=== PATIENT | male | born 1965 | race Caucasian/White ===

== ENCOUNTER 2021-05-18 17:16 | Outpatient (CLI) | payer SELFPAY ==
[2021-05-18 18:10] LABS: Basophils # 0.1 10^3/uL (0.0-0.1); Basophils % 0.5 %; Eosinophils # 0.1 10^3/uL (0.0-0.8); Eosinophils % 0.9 %; Hematocrit 46.2 % (42.0-52.0); Hemoglobin 15.2 g/dL (11.7-16.6); Lymphocytes % 31.8 %; Mean Corpuscular HGB Conc 32.9 g/dL (30.0-36.0); Mean Corpuscular Hemoglobin 29.5 pg (28.0-34.0); Mean Corpuscular Volume 89.5 fL (80-94); Mean Platelet Volume 10.8 fL (7.4-10.4); Monocytes # 0.4 10^3/uL (0.2-0.9); Monocytes % 4.6 %; Neutrophils # 5.76 10^3/uL (1.8-7.7); Nucleated Red Blood Cells % 0 %; Platelet Count 228 10^3/cmm (130-400); Red Blood Count 5.16 10^6/uL (4.1-5.3); Red Cell Distribution Width 13.1 % (12.1-15.1); White Blood Count 9.3 10^3/uL (4.0-10.0)
[2021-05-18 18:41] LABS: Blood Urine 2+ (Negative); Glucose Urine UA Norm (Normal); Ketones Urine Negative (Negative); Protein Urine Neg (Negative); Specific Gravity, Urine 1.025 (1.005-1.030); Urine Appearance Clear (CLEAR); Urine Color Yellow (Yellow); pH Urine 5 (5-7)
[2021-05-18 18:42] LABS: Add Urine Culture? Yes; Add Urine Microscopic? YES; Bacteria Urine TRACE /hpf; Bilirubin Urine Neg (Negative); Leukocyte Esterase Urine 2+ (Negative); Nitrate Urine Positive (Negative); Squamous Epithelial Cell Urine 0-4 /hpf (0-5); Urobilinogen Urine Neg (Negative)
[2021-05-18 18:44] LABS: Prostate Specific Antigen 0.516 ng/mL (0-4); Thyroid Stimulating Hormone 0.76 uIU/mL (0.27-4.20)
[2021-05-18 18:56] LABS: Alanine Aminotransferase 24 U/L (0-41); Albumin Level 4.3 g/dL (3.5-5.2); Alkaline Phosphatase 56 IU/L (40-130); Aspartate Amino Transferase 22 U/L (0-40); Blood Urea Nitrogen 15 mg/dL (6-20); Calcium 9.1 mg/dL (8.5-10.5); Carbon Dioxide 23 mmol/L (22-29); Chloride 104 mmol/L (98-107); Chol HDL Ratio 3.91 mg/dL (1.0-5.00); Cholesterol 180 mg/dL (0-200); Globulin 2.3 g/dL (1.3-4.6); Glomerular Filtration Rate 116.2 mL/min (90-130); Glucose 85 mg/dL (65-115); HDL Cholesterol 46 mg/dL (60-100); LDL Cholesterol Calculated 121 mg/dL (50-129); LDL HDL Ratio 2.63 RATIO (0.00-3.22); Osmolality Calculated 290 mOsm/kg (285-295); Sodium 140 mmol/L (136-145); Total Bilirubin 0.7 mg/dL (0.15-1.2); Total Protein 6.6 g/dL (6.6-8.7); Triglycerides 65 mg/dL (0-150)
[2021-05-18 20:37] LABS: Estmated Average Glucose 97
[2021-05-18 20:53] LABS: Free T4 Free Thyroxine 1.44 ng/dL (0.82-1.77)
== END 2021-05-18 17:17 | disposition home or self-care (01) ==
LOC: LAB 17:17
PROVIDERS: Visit Provider General Practice
DX: I10 Essential (primary) hypertension (principal)
CPT/HCPCS: 80053; 80061; 81001; 83036; 84153; 84439; 84443; 85025; 87077; 87086; 87186

== ENCOUNTER 2021-07-31 07:12 | Outpatient (CLI) | payer OTHER, MEDICAID, SELFPAY ==
--- NOTE | 2021-07-31 07:23 | US_ITS ---
WS: [id number] RIGHT UPPER QUADRANT ULTRASOUND HISTORY: CHRONIC ABDOMINAL PAIN, Hematuria, recurrent UTI COMPARISON: None available. Liver: 18.1 cm in length. Liver is top normal size. Minimally complex cyst within the anterior liver measures 1.4 x 1.2 x 1.7 cm. No bile duct dilatation. Gallbladder: Normally distended gallbladder with no stones or wall thickening. CBD: 0.4 cm Pancreas: Normal size and echogenicity. Right kidney: 12.1 cm in length. Normal size and echogenicity. No hydronephrosis or mass. Aorta and IVC: Unremarkable abdominal aorta and IVC. No ascites. US/US gall bladder 57551 IMPRESSION: 1. Normal gallbladder. 2. Minimally complex hepatic cyst. No bile duct dilatation.
== END 2021-07-31 07:13 | disposition home or self-care (01) ==
LOC: RAD 07:17
PROVIDERS: Visit Provider General Practice
DX: R31.9 Hematuria, unspecified (principal); K76.89 Other specified diseases of liver; R10.9 Unspecified abdominal pain; G89.29 Other chronic pain
CPT/HCPCS: 76705

== ENCOUNTER → 2021-08-21 15:38 | Outpatient (BNVA) | payer MEDICAID, SELFPAY | PROVIDERS: PCP Family Medicine; Visit Provider Nurse Practitioner Family | DX: N39.0 Urinary tract infection, site not specified (principal) | CPT/HCPCS: 81003; 87086 ==

== ENCOUNTER → 2021-08-29 14:48 | Outpatient (BNVA) | payer MEDICAID, SELFPAY | PROVIDERS: PCP Family Medicine; Visit Provider Surgery | DX: Z20.822 Contact with and (suspected) exposure to COVID-19 (principal) | CPT/HCPCS: 87635 ==

== ENCOUNTER 2021-09-04 09:02 | Day surgery (SDC) | payer MEDICAID, SELFPAY ==
[2021-08-30 10:09] VITALS: BMI 28.7
[2021-09-04] VITALS (9 sets, daily range): BP systolic 117–135; BP diastolic 68–85; PULSE 61–84; RESP 17–18; TEMP 36.2–36.5; O2SAT 95–99
--- NOTE | 2021-09-04 10:44 | NM_ITS ---
WS: [id number] SENTINEL NODE TECHNIQUE: Upper Back sentinel node injection CLINICAL INFORMATION: mass/ left arm mass COMPARISON: None. PROCEDURE: The procedure including risks, benefits, and complications were discussed; the patient agr eed to proceed. Patient was prepped and draped in usual sterile fashion. Upper back lesion was locali zed. Subsequently, 1% lidocaine preservative-free was administered at the 12:00, 3:00, 6:00, and 9:00 o'clock positions for local anesthesia. Subsequently, 4 aliquots of filtered technetium 99m sulfur c olloid was injected into the subcutaneous soft tissues. A total dose of 0.96 mCi was administered. Patient tolerated the procedure well with no immediate complications. NM/NM sentinel node inject [id number] IMPRESSION: 1. Uncomplicated upper back sentinel node injection with a total dose of 0.96 mCi. 2. 60 minutes post injection a single right right axillary lymph node was loca lized and marked.
[2021-09-04] MEDS: sodium chloride 0.9% 1,000 ML 30 ML IV (11:30)
--- NOTE | 2021-09-04 11:51 | PC.NURSE ---
patient was injected with 0.96 mCi Tc99m Filtered Sulfur Colloid at [address] Escobar. Patient tolerated well. Imaging completed at 1150 with sentinel lymph node in the right auxilla region marked by Dr. Escobar and Zainab Mosquera.
--- NOTE | 2021-09-04 12:34 | W.PM.OPSUD ---
Surgery/Procedure H&P Update DATE OF PROCEDURE: September 04, 2021 DATE H&P PERFORMED: 08/28/21 H&P UPDATE INFORMATION: I have reviewed H&P completed within last 30 days, I have examined patient prior to procedure and Changes to prior documentation as noted here CHANGES TO PREVIOUS DOCUMENTATION: Patient decided after further talking with him that we will proceed with wide local excision of the upper back melanoma and sentinel lymph node biopsy of the right axilla. As he is concerned to be sore postoperatively on both extremities. 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
[2021-09-04] MEDS: isosulfan blue 10 mg/mL SDV 5mL SUBCUT (13:01)
[2021-09-04] MEDS: lidocaine 2% INJ 20 mL INJECTION (13:31)
--- NOTE | 2021-09-04 13:38 | P.ANESASSM_ITS ---
Pre-Anesthetic Assessment Pre-Anesthetic Assessment: Height/Weight: Height 1.78 m Weight 90.718 kg Temp Pulse Resp BP Pulse Ox 97.2 F L 61 18 135/82 98 09/04/21 10:10 09/04/21 10:10 09/04/21 10:10 09/04/21 10:10 09/04/21 10:10 Preop Diagnosis: Back melanoma and left arm basal cell carcinoma Proposed Procedure: Operation Date: 09/04/21 11:50 Proposed Procedures p [place] [id number] 06623 69149(x2) C43.9 C44.92(Not Applicable) - Edmund Palacios MD s Wide Loc Excision Left Arm Mass(Left) - Edmund Palacios MD s Sentinal Lymph Node Biopsy Injection on Back Mass(Not Applicable) - Edmund Palacios MD Was Beta Radha taken within 24 hours: N/A Was Clonidine taken within 24 hours: N/A Last intake: Intake Last Liquid Date 09/03/21 Last Liquid Time 23:00 Last Solid Date 09/03/21 Last Solid Time 22:00 Social: Social History: No alcohol and No tobacco Exam: Pre-Anes Outpt Exam: alert, oriented x 3, clear to auscultation b ilaterally and regular rate & rhythm Airway: Submandibular: WNL Cervical ROM: WNL MP: 2 Dentition: Full GI: GI: GERD Anesthetic Plan: ASA status: 2 Anesthesia: General Risk of > 500 ml blood loss (7ml/kg in children): No PFSH Anesthesia PFSH: Medical History Gross hematuria Recurrent UTI (urinary tract infection) Family History Mother , AT AGE 81 Diabetes CAD (coronary artery disease) Social History Smoking and tobacco status: current every day smoker cigarettes [ Other cigarette details: MARIJUANA ] Alcohol intake: former Marital status: Current occupational status: unemployed History of recent travel: No Data Anesthesia Cardiac Studies: No Data to Display
--- NOTE | 2021-09-04 14:57 | PM.OP ---
Operative Report Date of procedure: September 04, 2021 Pre-op Diagnosis: Back melanoma Post-op diagnosis: same Post-op Findings: [place] lymph node biopsy right axilla INVIVO 469 and ex vivo measurement 45 Wide local excision of upper midline back mass Procedure Done: 1-Right axillary sentinel lymph node dissection 2-Wide local excision of upper midline back mass 3-Elevation of bilateral back flaps Implants: 15 [place] round Osman drain right axilla Specimens removed/disposition: [place] lymph node biopsy right axilla Wide local excision of upper midline back mass showed sutures marked superior and long sutures marked right lateral Surgeon: Edmund Palacios Stock Saw Operator: Surgical techJossie Clay and Gail Circulating nurse Carolyn Tong Anesthesia: General (IMELDA Suh) Estimated blood loss (mL): 30 IV fluids (mL): 900 Condition: stable Disposition: same day Procedure: In the nuclear medicine suite, technetium 99 was injected at the site of the upper midline scar and it lit up at the right axillary lymph node basin; 1. Uncomplicated upper back sentinel node injection with a total dose of 0.96 mCi. 2. 60 minutes post injection a single right right axillary lymph node was localized and marked. Few hours later, the patient was taken to the operating room after marking the right axilla and right upper back mass by myself in the holding area also there was distinct marking by the radiology department of the right axilla, and general anesthesia was induced,Time-out was done verifying the patient's name/date of /planned procedure and destination after the procedure, all were in agreement. SCDs confirmed to be functioning, preoperative antibiotics administered per protocol, and beta sam protocol was confirmed, appropriate positioning of the patient was done by me and the staff,then a hand-held gamma probe was used to identify the location of the hottest spot which appears to be of the right axilla.Patient was placed in supine position, then was turned to be left lateral position. Lymphazurin blue dye was injected at and around the upper midline scar,this was massaged gently for 5 minutes,.patient was turned again to be in supine position .prep and drape of the right axilla was done under the usual sterile technique, incision was made over the right axilla, the probe was placed in contact with the node/stained blue, lymph node was excised in its entirety with surrounding fat. Jamie counts as follows [place] lymph node #1 in vivo 469,ex vivo 45 The above lymph node with the surrounding fat pad was passed to the circulating nurse for permanent pathology No additional hot spots were detected, or blue lymphatics were identified. No clinically abnormal nodes were palpated. Procedure was terminated at this point. Hemostasis was achieved using medium size clips and Bovie cautery, after thorough irrigation of the right axilla, I elected at this point to leave behind a 15 [place] round Osman drain following that and was delivered via the inferior fold of the wound through a separate stab and secured to the skin using 2-0 nylon,the wound was closed in layers using interrupted 3-0 Vicryl followed by 4-0 Monocryl and Dermabond. Then fluffs and foam tape. Attention now was deviated towards the right upper back scar, where the patient was then repositioned were the patient was placed in left lateral position all pressure points were padded, in addition to left axillary roll. prep and drape of upper back was done under the usual sterile technique. Skin incision was made that encompassed the previous biopsy site with at least 2 cm margin and the previous biopsy scar passed in a generous elliptical/longitudinal direction, the whole skin and subcutaneous layer including the previous biopsy site was marked by short suture superior and long suture right lateral and passed to the circulating nurse for permanent pathology. At this point I elected to raise flaps bilaterally including skin and subcutaneous in all the way to the fascial layer, to allow tension-free closure of the wound. Couple of [id number] sutures were applied for hemostasis as well as Bovie cauterization.Copious and thorough irrigation was done. Copious and thorough irrigation was then done. The wound was then closed using deep subdermal 0 Vicryl , followed by continuous 0 Prolene followed by triple antibiotic ointment and pressure dressing Double counts of sponges, needles and instruments were completed at the end of the procedure Please note the 2 surgical procedures,different surgical instruments and settings were used and every single set the count was completed at the end of the procedure. I was present for the whole entire procedure Patient was then extubated and taken to the recovery room in stable condition
[2021-09-04] MEDS: neomycin-poly-bacitracin oint 28 gm 1 APPLIC TOPICAL (15:00)
--- NOTE | 2021-09-04 16:44 | ANE.PACU2 ---
Inpatient post-anesthesia follow up: Airway intact: Yes Vital signs: Temperature 97.7 F Pulse Rate 66 Respiratory Rate 18 Blood Pressure 117/72 Pulse Oximetry 99 Oxygen Delivery Me thod Room Air Oxygen Flow Rate 8 Fraction of Inspir ed Oxygen Hydration adequate: Yes Nausea and vomiting: No Pain level: 2 Mental status: Baseline
[2021-09-04] MEDS: HYDROcodone-acetaminophen 5-325 mg Tablet 1 TAB PO (17:05)
== END 2021-09-04 17:11 | disposition home or self-care (01) ==
PROVIDERS: PCP Family Medicine; Visit Provider Surgery
PROC: (CPT 11402; principal; 2021-09-04 11:40)
PROC: (CPT 11402; 2021-09-04 11:40)
DX: C43.59 Malignant melanoma of other part of trunk (principal); F17.200 Nicotine dependence, unspecified, uncomplicated
CPT/HCPCS: 11402; 38525; 38792; 88305; 88307; A9541; J1100; J2405; J2704; J3010; J3490; J7030; Q9968

== ENCOUNTER 2021-09-19 09:27 | Outpatient (CLI) | payer MEDICAID, SELFPAY ==
--- NOTE | 2021-09-19 10:00 | NM_ITS ---
WS: [id number] NUCLEAR MEDICINE HIDA SCAN CLINICAL INFORMATION: R10.9 - Unspecified abdominal pain TECHNIQUE: Following intravenous administration of 8.1 mCi of technetium 99m mebrofenin, images of th e abdomen were obtained over the course of 60 minutes. Next, gallbladder ejection fraction was determ ined by obtaining preprandial and one-hour postprandial images of the gallbladder following oral kathleen stion of Ensure. COMPARISON: None. FINDINGS: Normal liver uptake at 5 minutes. Normal common bile duct and small bowel activity. Gallbladder is vi sualized by 10 minutes. No evidence of acute cholecystitis. Gallbladder ejection fraction 75% within normal limits. No evidence of chronic cholecystitis. NM/NM hepatobiliary w phar* [id number] IMPRESSION: 1. No evidence of acute or chronic cholecystitis. 2. Gallbladder ejection fraction 75% within normal limits.
== END 2021-09-19 09:28 | disposition home or self-care (01) ==
PROVIDERS: PCP Family Medicine; Visit Provider Surgery
DX: R10.9 Unspecified abdominal pain (principal)
CPT/HCPCS: 78227; A9537

== ENCOUNTER 2021-09-22 07:42 | Outpatient (CLI) | payer MEDICAID, SELFPAY ==
--- NOTE | 2021-09-22 07:47 | USCV_ITS ---
Giovanni Mcgill Age: 55 Gender: M : 1965 Exam Date: 09/22/2021 07:55 Ordering Phys: Cj Black MD Technologist: Lola Vines Exam Location: [facility] [place] Indication: SYSTOLIC MURMUR BP: 118 / 68 HR: 71 Rhythm: Sinus Technical Quality: Adequate MEASUREMENTS (Male / Female) Normal Values 2D ECHO LV Diastolic Diameter PLAX 4.5 cm 4.2 - 5.9 / 3.9 - 5.3 cm LV Systolic Diameter PLAX 2.3 cm LV Chamber Size 4.6 cm IVS Diastolic Thickness 1.6 cm 0.6 - 1.0 / 0.6 - 0.9 cm IVS Systolic Thickness 1.9 cm LVPW Diastolic Thickness 1.4 cm 0.6 - 1.0 / 0.6 - 0.9 cm LVPW Systolic Thickness 2.1 cm RV Chamber Size 2.8 cm LVOT Diameter 2.0 cm LV Ejection Fraction 2D Teich 80.7 % LV Ejection Fraction MOD 2C 69.2 % LV Ejection Fraction 2C AL 69.6 % LA Diameter 3.4 cm LA Width 4.5 cm LA Height 4.3 cm RA Width 3.1 cm RA Height 3.7 cm Aorta at Sinotubular Diameter 3.6 cm M-MODE Aortic Annulus Diameter 4.3 cm LA Ao Ratio MM 0.9 DOPPLER AV Peak Velocity 314.3 cm/s LVOT Peak Velocity 88.3 cm/s AV Area Cont Eq vti 0.9 cm squared AV Area Cont Eq pk 0.9 cm squared MV Area PHT 3.1 cm squared Mitral E to A Ratio 1.0 MV E' Velocity 42.0 cm/s Mitral E to MV E' Ratio 11.7 Mitral E to LV E' Lateral Ratio 11.2 Mitral E to LV E' Septal Ratio 12.2 TR Peak Velocity 228.3 cm/s TR Peak Gradient 20.8 mmHg TR Mean Velocity 181.3 cm/s TR Mean Gradient 13.7 mmHg TR Velocity Time Integral 59.9 cm TV Peak E Velocity 67.0 cm/s Right Atrial Pressure 3.0 mmHg Pulmonary Artery Systolic Pressu 23.8 mmHg PV Peak Velocity 63.0 cm/s RV Acceleration Time 0.2 s RV Ejection Time 0.4 s RV AcT/ET 0.5 FINDINGS Left Ventricle Normal left ventricular cavity size. Normal left ventricular systolic function. No regional wall motion abnormalities. Left ventricular ejection fraction is estimated at 60 %. Grade I/IV diastolic dysfunction (abnormal relaxation filling pattern), normal to mildly elevated filling pressures. Right Ventricle The right ventricle is normal in size and function. Right Atrium The right atrium is normal in size. Left Atrium The left atrium is normal in size. Mitral Valve Structurally normal mitral valve without significant stenosis or prolapse. There is no mitral regurgitation. Aortic Valve Severe aortic valve calcification. Severe aortic valve stenosis, mean gradient 24.5 mmHg, CHARITY 0.88 cm squared.no aortic valve regurgitation. Tricuspid Valve Structurally normal tricuspid valve without significant stenosis or regurgitation. Pulmonary artery systolic pressure is normal. Pulmonic Valve Structurally normal pulmonic valve without significant stenosis. There is no pulmonic regurgitation. Pericardium Normal pericardium without effusion. Aorta Normal ascending aorta dimension. CONCLUSIONS 1-Normal left ventricular cavity size. Normal left ventricular systolic function. No regional wall motion abnormalities. Left ventricular ejection fraction is estimated at 60 %. Grade I/IV diastolic dysfunction (abnormal relaxation filling pattern), normal to mildly elevated filling pressures. 2-Severe aortic valve calcification. Severe aortic valve stenosis, mean gradient 24.5 mmHg, CHARITY 0.88 cm squared.no aortic valve regurgitation. 3-There is no pericardial effusion. 4-Pulmonary artery systolic pressure is within normal limits. 5-Right atrial pressure is around 5 mm of mercury. 6-There are no prior echocardiogram studies to compare. Nile Reynoso MD (Electronically Signed) Final Date: 23 September 2021 15:11 S
== END 2021-09-22 07:43 | disposition home or self-care (01) ==
PROVIDERS: PCP Family Medicine; Visit Provider Family Medicine
DX: R01.1 Cardiac murmur, unspecified (principal); I70.0 Atherosclerosis of aorta
CPT/HCPCS: 93306

== ENCOUNTER 2021-09-26 06:59 | Outpatient (CLI) | payer MEDICAID, SELFPAY ==
--- NOTE | 2021-09-26 07:00 | CT_ITS ---
WS: [id number] CT ABDOMEN PELVIS TECHNIQUE: Noncontrast CT of the abdomen and contrast-enhanced CT of the abdomen and pelvis with snow nal and sagittal reformatted images. CLINICAL INFORMATION: GROSS HEMATURIA COMPARISON: None. DLP: 2821.[address] scans at [facility] use at least one of these dose optimization techniques: automated e xposure control; mA and/or kV adjustment per patient size (includes targeted exams where dose is matc hed to clinical indication); or iterative reconstruction. FINDINGS: Adrenal glands are normal. Normal renal parenchymal enhancement. No hydronephrosis. A few small right simple intraparenchymal cyst. No obstructing renal parenchymal calculi. A few tiny nonobstructing ca lyceal tip renal parenchymal calculi. Normal ureteral excretion on the delayed imaging. No obstructing ureteral calculi. Duplicated right r enal collecting system. 2 ureters in the right merge into one ureter distally. A few tiny focal filli ng defects in the right upper ureter and similar-appearing lesions in the left ureter upper two third s. No obstructing lesions. Lung bases are well aerated. Right hepatic cyst measuring 13 mm. Normal spleen. Normal pancreas. Norm al portal vein and splenic vein. Normal gallbladder. Normal pancreatic parenchymal enhancement. Adren al glands are normal. Normal caliber abdominal aorta. Prostate calcification. No evidence of high-grade small or large bowel obstruction. Tiny fat-containi ng hernia with a small loop of herniated small bowel. No obstruction. No abdominal or pelvic lymphade nopathy. No inguinal lymphadenopathy. CT/CT abdomen pelvis wo/w [id number] IMPRESSION: 1. Normal bilateral renal parenchymal enhancement. No hydronephrosis. 2. Duplicated right renal collecting system with 2 ureters extending down to t he pelvis merging into one ureter distally. No obstructing renal or ureteral ca lculi. 3. Several tiny endoluminal or urothelial filling defects in the upper pole ri ght ureter and less prominent in the left ureter mainly in the upper two thirds . This is nonspecific and recommend further evaluation with ureteroscopy and sa mpling. TCC not excluded. 4. Small right renal cyst. 5. Right hepatic cyst measuring 13 mm. 6. Fat-containing umbilical hernia with a small herniated neck along small bow el. No obstruction. 7. Prostate calcification.
[2021-09-26] MEDS: iohexol 300 mg/mL 100 mL Btl IV (07:39)
== END 2021-09-26 07:00 | disposition home or self-care (01) ==
LOC: CT 07:00
PROVIDERS: PCP Family Medicine; Visit Provider Urology
DX: R31.0 Gross hematuria (principal); N39.0 Urinary tract infection, site not specified; N42.0 Calculus of prostate; K42.9 Umbilical hernia without obstruction or gangrene; K76.89 Other specified diseases of liver
CPT/HCPCS: 74178; 81003; 87086

== ENCOUNTER → 2021-10-03 14:49 | Outpatient (BNVA) | payer MEDICAID, SELFPAY | PROVIDERS: PCP Family Medicine; Visit Provider Nurse Practitioner Family | DX: Z11.59 Encounter for screening for other viral diseases (principal); Z91.89 Other specified personal risk factors, not elsewhere classified | CPT/HCPCS: 80053; 86705; 86706; 87340; 87522; 87902 ==

== ENCOUNTER → 2021-11-13 10:46 | Outpatient (BNVA) | payer MEDICAID, SELFPAY | PROVIDERS: PCP Family Medicine; Visit Provider Surgery | DX: Z20.822 Contact with and (suspected) exposure to COVID-19 (principal); R10.9 Unspecified abdominal pain | CPT/HCPCS: 87635 ==

== ENCOUNTER 2021-11-16 06:04 | Day surgery (SDC) | payer MEDICAID, SELFPAY ==
[2021-11-16 06:26] VITALS: BP 138/81; PULSE 86; RESP 18; TEMP 36.6; O2SAT 96
--- NOTE | 2021-11-16 06:26 | W.PM.OPSFHP ---
Same Day Surgery H&P Indication for Procedure/HPI DATE OF PROCEDURE: November 16, 2021 CHIEF COMPLAINT/INDICATIONFOR SURGICAL PROCEDURE: Abdominal pain PREOP DIAGNOSIS: Back melanoma with history of abdominal pain PLANNED PROCEDURE: Operation Date: 11/16/21 07:00 Proposed Procedures p EGD 48474 K21.9(Not Applicable) - Edmund Palacios MD s Colonoscopy 25688 R10.9(Not Applicable) - Edmund Palacios MD This is a pleasant 56 years old gentleman with history of back melanoma. He presented initially with abdominal pain associated with bloating and loose stools alternating with constipation. Pain is mostly sharp mostly on the right side of the abdomen gets worse with driving or any other activity or eating. Gets better with some medications. Patient comes today for diagnostic EGD and colonoscopy ROS All systems have been reviewed negative except as per the above or per problem list Medications/Allergies* Home Medications Medication Instructions Recorded Confirmed Type dicyclomine 20 mg tablet 20 mg PO TID 08/14/21 11/16/21 History omeprazole 20 mg capsule,delayed 20 mg PO DAILY 08/14/21 11/16/21 History release Allergies/Adverse Reactions Allergy/AdvReac Type Severity Reaction Status Date / Time No Known Allergies Allergy Verified 11/15/21 08:06 Pertinent History/Comorbid Conditions* Medical History (Updated 10/17/21 @ 14:43 by Kendrick Staley M.D) Gross hematuria Hypertension Incomplete bladder emptying Recurrent UTI (urinary tract infection) Surgical History (Updated 09/24/21 @ 11:06 by Tony Stephens MD) History of carpal tunnel surgery History of knee surgery Family History (Updated 10/17/21 @ 08:49 by Estelita Vazquez RN) Mother, AT AGE 81 Diabetes Mother CAD (coronary artery disease) Mother Depression Mother Father Sister Heart disease Father Brother Sister Hypercholesteremia Mother Hypertension Mother Brother Sister Social History Smoking and tobacco status: never smoked Alcohol intake: never Marital status: Current occupational status: unemployed History of recent travel: No Pertinent Exam Findings alert, oriented x 3, regular rate & rhythm and procedure specific exam findings (Abdominal examination nontender nondistended soft) Recommendations Surgery/Procedure today (Diagnostic EGD and colonoscopy) Other Plans: Plan of care; After thorough history and physical examination and reviewing the chart, plan to perform a diagnostic esophagogastroduodenoscopy and diagnostic colonoscopy with possible biopsy and possible polypectomy. I discussed with the patient in detail the risks,benefits,alternatives and indications.The risk of aspiration, bleeding, soft tissue injury, perforation of the stomach/esophagus/colon and other potential concomitant complications were explained to the patient in details also the potential need for Thoracotomy and or Laproscoy/Laparotomy to repair any related complications including but not limited to colectomy and or Closotomy. The patient understood this well and did agree to proceed. Rationale was carefully and clearly discussed with the patient.Appropriate informed consent have been reviewed and signed Verbal and written Instructions were given to the patient for colonoscopy prep Coding Level of Care Code Acute Transportation Worker for Alex Ashton
[2021-11-16] MEDS: sodium chloride 0.9% 1,000 ML 30 ML IV (06:37)
--- NOTE | 2021-11-16 07:00 | ECG_ITS ---
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
[2021-11-16] MEDS: cetacaine Spray 5 gm Can 1 SPRAY TOPICAL (07:45)
--- NOTE | 2021-11-16 08:09 | P.ANESASSM_ITS ---
Pre-Anesthetic Assessment Height/Weight: Height 1.78 m Weight 92.079 kg Temp Pulse Resp BP Pulse Ox 97.8 F 86 18 138/81 96 11/16/21 06:26 11/16/21 06:26 11/16/21 06:26 11/16/21 06:26 11/16/21 06:26 Preop Diagnosis: Abdominal pain Operation Date: 11/16/21 07:00 Proposed Procedures p EGD 60967 K21.9(Not Applicable) - Edmund Palacios MD s Colonoscopy 45869 R10.9(Not Applicable) - Edmund Palacios MD Familial anesthetic complications: none Last intake: Intake Last Liquid Date 11/15/21 Last Liquid Time 00:00 Last Solid Date 11/14/21 Last Solid Time 00:00 Social No alcohol and No tobacco daily cannibus use Pulmonary Sleep Apnea non-compliant with CPAP mask. CV/HEM Stable Angina and Hypertension severe 0.8 - called braille typist and obtained EKG. Patient tolerated GA 4 month prior, agreed it is reasonable to proceed with caution. patient accepts risk. None reported Hepatic Hepatitis haven't received treatment. GI Gastroesophageal Reflux Disease [facility] [place] Lower Back Pain Neuropsych Anxiety, Depression and Neuropathy Anesthetic Plan ASA status: 3 Medications/Allergies Home Medications Medication Instructions Recorded Confirmed Last Taken Type dicyclomine 20 mg tablet 20 mg PO TID 08/14/21 11/16/21 11/15/21 History omeprazole 20 mg capsule,delayed 20 mg PO DAILY 08/14/21 11/16/21 11/15/21 History release tamsulosin 0.4 mg capsule 0.8 mg PO DAILY #180 cap 09/26/21 11/16/21 11/15/21 Rx Allergies Allergy/AdvReac Type Severity Reaction Status Date / Time No Known Allergies Allergy Verified 11/15/21 08:06 Current Medications Generic Name Dose Route Start Last Admin Trade Name Freq PRN Reason Stop Dose Admin Sodium Chloride 1,000 mls @ 30 mls/hr 11/16/21 06:15 11/16/21 06:37 Sodium Chloride 0.9% IV 11/17/21 06:14 30 mls/hr .Q24H CARRI Administration PFSH Anesthesia Medical History (Updated 10/17/21 @ 14:43 by Kendrick Staley M.D) Gross hematuria Hypertension Incomplete bladder emptying Recurrent UTI (urinary tract infection) Surgical History History of carpal tunnel surgery History of knee surgery Family History Mother , AT AGE 81 Diabetes CAD (coronary artery disease) Depression Hypertension Hypercholesteremia Father Heart disease Depression Brother Heart disease Hypertension Sister Depression Heart disease Hypertension Social History Smoking and tobacco status: never smoked Alcohol intake: never Marital status: Current occupational status: unemployed History of recent travel: No Data Anesthesia Cardiac Studies: Echocardiogram 09/22/21
[2021-11-16 08:41] VITALS: BP 126/89; PULSE 73; RESP 16; TEMP 36.2; O2SAT 98
[2021-11-16 08:59] VITALS: BP 126/89; PULSE 71; RESP 18; O2SAT 98
--- NOTE | 2021-11-16 14:10 | ANE.PACU2 ---
Inpatient post-anesthesia follow up: Airway intact: Yes Vital signs: Temperature 97.2 F Pulse Rate 71 Respiratory Rate 18 Blood Pressure 126/89 Pulse Oximetry 98 Oxygen Delivery Me thod Room Air Oxygen Flow Rate 3 Fraction of Inspir ed Oxygen Hydration adequate: Yes Nausea and vomiting: No Pain level: 1 Mental status: Baseline
== END 2021-11-16 09:14 | disposition home or self-care (01) ==
PROVIDERS: PCP Family Medicine; Visit Provider Surgery
PROC: 0DJ08ZZ Inspection of Upper Intestinal Tract, Via Natural or Artificial Opening Endoscopic (ICD-10-PCS; CPT 43235; principal; 2021-11-16 07:00)
PROC: 0DJD8ZZ Inspection of Lower Intestinal Tract, Via Natural or Artificial Opening Endoscopic (ICD-10-PCS; CPT 45378; 2021-11-16 07:00)
DX: R10.9 Unspecified abdominal pain (principal); K21.9 Gastro-esophageal reflux disease without esophagitis; K57.30 Diverticulosis of large intestine without perforation or abscess without bleeding; G47.30 Sleep apnea, unspecified; Z91.19 Patient's noncompliance with other medical treatment and regimen; I10 Essential (primary) hypertension; Z86.19 Personal history of other infectious and parasitic diseases; F41.9 Anxiety disorder, unspecified; F32.9 Major depressive disorder, single episode, unspecified
CPT/HCPCS: 43235; 45378; 93005; J2704; J3490; J7030

== ENCOUNTER 2021-12-05 12:18 | Outpatient (CLI) | payer MEDICAID, SELFPAY ==
--- NOTE | 2021-12-05 17:57 | ONC CON_ITS ---
Dr. Prescott New Patient Note Patient: Giovanni Mcgill Unit #: [id number]: 1965 Dicatated By: Marcin Prescott M.D.Date of Visit: Dec 05, 2021 Onc MED New Patient/Consult Referring Physician: Dr. ETHAN BOSS M.D. Chief Complaint: Melanoma. 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 On 08/04/2021 he underwent biopsies of upper right arm and upper mid back skin lesions by his primary care provider, Dr. Cj Black. The upper right arm lesion was invasive well-differentiated squamous cell carcinoma which measured 1.1 x 1.1 x 0.4 cm. The lateral resection margins appeared free, but the deep margin was positive. The upper back lesion was a superficial spreading malignant melanoma which measured 0.7 x 0.7 cm. The resection margins appeared free of involvement. The Breslow depth was estimated at 1.1 mm, though it was noted that the measurement was challenging due to extension/involvement of adnexa. It was not ulcerated, and it was thus reported as a pT2a lesion. On 08/21/[address] Roger, and at that time he underwent shave biopsy of a 0.5 x 0.5 cm lesion on the left arm. That pathology was consistent with basal cell carcinoma, superficial and nodular type, extending to the base. On 09/04/2021 he underwent wide excision of the upper back melanoma and right axillary sentinel lymph node biopsy. Pathology on the wide excision showed no residual melanoma. The axillary sentinel lymph node biopsy showed no involvement in 5 lymph nodes. He has since then had ongoing follow-up with Dr. Boss in regard to chronic abdominal pain. His colonoscopy on 11/16/2021 showed a single medium diverticulum in the distal sigmoid colon. There were no other abnormal findings. A previous gallbladder ultrasound from 07/31/2021 showed normal gallbladder and a minimally complex hepatic cyst. His further evaluation included a nuclear medicine HIDA scan on 09/19/2021 which showed normal gallbladder ejection fraction at 75% and no evidence of acute or chronic cholecystitis. CT of the abdomen/pelvis on 09/26/2021 showed duplicated right renal collecting system and several tiny endoluminal or urothelial filling defects in the upper pole of the right ureter. A right hepatic cyst measured 13 mm. There was evidence of a fat-containing umbilical hernia with a small herniated neck along the small bowel. There were no acute findings. At this point he is planned to have additional surgeries, including complete excisions of the squamous cell and basal cell skin cancers and excision of a recurrent lipoma on the left forearm, pending additional cardiac evaluation and clearance. He is seen now in regard to the malignant melanoma. His main complaint is that he has been having significant postprandial pain in the lower abdomen along with abdominal bloating. It does seem to vary somewhat depending on what he eats, and he currently is trying a gluten-free diet. He has been avoiding milk products. His bowel function has tended to vary between constipation and diarrhea. He has not had nausea/vomiting, but he does report having acid reflux symptoms. His weight has been stable. He complains that he does not have the strength and go that he would like to have. His ECOG score is 1. He has sinus congestion/drainage, and he indicates that it has been a long-time major issue for him. He has chronic cough. He is short of breath at times. He sometimes has pain in the substernal area or left chest area. He has multiple complaints with bladder function, and he has been seeing Dr. Stephens. He reports having pain in his right shoulder and side, and he also has chronic low backache. He occasionally has headache. He does not complain of dizziness. Reports having numbness/tingling intermittently. He has anxiety and depression, and he complains that he does not sleep well at night. Past Medical History: His medical history includes anxiety, depression, gastroesophageal reflux disease, hepatitis C, history of recurrent urinary tract infection, and hypertension. Past Surgical History: He underwent biopsies of upper right arm and upper mid back skin lesions on 08/04/2021 and he underwent shave biopsy of left arm skin lesion on . He then underwent wide excision of upper back melanoma with right axillary sentinel lymph node biopsy on 09/04/2021. His other surgical/procedural history includes arthroscopic right knee surgery, carpal tunnel release on the right in 1997, and carpal tunnel release on the left with excision of left forearm nodule in 1996. Medications: 1diphenhydrAMINE HCl 1 Capsule (of 25 mg) Oral daily, Dicyclomine HCl 1 Tablet (of 20 mg) Oral four times a day, Mavyret 1 Tablet (of 100-40 mg) Oral daily, Omeprazole 1 Tablet (of 20 mg) Tablet, enteric coated Oral daily, Ondansetron HCl 1 Tablet (of 4 mg) Oral q 6 hours PRN, Tamsulosin HCl 1 Tablet (of 0.4 mg) Capsule Oral b.i.d. Allergies: No Known Allergies. Social History: Mr. Mcgill is and he is a disabled. 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 He has no history of tobacco use, but he does smoke marijuana daily. He had alcohol use as a young kid, but none since then. He denies use of other illicit drugs. Family History: Father of prostate cancer at age 84. Mother had heart disease and diabetes. She at age 81. A sister had breast cancer, currently alive at age 74. Review Of Symptoms: Constitutional - He complains that he does not have the strength and go that he would like to have. He is able to do some light work. His appetite is variable. He has some food intolerances. His weight fluctuates. He has not had fever. He sometimes feels cold at night, but at other times he wakes up sweating. ECOG score is 1, Eyes - He has had some decline in vision, ENMT - No hearing loss or tinnitus. No sinus congestion/drainage. No mouth sores. At times he has sore throat. No difficulty swallowing, Hematologic/Lymphatic - He has easy bruising, Respiratory - He is short of breath at times. He has chronic cough. No pleuritic pain or hemoptysis, Cardiovascular - He has a heart murmur. He sometimes has pain in the substernal area or in the left side of his chest. No palpitations, Gastrointestinal - He has heartburn/acid reflux. He has postprandial abdominal pain and bloating. His bowels vary between constipation and diarrhea. He has had occasional red blood in the stool, Genitourinary (M) - He has difficulty voiding and sometimes pain with voiding. He has had blood in the urine. He reports having urinary frequency, urgency, and incontinence. He has history of recurrent urinary tract infection. He sees Dr. Stephens, Musculoskeletal - He has been having pain in the right shoulder/right side. He has chronic low back pain, Integumentary - He has a dry, rough skin. He has had multiple skin cancers, Neurologic - He has occasional headache. No dizziness. Has intermittent numbness/tingling, Psychiatric - He has anxiety and depression. He does not sleep well at night. Vital Signs: Performed on Dec 05, 2021 13:48: 5, 4, 30.19 (HIGH), 2.13 sq.m, 70 in, 99 %, 73 /min, 16 /min, 122/76 mm(hg), 99.0 F (HIGH), and 210.4 lbs (HIGH). Physical Examination: Constitutional - He appears to be in reasonably good general health, Eyes - Sclerae nonicteric. Conjunctivae clear, ENMT - No lesions noted in the oral cavity, Neck - No mass or thyromegaly, Hematologic/Lymphatic - No cervical, clavicular, or axillary adenopathy, Respiratory - Lungs sound clear with good air movement bilaterally, Cardiovascular - Heart rhythm is regular. There is a III/ systolic murmur. There is no gallop or rub noted, Abdomen - Soft and non-tender. Liver and spleen are not enlarged. There is no abdominal mass or ascites noted and there is no inguinal adenopathy, Back/Spine - No spine or CVA tenderness noted, Extremities - No edema. Pedal pulses are palpable bilaterally, Integumentary - His skin is generally dry. The upper back incision appears well-healed. There are 2 small, firm subcutaneous nodules in the mid back area. There is a large, soft nodule in the upper left forearm measuring 6 x 4 cm, Neurologic - No focal neurologic deficits noted. Problem List: 1. Superficial spreading malignant melanoma, stage IB (pT2a, pN0, M0). 2. Invasive squamous cell carcinoma of the upper right arm and nodular basal cell carcinoma involving the left arm. 3. Chronic abdominal pain. 4. Hypertension. 5. GERD. 6. Hepatitis C, currently undergoing treatment. 7. Recurrent urinary tract infections in association with symptoms of bladder outlet obstruction. 8. Anxiety and depression. Problems Addressed with this Encounter and Plan: 1. Patient with superficial spreading melanoma, stage IB (T2a, N0, M0). He underwent wide excision of the melanoma and right axillary sentinel lymph node biopsy on 09/04/2021. There was no melanoma identified in the wide excision and there was no involvement in 5 axillary sentinel lymph nodes. In the setting of completely resected stage IB melanoma, there is no indication for adjuvant therapy, and he will be managed expectantly. He will be scheduled for a follow-up visit in 6 months. 2. Invasive squamous cell carcinoma involving the upper right arm and nodular basal cell carcinoma involving the left arm. He is planned for complete excision of both lesions pending cardiac evaluation/clearance. 3. He has suspected recurrent lipoma on the left forearm, and he is also planned to have that excised. Signed By: Marcin Prescott M.D. <<Signature on File>>
== END 2021-12-05 12:19 | disposition home or self-care (01) ==
LOC: ONCMED 12:19
PROVIDERS: PCP Family Medicine; Visit Provider Internal Medicine Medical Oncology
DX: C43.59 Malignant melanoma of other part of trunk (principal); C44.629 Squamous cell carcinoma of skin of left upper limb, including shoulder; F41.9 Anxiety disorder, unspecified; F32.A Depression, unspecified; K21.9 Gastro-esophageal reflux disease without esophagitis; B19.20 Unspecified viral hepatitis C without hepatic coma; I10 Essential (primary) hypertension; Z79.899 Other long term (current) drug therapy
CPT/HCPCS: 99204

== ENCOUNTER → 2021-12-11 10:39 | Outpatient (BNVA) | payer MEDICAID, SELFPAY | PROVIDERS: PCP Family Medicine; Visit Provider Nurse Practitioner Family | DX: I35.0 Nonrheumatic aortic (valve) stenosis (principal); Z09 Encounter for follow-up examination after completed treatment for conditions other than malignant neoplasm | CPT/HCPCS: 99213; 99214 ==

== ENCOUNTER → 2021-12-15 11:18 | Outpatient (BNVA) | payer MEDICAID, SELFPAY | PROVIDERS: PCP Family Medicine; Visit Provider Nurse Practitioner Family | DX: B19.20 Unspecified viral hepatitis C without hepatic coma (principal) | CPT/HCPCS: 87522 ==

== ENCOUNTER 2022-02-14 07:38 | Outpatient (CLI) | payer MEDICAID, SELFPAY ==
--- NOTE | 2022-02-14 07:54 | USCV_ITS ---
Giovanni Mcgill Age: 56 Gender: M : 1965 Exam Date: 02/14/2022 08:02 Ordering Phys: Brenda Herndon Technologist: Amandeep Celis Exam Location: [facility] – [place] Indication: as BP: 140 / 85 HR: 72 Rhythm: Sinus Technical Quality: Good MEASUREMENTS (Male / Female) Normal Values 2D ECHO LV Diastolic Diameter PLAX 4.5 cm 4.2 - 5.9 / 3.9 - 5.3 cm LV Systolic Diameter PLAX 3.0 cm IVS Diastolic Thickness 1.1 cm 0.6 - 1.0 / 0.6 - 0.9 cm IVS Systolic Thickness 1.6 cm LVPW Diastolic Thickness 1.2 cm 0.6 - 1.0 / 0.6 - 0.9 cm LVPW Systolic Thickness 1.4 cm LVOT Diameter 2.0 cm LV Ejection Fraction 2D Teich 62.4 % LV Ejection Fraction MOD 2C 83.2 % LV Ejection Fraction 2C AL 83.3 % LA Diameter 3.6 cm LA Width 3.8 cm Aorta at Sinotubular Diameter 3.2 cm M-MODE Aortic Annulus Diameter 3.9 cm LA Ao Ratio MM 1.0 MV E Point Septal Separation 0.6 cm DOPPLER AV Peak Velocity 420.0 cm/s LVOT Peak Velocity 92.0 cm/s AV Area Cont Eq vti 0.7 cm squared AV Area Cont Eq pk 0.7 cm squared MV Area PHT 5.0 cm squared Mitral E to A Ratio 1.0 MV E' Velocity 52.5 cm/s Mitral E to MV E' Ratio 10.3 Mitral E to LV E' Lateral Ratio 9.1 Mitral E to LV E' Septal Ratio 12.2 TR Peak Velocity 266.3 cm/s TR Peak Gradient 28.4 mmHg TV Peak E Velocity 104.0 cm/s Right Atrial Pressure 3.0 mmHg Pulmonary Artery Systolic Pressu 31.4 mmHg PV Peak Velocity 93.0 cm/s FINDINGS Left Ventricle Normal left ventricular size. LV systolic function is normal with EF of 55-60%. No regional wall motion abnormalities. Right Ventricle The right ventricle is normal in size and function. Right Atrium The right atrium is normal in size. Left Atrium The left atrium is normal in size. Mitral Valve Structurally normal mitral valve without significant stenosis or prolapse. There is no mitral regurgitation. Aortic Valve Aortic valve is thickened and calcified. By continuity equation, aortic valve area is 0.85 cm squared and mean gradient across aortic valve of 33 mmHg. This is consistent with moderate to severe aortic stenosis. Tricuspid Valve Structurally normal tricuspid valve without significant stenosis or regurgitation. Pulmonary artery systolic pressure is normal. Pulmonic Valve Structurally normal pulmonic valve without significant stenosis. There is no pulmonic regurgitation. Pericardium Normal pericardium without effusion. Aorta Ascending aorta is dilated CONCLUSIONS Left systolic function is normal with EF of 55-60% Aortic valve is thickened and calcified. By continuity equation, aortic valve area is 0.85 cm squared and mean gradient across aortic valve of 33 mmHg. This is consistent with moderate to severe aortic stenosis. Ascending aorta is dilated Compared to prior echocardiogram from 09/22/2021, mean gradient across the aortic valve has progressed. Kendrick Staley MD (Electronically Signed) Final Date: 18 Feb 2022 13:27 S
== END 2022-02-14 07:39 | disposition home or self-care (01) ==
LOC: RAD 07:39
PROVIDERS: PCP Family Medicine; Visit Provider Internal Medicine
DX: I35.0 Nonrheumatic aortic (valve) stenosis (principal); I77.819 Aortic ectasia, unspecified site
CPT/HCPCS: 93306

== ENCOUNTER → 2022-02-21 09:58 | Outpatient (BNVA) | payer MEDICAID, SELFPAY | PROVIDERS: PCP Family Medicine; Visit Provider Surgery | DX: C44.601 Unspecified malignant neoplasm of skin of unspecified upper limb, including shoulder (principal); R22.30 Localized swelling, mass and lump, unspecified upper limb; F17.210 Nicotine dependence, cigarettes, uncomplicated | CPT/HCPCS: 99213 ==

== ENCOUNTER → 2022-03-06 15:49 | Outpatient (BNVA) | payer MEDICAID, SELFPAY | PROVIDERS: PCP Family Medicine; Visit Provider Internal Medicine | DX: I35.0 Nonrheumatic aortic (valve) stenosis (principal); I10 Essential (primary) hypertension | CPT/HCPCS: 99214 ==

== ENCOUNTER 2022-03-20 05:40 | Day surgery (SDC) | payer MEDICAID, SELFPAY ==
[2022-03-19 13:21] VITALS: BMI 30.9
[2022-03-20 06:01] VITALS: BP 120/78; PULSE 58; RESP 18; TEMP 36.7; O2SAT 98
[2022-03-20] MEDS: sodium chloride 0.9% 1,000 ML 30 ML IV (06:01)
--- NOTE | 2022-03-20 06:14 | P.HPUD_ITS ---
Surgery/Procedure H&P Update DATE OF PROCEDURE: March 20, 2022 DATE H&P PERFORMED: 02/21/22 H&P UPDATE INFORMATION: I have reviewed H&P completed within last 30 days, I have examined patient prior to procedure and Changes to prior documentation as noted here (Patient's echocardiogram showed worsening aortic stenosis which is borderline severe now. Patient is also symptomatic. We will recommend evaluation and treatment for valve prior to general anesthesia administration f or surgery. If surgery can be performed and local anesthesia, it can be performed) PREOP DIAGNOSIS: Bilateral upper extremity masses PRIMARY INDICATION FOR PROCEDURE: The same, will hold off on the left forearm mass likely benign as patient likely will go under local MAC that typically mass would require general anesthesia. Patient agrees on the plan of care. PLANNED PROCEDURE: Operation Date: 03/20/22 07:00 Proposed Procedures p excision of bilateral upper extremity masses 90206 3x/C44.601/R2230(Bilateral) - Edmund Palacios MD
--- NOTE | 2022-03-20 06:43 | ANES.PREANE2 ---
Pre-Anesthetic Assessment Height/Weight: Height 1.78 m Weight 97.976 kg Temp Pulse Resp BP Pulse Ox 98.0 F 58 L 18 120/78 98 03/20/22 06:01 03/20/22 06:01 03/20/22 06:01 03/20/22 06:01 03/20/22 06:01 Preop Diagnosis: Bilateral upper extremity masses Operation Date: 03/20/22 07:00 Proposed Procedures p excision of bilateral upper extremity masses 20231 3x/C44.601/R2230(Bilateral) - Edmund Palacios MD Familial anesthetic complications: PONV w/ previous endoscopy Was Beta Radha taken within 24 hours: N/A Was Clonidine taken within 24 hours: N/A Last intake: Intake Last Liquid Date 03/20/22 Last Liquid Time 05:00 Last Solid Date 03/19/22 Last Solid Time 21:00 Social No alcohol and No tobacco Smokes marijuana Exam alert, oriented x 3, clear to auscultation bilaterally and regular rate & rhythm Airway Mallampati: Class III Dentition: full Pulmonary Sleep Apnea CV/HEM Hypertension Severe Aortic Stenosis None reported Hepatic Hepatitis (Hep C) GI Gastroesophageal Reflux Disease Metabolic None reported Musc/skel None reported Neuropsych None reported Anesthetic Plan ASA status: 4 Anesthesia: MAC Risk of > 500 ml blood loss (7ml/kg in children): No Medications/Allergies Home Medications Medication Instructions Recorded Confirmed Last Taken Type omeprazole 20 mg capsule,delayed 20 mg PO DAILY 08/14/21 03/19/22 03/19/22 History release tamsulosin 0.4 mg capsule 0.8 mg PO DAILY #180 cap 09/26/21 03/19/22 03/19/22 Rx ondansetron HCl 4 mg tablet 4 mg PO Q6H PRN #30 tab 11/16/21 03/20/22 Unknown Rx (Zofran) psyllium husk (aspartame) 3.4 gram 3.4 g PO DAILY #30 ea 11/16/21 03/19/22 03/19/22 Rx oral powder packet (Metamucil Fiber Singles) dicyclomine 20 mg tablet 20 mg PO QID tab 12/06/21 03/20/22 03/20/22 05:00 History Allergies Allergy/AdvReac Type Severity Reaction Status Date / Time No Known Allergies Allergy Verified 03/20/22 06:10 Current Medications Generic Name Dose Route Start Last Admin Trade Name Ander PRN Reason Stop Dose Admin Sodium Chloride 1,000 mls @ 30 mls/hr 03/20/22 06:00 03/20/22 06:01 Sodium Chloride 0.9% IV 03/21/22 05:59 30 mls/hr .Q24H CARRI Administration PFSH Anesthesia Medical History Anxiety disorder Depression Esophageal reflux Gross hematuria Hepatitis C Hypertension Incomplete bladder emptying Recurrent UTI (urinary tract infection) Surgical History History of carpal tunnel surgery History of knee surgery Family History Mother , AT AGE 81 Diabetes CAD (coronary artery disease) Depression Hypertension Hypercholesteremia Father Heart disease Depression Brother Heart disease Hypertension Sister Depression Heart disease Hypertension Social History Smoking and tobacco status: never smoked Alcohol intake: never Marital status: Current occupational status: unemployed History of recent travel: No Data Anesthesia Cardiac Studies: Echocardiogram 02/14/22
[2022-03-20] MEDS: acetaminophen 1,000 MG/100 ML PIGGYBACK 400 MG IV (06:45)
[2022-03-20] MEDS: lidocaine 2% INJ 20 mL INJECTION ×2 (07:32→07:56)
[2022-03-20] MEDS: neomycin-poly-bacitracin oint 28 gm 1 APPLIC TOPICAL (07:58)
--- NOTE | 2022-03-20 08:05 | PM.OP ---
Operative Report Date of procedure: March 20, 2022 Pre-op diagnosis: Preop Diagnosis Bilateral upper extremity masses Post-op diagnosis: History of right squamous cell carcinoma of the right arm left arm basal cell carcinoma Post-op findings: Right arm mass 4.3 x 1.5 cm Left arm mass 1 x 1 cm Procedure done: Excision of bilateral arm masses Elevation of bilateral arm skin flap including skin and subcutaneous tissue Specimens removed/disposition: Right arm mass short sutures superior and long sutures lateral Left arm mass short suture superior and left long sutures lateral Surgeon: Edmund Palacios MD Civil Defense Director: pressure testing technician Cathi Circulating nurse Sandra Anesthesia: MAC (information scientist Adry) and Local (35 mL lidocaine 2%) Estimated blood loss (mL): 10 Procedure: After identifying the patient holding area, bilateral arms were marked before the procedure by myself, patient was then taken to the operative suite, was placed in left lateral position, IV propofol was infused by the anesthesia, prophylactic IV antibiotics were given per protocol, right arm arm was prep and drape was done under the usual sterile technique. Time-out was done verifying the patient's name/date of /planned procedure and destination after the procedure, all were in agreement. After palpation of the right arm mass and, lidocaine 2% was injected generously I did an elliptical incision on top of the previous scar with appropriate safety margin. dissection was carried after the skin incision all the way to the subcutaneous tissues, superior and inferior flaps were raised to facilitate closure without tension. The mass was then all excised, short sutures marked superior and long sutures marked lateral, the specimen was then passed to the circulating nurse for permanent pathology. Thorough irrigation of the cavity was done and hemostasis, followed by deep dermal closure by 2-0 Vicryl, then 2 oh continuous nylon for skin closure followed by triple antibiotic ointment Telfa and medium sized Tegaderm. Patient was then repositioned after the drapes were taken down and new fresh gowns were placed and patient was placed on right lateral position with the left arm undergone prep and drape under the usual sterile technique. Infiltration of lidocaine 2% followed by an ellipse skin incision including the lesion with appropriate safety margin. Excision of the mass after orientation was short suture superior and long lateral long sutures. Elevate of inferior and superior flaps to facilitate tension-free closure. Followed by thorough irrigation hemostasis and 2-0 Vicryl followed by 2-0 nylon, triple antibiotic ointment Telfa and medium sized Tegaderm. The left arm mass was then passed to the circulating nurse Right arm mass 4.3 x 1.5 cm Left arm mass 1 x 1 cm Patient tolerated the procedure well, count of instruments, needles and sponges were completed at the end of the procedure. And then patient was taken to the recovery area in stable condition. I Was present for the whole entire procedure
[2022-03-20 08:11] VITALS: BP 117/86; PULSE 59; RESP 21; TEMP 36.4; O2SAT 97
[2022-03-20 08:16] VITALS: BP 116/83; PULSE 55; RESP 18; O2SAT 93
[2022-03-20 08:20] VITALS: BP 122/92; PULSE 57; RESP 18; TEMP 36.7; O2SAT 96
[2022-03-20 08:35] VITALS: BP 125/89; PULSE 58; RESP 18; TEMP 36.7; O2SAT 96
[2022-03-20] MEDS: HYDROcodone-acetaminophen 5-325 mg Tablet 1 TAB PO (08:51)
--- NOTE | 2022-03-20 17:05 | ANE.PACU2 ---
Inpatient post-anesthesia follow up: Airway intact: Yes Vital signs: Temperature 98.1 F Pulse Rate 58 Respiratory Rate 18 Blood Pressure 125/89 Pulse Oximetry 96 Oxygen Delivery Me thod Room Air Oxygen Flow Rate Fraction of Inspir ed Oxygen Hydration adequate: Yes Nausea and vomiting: No Pain level: 1 Mental status: Baseline
== END 2022-03-20 09:05 | disposition home or self-care (01) ==
PROVIDERS: PCP Family Medicine; Visit Provider Surgery
PROC: (CPT 11401; principal; 2022-03-20 07:00)
DX: C44.619 Basal cell carcinoma of skin of left upper limb, including shoulder (principal); D23.61 Other benign neoplasm of skin of right upper limb, including shoulder; G47.30 Sleep apnea, unspecified; I10 Essential (primary) hypertension; Z86.19 Personal history of other infectious and parasitic diseases; K21.9 Gastro-esophageal reflux disease without esophagitis; F41.9 Anxiety disorder, unspecified
CPT/HCPCS: 11401; 11606; 12032; 88304; J2250; J2370; J2704; J3010; J7030

== ENCOUNTER → 2022-03-23 08:54 | Outpatient (BNVA) | payer MEDICAID, SELFPAY | PROVIDERS: PCP Family Medicine; Visit Provider Internal Medicine | DX: I10 Essential (primary) hypertension (principal); B19.20 Unspecified viral hepatitis C without hepatic coma | CPT/HCPCS: 80048; 85025; 87522 ==

== ENCOUNTER 2022-03-27 09:05 | Outpatient (CLI) | payer MEDICAID, SELFPAY ==
--- NOTE | 2022-03-27 09:21 | XR_ITS ---
WS: [id number] ABDOMEN: SUPINE FILM HISTORY: RECURRENT UTI COMPARISON: CT 09/26/2021 Normal bowel gas pattern. No bony destruction. Central prostate gland calcifications. Right kidney: No renal or ureteral stone identified. Left kidney: No renal or ureteral stone identified. XR/XR KUB [id number] IMPRESSION: No renal or ureteral calcifications identified.
== END 2022-03-27 09:06 | disposition home or self-care (01) ==
LOC: RAD 09:08
PROVIDERS: PCP Family Medicine; Visit Provider Urology
DX: N39.0 Urinary tract infection, site not specified (principal)
CPT/HCPCS: 74018

== ENCOUNTER → 2022-03-27 09:45 | Outpatient (BNVA) | payer MEDICAID, SELFPAY | PROVIDERS: PCP Family Medicine; Visit Provider Urology | DX: N39.0 Urinary tract infection, site not specified (principal); N40.1 Benign prostatic hyperplasia with lower urinary tract symptoms; R31.0 Gross hematuria; R33.9 Retention of urine, unspecified; N20.9 Urinary calculus, unspecified; R93.41 Abnormal radiologic findings on diagnostic imaging of renal pelvis, ureter, or bladder | CPT/HCPCS: 51741; 51798; 81003; 99214 ==

== ENCOUNTER → 2022-04-04 11:48 | Outpatient (BNVA) | payer MEDICAID, SELFPAY | PROVIDERS: PCP Family Medicine; Visit Provider Surgery | DX: Z09 Encounter for follow-up examination after completed treatment for conditions other than malignant neoplasm (principal) | CPT/HCPCS: 99024 ==

== ENCOUNTER 2022-04-16 08:01 | Outpatient (CLI) | payer MEDICAID, SELFPAY ==
[2022-04-16 10:45] LABS: INR 0.93 (0.83-1.21); Prothrombin Time (Patient) 12.7 Seconds (12.0-15.1)
[2022-04-16 10:54] LABS: Anion Gap 13.3 (5-19); Blood Urea Nitrogen 16 mg/dL (6-20); Calcium 9.4 mg/dL (8.5-10.5); Carbon Dioxide 27 mmol/L (22-29); Chloride 105 mmol/L (98-107); Glomerular Filtration Rate 99.3 mL/min (90-130); Glucose 103 mg/dL (65-115); Osmolality Calculated 293 mOsm/kg (285-295); Potassium 4.3 mmol/L (3.5-5.1); Sodium 141 mmol/L (136-145)
== END 2022-04-16 08:02 | disposition home or self-care (01) ==
PROVIDERS: PCP Family Medicine; Visit Provider Internal Medicine
DX: I10 Essential (primary) hypertension (principal); R58 Hemorrhage, not elsewhere classified; I35.0 Nonrheumatic aortic (valve) stenosis
CPT/HCPCS: 36415; 80048; 85610

== ENCOUNTER 2022-04-18 07:12 | Outpatient (CLI) | payer MEDICAID, SELFPAY ==
[2022-04-18] VITALS (17 sets, daily range): BP systolic 98–149; BP diastolic 66–99; PULSE 50–65; RESP 8–18; TEMP 36.6; O2SAT 96–99; BMI 31.8
--- NOTE | 2022-04-18 07:30 | XACV_ITS ---
Ht: 178 cm Wt: 101 kg BSA: 2.26 m2 Gender: Male : 1965 Any Known Allergies: No known allergies Exam Priority: Routine Indication(s): - Severe aortic valve stenosis by ECHO Procedure(s): Procedure Description: Diagnostic procedure Procedure Description: Right Heart Catheterization Procedure Description: O2 saturation Procedure Description: Coronary Angiography Diagnostic Cath Status: Elective Diagnostic Findings * No significant disease noted in the Left Main, Left Anterior Descending, Right, or Circumflex coronary arteries. * Right heart cath findings: RA pressure: 14/16/13 mmHg RV pressure: 35/7/15 mmHg PA pressure: 33/18/24 mmHg PCW: 19/19/16 mmHg TP Ao sat 95% PA sat 75% RA sat 74% Cardiac output: 6.6 Cardiac index: 3 . * Valve could not be crossed. * INDICATION: Severe aortic stenosis. * Coronary angiography shows right dominance. Conclusions 1. No significant disease noted in the Left Main, Left Anterior Descending, Right, or Circumflex coronary arteries. 2. Mildly elevated right and left sided cardiac pressures. 3. Aortic valve could not be crossed. As echocardiogram shows severe aortic stenosis and patient is symptomatic, will refer for valve replacement. Recommendations * Referral for aortic valve replacement. * Continue medical therapy. * Outpatient follow-up in 4 weeks. Diagnostic RX Recommendation: other cardiac therapy w/o CABG/PCI Pressures Phase:Rest AO : / ( 6 ) @ 9:42:00 AM / ( 5 ) @ 9:56:00 AM / ( 0 ) @ 10:24:00 AM 88 / 75 ( 83 ) @ 10:31:00 AM 87 / 75 ( 82 ) @ 10:37:00 AM RV : 35 / 7 / 15 @ 10:21:00 AM PA : 33 / 18 ( 24 ) @ 10:19:00 AM RA : a wave = 14 v wave = 16 mean = 13 @ 10:22:00 AM PCW : a wave = 19 v wave = 19 mean = 16 @ 10:20:00 AM O2 Content Phase:Rest PA : O2 Content O2: 74.8 @ 10:24:00 AM Saturations Phase:Rest AO : 95 @ 9:42:00 AM RA : 74 @ 9:56:00 AM PA : 75 @ 10:24:00 AM Cardiac Output Phase:Rest Shanna : 6 @ 9:58:36 AM Shanna Cardiac Index: 3 @ 9:58:36 AM Flow Phase:Rest Qp : 6 @ 9:58:36 AM Qs : 6 @ 9:58:36 AM Clinical Evaluation EBL: 5mL-10mL Procedural Details Procedure Consent Obtained. Admit Source: Out Patient. Current Diagnosis : Chest Pain. Pre-Procedure Time Out. Identified patient by full name and date of as verbalized by the patient/guarantor. Does the consent match the physician's order: Yes. Accurate & Complete Informed Consent: Yes. Inpatient/Outpatient History & Physical on Chart: Yes. If H&P is completed, is and addenduem needed: No; If yes, is the addendum complete: N/A. Visualize and Verify Site with Patient/Guarantor: N/A. Relevant Radiology Images available: N/A. The risks, benefits, and alternatives of sedation and/or procedure were discussed by physician. The patient agrees to continue. Procedure started. [facility] Clinical Fraility Score: 3: Managing Well. Shower Maid Indications: Other; Aortic Stenosis by Echo. Chest Pain Symptom Assessment: Atypical Angina. Cardiovascular Instability: No, Stable. Correct patient, site and procedure confirmed by cath team. Current diagnosis: Chest Pain, Severe Aortic Stenosis by Echo. PERRLA. 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 Lungs clear x 5 lobes. IV Site on Arrival: 20 gauge in the right anticubital. IV Site on Arrival: 20 gauge in the left anticubital. IV Fluids: 0.9% NaCl at KVO. 0 mL infused prior to geophysical laboratory chief. Pre Procedural Pulses: bilateral dorsalis pedis was Doppled. Pre Procedural Pulses: bilateral posterior tibial was 2+. Pre Procedural Pulses: bilateral radial was 2+. Oxygen started at 0liters/min via nasal canula until RHC complete. right groin was prepped with chloroprep then draped in the usual sterile fashion. right brachial was prepped with chloroprep then draped in the usual sterile fashion. right radial was prepped with chloroprep then draped in the usual sterile fashion. Physician notified. Physician arrived. Baseline sample Acquired. HR: 55 BPM. Family updated prior to the start of the procedure. Equipment: 5F - Femoral. Heparinized Saline (2 units/mL), 1000 mL bag. Cardiac Cath Pack. [employer] Manifold Kit Model BT 2000. Equipment: 5F - Radial. Equipment: 6F - Femoral. Equipment: 6F - Radial. Physician scrubbed in. Immediate Pre-Procedure Time Out. Correct Patient: Yes; Correct Procedure: Yes; Correct Site: Yes; Correct Patient Position: Yes; Correct Supplies: Yes; Dried Flammable Prep: Yes; Blood Products Available: N/A;. Lidocaine 1% infiltrated to the right brachial. Wire inserted through the venous access in the right brachial. [place] MON catheter inserted. [place] wire inserted and advanced SWAN to position. [place] wire removed. Oximetry samples were obtained. Normal venous range: 60-85%. Normal arterial range: 95-100%. Pressure measurements obtained. Oximetry samples sent with RT for Analysis. [place] out. Lidocaine 1% infiltrated to the right radial. Arterial access obtained. A 5 turkmen TIG catheter in over wire. Multiple views taken of left coronary artery. Catheter redirected to the RCA. Unable to seat the catheter in the RCA. Catheter removed over the standard wire. A CRD 5F JR4 Diagnostic Catheter was advanced over the wire and used for Right coronary angiography. Multiple views taken of right coronary artery. Attempting to cross the valve with the JR4 catheter over the exchange wire. [place] wire out. Exchange stiff angled glidewire inserted. Glidewire out, cleaned, reinserted. JR 4 out over glidewire. A 5 turkmen AR MOD catheter in over wire. AR mod out over the glidewire. A 5 turkmen AL1 catheter in over wire. Glidewire and AL 1 removed. Physician review of films. Physician scrubbed out. A Manual Compression was successful obtaining hemostatsis at the Right Brachial Vein insertion site. A TR Band was successful obtaining hemostatsis at the Right Radial artery insertion site. TR band placed. Hemostasis obtained. Sheath(s) removed and manual pressure held until hemostasis was achieved using TR BAND for radial access and coban and 4x4's for brachial access. Sterile 4x4 and Op-site applied to the puncture site. No oozing or hematoma noted. Post sheath removal instructions were given and the patient verbalized understanding. Post Procedure: Pulses reassessed and unchanged. PERRLA. 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 No VTE prophylaxis required. Medication wase: Lidocaine 7 ml, Nitro 49.9 mg, Heparin 1000 units. Total IV fluids: 89.2 mL. Fluoro: 18:03. Contrast type used: Visipaque 320 mgI/mL, 100 mL bottle. [id number]. Post-op diagnosis: Severe Aortic Stenosis. Complications: None. Estimated blood loss: 5mL-10mL. Responsiveness - Normal response to verbal stimuli; alert and oriented, PERRLA. Airway - Unaffected, no intervention required; spontaneous ventilation. Circulation: W/N/L, pulses unchanged. Circulation: W/N/L, pulses unchanged. Nausea/Vomiting: No. Procedure completed. Vital chart was stopped. Patient transferred by wheelchair to 1st floor. Access Site Site: Right Brachial Vein Sheath Size: 6 Fr Hemostasis Method: Manual Compression Hemostasis Success: Successful Site: Right Radial artery Sheath Size: 6 Fr Hemostasis Method: TR Band Hemostasis Success: Successful Procedure Medications Start: 8:56 AM Stop: 8:56 AM Medication: Versed Amount: 1 mg Route: I.V. Start: 8:56 AM Stop: 8:56 AM Medication: Fentanyl Amount: 50 mcg Route: I.V. Start: 9:00 AM Stop: 9:00 AM Medication: Versed Amount: 1 mg Route: I.V. Start: 9:10 AM Stop: 9:10 AM Medication: Versed 1 mg and Fentanyl 25 mcg Amount: 1 Route: I.V. Start: 9:25 AM Stop: 9:25 AM Medication: Versed 1 mg and Fentanyl 25 mcg Amount: 1 Route: I.V. Start: 9:29 AM Stop: 9:29 AM Medication: Nitrogylcerin Amount: 100 mcg Route: I.A. Start: 9:30 AM Stop: 9:30 AM Medication: Heparin Amount: 5000 units Route: I.V. I, the attending physician, have reviewed and verified all procedure medications. Yes, all medications given per verbal order History/Risk Factors Hypertension: No Dyslipidemia: No Peripheral Arterial Disease (PAD): No Myocardial Infarction (DE): No Obesity: No Renal Disease: No Prior Interventions PCI: No CABG: No Valve Surgery: No Report Signatures Finalized by Kendrick Staley MD on 04/29/2022 03:05 PM
[2022-04-18 07:57] LABS: Basophils % 0.6 %; Eosinophils # 0.1 10^3/uL (0.0-0.8); Eosinophils % 1.7 %; Hematocrit 45.4 % (42.0-52.0); Lymphocytes # 1.7 10^3/uL (0.8-4.8); Lymphocytes % 24.5 %; Mean Corpuscular Hemoglobin 29.6 pg (28.0-34.0); Mean Corpuscular Volume 89.7 fl (80-94); Mean Platelet Volume 10.4 fL (7.4-10.4); Monocytes # 0.4 10^3/uL (0.2-0.9); Monocytes % 5.6 %; Neutrophils # 4.66 10^3/uL (1.8-7.7); Neutrophils % 67.3 %; Nucleated Red Blood Cells % 0 %; Platelet Count 138 10^3/cmm (130-400); Red Blood Count 5.06 10^6/uL (4.1-5.3); Red Cell Distribution Width 12.7 % (12.1-15.1); White Blood Count 6.9 10^3/uL (4.0-10.0)
[2022-04-18] MEDS: diphenhydrAMINE 50 mg Capsule PO (08:17)
--- NOTE | 2022-04-18 08:27 | W.PM.OPSFHP ---
Same Day Surgery H&P Indication for Procedure/HPI DATE OF PROCEDURE: April 18, 2022 CHIEF COMPLAINT/INDICATIONFOR SURGICAL PROCEDURE: Severe aortic stenosis PREOP DIAGNOSIS: Severe aortic stenosis PLANNED PROCEDURE: Operation Date: 04/18/22 08:30 Proposed Procedures p Cardiac Catheterization(Bilateral) - Kendrick Staley M.D 56-year-old man with severe aortic stenosis has been having chest discomfort and shortness of breath. Plan for right and left heart cath today. He has been referred for on valve replacement work-up. Medications/Allergies* Home Medications Medication Instructions Recorded Confirmed Type omeprazole 20 mg capsule,delayed 20 mg PO DAILY 08/14/21 04/18/22 History release dicyclomine 20 mg tablet 20 mg PO QID tab 12/06/21 04/18/22 History Allergies/Adverse Reactions Allergy/AdvReac Type Severity Reaction Status Date / Time No Known Allergies Allergy Verified 04/06/22 12:06 Current Medications: Generic Name Dose Route Start Last Admin Trade Name Freq PRN Reason Stop Dose Admin Sodium Chloride 1,000 mls @ 50 mls/hr 04/18/22 07:30 04/18/22 08:17 Sodium Chloride 0.9% IV 04/19/22 03:29 Not Given .Q20H ONE Pertinent History/Comorbid Conditions* Medical History (Updated 04/06/22 @ 12:06 by Edmund Palacios MD) Anxiety disorder BPH loc w urin obs/LUTS Depression Esophageal reflux Gross hematuria Hepatitis C Hypertension Incomplete bladder emptying Recurrent UTI (urinary tract infection) Urolithiasis Small bilateral lower pole nonobstructing stones on CT scan done for hematuria Surgical History (Updated 09/24/21 @ 11:06 by oTny Stephens MD) History of carpal tunnel surgery History of knee surgery Family History (Updated 10/17/21 @ 08:49 by Estelita Vazquez RN) Mother, AT AGE 81 Diabetes Mother CAD (coronary artery disease) Mother Depression Mother Father Sister Heart disease Father Brother Sister Hypercholesteremia Mother Hypertension Mother Brother Sister Social History Smoking and tobacco status: never smoked Alcohol intake: never Marital status: Current occupational status: unemployed History of recent travel: No Pertinent Exam Findings alert, oriented x 3, clear to auscultation bilaterally and regular rate & rhythm Conscious Sedation Assessment PATIENT ASSESSED PRIOR TO SEDATION, WITH NO CHANGE NOTED: Yes AIRWAY EVAL/ANESTHESIA PLAN: normal airway, ASA III, Local Anesthesia, Risks, benefits & alternatives of sedation and/or procedure discussed and Patient agrees to continue as planned ADDITIONAL INFORMATION: Moderate sedation Recommendations Surgery/Procedure today (Left heart cath + right heart cath + possible percutaneous coronary intervention) Coding Level of Care Code Acute Head Of Ethics And Compliance for Alex Ashton
[2022-04-18 09:34] LABS: ABG PCO2 51.1 mmHg (35-45); ABG PH Result 7.37 (7.35-7.45); Blood Gas Operator Identificat CAK; Blood Gas Sample Type Not specified; HCO3 ABG 29.5 mmol/L (22-26); PO2 ABG 39.6 mmHg (80.0-100.0)
[2022-04-18 09:36] LABS: ABG PCO2 52.7 mmHg (35-45); ABG PH Result 7.36 (7.35-7.45); Arterial Blood Gas Hematocrit 44.9 % (42-52); Base Excess ABG 2.9 mmol/L (-2.0-2.0); Blood Gas Operator Identificat CAK; Blood Gas Sample Type Not specified; HCO3 ABG 29.6 mmol/L (22-26); PO2 ABG 39.3 mmHg (80.0-100.0)
[2022-04-18 09:37] LABS: ABG PCO2 50.6 mmHg (35-45); ABG PH Result 7.36 (7.35-7.45); Arterial Blood Gas Hematocrit 44.6 % (42-52); Base Excess ABG 2.2 mmol/L (-2.0-2.0); Blood Gas Operator Identificat CAK; Blood Gas Sample Type Not specified; HCO3 ABG 28.7 mmol/L (22-26); PO2 ABG 75.8 mmHg (80.0-100.0)
--- NOTE | 2022-04-18 15:18 | PC.NURSE ---
dc'd pts piv. cath site dressed 2x2 and tagederm. cdi. no s/s of bleeding or hematoma. discharge isntructions given. no medication changes, follow up appointments made. pt verbalized understanding and has no further questions at this time. pt left via [place] to private vehicle.
== END 2022-04-18 15:18 | disposition home or self-care (01) ==
LOC: CCL 07:15 → CSU 09:45
PROVIDERS: PCP Family Medicine; Visit Provider Internal Medicine
DX: I35.0 Nonrheumatic aortic (valve) stenosis (principal); F41.9 Anxiety disorder, unspecified; N40.1 Benign prostatic hyperplasia with lower urinary tract symptoms; N13.8 Other obstructive and reflux uropathy; F32.9 Major depressive disorder, single episode, unspecified; I10 Essential (primary) hypertension; Z86.19 Personal history of other infectious and parasitic diseases
CPT/HCPCS: 82803; 85025; 93460; 99152; 99153; C1751; C1769; C1887; C1894; J1644; J2250; J3010; J3490; J7030; Q0163; Q9967

== ENCOUNTER → 2022-04-24 12:55 | Outpatient (BNVA) | payer MEDICAID, SELFPAY | PROVIDERS: PCP Family Medicine; Visit Provider Nurse Practitioner Family | DX: I35.0 Nonrheumatic aortic (valve) stenosis (principal) | CPT/HCPCS: 80048; 99213; 99214 ==

== ENCOUNTER → 2022-05-08 14:42 | Outpatient (BNVA) | payer MEDICAID, SELFPAY | PROVIDERS: PCP Family Medicine; Visit Provider Internal Medicine | DX: I35.0 Nonrheumatic aortic (valve) stenosis (principal); I10 Essential (primary) hypertension | CPT/HCPCS: 99214 ==

== ENCOUNTER → 2022-05-14 12:32 | Outpatient (CLI) | payer MEDICAID, SELFPAY ==
[2022-05-14] MEDS: iohexol 350 mg/mL 100 mL Btl IV (12:53)
--- NOTE | 2022-05-14 13:00 | CTR_ITS ---
PROCEDURE INFORMATION: Exam: CT Abdomen And Pelvis Without And With Contrast Exam date and time: 05/14/2022 12:48 PM Age: 56 years old Clinical indication: Abdominal pain; Other: RT flank into abd pain-chronic; Additional info: Ureteral lesions, CT abd/pelvis with and without contrast on 05/14/22 @ 115 TECHNIQUE: Imaging protocol: Computed tomography of the abdomen and pelvis without and with contrast. 3D rendering (Not supervised by radiologist): MIP and/or 3D reconstructed images were created by the technologist. Radiation optimization: All CT scans at this facility use at least one of these dose optimization techniques: automated exposure control; mA and/or kV adjustment per patient size (includes targeted exams where dose is matched to clinical indication); or iterative reconstruction. Contrast material: OMNI 350; Contrast volume: 95 ml; Contrast route: INTRAVENOUS (IV); COMPARISON: CT abdomen pelvis wo/w [id number] 09/26/2021 7:34 AM RADIATION DOSE METRICS: Total DLP (mGy-cm): 3513.16 FINDINGS: Liver: Left hepatic lobe cyst. Gallbladder and bile ducts: Normal. No calcified stones. No ductal dilation. Pancreas: Normal. No ductal dilation. Spleen: Normal. No splenomegaly. Adrenal glands: Normal. No mass. Kidneys and ureters: Right kidney lower pole nonobstructing calyceal stone. 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 Several right kidney cysts, negative for follow-up advised. Stomach and bowel: Prominent fluid in the small bowel without dilation suggestive of an enteritis. Appendix: No evidence of appendicitis. Intraperitoneal space: Unremarkable. No free air. No significant fluid collection. Vasculature: Unremarkable. No abdominal aortic aneurysm. Lymph nodes: Unremarkable. No enlarged lymph nodes. Urinary bladder: Unremarkable as visualized. Reproductive: Unremarkable as visualized. Bones/joints: Unremarkable. No acute fracture. Soft tissues: Unremarkable. CT/CT abdomen pelvis wo/w [id number] IMPRESSION: 1. Prominent fluid in the small bowel without dilation suggestive of an enteritis. 2. Left hepatic lobe cyst. 3. Right kidney lower pole nonobstructing calyceal stone. 4. Several right kidney cysts, negative for follow-up advised. 5. 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
== END ==
LOC: RAD 12:33
PROVIDERS: PCP Family Medicine; Visit Provider Urology
DX: R93.41 Abnormal radiologic findings on diagnostic imaging of renal pelvis, ureter, or bladder; R31.0 Gross hematuria; N52.9 Male erectile dysfunction, unspecified; N40.1 Benign prostatic hyperplasia with lower urinary tract symptoms; R33.9 Retention of urine, unspecified
CPT/HCPCS: 74178; 81003; 99213

== ENCOUNTER 2022-06-13 14:22 | Oncology outpatient (recurring) (ONCR) | payer MEDICAID, SELFPAY | END 2022-07-06 23:59 | disposition home or self-care (01) | PROVIDERS: Visit Provider Internal Medicine Medical Oncology | DX: C43.59 Malignant melanoma of other part of trunk (principal); I35.0 Nonrheumatic aortic (valve) stenosis; Z79.899 Other long term (current) drug therapy | CPT/HCPCS: 99213 ==

== ENCOUNTER → 2022-11-19 15:36 | Outpatient (BNVA) | payer MEDICAID, SELFPAY | PROVIDERS: PCP Family Medicine; Visit Provider Nurse Practitioner Family | DX: I10 Essential (primary) hypertension (principal); I35.0 Nonrheumatic aortic (valve) stenosis | CPT/HCPCS: 99214 ==

== ENCOUNTER 2023-01-10 15:53 | Oncology outpatient (recurring) (ONCR) | payer MEDICAID, SELFPAY | END 2023-02-03 23:59 | disposition home or self-care (01) | PROVIDERS: PCP Family Medicine; Visit Provider Nurse Practitioner Family | DX: Z08 Encounter for follow-up examination after completed treatment for malignant neoplasm (principal); Z85.820 Personal history of malignant melanoma of skin; Z98.890 Other specified postprocedural states; Z95.2 Presence of prosthetic heart valve | CPT/HCPCS: 99213 ==

== ENCOUNTER → 2023-04-15 10:08 | Outpatient (BNVA) | payer MEDICAID, SELFPAY | PROVIDERS: PCP Family Medicine; Visit Provider Nurse Practitioner Family | DX: Z95.2 Presence of prosthetic heart valve (principal) | CPT/HCPCS: 85610 ==

== ENCOUNTER → 2023-04-19 10:00 | Outpatient (BNVA) | payer MEDICAID, SELFPAY | PROVIDERS: PCP Family Medicine; Visit Provider Nurse Practitioner Family | DX: Z95.2 Presence of prosthetic heart valve (principal) | CPT/HCPCS: 85610 ==

== ENCOUNTER → 2023-04-26 08:53 | Outpatient (BNVA) | payer MEDICAID, SELFPAY | PROVIDERS: PCP Family Medicine; Visit Provider Psychiatry & Neurology Neurology | DX: Z79.01 Long term (current) use of anticoagulants (principal) | CPT/HCPCS: 85610 ==

== ENCOUNTER → 2023-05-03 09:39 | Outpatient (BNVA) | payer MEDICAID, SELFPAY | PROVIDERS: PCP Family Medicine; Visit Provider Psychiatry & Neurology Neurology | DX: Z79.01 Long term (current) use of anticoagulants (principal) | CPT/HCPCS: 85610 ==

== ENCOUNTER → 2023-05-10 08:43 | Outpatient (BNVA) | payer MEDICAID, SELFPAY | PROVIDERS: PCP Family Medicine; Visit Provider Psychiatry & Neurology Neurology | DX: I35.0 Nonrheumatic aortic (valve) stenosis (principal) | CPT/HCPCS: 85610 ==

== ENCOUNTER → 2023-05-16 09:20 | Outpatient (BNVA) | payer MEDICAID, SELFPAY | PROVIDERS: PCP Family Medicine; Visit Provider Surgery | DX: K42.9 Umbilical hernia without obstruction or gangrene (principal); K40.20 Bilateral inguinal hernia, without obstruction or gangrene, not specified as recurrent | CPT/HCPCS: 99203; 99214 ==

== ENCOUNTER → 2023-05-20 12:54 | Outpatient (BNVA) | payer MEDICAID, SELFPAY | PROVIDERS: PCP Family Medicine; Visit Provider Internal Medicine | DX: I35.0 Nonrheumatic aortic (valve) stenosis (principal); I10 Essential (primary) hypertension; Z79.01 Long term (current) use of anticoagulants | CPT/HCPCS: 99214 ==

== ENCOUNTER → 2023-05-24 08:29 | Outpatient (BNVA) | payer MEDICAID, SELFPAY | PROVIDERS: PCP Family Medicine; Visit Provider Psychiatry & Neurology Neurology | DX: I35.0 Nonrheumatic aortic (valve) stenosis (principal) | CPT/HCPCS: 85610 ==

== ENCOUNTER → 2023-06-04 13:17 | Outpatient (BNVA) | payer MEDICAID, SELFPAY | PROVIDERS: PCP Family Medicine; Visit Provider Internal Medicine | DX: Z95.2 Presence of prosthetic heart valve (principal) | CPT/HCPCS: 85610 ==

== ENCOUNTER → 2023-06-19 08:34 | Outpatient (BNVA) | payer MEDICAID, SELFPAY | PROVIDERS: PCP Family Medicine; Visit Provider Internal Medicine | DX: Z79.01 Long term (current) use of anticoagulants (principal) | CPT/HCPCS: 85610 ==

== ENCOUNTER → 2023-07-10 10:55 | Outpatient (BNVA) | payer MEDICAID, SELFPAY | PROVIDERS: PCP Family Medicine; Visit Provider Internal Medicine | DX: I35.0 Nonrheumatic aortic (valve) stenosis (principal) | CPT/HCPCS: 85610 ==

== ENCOUNTER 2023-07-15 13:00 | Oncology outpatient (recurring) (ONCR) | payer MEDICAID, SELFPAY | END 2023-08-06 23:59 | disposition home or self-care (01) | LOC: ONCMED 13:00 | PROVIDERS: PCP Family Medicine; Visit Provider Nurse Practitioner Family | DX: Z08 Encounter for follow-up examination after completed treatment for malignant neoplasm (principal); C43.59 Malignant melanoma of other part of trunk; Z98.890 Other specified postprocedural states; Z95.2 Presence of prosthetic heart valve | CPT/HCPCS: 99213 ==

== ENCOUNTER → 2023-07-17 11:53 | Outpatient (BNVA) | payer MEDICAID, SELFPAY | PROVIDERS: PCP Family Medicine; Visit Provider Internal Medicine | DX: Z95.2 Presence of prosthetic heart valve (principal) | CPT/HCPCS: 85610 ==

== ENCOUNTER → 2023-07-18 10:33 | Outpatient (BNVA) | payer MEDICAID, SELFPAY | PROVIDERS: PCP Family Medicine; Visit Provider Nurse Practitioner Family | DX: Z85.820 Personal history of malignant melanoma of skin (principal); L57.0 Actinic keratosis; Z95.2 Presence of prosthetic heart valve; D17.22 Benign lipomatous neoplasm of skin and subcutaneous tissue of left arm; D22.5 Melanocytic nevi of trunk; L82.1 Other seborrheic keratosis; L65.0 Telogen effluvium; L57.8 Other skin changes due to chronic exposure to nonionizing radiation | CPT/HCPCS: 17000; 99213 ==

== ENCOUNTER → 2023-07-24 11:20 | Outpatient (BNVA) | payer MEDICAID, SELFPAY | PROVIDERS: PCP Family Medicine; Visit Provider Internal Medicine | DX: I35.0 Nonrheumatic aortic (valve) stenosis (principal) | CPT/HCPCS: 85610 ==

== ENCOUNTER → 2023-08-13 09:02 | Outpatient (BNVA) | payer MEDICAID, SELFPAY | PROVIDERS: PCP Family Medicine; Visit Provider Surgery | DX: K40.20 Bilateral inguinal hernia, without obstruction or gangrene, not specified as recurrent (principal); K42.9 Umbilical hernia without obstruction or gangrene; R22.32 Localized swelling, mass and lump, left upper limb | CPT/HCPCS: 99214 ==

== ENCOUNTER → 2023-08-14 17:45 | Outpatient (BNVA) | payer MEDICAID, SELFPAY | PROVIDERS: PCP Family Medicine; Visit Provider Internal Medicine | DX: I35.0 Nonrheumatic aortic (valve) stenosis (principal) | CPT/HCPCS: 85610 ==

== ENCOUNTER → 2023-08-21 09:06 | Outpatient (BNVA) | payer MEDICAID, SELFPAY | PROVIDERS: PCP Family Medicine; Visit Provider Internal Medicine | DX: Z79.01 Long term (current) use of anticoagulants (principal) | CPT/HCPCS: 85610 ==

== ENCOUNTER → 2023-09-06 10:49 | Outpatient (BNVA) | payer MEDICAID, SELFPAY | PROVIDERS: PCP Family Medicine; Visit Provider Nurse Practitioner Family | DX: I35.0 Nonrheumatic aortic (valve) stenosis (principal) | CPT/HCPCS: 85610 ==

== ENCOUNTER → 2023-10-03 11:10 | Outpatient (BNVA) | payer MEDICAID, SELFPAY | PROVIDERS: PCP Family Medicine; Visit Provider Internal Medicine | DX: I35.0 Nonrheumatic aortic (valve) stenosis (principal); Z79.01 Long term (current) use of anticoagulants | CPT/HCPCS: 85610 ==

== ENCOUNTER 2023-10-14 05:26 | Day surgery (SDC) | payer MEDICAID, SELFPAY ==
[2023-10-14] VITALS (12 sets, daily range): BP systolic 125–150; BP diastolic 64–92; PULSE 73–87; RESP 9–21; TEMP 36.4–36.7; O2SAT 92–98; BMI 29.0
[2023-10-14] MEDS: sodium chloride 0.9% 1,000 ML 30 ML IV (06:28)
[2023-10-14] MEDS: ondansetron 2 mg/ML SDV 2 mL 4 MG IVP (06:44)
[2023-10-14] MEDS: scopolamine 1.5 Patch 1 PATCH TRANSDERMA (06:44)
--- NOTE | 2023-10-14 06:48 | P.HP_ITS ---
Providers/Chief Complaint Primary Care Provider: Cj Black MD Chief Complaint: R22.32, K40.20, K42.9 History of Present Illness Giovnani Mcgill is a 57 year old male Review of Systems General: Reports: 10 or more systems reviewed and unremarkable except in HPI and below Medications/Allergies Home Medications Medication Instructions Recorded Confirmed Last Taken Type ondansetron HCl 4 mg tablet 4 mg PO Q6H PRN nausea and 11/16/21 10/10/23 Unknown Rx (Zofran) vomiting #30 tabs hydrocodone 5 mg-acetaminophen 325 1 tab PO Q6H PRN pain #28 tabs 03/20/22 10/10/23 Unknown Rx mg tablet lubiprostone 8 mcg capsule 24 mcg PO BID PRN Constipation 08/15/22 10/10/23 Unknown History (Amitiza) sildenafil (pulm.hypertension) 20 20 mg PO .prn PRN pulmonary 11/19/22 10/10/23 Unknown History mg tablet hypertension warfarin 7.5 mg tablet 7.5 mg PO DAILY #135 tabs 07/24/23 10/10/23 10/07/23 Rx diltiazem HCl 120 mg capsule,24 120 mg PO DAILY 08/13/23 10/14/23 10/13/23 History hr,extended release clindamycin phosphate 1 % topical 1 applic topical DAILY PRN Rash 10/14/23 10/10/23 Unknown History solution clobetasol 0.05 % scalp solution 1 applic topical DAILY PRN Rash 10/14/23 10/10/23 Unknown History ketoconazole 2 % shampoo 1 applic topical Q14D PRN Rash 10/14/23 10/10/23 Unknown History sennosides 8.6 mg-docusate sodium See Rx Instructions .Route 10/14/23 10/10/23 Unknown History 50 mg tablet (Stimulant Laxative .COMPLEX PRN Constipation Plus) Allergies Allergy/AdvReac Type Severity Reaction Status Date / Time gluten Allergy Severe ADR-Abdominal Uncoded 07/15/23 13:12 Pain processed sugar Allergy ADR-Gastrointestinal Uncoded 10/14/23 06:04 Upset Brendan Gal AdvReac Severe N & V Uncoded 07/15/23 13:12 PFSH Acute PFSH: Medical History History of nonmelanoma skin cancer GERD (gastroesophageal reflux disease) Aortic stenosis Psychiatric care Urolithiasis Small bilateral lower pole nonobstructing stones on CT scan done for hematuria BPH loc w urin obs/LUTS Anxiety disorder Depression Hepatitis C Hypertension Melanoma of upper back excluding scapular region Recurrent UTI (urinary tract infection) Gross hematuria Surgical History History of open heart surgery 04/04/23 [facility] Status post surgical removal of malignant neoplasm of skin 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 and excision of nodular basal cell carcinoma from the left arm History of melanoma excision (09/04/21) Wide excision of upper back melanoma with right axillary sentinel lymph node biopsy History of carpal tunnel release of both wrists History of arthroscopic knee surgery Family History Mother , AT AGE 81 Diabetes CAD (coronary artery disease) Depression Hypertension Hypercholesteremia Parkinson disease Father , at age 83 Heart disease Depression Cancer Prostate Brother Heart disease Hypertension Sister Depression Heart disease Hypertension Social History Smoking and tobacco/nicotine status: never used tobacco/nicotine Second hand smoke exposure: No Alcohol intake: never Substance/Drug Use: current Substance/Drug use frequency: daily Other substance/drug use details: Gummies & other products. Marital status: Current occupational status: unemployed Vitals/I&O/Wt Last Vital Signs Temp 98.1 F 10/14/23 06:17 Pulse 73 10/14/23 06:17 Resp 18 10/14/23 06:17 BP 138/92 10/14/23 06:44 Pulse Ox 98 10/14/23 06:17 O2 Del Method Room Air 10/14/23 06:36 Weight last 48 hrs Weight 208 lb A&P Assessment and plan (1) Reducible umbilical hernia: (2) Bilateral inguinal hernia: (3) Subcutaneous mass of left forearm: Plan Laparoscopic umbilical and bilateral inguinal hernia repairs with mesh and excision of subcutaneous mass left forearm The risks and benefits of the procedure, including but not limited to, bleeding, infection, mesh infection requiring mesh excision antibiotic therapy and repeat surgery, damage surrounding structures, orchiectomy, conversion to an open procedure, scar, numbness, pain, recurrence and/or need for a bilateral repair were explained to the patient. Patient is understanding of the risks and wishes to proceed. Attestations Medical Necessity Statement*: Home Coding Level of Care Code Acute Code for Chg Fwd Diagnoses Reducible umbilical hernia K42.9 Bilateral inguinal hernia K40.20 Subcutaneous mass of left forearm R22.32
[2023-10-14] MEDS: ceFAZolin 2,000 MG in sodium chloride 0.9% (plus) 50 ML 100 MG IV (07:03)
--- NOTE | 2023-10-14 07:23 | ANES.PREANE2 ---
Pre-Anesthetic Assessment Height/Weight: Height 1.8 m Weight 94.347 kg Temp Pulse Resp BP Pulse Ox O2 Del Method 98.1 F 73 18 138/92 98 Room Air 10/14/23 06:17 10/14/23 06:17 10/14/23 06:17 10/14/23 06:44 10/14/23 06:17 10/14/23 06:36 Operation Date: 10/14/23 07:00 Proposed Procedures p [id number] lap umbilical and bilateral inguinal hernia repairs with mesh R22.32,K40.20,K42.9(Not Applicable) - DO leticia Mcleod Laparoscopic Inguinal Hernia Repair(Bilateral) - DO leticia Mcleod excision of subcutaneous mass of left forearm(Left) - Ambrose Juárez DO Was Beta Radha taken within 24 hours: N/A Was Clonidine taken within 24 hours: N/A Last intake: Intake Last Liquid Date 10/13/23 Last Liquid Time 20:00 Last Solid Date 10/13/23 Last Solid Time 20:00 Social No tobacco Exam alert, oriented x 3 and clear to auscultation bilaterally Airway Submandibular: within normal limits Cervical ROM: within normal limits Mallampati: Class III History/ROS No significant history except as noted and No significant complaints CV/HEM Arrythmia AVR w prosthetic in March 2023, on warfarin. None taken for 1 week Anesthetic Plan ASA status: 2 Anesthesia: General Risk of > 500 ml blood loss (7ml/kg in children): No Medications/Allergies Home Medications Medication Instructions Recorded Confirmed Last Taken Type ondansetron HCl 4 mg tablet 4 mg PO Q6H PRN nausea and 11/16/21 10/10/23 Unknown Rx (Zofran) vomiting #30 tabs hydrocodone 5 mg-acetaminophen 325 1 tab PO Q6H PRN pain #28 tabs 03/20/22 10/10/23 Unknown Rx mg tablet lubiprostone 8 mcg capsule 24 mcg PO BID PRN Constipation 08/15/22 10/10/23 Unknown History (Amitiza) sildenafil (pulm.hypertension) 20 20 mg PO .prn PRN pulmonary 11/19/22 10/10/23 Unknown History mg tablet hypertension warfarin 7.5 mg tablet 7.5 mg PO DAILY #135 tabs 07/24/23 10/10/23 10/07/23 Rx diltiazem HCl 120 mg capsule,24 120 mg PO DAILY 08/13/23 10/14/23 10/13/23 History hr,extended release clindamycin phosphate 1 % topical 1 applic topical DAILY PRN Rash 10/14/23 10/10/23 Unknown History solution clobetasol 0.05 % scalp solution 1 applic topical DAILY PRN Rash 10/14/23 10/10/23 Unknown History ketoconazole 2 % shampoo 1 applic topical Q14D PRN Rash 10/14/23 10/10/23 Unknown History sennosides 8.6 mg-docusate sodium See Rx Instructions .Route 10/14/23 10/10/23 Unknown History 50 mg tablet (Stimulant Laxative .COMPLEX PRN Constipation Plus) Allergies Allergy/AdvReac Type Severity Reaction Status Date / Time gluten Allergy Severe ADR-Abdominal Uncoded 07/15/23 13:12 Pain processed sugar Allergy ADR-Gastrointestinal Uncoded 10/14/23 06:04 Upset Brendan Gal AdvReac Severe N & V Uncoded 07/15/23 13:12 Current Medications Generic Name Dose Route Start Last Admin Trade Name Freq PRN Reason Stop Dose Admin Sodium Chloride 1,000 mls @ 30 mls/hr 10/14/23 06:00 10/14/23 06:28 Sodium Chloride 0.9% IV 10/15/23 05:59 30 mls/hr .Q24H CARRI Administration Ondansetron HCl 4 mg 10/14/23 05:54 10/14/23 06:44 Ondansetron 2 Mg/Ml Sdv 2 Ml IVP 4 mg ONCE PRN Administration NAUSEA AND VOMITING PFSH Anesthesia Medical History History of nonmelanoma skin cancer GERD (gastroesophageal reflux disease) Aortic stenosis Psychiatric care Urolithiasis Small bilateral lower pole nonobstructing stones on CT scan done for hematuria BPH loc w urin obs/LUTS Anxiety disorder Depression Hepatitis C Hypertension Melanoma of upper back excluding scapular region Recurrent UTI (urinary tract infection) Gross hematuria Surgical History History of open heart surgery 04/04/23 [facility] Status post surgical removal of malignant neoplasm of skin 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 and excision of nodular basal cell carcinoma from the left arm History of melanoma excision (09/04/21) Wide excision of upper back melanoma with right axillary sentinel lymph node biopsy History of carpal tunnel release of both wrists History of arthroscopic knee surgery Family History Mother , AT AGE 81 Diabetes CAD (coronary artery disease) Depression Hypertension Hypercholesteremia Parkinson disease Father , at age 83 Heart disease Depression Cancer Prostate Brother Heart disease Hypertension Sister Depression Heart disease Hypertension Social History Smoking and tobacco/nicotine status: never used tobacco/nicotine Second hand smoke exposure: No Alcohol intake: never Substance/Drug Use: current Substance/Drug use frequency: daily Other substance/drug use details: Gummies & other products. Marital status: Current occupational status: unemployed Data Anesthesia Coags 10/14/23 06:31 PT 13.50 INR 1.00 Cardiac Studies: Echocardiogram 02/14/22
[2023-10-14] MEDS: lidocaine-epi 2% 20 mL INJ INJECTION (07:39)
[2023-10-14] MEDS: tranexamic acid 1,000 mg/10mL SDV 1000 MG IV ×2 (08:12→09:20)
--- NOTE | 2023-10-14 09:27 | PM.OP ---
Operative Report Date of procedure: October 14, 2023 Pre-op diagnosis: Bilateral inguinal hernias Umbilical hernia Subcutaneous mass left forearm Post-op diagnosis: Right pantaloon hernia Left indirect inguinal hernia Reducible umbilical hernia Subcutaneous mass left forearm Procedure done: Laparoscopic (TEPP) repair of bilateral inguinal hernias with mesh Laparoscopic repair of umbilical hernia with mesh Excision of subcutaneous mass left forearm Implants: Vivian in left forearm Specimens removed/disposition: Hernia sac Subcutaneous mass left forearm Surgeon: Ambrose Juárez DO Anesthesia: General Estimated blood loss (mL): 10 Complications: None apparent Brief History: This very pleasant 57-year-old gentleman who presents my office with complaints of a painful right inguinal hernia. Upon exam I found a reducible left inguinal hernia and umbilical hernia as well. There is also a subcutaneous mass of his left forearm that has been growing over the last 2 years and he wants excised. Laparoscopic repair of bilateral inguinal hernias with mesh, laparoscopic repair of umbilical hernia with mesh and excision of subcutaneous mass left forearm were indicated. The risk and benefits were explained and documented. Procedure: Patient was wheeled into the operative room and placed on the OR table in a supine position. Abdomen was inspected prepped and draped in usual sterile fashion. Time-out was performed and all present were in agreement. A 15 blade scalpel was used to make 1.2 centimeter incision infraumbilically. Combination of sharp and blunt dissection was performed down to the anterior rectus sheath which was opened sharply. The dissecting balloon was then inserted into the space of Retzius and blown up. We put the camera into the port and identified that we were in the correct space. I then placed 2 5 millimeter trocars suprapubically in the midline. I then used endokitners to bluntly dissect in the space of Retzius out laterally. Hernia was identified on the right. Blunt dissection was performed to dissect down the hernia sac until the vas deferens dove medially. An extra-large right inguinal mesh was then placed into the space of Retzius. The mesh was unrolled and tacked once medially at the pubic bone. The mesh laid out nicely over the spermatic cord. An indirect inguinal hernia was identified on the left. Blunt dissection was performed to dissect down the hernia sac until the vas deferens dove medially. An extra-large left inguinal mesh was then placed into the space of Retzius. The mesh was unrolled and tacked once medially at the pubic bone. The mesh laid out nicely over the spermatic cord. I watched the hernia sacs remain in place as insufflation was removed. Attention was then brought to the umbilical hernia. 2% lidocaine with epinephrine was used to anesthetize the skin in the left upper quadrant. A 5 mm incision was made with a 15 blade scalpel. A Veress needle was used to achieve intra-abdominal insufflation to 15 mmHg. A 5 mm trocar was then placed using Optiview. A 12-mm trocar was then placed in the left lower quadrant in a similar fashion. A 4 cm umbilical hernia was identified. There were no contents in the hernia. The energy device was then used to cut out the hernia sac. A 6 inch ventral light mesh was placed into the abdomen and brought up through the umbilicus using an the Travis-Johnie. The mesh was then tacked in place in a double crown fashion. The skeleton of the mesh was removed via the left lower quadrant. The hernia sac was then removed from the abdomen via the left lower quadrant. The left lower quadrant port site was closed with an 0 Vicryl suture in a Travis-Johnie in a [id number] fashion. Incisions were closed with 4 O Vicryl in a subcuticular interrupted fashion. Skin glue was applied. Attention was then brought to the left forearm. The left forearm was inspected prepped and draped in usual sterile fashion. 2% lidocaine with epinephrine was used to anesthetize the area over the mass. A 5 cm transverse incision was made over the mass. Dissection was carried down with electrocautery. Blunt dissection was performed around a lobulated mass. The mass was not consistent with a typical lipoma. Mass was removed whole. Part of the mass was sent to pathology using lymphoma protocol and the other half was sent on formalin. Mass measured 5 cm in greatest diameter. Mass was removed entirely. Hemostasis was achieved with electrocautery. Vivian was placed into the wound bed. Dermis was closed using 3-0 Vicryl in a subcuticular interrupted fashion. Skin was closed using 4-0 Monocryl in a subcuticular running fashion. Dermabond was applied. Patient tolerated procedure well and was wheeled in the postoperative anesthesia care unit in good condition.
--- NOTE | 2023-10-14 11:15 | ECG_ITS ---
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 [id number]
--- NOTE | 2023-10-14 11:23 | PC.NURSE ---
ekg done. pt states he had irregular heart rate in hospital in the past but by the time they done ekg it was regular. Dr. lopez notified of ekg results. Dr. Dunbar office notified ( message left with answering service) states office will call pt today or tomorrow .
--- NOTE | 2023-10-14 16:25 | ANE.PACU2 ---
Inpatient post-anesthesia follow up: Airway intact: Yes Vital signs: Temperature 97.8 F Pulse Rate 83 Respiratory Rate 18 Blood Pressure 134/87 Pulse Oximetry 96 Oxygen Delivery Me thod Room Air Oxygen Flow Rate Fraction of Inspir ed Oxygen Hydration adequate: Yes Nausea and vomiting: No Pain level: 2 Mental status: Baseline
[2023-10-15 12:50] LABS: Lymphoma Profile (BBPL) See Report
== END 2023-10-14 11:42 | disposition home or self-care (01) ==
PROVIDERS: Student in an Organized Health Care Education/Training Program; PCP Family Medicine; Visit Provider Surgery
PROC: 0WQF4ZZ Repair Abdominal Wall, Percutaneous Endoscopic Approach (ICD-10-PCS; CPT 11406; principal; 2023-10-14 07:00)
PROC: (CPT 49650; 2023-10-14 07:00)
PROC: (CPT 11406; 2023-10-14 07:00)
DX: K40.90 Unilateral inguinal hernia, without obstruction or gangrene, not specified as recurrent (principal); K42.9 Umbilical hernia without obstruction or gangrene; R22.32 Localized swelling, mass and lump, left upper limb; Z79.01 Long term (current) use of anticoagulants; Z85.828 Personal history of other malignant neoplasm of skin; K21.9 Gastro-esophageal reflux disease without esophagitis; N40.1 Benign prostatic hyperplasia with lower urinary tract symptoms; N13.8 Other obstructive and reflux uropathy; Z86.19 Personal history of other infectious and parasitic diseases
CPT/HCPCS: 11406; 12032; 49593; 49650; 36415; 85610; 88184; 88185; 88302; 88307; 93005; C1781; J0131; J0360; J0690; J1100; J1170; J1200; J2371; J2405; J2710; J3010; J3490; J7030

== ENCOUNTER → 2023-10-29 08:28 | Outpatient (BNVA) | payer MEDICAID, SELFPAY | PROVIDERS: PCP Family Medicine; Visit Provider Surgery | DX: Z98.890 Other specified postprocedural states (principal); Z87.19 Personal history of other diseases of the digestive system | CPT/HCPCS: 99024 ==

== ENCOUNTER → 2023-10-31 10:23 | Outpatient (BNVA) | payer MEDICAID, SELFPAY | PROVIDERS: PCP Family Medicine; Visit Provider Internal Medicine | DX: I35.0 Nonrheumatic aortic (valve) stenosis (principal); Z79.899 Other long term (current) drug therapy | CPT/HCPCS: 85610 ==

== ENCOUNTER → 2023-11-21 14:55 | Outpatient (BNVA) | payer MEDICAID, SELFPAY | PROVIDERS: PCP Family Medicine; Visit Provider Internal Medicine | DX: Z95.2 Presence of prosthetic heart valve (principal); I10 Essential (primary) hypertension; Z79.01 Long term (current) use of anticoagulants | CPT/HCPCS: 85610; 99214 ==

== ENCOUNTER → 2023-11-28 07:59 | Outpatient (BNVA) | payer MEDICAID, SELFPAY | PROVIDERS: PCP Family Medicine; Visit Provider Surgery | DX: Z98.890 Other specified postprocedural states (principal); Z87.19 Personal history of other diseases of the digestive system | CPT/HCPCS: 99024 ==

== ENCOUNTER → 2023-12-05 09:31 | Outpatient (BNVA) | payer MEDICAID, SELFPAY | PROVIDERS: PCP Family Medicine; Visit Provider Internal Medicine | DX: I35.0 Nonrheumatic aortic (valve) stenosis (principal) | CPT/HCPCS: 85610 ==

== ENCOUNTER → 2024-02-20 09:21 | Outpatient (BNVA) | payer MEDICARE, SELFPAY | PROVIDERS: PCP Family Medicine; Visit Provider Nurse Practitioner Family | DX: I35.0 Nonrheumatic aortic (valve) stenosis (principal) | CPT/HCPCS: 85610 ==

== ENCOUNTER 2024-03-10 12:57 | Oncology outpatient (recurring) (ONCR) | payer MEDICARE, SELFPAY ==
[2024-03-10 13:49] LABS: Basophils % 0.4 %; Eosinophils # 0.1 10^3/uL (0.0-0.8); Hematocrit 41.9 % (37-53); Lymphocytes # 2.1 10^3/uL (0.8-4.8); Lymphocytes % 30.8 %; Mean Corpuscular HGB Conc 33.4 g/dL (30-55); Mean Corpuscular Hemoglobin 29.9 pg (27-33); Mean Corpuscular Volume 89.5 fl (82-101); Monocytes # 0.4 10^3/uL (0.2-0.9); Monocytes % 5.6 %; Neutrophils % 60.9 %; Nucleated Red Blood Cells % 0 %; Platelet Count 143 10^3/cmm (157-399); Red Blood Count 4.68 10^6/uL (3.85-5.65); Red Cell Distribution Width 14.6 % (12.1-15.1); White Blood Count 6.91 10^3/uL (3.29-11.43)
[2024-03-10 14:06] LABS: Alanine Aminotransferase 14 U/L (0-41); Albumin Level 4.3 g/dL (3.5-5.2); Alkaline Phosphatase 62 U/L (40-130); Anion Gap 12.1 (5-19); Aspartate Amino Transferase 20 U/L (0-40); Blood Urea Nitrogen 22 mg/dL (8-23); Calcium 8.7 mg/dL (8.5-10.5); Carbon Dioxide 25 mmol/L (22-29); Chloride 106 mmol/L (98-107); Creatinine Clr Calc Pharmacy 154.5615; Globulin 2.3 g/dL (1.3-4.6); Glomerular Filtration Rate 137.4 mL/min (90-130); Glucose 97 mg/dL (65-115); Lactate Dehydrogenase 221 U/L (135-225); Osmolality Calculated 291 mOsm/kg (285-295); Potassium 4.1 mmol/L (3.5-5.1); Sodium 139 mmol/L (136-145); Total Bilirubin 0.6 mg/dL (0.15-1.2); Total Protein 6.6 g/dL (6.6-8.7)
[2024-03-10 15:00] LABS: INR 1.08 (0.8-1.2)
== END 2024-04-05 23:59 | disposition home or self-care (01) ==
PROVIDERS: Internal Medicine; PCP Family Medicine; Visit Provider Nurse Practitioner Family
DX: C44.601 Unspecified malignant neoplasm of skin of unspecified upper limb, including shoulder (principal); B19.20 Unspecified viral hepatitis C without hepatic coma; Z51.81 Encounter for therapeutic drug level monitoring; Z79.01 Long term (current) use of anticoagulants
CPT/HCPCS: 36415; 80053; 83615; 85025; 85610; 99213

== ENCOUNTER → 2024-03-24 09:30 | Outpatient (BNVA) | payer MEDICARE, SELFPAY | PROVIDERS: PCP Family Medicine; Visit Provider Nurse Practitioner Family | DX: Z95.2 Presence of prosthetic heart valve (principal); L82.0 Inflamed seborrheic keratosis; D17.22 Benign lipomatous neoplasm of skin and subcutaneous tissue of left arm; D22.5 Melanocytic nevi of trunk; L82.1 Other seborrheic keratosis; L57.8 Other skin changes due to chronic exposure to nonionizing radiation; L72.0 Epidermal cyst; B07.8 Other viral warts; L57.0 Actinic keratosis; Z85.820 Personal history of malignant melanoma of skin | CPT/HCPCS: 17000; 17110; 99213 ==

== ENCOUNTER → 2024-04-16 08:30 | Outpatient (BNVA) | payer MEDICARE, SELFPAY | PROVIDERS: PCP Family Medicine; Visit Provider Dermatology | DX: D48.5 Neoplasm of uncertain behavior of skin (principal) | CPT/HCPCS: 11403; 13101 ==

== ENCOUNTER → 2024-04-29 13:28 | Outpatient (BNVA) | payer MEDICARE, SELFPAY | PROVIDERS: PCP Family Medicine; Visit Provider Internal Medicine | DX: I35.0 Nonrheumatic aortic (valve) stenosis (principal); Z79.01 Long term (current) use of anticoagulants | CPT/HCPCS: 85610 ==

== ENCOUNTER → 2024-05-14 13:48 | Outpatient (BNVA) | payer MEDICARE, SELFPAY | PROVIDERS: PCP Family Medicine; Visit Provider Internal Medicine | DX: I35.0 Nonrheumatic aortic (valve) stenosis (principal) | CPT/HCPCS: 85610 ==

== ENCOUNTER 2024-05-21 14:19 | Outpatient (CLI) | payer MEDICARE, SELFPAY ==
--- NOTE | 2024-05-21 14:26 | US_ITS ---
WS: [id number] INDICATION: Supraclavicular lymphadenopathy TECHNIQUE: Ultrasound soft tissue area of concern FINDINGS: Ultrasound soft tissue RIGHT supraclavicular area in the area of palpable concern. Abnormal complex cystic and solid lesion in the RIGHT supraclavicular area indeterminate but may repr esent a necrotic or neoplastic lymph node. This measures approximately 2.2 x 1.8 x 1.5 cm. Palpable ovoid echogenic nodule in the area of concern at the LEFT skull base compatible with an inci dental lipoma. US/US soft tissue head neck [id number] IMPRESSION: Abnormal complex cystic and solid lesion in the RIGHT supraclavicul ar area. Recommend further evaluation with contrast-enhanced neck and chest to assess for additional lesions. In addition, the RIGHT supraclavicular lesion co uld be further evaluated with ultrasound-guided biopsy.
== END 2024-05-21 14:20 | disposition home or self-care (01) ==
LOC: RAD 14:21
PROVIDERS: PCP Family Medicine; Visit Provider Family Medicine
DX: R59.0 Localized enlarged lymph nodes (principal)
CPT/HCPCS: 76536

== ENCOUNTER → 2024-05-25 15:08 | Outpatient (BNVA) | payer MEDICARE, SELFPAY | PROVIDERS: PCP Family Medicine; Visit Provider Internal Medicine | DX: I35.0 Nonrheumatic aortic (valve) stenosis (principal) | CPT/HCPCS: 85610 ==

== ENCOUNTER 2024-05-28 06:00 | Outpatient (CLI) | payer MEDICARE, SELFPAY | END 2024-05-28 06:01 | disposition home or self-care (01) | PROVIDERS: PCP Family Medicine; Visit Provider Family Medicine | DX: R59.0 Localized enlarged lymph nodes (principal); I35.0 Nonrheumatic aortic (valve) stenosis; I10 Essential (primary) hypertension | CPT/HCPCS: 99214 ==

== ENCOUNTER → 2024-06-04 13:12 | Outpatient (BNVA) | payer MEDICARE, SELFPAY | PROVIDERS: PCP Family Medicine; Visit Provider Internal Medicine | DX: I35.0 Nonrheumatic aortic (valve) stenosis (principal) | CPT/HCPCS: 85610 ==

== ENCOUNTER 2024-06-09 13:51 | Outpatient (CLI) | payer MEDICARE, SELFPAY ==
--- NOTE | 2024-06-09 13:58 | CTR_ITS ---
PROCEDURE INFORMATION: Exam: CT Neck With Contrast Exam date and time: 06/09/2024 2:21 PM Age: 58 years old Clinical indication: Mass, lump, or swelling in neck; Right; Patient HX: Supraclavicular lymphadenopathy. PT noticed a lump at the base of skull 6 months-1 year ago. 3 months ago PT noticed a mass on RT clavicle. TECHNIQUE: Imaging protocol: Computed tomography of the neck with contrast. Radiation optimization: All CT scans at this facility use at least one of these dose optimization techniques: automated exposure control; mA and/or kV adjustment per patient size (includes targeted exams where dose is matched to clinical indication); or iterative reconstruction. Contrast material: OMNI 350; Contrast volume: 100 ml; Contrast route: INTRAVENOUS (IV); COMPARISON: US soft tissue head neck [id number] 05/21/2024 2:49 PM RADIATION DOSE METRICS: Total DLP (mGy-cm): 874.09 FINDINGS: Salivary glands: Normal. Glands are normal in size. Oral cavity: In the left sublingual space there is a subtly enhancing smoothly marginated mass measuring 2.2 cm in maximum dimension (series 7 images 54 through 60). Pharynx: Unremarkable. No significant tonsillar enlargement. Prevertebral and retropharyngeal spaces: Unremarkable. Larynx: Unremarkable. Epiglottis is normal. Thyroid: Normal. No enlarged or calcified nodules. Trachea: Visualized trachea is unremarkable. Lungs: Unremarkable as visualized. Lymph nodes: Minor prominence of lymph nodes in submandibular spaces and internal jugular chains bilaterally. 1.3 cm pretracheal node with internal calcification. Bones/joints: Unremarkable. No acute fracture. Soft tissues: Supraclavicular fossa mass measuring 2.2 x 1.8 x 1.5 cm as seen on recent ultrasound with heterogeneous internal density consisting of solid and cystic components. This lesion is concerning for metastatic lymphadenopathy could be easily accessed by ultrasound for tissue sampling. Focal fatty lesion with somewhat hazy internal density and several small adjacent subcutaneous calcifications. CT/CT neck w con* [id number] IMPRESSION: 1. Supraclavicular fossa mass measuring 2.2 x 1.8 x 1.5 cm as seen on recent ultrasound with heterogeneous internal density consisting of solid and cystic components. This lesion is concerning for metastatic lymphadenopathy could be easily accessed by ultrasound for tissue sampling. 2. Focal fatty lesion with somewhat hazy internal density and several small adjacent subcutaneous calcifications. This is likely a benign lesion such as lipoma or possibly fat necrosis/previous injury. 3. In the left sublingual space there is a subtly enhancing smoothly marginated mass measuring 2.2 cm in maximum dimension (series 7 images 54 through 60). Although this lesion could represent malignancy salivary gland origin, benign entity such as venous malformation is also a consideration. This could be further evaluated with MRI pre and post contrast.
--- NOTE | 2024-06-09 13:58 | CTR_ITS ---
PROCEDURE INFORMATION: Exam: CT Chest With Contrast; Diagnostic Exam date and time: 06/09/2024 2:21 PM Age: 58 years old Clinical indication: Mass, lump, or swelling in the chest; Patient HX: Supraclavicular lymphadenopathy. PT noticed a lump at the base of skull 6 months-1 year ago. 3 months ago PT noticed a mass on RT clavicle. TECHNIQUE: Imaging protocol: Diagnostic computed tomography of the chest with contrast. Radiation optimization: All CT scans at this facility use at least one of these dose optimization techniques: automated exposure control; mA and/or kV adjustment per patient size (includes targeted exams where dose is matched to clinical indication); or iterative reconstruction. Contrast material: OMNI 350; Contrast volume: 100 ml; Contrast route: INTRAVENOUS (IV); COMPARISON: CT neck w con* [id number] 06/09/2024 2:21 PM RADIATION DOSE METRICS: Total DLP (mGy-cm): 874.09 FINDINGS: Lungs: Bibasilar atelectasis. Pleural spaces: Unremarkable. No pneumothorax. No pleural effusion. Heart: Artificial aortic valve. Coronary arteries: CABG changes. Lymph nodes: Unremarkable. No enlarged lymph nodes. Vasculature: Unremarkable. No aortic aneurysm. Liver: Hepatic cysts. Hepatic steatosis suspected. Bones/joints: Negative for right clavicular mass, however, the lateral aspect of the right clavicle is somewhat excluded on the CT images. Skull base is not included on this exam. Please refer to same day CT neck for further discussion. Soft tissues: See Bones/joints finding. CT/CT chest w con* [id number] IMPRESSION: 1. Negative for right clavicular mass, however, the lateral aspect of the right clavicle is somewhat excluded on the CT images. Skull base is not included on this exam. Please refer to same day CT neck for further discussion. 2. Bibasilar atelectasis. 3. CABG changes. 4. Hepatic cysts. 5. Hepatic steatosis suspected. 6. Artificial aortic valve.
[2024-06-09] MEDS: iohexol 350 mg/mL 500 mL Btl (per mL) IV (14:36)
[2024-06-09 14:37] LABS: Blood Urea Nitrogen 18 mg/dL (8-23); Glomerular Filtration Rate 98.6 mL/min (90-130)
== END 2024-06-09 13:52 | disposition home or self-care (01) ==
LOC: RAD 13:53
PROVIDERS: Radiology Neuroradiology; PCP Family Medicine; Visit Provider Family Medicine
DX: K13.70 Unspecified lesions of oral mucosa (principal); R22.1 Localized swelling, mass and lump, neck; R59.0 Localized enlarged lymph nodes
CPT/HCPCS: 70491; 71260; 82565; 84520

== ENCOUNTER → 2024-06-16 08:33 | Outpatient (BNVA) | payer MEDICARE, SELFPAY | PROVIDERS: PCP Family Medicine; Visit Provider Family Medicine | DX: Z01.818 Encounter for other preprocedural examination (principal); I47.19 Other supraventricular tachycardia; I45.89 Other specified conduction disorders; R94.31 Abnormal electrocardiogram [ECG] [EKG] | CPT/HCPCS: 93005 ==

== ENCOUNTER 2024-06-29 08:30 | Inpatient (IN) | payer MEDICARE, SELFPAY ==
[2024-06-29] VITALS (138 sets, daily range): BP systolic 82–124; BP diastolic 58–87; PULSE 108–129; RESP 16–50; TEMP 36.6–36.8; O2SAT 86–100
--- NOTE | 2024-06-29 08:35 | ECG_ITS ---
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 Measurements Intervals [place] Rate: 111 P: 0 [place]: 0 QRS: 62 QRSD: 117 T: -85 QT: 354 QTc: 483 Interpretive Statements ATRIAL FLUTTER/TACHYCARDIA WITH RAPID VENTRICULAR RESPONSE INCOMPLETE RIGHT BUNDLE BRANCH BLOCK [90+ ms QRS DURATION, TERMINAL R IN V1/V2, 40+ ms S IN I/aVL/V4/V5/V6] ST DEVIATION AND MODERATE T-WAVE ABNORMALITY, CONSIDER INFERIOR ISCHEMIA [-0.1+ mV T-WAVE IN II/aVF] Compared to ECG 06/16/2024 08:33:21 Incomplete right bundle-branch block now present Intraventricular conduction delay no longer present T-wave abnormality still present Possible ischemia still present Electronically Signed On 06-29-2024 23:27:24 CDT by Asa Palafox M.D. [id number] phan
--- NOTE | 2024-06-29 08:39 | XR_ITS ---
WS: [id number] PORTABLE CHEST HISTORY: dyspnea/cough COMPARISON: Chest CT 06/09/2024 Bilateral central and perihilar opacifications have developed since the prior study. Mild sparing of the periphery. Greater consolidation in the mid LEFT lung. Fat folds are noted over the upper lung fi elds. There are lung markings noted beyond the lucencies. There is a linear line of increased density which is more likely a fat fold or scar. Cannot confirm pneumothorax. No pleural effusion or pneumot horax. Cardiac size: Normal. Mediastinum/Aorta: Mild atherosclerosis aorta. No osseous abnormality seen. RIGHT axillary adenopathy. XR/XR chest 1V portable [id number] IMPRESSION: 1. New bilateral perihilar opacifications. Consider pulmonary edema versus pne umonia. 2. Prior CABG. 3. Skin folds are noted. No definite pneumothorax. 4. RIGHT axillary dissection. Numerous surgical clips in the RIGHT axilla.
[2024-06-29 08:52] LABS: ABG PCO2 20.3 mmHg (35-45); ABG PH Result 7.15 (7.35-7.45); Alveolar-Arterial Oxygen Gradi 6.1 mmHg (5-10); Arterial Blood Gas Hematocrit 47.7 % (42-52); Base Excess ABG -19.9 mmol/L (-2.0-2.0); Blood Gas Allen Test Pos; Blood Gas Operator Identificat WALCI; Blood Gas Sample Site Radial, left; Blood Gas Sample Type Arterial; HGB O2 Sat 86.9 % (95-100); Ionized Calcium Level - ABG 1.2 mmol/L (1.1-1.4); Methemoglobin 0.9 % (0.4-1.5); Oxygen Device NRB; Oxygen Saturation ABG 88.6; PO2 ABG 75.1 mmHg (80.0-100.0); Potassium Level - ABG 3.6 mmol/L (3.5-5.0); Total Hemoglobin 15.6 g/dL (14-18)
[2024-06-29] MEDS: etomidate 2 mg/mL INJ SDV 10 mL 20 MG IVP (09:12)
[2024-06-29] MEDS: vecuronium 10 mg SDV IVP (09:13)
--- NOTE | 2024-06-29 09:15 | XR_ITS ---
WS: [id number] PORTABLE CHEST HISTORY: POST INTUBATION COMPARISON: Study earlier the same day. Endotracheal tube in good position ending above the mary. Interval placement of a nasogastric tube extending below the GE junction. Continued opacifications bilaterally centrally. Linear lines and lucencies throughout the RIGHT thora x. Cannot confirm a pneumothorax. New small RIGHT pleural effusion. Cardiac size: Normal. Mediastinum/Aorta: Normal mediastinum. No osseous abnormality seen. XR/XR chest 1V portable [id number] IMPRESSION: 1. Nasogastric and endotracheal tube have been placed since the prior study in good position. 2. There are continued lucencies and lines within the RIGHT thorax. Cannot con firm a pneumothorax. Suspect fat folds in pleural thickening. 3. New small RIGHT pleural effusion. 4. Continued bilateral perihilar opacifications, suspect edema versus pneumoni a.
[2024-06-29 09:17] LABS: Basophils # 0.2 10^3/uL (0.0-0.1); Basophils % 0.4 %; Hematocrit 49.9 % (37-53); Lymphocytes # 2.5 10^3/uL (0.8-4.8); Lymphocytes % 7.1 %; Mean Corpuscular HGB Conc 31.9 g/dL (30-55); Mean Corpuscular Hemoglobin 28.9 pg (27-33); Mean Corpuscular Volume 90.6 fl (82-101); Mean Platelet Volume 12.3 fL (7.4-10.4); Monocytes # 1.8 10^3/uL (0.2-0.9); Monocytes % 5.2 %; Neutrophils % 82.7 %; Nucleated Red Blood Cells % 0 %; Platelet Count 167 10^3/cmm (157-399); Red Blood Count 5.51 10^6/uL (3.85-5.65); Red Cell Distribution Width 14.9 % (12.1-15.1)
[2024-06-29] MEDS: fentaNYL 1,000 MCG/100 ML BAG 5 MCG IV (09:18)
[2024-06-29] MEDS: FUROsemide 10 mg/mL SDV 10mL 60 MG IVP (09:19)
[2024-06-29] MEDS: midazolam hcl 100 MG/100 ML BAG IV (09:19)
--- NOTE | 2024-06-29 09:20 | ECG_ITS ---
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 Measurements Intervals [place] Rate: 111 P: 0 [place]: 0 QRS: 50 QRSD: 114 T: -76 QT: 402 QTc: 547 Interpretive Statements ATRIAL FLUTTER/TACHYCARDIA WITH RAPID VENTRICULAR RESPONSE POSSIBLE RIGHT VENTRICULAR CONDUCTION DELAY [RSR (QR) IN V1/V2] ST DEVIATION AND MODERATE T-WAVE ABNORMALITY, CONSIDER INFERIOR ISCHEMIA [-0.1+ mV T-WAVE IN II/aVF] Compared to ECG 06/29/2024 08:35:22 Incomplete right bundle-branch block no longer present T-wave abnormality still present Possible ischemia still present Electronically Signed On 06-29-2024 23:37:26 CDT by Asa Palafox M.D. [id number] f
[2024-06-29 09:45] LABS: Troponin(5th) Baseline 260 ng/L (0-15)
[2024-06-29 09:53] LABS: Alanine Aminotransferase 271 U/L (0-41); Albumin Level 3.6 g/dL (3.5-5.2); Alkaline Phosphatase 106 U/L (40-130); Aspartate Amino Transferase 371 U/L (0-40); Blood Urea Nitrogen 38 mg/dL (8-23); Calcium 9.4 mg/dL (8.5-10.5); Carbon Dioxide 11 mmol/L (22-29); Chloride 91 mmol/L (98-107); Globulin 2.8 g/dL (1.3-4.6); Glomerular Filtration Rate 36.3 mL/min (90-130); Glucose 167 mg/dL (65-115); Lipase 12 U/L (13-60); Osmolality Calculated 297 mOsm/kg (285-295); Sodium 137 mmol/L (136-145); Total Bilirubin 1.7 mg/dL (0.15-1.2); Total Protein 6.4 g/dL (6.6-8.7)
[2024-06-29 10:05] LABS: INR 4.32 (0.8-1.2)
[2024-06-29 10:06] LABS: ABG PCO2 45.6 mmHg (35-45); ABG PH Result 7.08 (7.35-7.45); Alveolar-Arterial Oxygen Gradi 72.2 mmHg (5-10); Base Excess ABG -16.2 mmol/L (-2.0-2.0); Blood Gas Allen Test Pos; Blood Gas Operator Identificat WALCI; Blood Gas Sample Site Radial, left; Blood Gas Sample Type Arterial; Blood Gas Tidal Volume 0.35; Carboxyhemoglobin 0.7 %THgb (0.4-20.1); HCO3 ABG 13.6 mmol/L (22-26); HGB O2 Sat 91.2 % (95-100); Ionized Calcium Level - ABG 1.2 mmol/L (1.1-1.4); Oxygen Device VENT; Oxygen Saturation ABG 92.8; PO2 ABG 97.9 mmHg (80.0-100.0); PO2 FiO2 Ratio Arterial Blood 97; Potassium Level - ABG 3.3 mmol/L (3.5-5.0); Total Hemoglobin 15.7 g/dL (14-18)
[2024-06-29 10:10] LABS: Lactic Sepsis W/Reflex 19.4 mmol/L (0.5-2.2); White Blood Count 34.36 10^3/uL (3.29-11.43)
--- NOTE | 2024-06-29 10:12 | CTR_ITS ---
PROCEDURE INFORMATION: Exam: CTA Chest With Contrast Exam date and time: 06/29/2024 10:19 AM Age: 58 years old Clinical indication: Other: Resp failure TECHNIQUE: Imaging protocol: Computed tomographic angiography of the chest with contrast. Exam focused on the arteries. 3D rendering (Not supervised by radiologist): MIP and/or 3D reconstructed images were created by the technologist. Radiation optimization: All CT scans at this facility use at least one of these dose optimization techniques: automated exposure control; mA and/or kV adjustment per patient size (includes targeted exams where dose is matched to clinical indication); or iterative reconstruction. Contrast material: [id number]; Contrast volume: 100 ml; Contrast route: INTRAVENOUS (IV); COMPARISON: CT chest w con* [id number] 06/09/2024 2:21 PM RADIATION DOSE METRICS: Total DLP (mGy-cm): 470 FINDINGS: Tubes, catheters and devices: Endotracheal tube terminates just 1.3 cm the mary. Gastric tube terminates in the stomach. Pulmonary arteries: Normal. No pulmonary emboli. Aorta: Unremarkable. No aortic aneurysm. No aortic dissection. Lungs: Extensive consolidative infiltrates throughout the lungs. In addition to the consolidative pneumonia atelectatic changes are seen in each lung base. Pleural spaces: Moderate bilateral pleural effusions. Heart: Aortic valve repair. Lymph nodes: Unremarkable. No enlarged lymph nodes. Bones/joints: Unremarkable. No acute fracture. Soft tissues: Unremarkable. PROCEDURE INFORMATION: Exam: CT Abdomen And Pelvis With Contrast Exam date and time: 06/29/2024 10:19 AM Age: 58 years old Clinical indication: Other: Resp failure TECHNIQUE: Imaging protocol: Computed tomography of the abdomen and pelvis with contrast. Radiation optimization: All CT scans at this facility use at least one of these dose optimization techniques: automated exposure control; mA and/or kV adjustment per patient size (includes targeted exams where dose is matched to clinical indication); or iterative reconstruction. Contrast material: [id number]; Contrast volume: 100 ml; Contrast route: INTRAVENOUS (IV); COMPARISON: CT abdomen pelvis wo/w [id number] 05/14/2022 12:48 PM RADIATION DOSE METRICS: Total DLP (mGy-cm): 941 FINDINGS: Liver: Small right hepatic cyst. Gallbladder and biliary ducts: Normal. No calcified stones. No ductal dilation. Pancreas: Normal. No ductal dilation. Spleen: Normal. No splenomegaly. 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 Kidneys and ureters: Right renal cyst. Stomach and bowel: Unremarkable. No obstruction. No mucosal thickening. Appendix: No evidence of appendicitis. Intraperitoneal space: Unremarkable. No free air. No significant fluid collection. Vasculature: Unremarkable. No abdominal aortic aneurysm. Lymph nodes: Unremarkable. No enlarged lymph nodes. Urinary bladder: The urinary bladder is collapsed around a Martinez catheter. Reproductive: Unremarkable as visualized. Bones/joints: Unremarkable. No acute fracture. Soft tissues: Unremarkable. CT/CT angio chest w abd pel w con IMPRESSION: 1. Extensive consolidation. 2. Bilateral pleural effusions. 3. The endotracheal tube terminates 1.3 cm above the mary. IMPRESSION: No acute subdiaphragmatic pathology. COMMENTS: Consistent with the [place] [employer]'s Incidental Findings Committee white paper (J Am Neisha Radiol 2018): Any incidental renal lesion less than 1 cm or classified as too small to characterize, or any incidental cystic renal lesion characterized as simple-appearing, is likely benign. No follow-up imaging is recommended for these lesions per consensus recommendations based on imaging criteria.
[2024-06-29 10:14] LABS: NT Pro B Type Natriuretic Pept 28964 pg/mL (0-125)
--- NOTE | 2024-06-29 10:17 | W.ED.SOB ---
HPI - SOB/Dyspnea General: Chief Complaint: Shortness of Breath/Dyspnea Stated Complaint: sob Time Seen by Provider: 06/29/24 08:39 History of Present Illness: HPI Narrative: 58-year-old male presents to the emergency room in severe respiratory distress. Been sick with diarrhea and increasing shortness of breath decreasing appetite for the last couple of weeks. He has not history of a mechanical mitral valve for which she is on Coumadin said he has been subtherapeutic on that for some time. Somewhat limited history given due to his severe respiratory distress. Patient intubated after discussing with him briefly and obtaining verbal consent. Chart reviewed for history as well Associated symptoms: Reports chest congestion and fever(s); Deny abdominal pain or chest pain Related Data Home Medications Medication Instructions Recorded Confirmed aspirin 325 mg tablet 325 mg PO DAILY 02/21/24 06/29/24 warfarin 7.5 mg tablet 11.25 mg PO DAILY 06/29/24 06/29/24 Previous Rx's Medication Instructions Recorded warfarin 10 mg tablet 10 mg PO DAILY #30 tabs 03/24/24 Allergies Allergy/AdvReac Type Severity Reaction Status Date / Time soy Allergy Unknown Unknown Verified 06/16/24 08:54 gluten Allergy Severe ADR-Abdominal Uncoded 06/16/24 08:54 Pain processed sugar Allergy ADR-Gastrointestinal Uncoded 06/16/24 08:54 Upset Brendan Gal AdvReac Severe N & V Uncoded 06/16/24 08:54 Review of Systems Const: Reports: fever(s); Denies: chills Card: Denies: chest pain Resp: Reports: dyspnea, non-productive cough, wheezing and chest congestion GI: Denies: abdominal pain : Denies: dysuria, urinary frequency or urinary urgency Musc: Denies: neck pain or back pain Skin/Breast: Denies: rash PFSH ED PFSH: Medical History History of nonmelanoma skin cancer GERD (gastroesophageal reflux disease) Aortic stenosis Psychiatric care Urolithiasis Small bilateral lower pole nonobstructing stones on CT scan done for hematuria BPH loc w urin obs/LUTS Anxiety disorder Depression Hepatitis C Hypertension Melanoma of upper back excluding scapular region Recurrent UTI (urinary tract infection) Gross hematuria Surgical History History of umbilical hernia repair History of bilateral inguinal hernia repair [facility] [place] Status post surgical removal of malignant neoplasm of skin 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 and excision of nodular basal cell carcinoma from the left arm History of melanoma excision (09/04/21) Wide excision of upper back melanoma with right axillary sentinel lymph node biopsy History of carpal tunnel release of both wrists History of arthroscopic knee surgery Family History Mother , AT AGE 81 Diabetes CAD (coronary artery disease) Depression Hypertension Hypercholesteremia Parkinson disease Father , at age 83 Heart disease Depression Cancer Prostate Brother Heart disease Hypertension Sister Depression Heart disease Hypertension Social History Smoking and tobacco/nicotine status: never used tobacco/nicotine Second hand smoke exposure: No Alcohol intake: never Substance/Drug Use: current Substance/Drug use frequency: daily Other substance/drug use details: Gummies & other products. Marital status: Current occupational status: unemployed Physical Exam Const: GENERAL APPEARANCE: cooperative, in distress, anxious and disheveled ORIENTATION/CONSCIOUSNESS: Yes awake HENMT: COMMON NORMALS: normocephalic, atraumatic and hearing grossly normal bilaterally HEAD & SCALP: normocephalic and atraumatic Resp: EFFORT & INSPECTION: Yes tachypneic, Yes respiratory distress, Yes uses accessory muscles and Yes audible wheezes AUSCULTATION: crackles, wheezes and diminished lung sounds Cardio: COMMON NORMALS: regular rate and No murmurs present (Cardio) JUGULAR VENOUS DISTENTION: JVD positive to the level of the angle of the jaw RATE: regular rate GI: COMMON NORMALS: Soft to palpation and No hepatosplenomegaly present AUSCULTATION: Yes normoactive bowel sounds PALPATION: Yes Soft to palpation, No Tenderness to palpation present (GI), No Guarding due to palpation present (GI) and Yes No hepatosplenomegaly present Extremity: COMMON NORMALS: normal to inspection, capillary refill normal, no clubbing, cyanosis or edema, no calf tenderness and no pedal edema Skin: COMMON NORMALS: no rashes or lesions noted GENERAL SKIN EXAM: no rashes or lesions noted Procedures Central Line Placement Right IJ: Patient Placed on Monitor/Pulse Ox: Yes Prep: mask, gown and gloves Central Line Prep: Chlorhexidine scrub Ultrasound Used for Placement: Yes Central Line Lumen Inserted: triple Post Procedure: sutured in place, good blood return, all ports aspirated, flushed, capped and sterile dressing applied Post Procedure X-Ray: tip of catheter in good position Patient Tolerated Procedure: well Complications: none Intubation sedative: Etomidate Mg Given: 20 paralytic: Vecuronium Mg Given: 10 Laryngoscope: fiber optic video scope ET Tube Size: 8.5 ET Tube Uncuffed: No Tube Secured Depth (cm): 22 Tube Secured Location: teeth Tube Placement Confirmation: visualized tube passing through cords, equal breath sounds bilaterally, no breath sounds over epigastrium and confirmation by capnometry Patient Tolerated Procedure: well Intubation Complications: none Additional Comments: Initially intubated to 22 to tease advance to 25 after initial chest x-ray patient ventilating well while on the ventilator with a head of the bed elevated slowly improved. Course Vital Signs: Vital signs: Vital Signs Pulse Rate 126 H 06/29/24 14:19 Respiratory Rate 24 H 06/29/24 14:19 Blood Pressure 102/81 06/29/24 14:19 Pulse Oximetry 98 06/29/24 14:19 Oxygen Delivery Me thod Room Air 06/29/24 14:19 Oxygen Flow Rate 15 06/29/24 08:40 Fraction of Inspir ed Oxygen 100 06/29/24 13:19 MDM - SOB/Dyspnea Medical Decision Making Patient presents in acute respiratory distress patient was emergently intubated without complication. Later we had difficult time maintaining IV access and he was requiring multiple antibiotics multiple sedatives and began to have decrease in blood pressure requiring pressor support. Lactic acid was elevated do believe the patient has a pneumonia bilateral pleural effusions but also is in significant heart failure he was not given large fluid bolus I consulted with the hospitalist we both concurred that a fluid bolus would significantly worsen his condition and exacerbate his heart failure. Broad-spectrum antibiotic started discussed with hospitalist orders written. CTA of the chest rules out pneumothorax there was some question on the initial plain chest x-ray additionally shows infiltrates and effusion there is no evidence of pulmonary embolism. His troponin is elevated believe this secondary to heart strain from his acute systolic congestive heart failure. Medical Records I reviewed the patient's medical records. Lab Data I reviewed the patient's lab results. 06/29/24 09:07 06/29/24 09:07 Labs/Radiology: Radiology Impressions Chest X-Ray 06/29/24 09:15 IMPRESSION: 1. Nasogastric and endotracheal tube have been placed since the prior study in good position. 2. There are continued lucencies and lines within the RIGHT thorax. Cannot confirm a pneumothorax. Suspect fat folds in pleural thickening. 3. New small RIGHT pleural effusion. 4. Continued bilateral perihilar opacifications, suspect edema versus pneumonia. Chest/Abdomen/Pelvis CT 06/29/24 10:12 IMPRESSION: 1. Extensive consolidation. 2. Bilateral pleural effusions. 3. The endotracheal tube terminates 1.3 cm above the mary. IMPRESSION: No acute subdiaphragmatic pathology. COMMENTS: Consistent with the [employer]'s Incidental Findings Committee white paper (J Am Neisha Radiol 2018): Any incidental renal lesion less than 1 cm or classified as too small to characterize, or any incidental cystic renal lesion characterized as simple-appearing, is likely benign. No follow-up imaging is recommended for these lesions per consensus recommendations based on imaging criteria. Renal Ultrasound 06/29/24 14:13 IMPRESSION: Normal renal ultrasound. Laboratory Results WBC 34.36 10^3/uL (3.29-11.43) H* 06/29/24 09:07 RBC 5.51 10^6/uL (3.85-5.65) 06/29/24 09:07 Hgb 15.90 g/dL (11.27-16.99) 06/29/24 09:07 Hct 49.9 % (37-53) 06/29/24 09:07 MCV 90.6 fl (82-101) 06/29/24 09:07 MCH 28.9 pg (27-33) 06/29/24 09:07 MCHC 31.9 g/dL (30-55) 06/29/24 09:07 RDW 14.9 % (12.1-15.1) 06/29/24 09:07 Plt Count 167 10^3/cmm (157-399) 06/29/24 09:07 MPV 12.3 fL (7.4-10.4) H 06/29/24 09:07 Neut % (Auto) 82.7 % 06/29/24 09:07 Lymph % (Auto) 7.1 % 06/29/24 09:07 [place] % (Auto) 5.2 % 06/29/24 09:07 Eos % (Auto) 0.0 % 06/29/24 09:07 Baso % (Auto) 0.4 % 06/29/24 09:07 Neut # (Auto) 28.40 10^3/uL (1.8-7.7) H 06/29/24 09:07 Lymph # (Auto) 2.5 10^3/uL (0.8-4.8) 06/29/24 09:07 [place] # (Auto) 1.8 10^3/uL (0.2-0.9) H 06/29/24 09:07 Eos # (Auto) 0.0 10^3/uL (0.0-0.8) 06/29/24 09:07 Baso # (Auto) 0.2 10^3/uL (0.0-0.1) H 06/29/24 09:07 Nucleated RBC % (auto) 0 % 06/29/24 09:07 Nucleated RBCs # 0.0 /100WBC 06/29/24 09:07 PT 43.20 SECONDS (12.1-14.9) H 06/29/24 09:07 INR 4.32 (0.8-1.2) H 06/29/24 09:07 Specimen Type Arterial 06/29/24 09:54 Sample Site Radial, left 06/29/24 09:54 ABG pH 7.08 (7.35-7.45) L* 06/29/24 09:54 ABG pCO2 45.6 mmHg (35-45) H 06/29/24 09:54 ABG pO2 97.9 mmHg (80.0-100.0) 06/29/24 09:54 ABG PO2/FiO2 Ratio 97 06/29/24 09:54 ABG HCO3 13.6 mmol/L (22-26) L 06/29/24 09:54 ABG O2 Saturation 92.8 06/29/24 09:54 ABG Base Excess -16.2 mmol/L (-2.0-2.0) L 06/29/24 09:54 Manuel Test Pos 09/23/24 09:54 A-a O2 Gradient 72.2 mmHg (5-10) H 06/29/24 09:54 Hematocrit 48.0 % (42-52) 06/29/24 09:54 Hgb O2 Saturation 91.2 % (95-100) L 06/29/24 09:54 Carboxyhemoglobin 0.7 %THgb (0.4-20.1) 06/29/24 09:54 Methemoglobin 1.0 % (0.4-1.5) 06/29/24 09:54 Total Hemoglobin 15.7 g/dL (14-18) 06/29/24 09:54 Sodium 136.0 mmol/L (131-143) 06/29/24 09:54 Potassium 3.3 mmol/L (3.5-5.0) L 06/29/24 09:54 Glucose 160.0 mg/dL (70-115) H 06/29/24 09:54 Ionized Calcium 1.2 mmol/L (1.1-1.4) 06/29/24 09:54 O2 Delivery Device Vent 06/29/24 09:54 O2 Liters/Min 15.0 % 06/29/24 08:41 FiO2 100.0 % 06/29/24 09:54 Tidal Volume 0.35 06/29/24 09:54 PEEP 6.0 cmH20 06/29/24 09:54 Garment Sewer Hand ID [place] 06/29/24 09:54 Sodium 137 mmol/L (136-145) 06/29/24 09:07 Potassium 4.0 mmol/L (3.5-5.1) 06/29/24 09:07 Chloride 91 mmol/L (98-107) L 06/29/24 09:07 Carbon Dioxide 11 mmol/L (22-29) L 06/29/24 09:07 Anion Gap 39.0 (5-19) H 06/29/24 09:07 BUN 38 mg/dL (8-23) H 06/29/24 09:07 Creatinine 1.9 mg/dL (0.7-1.2) H 06/29/24 09:07 GFR Calculation 36.3 mL/min (90-130) L 06/29/24 09:07 Glucose 167 mg/dL (65-115) H 06/29/24 09:07 Calculated Osmolality 297 mOsm/kg (285-295) H 06/29/24 09:07 Lactic Acid 19.4 mmol/L (0.5-2.2) H* 06/29/24 09:07 Lactic Acid (Sepsis) 12.0 mmol/L (0.5-2.2) H* 06/29/24 11:52 Calcium 9.4 mg/dL (8.5-10.5) 06/29/24 09:07 Total Bilirubin 1.7 mg/dL (0.15-1.2) H 06/29/24 09:07 AST 371 U/L (0-40) H 06/29/24 09:07 ALT 271 U/L (0-41) H 06/29/24 09:07 Alkaline Phosphatase 106 U/L (40-130) 06/29/24 09:07 Troponin T Baseline 260 ng/L (0-15) H* 06/29/24 09:07 Troponin T 120 Minute 233.7 ng/L (0-15) H 06/29/24 11:52 Delta Troponin T -26.3 ABS# (0-10) L 06/29/24 11:52 C-Reactive Protein 146.3 mg/L (0.0-4.9) H 06/29/24 09:07 NT-Pro-B Natriuret Pep 61009 pg/mL (0-125) H 06/29/24 09:07 Total Protein 6.4 g/dL (6.6-8.7) L 06/29/24 09:07 Albumin 3.6 g/dL (3.5-5.2) 06/29/24 09:07 Globulin 2.8 g/dL (1.3-4.6) 06/29/24 09:07 Lipase 12 U/L (13-60) L 06/29/24 09:07 Urine Color Dark yellow (Yellow) A 06/29/24 11:06 Urine Appearance Cloudy (CLEAR) A 06/29/24 11:06 Urine pH 5.0 (5-7) 06/29/24 11:06 Ur Specific [place] 1.022 (1.005-1.030) 06/29/24 11:06 Urine Protein 2+ (Negative) A 06/29/24 11:06 Urine Glucose (UA) Negative (Normal) 06/29/24 11:06 Urine Ketones Negative (Negative) 06/29/24 11:06 Urine Blood 3+ (Negative) A 06/29/24 11:06 Urine Nitrate Negative (Negative) 06/29/24 11:06 Urine Bilirubin Negative (Negative) 06/29/24 11:06 Urine Urobilinogen 1.0 mg/dL (Negative) 06/29/24 11:06 Ur Leukocyte Esterase Trace (Negative) A 06/29/24 11:06 Urine RBC 6-10 /hpf (0-2) 06/29/24 11:06 Urine WBC 11-20 /hpf (0-5) H 06/29/24 11:06 Ur Squamous Epith Cells 11-20 /hpf (0-5) 06/29/24 11:06 Amorphous Sediment Not Reportable 06/29/24 11:06 Urine Bacteria Trace /hpf (NONE) 06/29/24 11:06 Hyaline Casts 130.73 /lpf 06/29/24 11:06 Ur Random Sodium 39 mmol/L 06/29/24 11:06 Ur Random Potassium 56 mmol/L 06/29/24 11:06 Ur Random Chloride 34 mmol/L 06/29/24 11:06 Coronavirus (PCR) Negative (Negative) 06/29/24 10:21 Influenza A (PCR) Negative (Negative) 06/29/24 10:21 Influenza Type B (PCR) Negative (Negative) 06/29/24 10:21 RSV (PCR) Negative (Negative) 06/29/24 10:21 All radiology interpretation(s) finalized by discharge Discharge Plan Discharge Patient Disposition: Admitted As Inpatient Admit Provider: Wesley Rooney Clinical Impression: Acute and chronic respiratory failure with hypoxia, Mechanical heart valve present, Septic shock, Congestive heart failure, Acute kidney injury, Hepatorenal syndrome, Over-anticoagulated Condition: Stable Coding Level of Care Code ED Construction Ironworker for Alex Ashton
[2024-06-29] MEDS: iohexol 350 mg/mL 500 mL Btl (per mL) IV (10:59)
[2024-06-29 11:01] LABS: Reflex Lactate Order REFLEX LACTIC ORDERD
[2024-06-29 11:05] LABS: Covid PCR NEGATIVE (Negative); Influenza A NEGATIVE (Negative); Influenza B NEGATIVE (Negative); Respiratory Syncytial Virus Ce NEGATIVE (Negative)
--- NOTE | 2024-06-29 11:06 | PC.PHAR ---
Pt unable to verify medications. Verified with NATALIE Petit-2 rx's for Warfarin-both were picked up on 06/12/24
[2024-06-29] MEDS: piperacillin-tazobactam 3.375 GM in sodium chloride 0.9% (plus) 50 ML IV ×2 (11:14→19:55)
[2024-06-29 11:19] LABS: Bilirubin Urine Negative (Negative); Blood Urine 3+ (Negative); Glucose Urine UA Negative (Normal); Ketones Urine Negative (Negative); Leukocyte Esterase Urine Trace (Negative); Nitrate Urine Negative (Negative); Protein Urine 2+ (Negative); Specific Gravity, Urine 1.022 (1.005-1.030); Urine Appearance Cloudy (CLEAR); Urine Color Dark Yellow (Yellow)
[2024-06-29 11:21] LABS: Add Urine Microscopic? YES; Bacteria Urine Trace /hpf; Hyaline Casts Urine 130.73 /lpf
[2024-06-29] MEDS: vancomycin 1,000 MG in sodium chloride 0.9% 250 ML 250 MG IV (11:31)
[2024-06-29 11:49] LABS: Add Urine Culture? Yes; UA Slide Review UA Slide Review Perf
[2024-06-29] MEDS: levofloxacin-dextrose 5 % 750 MG/150 ML PREMIX 100 MG IV (12:34)
[2024-06-29] MEDS: norepinephrine 4 MG/250 ML BAG 30 MG IV (12:54)
--- NOTE | 2024-06-29 12:56 | PC.NURSE ---
per dr. pompa, increase fentanyl to 75 mcg and versed to 7.5.
--- NOTE | 2024-06-29 12:59 | PC.NURSE ---
due to patient moving during sedation, per verbal order from dr. pompa, admin ketamine 200mg IVP ONCE.
[2024-06-29] MEDS: ketamine 100 mg/mL Inj 5 mL 200 MG IVP (13:04)
--- NOTE | 2024-06-29 13:28 | P.HP_ITS ---
Providers/Chief Complaint 2 Primary Care Provider: Cj Black MD Chief Complaint: sob History of Present Illness Giovanni Mcgill is a 58 year old male with a past medical history significant for GERD, aortic stenosis, benign prostatic hypertrophy, depression, hepatitis C, hypertension, melanoma, and mechanical heart valve who presented the emergency department in severe respiratory distress. Upon my evaluation, patient is intubated and sedated. He is unable to provide any history. History obtained from discussion with prior provider and chart review. Per report, he initially complained of diarrhea, shortness of breath, and loss of appetite for the past several weeks. He was found to have severe severe metabolic and respiratory disturbances resulting in a pH of 7.08. He was intubated by ED provider. He was found to have septic shock secondary to pneumonia for which central line was placed and Levophed started. Review of Systems 2 Narrative: Attempted to obtain a complete review of systems, but unable to as patient is intubated and sedated. Medications/Allergies Home Medications Medication Instructions Recorded Confirmed Last Taken Type aspirin 325 mg tablet 325 mg PO DAILY 02/21/24 06/29/24 Unknown History warfarin 10 mg tablet 10 mg PO DAILY #30 tabs 03/24/24 06/29/24 Unknown Rx warfarin 7.5 mg tablet 11.25 mg PO DAILY 06/29/24 06/29/24 Unknown History Allergies Allergy/AdvReac Type Severity Reaction Status Date / Time soy Allergy Unknown Unknown Verified 06/16/24 08:54 gluten Allergy Severe ADR-Abdominal Uncoded 06/16/24 08:54 Pain processed sugar Allergy ADR-Gastrointestinal Uncoded 06/16/24 08:54 Upset Brendan Gal AdvReac Severe N & V Uncoded 06/16/24 08:54 PFSH Acute 2 PFSH: Medical History History of nonmelanoma skin cancer GERD (gastroesophageal reflux disease) Aortic stenosis Psychiatric care Urolithiasis Small bilateral lower pole nonobstructing stones on CT scan done for hematuria BPH loc w urin obs/LUTS Anxiety disorder Depression Hepatitis C Hypertension Melanoma of upper back excluding scapular region Recurrent UTI (urinary tract infection) Gross hematuria Surgical History History of umbilical hernia repair History of bilateral inguinal hernia repair History of open heart surgery 04/04/23 [facility] Status post surgical removal of malignant neoplasm of skin 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 and excision of nodular basal cell carcinoma from the left arm History of melanoma excision (09/04/21) Wide excision of upper back melanoma with right axillary sentinel lymph node biopsy History of carpal tunnel release of both wrists History of arthroscopic knee surgery Family History Mother , AT AGE 81 Diabetes CAD (coronary artery disease) Depression Hypertension Hypercholesteremia Parkinson disease Father , at age 83 Heart disease Depression Cancer Prostate Brother Heart disease Hypertension Sister Depression Heart disease Hypertension Social History Smoking and tobacco/nicotine status: never used tobacco/nicotine Second hand smoke exposure: No Alcohol intake: never Substance/Drug Use: current Substance/Drug use frequency: daily Other substance/drug use details: Gummies & other products. Marital status: Current occupational status: unemployed Vitals/I&O/Wt Last Vital Signs Pulse 121 H 06/29/24 13:09 Resp 20 H 06/29/24 13:19 BP 97/78 06/29/24 13:09 Pulse Ox 97 06/29/24 13:09 O2 Del Method Mechanical Ventilation 06/29/24 13:09 O2 Flow Rate 15 06/29/24 08:40 FiO2 100 06/29/24 13:19 06/28/24 06/29/24 06/29/24 22:59 06:59 14:59 Intake Total 323.583 / 323.583 Balance 323.583 / 323.583 Weight last 48 hrs Weight 97.522 kg Physical Exam 2 Narrative: General: Patient is intubated. Head: Normocephalic. Atraumatic. EOM intact. Neck: No JVD. Cardiovascular: RRR. No gallops. No murmurs. Lungs: Diffuse rhonchi throughout bilateral lung [place]mlin. Moderate air movement. Intubated on mechanical ventilation. Skin: No jaundice. No rashes. Abdomen: Not distended. Genito Urinary: Genital exam not performed since complaints not related. Rectal: Rectal exam not performed since no symptoms indicated blood loss. Extremities: No cyanosis or clubbing. Musculoskeletal: No erythematous joints. Neurological: No myoclonus. Urinary Catheter Management: Martinez: Cath Placed During This Visit: yes Urinary Catheter Date of Insertion: 06/29/24 Urinary Catheter Time of Insertion: 10:20 Data 06/29/24 09:07 06/29/24 09:07 Micro: Microbiology 06/29/24 09:38 Gram Stain - Final Sputum - Endotracheal Tube Aspirate 06/29/24 09:45 Blood Culture - Preliminary Blood SPECIMEN COLLECTED 06/29/24 09:07 Blood Culture - Preliminary Blood SPECIMEN COLLECTED A&P Assessment and plan (1) Acute respiratory failure: Acute hypoxic hypercapnic respiratory failure Etiology: Severe bilateral pneumonia Patient intubated 06/29 Fentanyl for analgesia Propofol for sedation Serial ABGs and vent management (2) Pneumonia: Check bacterial antigens Start broad-spectrum antibiotics Pulmonary toilet (3) Septic shock: Septic shock secondary to pneumonia Severe lactic acidosis A complete 30 mL/kg IV fluid boluses were not administered due to concern for possible underlying heart failure given effusions Start vasopressor support Blood cultures Goal-directed medical therapy (4) Renal failure: Renal failure suspected secondary to sepsis Check renal ultrasound (5) History of heart valve replacement with mechanical valve: INR currently supratherapeutic Hold warfarin Daily INR Check echo Plan DVT prophylaxis: INR is currently therapeutic CODE STATUS: Assume full code Attestations 2 Medical Necessity Statement*: Patient presents in respiratory distress, found to have multiorgan system failure with expected hospitalization across 2 midnights for ventilator support, vasopressor support, IV antibiotics, and supportive care. Critical Care Time: The high probability of a clinically significant, sudden or life threatening deterioration of the patient's respiratory, vascular system(s) required my full and direct attention, intervention and personal management. The critical care time is as shown. This time is in addition to time spent performing any reported procedures but includes the following: [x] Data and vital sign review and interpretation [x] Patient assessment, examination and intervention [x] Documentation [x] Medication orders and management Critical Care Time (min): 80 Coding Level of Care Code Acute Code for [facility] Diagnoses Acute respiratory failure J96.00 Pneumonia J18.9 Septic shock A41.9; R65.21 Renal failure N19 History of heart valve replacement with mechanical valve Z95.2
--- NOTE | 2024-06-29 13:29 | PC.NURSE ---
PER VERBAL ORDER PER DR. DHALIWAL, INCREASE LEVOPHED TO 10 MCG/MIN.
--- NOTE | 2024-06-29 14:13 | US_ITS ---
WS: [id number] RENAL ULTRASOUND HISTORY: Acute Kidney Injury COMPARISON: None available. TECHNIQUE: 2-D and color Doppler imaging of the kidney submitted. Right kidney: 11.8 cm x 6.4 cm x 5.6 cm. Cortex: 1.3 cm Normal echogenicity with no hydronephrosis or mass. Left kidney: 9.5 cm x 5.2 cm x 4.9 cm. Cortex: 1.2 cm Normal echogenicity with no hydronephrosis or mass. Aorta: Normal. Urinary Bladder: Nondistended bladder. Martinez catheter is present. US/US renal BI* [id number] IMPRESSION: Normal renal ultrasound.
--- NOTE | 2024-06-29 14:13 | USCV_ITS ---
Giovanni Mcgill Age: 58 Gender: M : 1965 Exam Date: 06/29/2024 18:22 Ordering Phys: Wesley Rooney MD Technologist: CARA Exam Location: [facility] [place] Indication: septic shock, history of mechanical heart valve. BP: 107 / 86 HR: 95 Rhythm: Atrial fibrillation Technical Quality: Adequate MEASUREMENTS (Male / Female) Normal Values 2D ECHO LV Diastolic Diameter PLAX 5.1 cm 4.2 - 5.9 / 3.9 - 5.3 cm IVS Diastolic Thickness 1.3 cm 0.6 - 1.0 / 0.6 - 0.9 cm IVS Systolic Thickness 2.0 cm LVPW Diastolic Thickness 1.3 cm 0.6 - 1.0 / 0.6 - 0.9 cm LVPW Systolic Thickness 1.9 cm LVOT Diameter 1.9 cm LV Ejection Fraction 2D Teich 68.2 % LV Ejection Fraction MOD 4C 60.9 % LV Ejection Fraction MOD 2C 66.2 % LV Ejection Fraction 2C AL 68.8 % LA Diameter 5.7 cm Aorta at Sinotubular Diameter 3.0 cm IVC Diameter 2.3 cm M-MODE LA Ao Ratio MM 1.2 AV Cusp Separation MM 0.9 cm DOPPLER AV Peak Velocity 380.0 cm/s LVOT Peak Velocity 103.0 cm/s AV Area Cont Eq vti 0.9 cm squared AV Area Cont Eq pk 0.8 cm squared MV Peak Velocity 284.0 cm/s MV Area PHT 2.7 cm squared Mitral E to A Ratio 0.0 TV Peak Velocity 286.5 cm/s TR Peak Velocity 299.0 cm/s TR Peak Gradient 35.8 mmHg TV Peak E Velocity 48.0 cm/s Right Atrial Pressure 10.0 mmHg Pulmonary Artery Systolic Pressu 45.8 mmHg PV Peak Velocity 46.0 cm/s FINDINGS Left Ventricle Technically limited quality echocardiogram. LV systolic function is normal with EF of 60 to 65%. No regional wall motion abnormalities are seen. Echogenic structure seen in the LV likely prominent papillary muscle. Right Ventricle Normal in size and function Right Atrium Normal in size Left Atrium Normal in size Mitral Valve Structurally normal mitral valve. At base of anterior mitral valve leaflet 1.32x 0.71 cm mobile echogenic structure seen consistent with vegetation. Atleast moderate eccenteric regurgitation. Doppler signal is not adequate, grossly gradient across mitral valve is elevated. Aortic Valve Mechanical aortic valve. Not well visualized. Elevated mean gradient across the valve and is 26mmHg. Aortic valve area is 1.23cm2. DVI is 0.31. Tricuspid Valve Mild tricuspid regurgitation. Moderate pulmonary hypertension. RVSP is 45 to 50 mmHg. Pulmonic Valve Not well visualized Pericardium Normal Aorta Normal in size IVC Appears to be dilated. CONCLUSIONS LV systolic function is normal with EF of 60 to 65%. Echogenic structure seen in LV likely prominent papillary muscle. At base of anterior mitral valve leaflet, 1.32x 0.71 cm mobile echogenic structure seen consistent with vegetation. Eccenteric mitral regurgitation. Doppler signal is not adequate, grossly gradient across mitral valve is elevated. Mechanical aortic valve. Not well visualized. Elevated mean gradient across the valve and is 26mmHg. Aortic valve area is 1.23cm2. DVI is 0.31. Mild tricuspid regurgitation. Moderate pulmonary hypertension IVC appears to be dilated Kendrick Staley MD (Electronically Signed) Final Date: 29 June 2024 20:39 S
[2024-06-29 14:21] LABS: Troponin 5 2HR 233.7 ng/L (0-15); Troponin 5 2HR Delta -26.3 ABS# (0-10)
--- NOTE | 2024-06-29 14:40 | ECG_ITS ---
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 Measurements Intervals [place] Rate: 129 P: 0 [place]: 0 QRS: 54 QRSD: 113 T: 93 QT: 367 QTc: 538 Interpretive Statements ATRIAL FLUTTER/TACHYCARDIA WITH RAPID VENTRICULAR RESPONSE POSSIBLE LATERAL MYOCARDIAL INFARCTION , PROBABLY OLD [30 ms Q WAVE IN I/aVL/V5/V6] INFERIOR MYOCARDIAL INFARCTION , PROBABLY RECENT [40+ ms Q WAVE AND/OR ST/T ABNORMALITY IN II/aVF] ACUTE NC Compared to ECG 06/29/2024 09:20:19 Myocardial infarct finding now present T-wave abnormality no longer present Possible ischemia no longer present Electronically Signed On 06-29-2024 23:32:35 CDT by Asa Palafox M.D. [id number]
[2024-06-29 14:43] LABS: Potassium, Radom Urine 56 mmol/L; Urine Random Chloride 34 mmol/L; Urine Random Sodium 39 mmol/L
[2024-06-29 14:44] LABS: C Reactive Protein 146.3 mg/L (0.0-4.9)
[2024-06-29 15:00] LABS: ABG PCO2 42.7 mmHg (35-45); ABG PH Result 7.31 (7.35-7.45); Alveolar-Arterial Oxygen Gradi 69.7 mmHg (5-10); Arterial Blood Gas Hematocrit 48.3 % (42-52); Base Excess ABG -4.5 mmol/L (-2.0-2.0); Blood Gas Allen Test Pos; Blood Gas Operator Identificat WALCI; Blood Gas Sample Site Radial, left; Blood Gas Sample Type Arterial; Blood Gas Tidal Volume 0.53; Carboxyhemoglobin 0.5 %THgb (0.4-20.1); HCO3 ABG 21.6 mmol/L (22-26); HGB O2 Sat 96.6 % (95-100); Ionized Calcium Level - ABG 1.1 mmol/L (1.1-1.4); Oxygen Device VENT; PO2 FiO2 Ratio Arterial Blood 118; Potassium Level - ABG 4.1 mmol/L (3.5-5.0); Total Hemoglobin 15.8 g/dL (14-18)
--- NOTE | 2024-06-29 15:21 | XRR_ITS ---
PROCEDURE INFORMATION: Exam: XR Chest Exam date and time: 06/29/2024 3:34 PM Age: 58 years old Clinical indication: Device placement; Other: Central line placement TECHNIQUE: Imaging protocol: Radiologic exam of the chest. Views: 1 view. COMPARISON: CT angio chest w abd pel w con 06/29/2024 10:19 AM FINDINGS: Tubes, catheters and devices: New IJ catheter terminating in the right atrium. The endotracheal and NG tubes are unchanged. Lungs: Extensive bilateral consolidative infiltrates are increasing in the right lower lobe, unchanged elsewhere. Pleural spaces: Unremarkable. No pleural effusion. No pneumothorax. Heart/Mediastinum: Unremarkable. No cardiomegaly. Bones/joints: Unremarkable. XR/XR chest 1V portable [id number] IMPRESSION: Increasing right lower lobe infiltrate, the other infiltrates are unchanged.
--- NOTE | 2024-06-29 16:06 | ECG_ITS ---
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 Measurements Intervals [place] Rate: 108 P: 30 MA: 242 QRS: 55 QRSD: 103 T: 53 QT: 308 QTc: 414 Interpretive Statements SINUS TACHYCARDIA WITH FIRST DEGREE AV BLOCK POSSIBLE LEFT ATRIAL ENLARGEMENT [-0.1mV P-WAVE IN V1/V2] MODERATE ST DEPRESSION [0.05+ mV ST DEPRESSION] Compared to ECG 06/29/2024 15:38:12 First degree AV block now present ST (T wave) deviation now present Atrial flutter no longer present Myocardial infarct finding no longer present Electronically Signed On 06-29-2024 23:25:17 CDT by Asa Palafox M.D. [id number]
--- NOTE | 2024-06-29 16:10 | PC.NURSE ---
assisted with transfer of patient from ER ror to ICU bed patient noted to be diaphoretic, Primary nurse place ecg leads and concerns for change noted EKG obtained and stemi alert called
--- NOTE | 2024-06-29 16:11 | P.CONIM_ITS ---
Providers/Reason For Consult 2 Consulting Physician/Specialty*: Kendrick Staley MD/ Interventional Cardiology Reason for Consult*: Possible STEMI Requesting Physician: Dr Rooney Attending Physician: Wesley Rooney MD Primary Care Provider: Cj Black MD History of Present Illness History of Present Illness Giovanni Mcgill is a 58 year old male with past medical history of severe aortic stenosis status post valve replacement with 25 mm On-X mechanical valve at [facility] in 2021, history of alpha gal allergy, subtherapeutic INR since patient refuses to increase Coumadin dosing has presented with respiratory failure. He is currently intubated. Interventional cardiology was called as a STEMI alert was activated. He was found to be in atrial flutter with RVR. Today he is septic and has INR over 4. Also has GIULIA, has lactic acid level of 19. Currently requiring levophed. Review of Systems 2 General: Reports: ROS unobtainable due to endotracheal tube Medications/Allergies Home Medications Medication Instructions Recorded Confirmed Last Taken Type aspirin 325 mg tablet 325 mg PO DAILY 02/21/24 06/29/24 Unknown History warfarin 10 mg tablet 10 mg PO DAILY #30 tabs 03/24/24 06/29/24 Unknown Rx warfarin 7.5 mg tablet 11.25 mg PO DAILY 06/29/24 06/29/24 Unknown History Allergies Allergy/AdvReac Type Severity Reaction Status Date / Time soy Allergy Unknown Unknown Verified 06/16/24 08:54 gluten Allergy Severe ADR-Abdominal Uncoded 06/16/24 08:54 Pain processed sugar Allergy ADR-Gastrointestinal Uncoded 06/16/24 08:54 Upset Brendan Gal AdvReac Severe N & V Uncoded 06/16/24 08:54 Current Medications Generic Name Dose Route Start Last Admin Trade Name Freq PRN Reason Stop Dose Admin Fentanyl 1,000 mcg in 100 mls @ 0 mls/hr 06/29/24 09:00 06/29/24 12:39 Sublimaze IV 75 mcg/hr .Q0M CARRI 7.5 mls/hr Titration Protocol Per Protocol Midazolam HCl 100 mg in 100 mls @ 0 mls/hr 06/29/24 09:00 06/29/24 12:44 Versed IV 4 mg/hr .Q0M CARRI 4 mls/hr Titration Protocol Per Protocol Heparin Sodium/Sodium Chloride 25,000 unit in 500 mls @ 0 mls/hr 06/29/24 10:15 06/29/24 12:23 Heparin Drip IV Not Given CONT CARRI Protocol Per Protocol Norepinephrine Bitartrate 4 mg in 250 mls @ 0 mls/hr 06/29/24 12:45 06/29/24 13:28 Levophed IV 10 mcg/min .Q0M CARRI 37.5 mls/hr Titration Protocol Per Protocol PFSH Acute 2 PFSH: Medical History History of nonmelanoma skin cancer GERD (gastroesophageal reflux disease) Aortic stenosis Psychiatric care Urolithiasis Small bilateral lower pole nonobstructing stones on CT scan done for hematuria BPH loc w urin obs/LUTS Anxiety disorder Depression Hepatitis C Hypertension Melanoma of upper back excluding scapular region Recurrent UTI (urinary tract infection) Gross hematuria Surgical History History of umbilical hernia repair History of bilateral inguinal hernia repair History of open heart surgery 04/04/23 [facility] Status post surgical removal of malignant neoplasm of skin 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 and excision of nodular basal cell carcinoma from the left arm History of melanoma excision (09/04/21) Wide excision of upper back melanoma with right axillary sentinel lymph node biopsy History of carpal tunnel release of both wrists History of arthroscopic knee surgery Family History Mother , AT AGE 81 Diabetes CAD (coronary artery disease) Depression Hypertension Hypercholesteremia Parkinson disease Father , at age 83 Heart disease Depression Cancer Prostate Brother Heart disease Hypertension Sister Depression Heart disease Hypertension Social History Smoking and tobacco/nicotine status: never used tobacco/nicotine Second hand smoke exposure: No Alcohol intake: never Substance/Drug Use: current Substance/Drug use frequency: daily Other substance/drug use details: Gummies & other products. Marital status: Current occupational status: unemployed Vitals/I&O/Wt Last Vital Signs Pulse 129 H 06/29/24 15:47 Resp 21 H 06/29/24 15:46 BP 101/71 06/29/24 15:47 Pulse Ox 99 06/29/24 15:47 O2 Del Method Mechanical Ventilation 06/29/24 15:46 O2 Flow Rate 15 06/29/24 08:40 FiO2 100 06/29/24 13:19 06/29/24 06/29/24 06/29/24 06:59 14:59 22:59 Intake Total 340.583 / 340.583 150 / 490.583 Balance 340.583 / 340.583 150 / 490.583 Weight last 48 hrs Weight 205 lb 0.478 oz Weight 215 lb Physical Exam 2 Narrative: GENERAL: Patient is intubated and sedated HEART: Regular S1 and S2. Grade 3/6 systolic murmur LUNGS: Diminished air entry. CENTRAL NERVOUS SYSTEM: Grossly nonfocal. [] EXTREMITIES: Lower extremities with 1+ edema bilaterally. Urinary Catheter Management: Martinez: Cath Placed During This Visit: yes Urinary Catheter Date of Insertion: 06/29/24 Urinary Catheter Time of Insertion: 10:20 Data 06/29/24 09:07 06/29/24 09:07 Micro: Microbiology 06/29/24 09:38 Gram Stain - Final Sputum - Endotracheal Tube Aspirate 06/29/24 09:45 Blood Culture - Preliminary Blood SPECIMEN COLLECTED 06/29/24 09:07 Blood Culture - Preliminary Blood SPECIMEN COLLECTED A&P Assessment and plan (1) Mechanical heart valve present: (2) Congestive heart failure: (3) Atrial flutter with rapid ventricular response: (4) Septic shock: Plan Patient is currently in septic shock. EKG does not meet STEMI criteria. Given requirement for Levophed, suspicious changes on EKG, we will proceed with cardioversion. Once he is in sinus rhythm, we will repeat another EKG. INR is supratherapeutic today however in setting of septic shock. In general always stays subtherapeutic. Obtain echocardiogram as high risk for valvular complications Antibiotic therapy per primary team Thank you for involving us with care of this patient. We will continue to follow. Please call with questions. Consult Attestations 2 Medical Necessity Statement: Care expected to cross 2 midnights. Coding Level of Care Code Acute Code for Chg Fwd Diagnoses Mechanical heart valve present Z95.2 Congestive heart failure I50.9 Atrial flutter with rapid ventricular response I48.92 Septic shock A41.9; R65.21
[2024-06-29 16:24] LABS: Troponin 5 6HR 295.7 ng/L (0-15); Troponin 5 6HR Delta 35.7 ng/L (0-12)
[2024-06-29] MEDS: pantoprazole 40 mg SDV IVP (16:30)
[2024-06-29] MEDS: heparin drip 25,000 UNIT/500 ML PREMIX 27.31 UNIT IV (16:39)
[2024-06-29] MEDS: sodium bicarbonate 150 MEQ in dextrose 5% 1,000 ML 100 MEQ IV (16:41)
--- NOTE | 2024-06-29 16:46 | PM.PROC ---
Procedure Note: Date of procedure: 06/29/24 Pre-procedure diagnosis: Atrial flutter with RVR Post-procedure diagnosis: other (Normal sinus rhythm) Procedure: Cardioversion: Patient currently in sepsis. STEMI alert was called as there was suspicion of ST elevations in inferior leads. On review of EKG appeared consistent with atrial flutter with RVR. Patient requiring pressor support. His INR is >4. Patient is intubated and sedated. We decided to proceed with synchronized DCCV and convert to normal sinus rhythm to better assess ST elevation. We successfully cardioverted patient back to normal sinus rhythm with shock x1. EKG showed no ST elevation. Op report anesthesia: Other Performing Provider: Kendrick Staley Complications: None Condition: critical Disposition: ICU Coding Level of Care Code Acute Code for Chg Poli
[2024-06-29] MEDS: vancomycin 2,000 MG/400 ML PIGGYBACK 200 MG IV (16:48)
--- NOTE | 2024-06-29 16:53 | PC.NURSE ---
Addendum entered by Yojana Graves RN 06/29/24 16:57: Procedure at 1604 Original Note: Cardiovert: Patient arrived from ER, diaphoretic, obtained EKG, showed acute [place]. Notified Dr. Rooney, called a stemi alert. Dr. Staley arrived bedside, after reviewing ekgs and labs, decision to made to synchronize cardiovert. Time out performed bedside with Dr. Staley and Audrey SILVESTREbridge club manager.
--- NOTE | 2024-06-29 17:13 | P.PHAVANC_ITS ---
Vancomycin Goal - Goal Vancomycin Goal:: 15-20 mg/L Vancomycin Indication:: Pneumonia - Therapy Current therapy:: Pip/Tazo (3.375 GM Q8H) Day of therpy:: Day [1]of [] . Actual body weight (kg): 93 kg [place] body weight: 75.3 KG Dosing weight (kg): 93 KG - Data Labs: WBC 34.36 10^3/uL (3.29-11.43) H* 06/29/24 09:07 RBC 5.51 10^6/uL (3.85-5.65) 06/29/24 09:07 Hgb 15.90 g/dL (11.27-16.99) 06/29/24 09:07 Hct 49.9 % (37-53) 06/29/24 09:07 MCV 90.6 fl (82-101) 06/29/24 09:07 MCH 28.9 pg (27-33) 06/29/24 09:07 MCHC 31.9 g/dL (30-55) 06/29/24 09:07 RDW 14.9 % (12.1-15.1) 06/29/24 09:07 Sodium 137 mmol/L (136-145) 06/29/24 09:07 Potassium 4.0 mmol/L (3.5-5.1) 06/29/24 09:07 Chloride 91 mmol/L (98-107) L 06/29/24 09:07 Carbon Dioxide 11 mmol/L (22-29) L 06/29/24 09:07 Anion Gap 39.0 (5-19) H 06/29/24 09:07 BUN 38 mg/dL (8-23) H 06/29/24 09:07 Creatinine 1.9 mg/dL (0.7-1.2) H 06/29/24 09:07 GFR Calculation 36.3 mL/min (90-130) L 06/29/24 09:07 Last dialysis session:: N/A Treatment plan:: new consult Regimen:: Loading dose should have been 3gm, 1 gm given in ER. Scheduled catch up dose of 2gm in ICU. Vancomycin 1250mg q18h should give a predicted trough of 17.1 Follow up:: Pharmacy will continue to monitor daily, Scr daily with AM labs
[2024-06-29] MEDS: guaiFENesin 100 mg/5 mL UDC 10 mL 400 MG PO ×2 (17:15→23:22)
--- NOTE | 2024-06-29 18:01 | PC.NURSE ---
Jai Primary contact on list, gave permission to speak to Girlfriend Erika Myer, Jai will also attempt to contact any family members she knows to reach out to the hospital.
[2024-06-29 18:46] LABS: MRSA PCR OZH (swab) MRSA Detected (Negative)
[2024-06-29] MEDS: norepinephrine 4 MG/250 ML BAG 37.5 MG IV (19:00)
[2024-06-29] MEDS: ipratropium-albuterol 3 mL Neb INHALATION (19:44)
[2024-06-29] MEDS: fentaNYL 1,000 MCG/100 ML BAG 7.5 MCG IV (20:45)
--- NOTE | 2024-06-29 23:02 | PC.NURSE ---
Accepted to [facility]: Desirae Vaelntin called unit @[id number] to report pt has been accepted w/ no bed available at this time.
[2024-06-30] VITALS (109 sets, daily range): BP systolic 78–106; BP diastolic 59–78; PULSE 105–124; RESP 14–27; TEMP 37.2–40.9; O2SAT 91–100
[2024-06-30 00:03] LABS: Bacillus cereus group Not Detected (NOT DETECT); Bacillus subtillis group Not Detected (NOT DETECT); Corynebacterium Not Detected (NOT DETECT); Cutibacterium acnes (P.acnes) Not Detected (NOT DETECT); Enterococcus Not Detected (NOT DETECT); Enterococcus faecalis Not Detected (NOT DETECT); Enterococcus faecium Not Detected (NOT DETECT); Lactobacillus species Not Detected (NOT DETECT); Listeria Not Detected (NOT DETECT); Listeria monocytogenes Not Detected (NOT DETECT); Micrococcus Not Detected (NOT DETECT); Pan Candida Not Detected (NOT DETECT); Pan Gram-Negative Not Detected (NOT DETECT); Staphylococcus epidermidis Not Detected (NOT DETECT); Staphylococcus lugdunensis Not Detected (NOT DETECT); Staphylococcus species Not Detected (NOT DETECT); Streptococcus agalactiae Not Detected (NOT DETECT); Streptococcus anginosus group Not Detected (NOT DETECT); Streptococcus pneumoniae Not Detected (NOT DETECT); Streptococcus pyogenes Not Detected (NOT DETECT); Streptococcus species Detected (NOT DETECT)
[2024-06-30 00:07] LABS: Glucose Point of Care 130 mg/dL (70-110)
[2024-06-30] MEDS: ipratropium-albuterol 3 mL Neb INHALATION ×4 (01:57→19:58)
[2024-06-30] MEDS: norepinephrine 4 MG/250 ML BAG 22.5 MG IV (02:23)
[2024-06-30] MEDS: piperacillin-tazobactam 3.375 GM in sodium chloride 0.9% (plus) 50 ML IV ×3 (02:35→18:14)
[2024-06-30 03:13] LABS: Basophils # 0.1 10^3/uL (0.0-0.1); Basophils % 0.2 %; Eosinophils % 0.2 %; Lymphocytes # 1.6 10^3/uL (0.8-4.8); Lymphocytes % 7.6 %; Mean Corpuscular HGB Conc 33.5 g/dL (30-55); Mean Corpuscular Hemoglobin 28.6 pg (27-33); Mean Corpuscular Volume 85.5 fl (82-101); Mean Platelet Volume 12.3 fL (7.4-10.4); Monocytes # 1.2 10^3/uL (0.2-0.9); Monocytes % 5.7 %; Neutrophils # 18.43 10^3/uL (1.8-7.7); Neutrophils % 85.2 %; Nucleated Red Blood Cells # 0.2 /100WBC; Nucleated Red Blood Cells % 0.8 %; Platelet Count 79 10^3/cmm (157-399); Red Blood Count 5.03 10^6/uL (3.85-5.65); Red Cell Distribution Width 15.1 % (12.1-15.1); White Blood Count 21.63 10^3/uL (3.29-11.43)
[2024-06-30 03:37] LABS: ABG PCO2 38.9 mmHg (35-45); ABG PH Result 7.44 (7.35-7.45); Base Excess ABG 1.9 mmol/L (-2.0-2.0); Blood Gas Sample Type Arterial; Carboxyhemoglobin 0.9 %THgb (0.4-20.1); HCO3 ABG 26.2 mmol/L (22-26); HGB O2 Sat 89.2 % (95-100); Oxygen Saturation ABG 90.9; PO2 ABG 60.6 mmHg (80.0-100.0); Potassium Level - ABG 4.5 mmol/L (3.5-5.0); Total Hemoglobin 14.7 g/dL (14-18)
[2024-06-30 03:38] LABS: Alveolar-Arterial Oxygen Gradi 13.5 mmHg (5-10); Blood Gas Operator Identificat ED; Blood Gas Sample Site Brachial, left; Oxygen Device VENT; PO2 FiO2 Ratio Arterial Blood 202
[2024-06-30 03:41] LABS: Albumin Level 2.9 g/dL (3.5-5.2); Alkaline Phosphatase 107 U/L (40-130); Anion Gap 20.8 (5-19); Blood Urea Nitrogen 54 mg/dL (8-23); Calcium 7.8 mg/dL (8.5-10.5); Carbon Dioxide 26 mmol/L (22-29); Chloride 95 mmol/L (98-107); Creatinine Clr Calc Pharmacy 50.8519; Globulin 2.4 g/dL (1.3-4.6); Glomerular Filtration Rate 38.7 mL/min (90-130); Glucose 155 mg/dL (65-115); Magnesium 2.5 mg/dL (1.7-2.3); Osmolality Calculated 302 mOsm/kg (285-295); Phosphorus 5.4 mg/dL (2.5-4.5); Potassium 4.8 mmol/L (3.5-5.1); Sodium 137 mmol/L (136-145); Total Bilirubin 1.1 mg/dL (0.15-1.2); Total Protein 5.3 g/dL (6.6-8.7)
[2024-06-30 03:43] LABS: Procalcitonin 3.65 ng/mL (0-0.5)
[2024-06-30 03:56] LABS: Alanine Aminotransferase 753 U/L (0-41)
[2024-06-30 04:00] LABS: Aspartate Amino Transferase 890 U/L (0-40)
--- NOTE | 2024-06-30 04:00 | XRR_ITS ---
PROCEDURE INFORMATION: Exam: XR Chest Exam date and time: 06/30/2024 4:07 AM Age: 58 years old Clinical indication: Other: Intubated; Prior surgery; Surgery date: 6+ months; Surgery type: Cabg; Additional info: Respiratory failure TECHNIQUE: Imaging protocol: Radiologic exam of the chest. Views: 1 view. COMPARISON: CR XR chest 1V portable [id number] 06/29/2024 3:34 PM FINDINGS: Tubes, catheters and devices: Stable positioning of the endotracheal tube and right IJ catheter. Stable positioning of the enteric tube which projects over the stomach with the distal tip extending beyond the inferior field of view. Lungs: Persistent extensive bilateral consolidation, similar to prior. Pleural spaces: Similar right pleural effusion. No pneumothorax. Heart/Mediastinum: Stable cardiomegaly. Bones/joints: Sequelae of median sternotomy. Unchanged bones. XR/XR chest 1V portable [id number] IMPRESSION: 1. Persistent extensive bilateral consolidation, similar to prior. 2. Stable positioning of the support devices.
[2024-06-30 04:13] LABS: INR 5.92 (0.8-1.2)
[2024-06-30] MEDS: chlorhexidine gluconate 4% Btl 118 mL 1 APPLIC TOPICAL (04:17)
[2024-06-30 04:30] LABS: Slide Review Slide Review Perform
[2024-06-30] MEDS: sodium bicarbonate 150 MEQ in dextrose 5% 1,000 ML 100 MEQ IV (04:32)
[2024-06-30] MEDS: guaiFENesin 100 mg/5 mL UDC 10 mL 400 MG PO ×4 (05:06→22:18)
[2024-06-30] MEDS: acetaminophen 500 mg Tablet PO ×2 (07:55→12:37)
[2024-06-30] MEDS: midazolam hcl 100 MG/100 ML BAG IV (09:04)
--- NOTE | 2024-06-30 09:47 | PC.NURSE ---
Due to tachypnea and low MV, nurse has had to increased versed from 1mg/hr to 3mg/hr. Patient also has poor kidney function. NUrse alerted Dr Rooney. received order to start propofol. Attempt to transition completely to propofol for sedation, if not possible due to blood pressure try to at least reduce versed requirement to make future neuro checks possible.
[2024-06-30] MEDS: propofol 1,000 MG/100 ML INJ 2.62 MG IV (11:00)
--- NOTE | 2024-06-30 11:17 | P.PN_ITS ---
Subjective 2 Subjective: Patient is in septic shock and found to have large vegetation on mitral valve. Also has elevated gradients across the mechanical aortic valve. Vitals/I&O/Wt Last Vital Signs Temp 102.9 F H 06/30/24 08:00 Pulse 117 H 06/30/24 09:15 Resp 24 H 06/30/24 09:57 BP 98/66 06/30/24 09:15 Pulse Ox 96 06/30/24 09:57 O2 Del Method Mechanical Ventilation 06/30/24 08:05 O2 Flow Rate 15 06/29/24 08:40 FiO2 40 06/30/24 09:57 06/29/24 06/30/24 06/30/24 22:59 06:59 14:59 Intake Total 1271.114 / 1568.023 3217.350 / 3095.047 15.033 / 15.033 Output Total 450 / 450 600 / 1050 Balance 821.114 / 1161.697 883.350 / 2045.047 15.033 / 15.033 Weight last 48 hrs Weight 192 lb 8 oz Weight 205 lb 0.478 oz Weight 205 lb 0.478 oz Weight 215 lb Physical Exam 2 Narrative: GENERAL: Patient is intubated and sedated HEART: Regular S1 and S2. Grade 3/6 systolic murmur LUNGS: Diminished air entry. CENTRAL NERVOUS SYSTEM: Grossly nonfocal. [] EXTREMITIES: Lower extremities with 1+ edema bilaterally. Urinary Catheter Management: Martinez: Cath Placed During This Visit: yes Reason for Continuing Indwelling Catheter: Accurate Measurement of Urinary Output in Critically Ill Patients Urinary Catheter Date of Insertion: 06/29/24 Urinary Catheter Time of Insertion: 10:20 Data 07/01/24 04:55 07/01/24 04:55 Micro: Microbiology 06/29/24 09:38 Gram Stain - Final Sputum - Endotracheal Tube Aspirate Sputum Culture - Preliminary 06/29/24 09:45 Blood Culture - Preliminary Blood NEGATIVE TO DATE 06/29/24 11:06 Urine Culture - Preliminary Urine,Clean Catch 06/29/24 09:07 Blood Culture - Preliminary Blood A&P Assessment and plan (1) Mechanical heart valve present: (2) Congestive heart failure: (3) Atrial flutter with rapid ventricular response: (4) Septic shock: (5) Infective endocarditis: Plan Patient found to have large sized vegetation on anterior mitral valve leaflet. Presentation is consistent with infective endocarditis. Needs transfer to tertiary care center for CT surgery evaluation given large size of mitral valve vegetation and infectious disease recommendations. Also has elevated gradients across mechanical aortic valve. Has multiorgan failure. Antibiotic therapy per ID protocol. Levophed as needed. Thank you for involving us with care of this patient. We will continue to follow. Please call with questions. Attestations 2 Medical Necessity Statement*: Care expected to cross 2 midnights. Coding Level of Care Code Acute Code for [facility] Diagnoses Mechanical heart valve present Z95.2 Congestive heart failure I50.9 Atrial flutter with rapid ventricular response I48.92 Septic shock A41.9; R65.21 Infective endocarditis I33.0
[2024-06-30] MEDS: vancomycin 1,250 MG/250 ML PIGGYBACK 166.67 MG IV (11:53)
[2024-06-30] MEDS: fentaNYL 1,000 MCG/100 ML BAG 5 MCG IV (12:25)
--- NOTE | 2024-06-30 12:28 | PC.NURSE ---
Addendum entered by Ray Mitchell RN 06/30/24 12:30: Nurse rechecked feet and temperature. Feet are now warm to the touch, but purple discoloration and mottling remains. Temperature is now showing 103 axillary. Due to continued high temperatures, nurse placed a rectal thermometer for closer monitoring and it shows a temperature of 105.7. Nurse alerted Dr rooney to this information and received orders for another 500mG tylenol PO, and to start external cooling measures. Nurse placed ice packs in axilla and groin while waiting on a cooling blanket to be brought to be delivered. Will continue to monitor skin at ice pack site. Original Note: upon morning assessment, patients feet were cold to the touch, left pinky toe was purple, right great toe purple, and generalized mottling to both feet. Nurse placed warm blanket on feet. WHen checking axillary temperature it is 102.9. NUrse alerted Dr Rooney to this. REceived orders for one time tylenol and to monitor feet.
--- NOTE | 2024-06-30 12:55 | PC.NURSE ---
[facility] noninvasive fluid challenge performed. Shows an SVI change of -15.9%. Not fluid responsive. Nurse alerted Dr Rooney to results.
--- NOTE | 2024-06-30 13:08 | PM.PN ---
Subjective Subjective: Overnight, echocardiogram as well revealing a large vegetation consistent with infective endocarditis. Assistant Professor Of Marine Biology kindly assisted in transferring patient. He is currently waiting for a bed at [facility] in [facility]. Further collateral information collected and the closest next of kin at the moment available to us appears to be girlfrienarmida James. This morning, patient remained sedated on the ventilator. Vasopressors were able to be turned off around shift change. He is found to be markedly febrile secondary to infective endocarditis. There is purpleish discoloration of multiple toes however no necrosis appreciated on exam. He is at risk of embolic events given large vegetation. Medications: Reviewed: Yes Vitals/I&O/Wt Last Vital Signs Temp 102.9 F H 06/30/24 08:00 Pulse 117 H 06/30/24 09:15 Resp 24 H 06/30/24 11:22 BP 98/66 06/30/24 09:15 Pulse Ox 96 06/30/24 11:22 O2 Del Method Mechanical Ventilation 06/30/24 08:05 O2 Flow Rate 15 06/29/24 08:40 FiO2 40 06/30/24 11:22 06/29/24 06/30/24 06/30/24 22:59 06:59 14:59 Intake Total 1271.114 / 8898.901 8895.350 / 3095.047 241.807 / 241.807 Output Total 450 / 450 600 / 1050 Balance 821.114 / 1161.697 883.350 / 2045.047 241.807 / 241.807 Weight last 48 hrs Weight 87.317 kg Weight 93 kg Weight 93 kg Weight 97.522 kg Physical Exam Narrative: General: Patient is intubated. Sedated. Head: Normocephalic. Atraumatic. Neck: No JVD. Cardiovascular: RRR. No gallops. No murmurs. Lungs: Diffuse rhonchi throughout bilateral lung [place]. Intubated on mechanical ventilation. Skin: No jaundice. No rashes. There is purpleish discoloration of multiple toes. Extremities are cool to the touch. Abdomen: Not distended. Extremities: No clubbing. Musculoskeletal: No erythematous joints. Neurological: No myoclonus. Urinary Catheter Management: Martinez: Cath Placed During This Visit: yes Reason for Continuing Indwelling Catheter: Accurate Measurement of Urinary Output in Critically Ill Patients Urinary Catheter Date of Insertion: 06/29/24 Urinary Catheter Time of Insertion: 10:20 Data 06/30/24 02:53 06/30/24 02:53 Micro: Microbiology 06/29/24 09:38 Gram Stain - Final Sputum - Endotracheal Tube Aspirate Sputum Culture - Preliminary 06/29/24 09:45 Blood Culture - Preliminary Blood NEGATIVE TO DATE 06/29/24 11:06 Urine Culture - Preliminary Urine,Clean Catch 06/29/24 09:07 Blood Culture - Preliminary Blood A&P Assessment and plan (1) Infective endocarditis: Patient meets MONTGOMERY criteria for infective endocarditis Patient needs transferred to [facility] for infectious disease and thoracic surgery support Continue treating underlying infection Monitor for complications including embolic events Patient markedly febrile today, will begin external cooling (2) Acute respiratory failure: Acute hypoxic hypercapnic respiratory failure Intubated 06/29 Fentanyl for analgesia Propofol for sedation Will attempt to wean Versed as tolerated as to not obstruct ongoing neurological assessments in the setting of IE Serial ABGs and vent management (3) Pneumonia: Continue Zosyn and vancomycin Pulmonary toilet (4) Septic shock: Septic shock secondary to pneumonia Severe lactic acidosis Vasopressor support has improved Blood cultures prelim with GPC in chains Repeat cultures drawn overnight Goal-directed medical therapy (5) Bacteremia: Initial blood cultures with GPC's in chains Repeat blood cultures (6) Renal failure: Metabolic acidosis is resolved, discontinue bicarb drip He continues to make urine although output is decreasing NICOM assessed, he will not be fluid responsive Plan to start enteral feeds his vasopressor requirements have improved (7) History of heart valve replacement with mechanical valve: INR remains supratherapeutic Hold warfarin Daily INR Plan DVT prophylaxis: INR is currently supratherapeutic CODE STATUS: Assume full code Attestations Medical Necessity Statement*: Patient requires ongoing hospitalization for continued mechanical ventilation, vasopressors, IV antibiotics, nutritional support, serial labs, serial cultures, and transfer to tertiary care center. Critical Care Time: The high probability of a clinically significant, sudden or life threatening deterioration of the patient's respiratory, cardiac, vascular, neuro, gastrointestinal, nutritional system(s) required my full and direct attention, intervention and personal management. The critical care time is as shown. This time is in addition to time spent performing any reported procedures but includes the following: [x] Data and vital sign review and interpretation [x] Patient assessment, examination and intervention [x] Documentation [x] Medication orders and management Critical Care Time (min): 80 Coding Level of Care Code Acute Code for [facility] Fwd Diagnoses Infective endocarditis I33.0 Acute respiratory failure J96.00 Pneumonia J18.9 Septic shock A41.9; R65.21 Bacteremia R78.81 Renal failure N19 History of heart valve replacement with mechanical valve Z95.2
[2024-06-30 15:51] LABS: Amphetamines Screen Urine Negative (Negative); Barbiturates Screen Urine Negative (Negative); Benzodiazepines Screen Urine Negative (Negative); Cocaine Screen Urine Negative (Negative); Opiate Screen Urine Negative (Negative); PCP Screen Urine Negative (Negative); THC Screen Urine Positive (Negative)
[2024-06-30] MEDS: pantoprazole 40 mg SDV IVP (18:02)
[2024-06-30] MEDS: polyethylene glycol 3350 Pkt 17 gm PO (18:03)
[2024-06-30] MEDS: sennosides 8.6 mg Tablet 17.2 MG PO (18:03)
--- NOTE | 2024-06-30 19:08 | PC.NURSE ---
Shift Summary: Have acceptance to [facility], but no bed, verified with transfer center today. TMAX of 105.7 today, treating with tylenol and external cooling. Started on propofol in attmept to wean off of versed. Levophed was briefly needed this morning. Dark purple/Cyanosis to left small toe and right great toe, with mottling about mcc up bilateral feet. Appearance has been worsening, but it is quite diffuse at borders with no clear boundaries to ghazala. Pictures have been sent to Dr Rooney Via [employer] to track condition. Urine output: 305 mL
--- NOTE | 2024-06-30 19:10 | PC.NURSE ---
Case Management: Alvarez Whimtan ([phone]) called and says he is the pts brother. Unable to get him added to the contact list at this time DPOA refusing to be involved in pt care. Consult to case management enter to update on family member.
[2024-06-30] MEDS: acetaminophen 1,000 MG/100 ML PIGGYBACK 400 MG IV (19:45)
[2024-06-30 20:09] LABS: Lactate (Lactic Acid level) 2.6 mmol/L (0.5-2.2)
--- NOTE | 2024-06-30 20:17 | PC.NURSE ---
Accepted to [facility]: Darius Taylor called unit @2015 and reported pt has been accepted to [facility] and is on the waiting list for a bed.
[2024-06-30 20:26] LABS: Reflex FDPQ test REFLEX FDP QUEST TES
[2024-06-30 20:28] LABS: Basophils % 0.2 %; Eosinophils % 0.1 %; Hematocrit 39.4 % (37-53); Lymphocytes # 2.2 10^3/uL (0.8-4.8); Lymphocytes % 10.6 %; Mean Corpuscular HGB Conc 33.2 g/dL (30-55); Mean Corpuscular Hemoglobin 28.9 pg (27-33); Monocytes # 1.2 10^3/uL (0.2-0.9); Neutrophils # 17.11 10^3/uL (1.8-7.7); Nucleated Red Blood Cells # 0.3 /100WBC; Nucleated Red Blood Cells % 1.6 %; Platelet Count 78 10^3/cmm (157-399); Red Blood Count 4.53 10^6/uL (3.85-5.65); White Blood Count 20.83 10^3/uL (3.29-11.43)
[2024-06-30 20:45] LABS: Partial Thromboplastin Time 40.5 SECONDS (23.9-36.7)
[2024-06-30 20:46] LABS: Fibrinogen 174 mg/dL (174-498)
[2024-06-30 20:53] LABS: Albumin Level 2.8 g/dL (3.5-5.2); Alkaline Phosphatase 102 U/L (40-130); Blood Urea Nitrogen 72 mg/dL (8-23); Calcium 7.5 mg/dL (8.5-10.5); Globulin 2.2 g/dL (1.3-4.6); Glomerular Filtration Rate 26.5 mL/min (90-130); Glucose 139 mg/dL (65-115); Total Bilirubin 1.5 mg/dL (0.15-1.2)
[2024-06-30 20:56] LABS: D Dimer 9.72 ug/mLFEU (0-0.59)
[2024-06-30 21:02] LABS: INR 8.43 (0.8-1.2)
[2024-06-30 21:04] LABS: Alanine Aminotransferase 1716 U/L (0-41); Chloride 96 mmol/L (98-107); Osmolality Calculated 307 mOsm/kg (285-295); Sodium 137 mmol/L (136-145)
[2024-06-30 21:05] LABS: Aspartate Amino Transferase 2531 U/L (0-40)
[2024-06-30 21:10] LABS: Carbon Dioxide 26 mmol/L (22-29)
[2024-06-30 21:21] LABS: Slide Review Slide Review Perform
--- NOTE | 2024-06-30 21:42 | USCV_ITS ---
Giovanni Mcgill Age: 58 Gender: M : 1965 Exam Date: 06/30/2024 22:02 Ordering Phys: Mann Salamanca MD Technologist: CARA Exam Location: [facility] [place] Indication: assess for DVT. Patient on ventilator in ICU-12 HISTORY: assess for DVT. Patient on ventilator in ICU-12 PROCEDURES: Venous duplex imaging was performed in bilateral lower extremities. The following venous structures were evaluated: common femoral vein, profunda vein, proximal portion of the greater saphenous vein, superficial femoral vein, and the popliteal vein. In addition, the posterior tibial veins were evaluated. Serial compression, augmentation maneuvers, and spectral Doppler flow evaluation were performed, which were normal. Bilaterally, the common femoral, superficial femoral, profunda femoral, popliteal, posterior tibial, and greater saphenous veins were identified and interrogated in the standard fashion. These veins were found to be easily compressible with spontaneous blood flow. No evidence of thrombus noted. Highly pulsatile bilateral lower extremity venous compartments is consistent with CHF. CONCLUSIONS No evidence of right lower extremity DVT. No evidence of left lower extremity DVT. Venous pulsatility can be seen with CHF Stevo Escobar MD (Electronically Signed) Final Date: 01 July 2024 09:56 S
--- NOTE | 2024-06-30 22:00 | PC.NURSE ---
Transfer Center: Per request of Dr. Salamanca @[id number] [facility] transfer center and [facility] have been updated on worsening labs @698 and 590 respectively.
[2024-06-30] MEDS: propofol 1,000 MG/100 ML INJ 15.72 MG IV (22:21)
[2024-07-01] VITALS (80 sets, daily range): BP systolic 76–118; BP diastolic 55–85; PULSE 97–112; RESP 14–22; TEMP 39.4–40.2; O2SAT 90–100
[2024-07-01] MEDS: chlorhexidine gluconate 4% Btl 118 mL 1 APPLIC TOPICAL (01:20)
[2024-07-01] MEDS: fentaNYL 1,000 MCG/100 ML BAG 7.5 MCG IV (01:22)
[2024-07-01] MEDS: ipratropium-albuterol 3 mL Neb INHALATION ×3 (01:31→13:15)
[2024-07-01] MEDS: piperacillin-tazobactam 3.375 GM in sodium chloride 0.9% (plus) 50 ML IV ×2 (02:21→10:54)
[2024-07-01] MEDS: vancomycin 1,250 MG/250 ML PIGGYBACK 167 MG IV (05:00)
[2024-07-01] MEDS: guaiFENesin 100 mg/5 mL UDC 10 mL 400 MG PO ×2 (05:05→10:55)
[2024-07-01 05:06] LABS: Basophils % 0.2 %; Hematocrit 39.7 % (37-53); Lymphocytes # 2.3 10^3/uL (0.8-4.8); Lymphocytes % 9.9 %; Mean Corpuscular Hemoglobin 29.2 pg (27-33); Mean Corpuscular Volume 88.4 fl (82-101); Mean Platelet Volume 12.5 fL (7.4-10.4); Monocytes # 1.1 10^3/uL (0.2-0.9); Monocytes % 4.9 %; Neutrophils # 19.33 10^3/uL (1.8-7.7); Neutrophils % 83.9 %; Nucleated Red Blood Cells # 0.3 /100WBC; Nucleated Red Blood Cells % 1.2 %; Platelet Count 78 10^3/cmm (157-399); Red Blood Count 4.49 10^6/uL (3.85-5.65); Red Cell Distribution Width 15.6 % (12.1-15.1); White Blood Count 23.05 10^3/uL (3.29-11.43)
[2024-07-01] MEDS: propofol 1,000 MG/100 ML INJ 15.72 MG IV (05:14)
--- NOTE | 2024-07-01 05:18 | PC.NURSE ---
Addendum entered by Madai Smalls RN 07/01/24 05:19: Witnessed waste of 80 ml Versed 0517 Original Note: Versed Wasted: Wasted 85ml of versed mendez/ KONRAD Cardenas @0517.
[2024-07-01 05:33] LABS: Procalcitonin 4.01 ng/mL (0-0.5)
[2024-07-01 05:35] LABS: INR 6.66 (0.8-1.2)
[2024-07-01 05:36] LABS: Albumin Level 2.9 g/dL (3.5-5.2); Alkaline Phosphatase 108 U/L (40-130); Anion Gap 20.2 (5-19); Blood Urea Nitrogen 78 mg/dL (8-23); Calcium 7.4 mg/dL (8.5-10.5); Carbon Dioxide 27 mmol/L (22-29); Chloride 96 mmol/L (98-107); Creatinine Clr Calc Pharmacy 30.7686; Globulin 2.2 g/dL (1.3-4.6); Glomerular Filtration Rate 22.3 mL/min (90-130); Glucose 139 mg/dL (65-115); Magnesium 3.1 mg/dL (1.7-2.3); Osmolality Calculated 312 mOsm/kg (285-295); Potassium 5.2 mmol/L (3.5-5.1); Sodium 138 mmol/L (136-145); Total Protein 5.1 g/dL (6.6-8.7)
--- NOTE | 2024-07-01 05:46 | CT_ITS ---
WS: [id number] CT HEAD TECHNIQUE: Noncontrast CT of the head obtained from the skullbase to the vertex. CLINICAL INFORMATION: recurrent fever COMPARISON: None. DLP: 1195.[address] scans at [facility] use at least one of these dose optimization techniques: automated e xposure control; mA and/or kV adjustment per patient size (includes targeted exams where dose is matc hed to clinical indication); or iterative reconstruction. FINDINGS: No evidence of intracranial hemorrhage or mass effect. Ventricular system and basal cisterns are kelly nt. Mild small vessel changes with mild parenchymal volume loss. No extra-axial fluid collections. 8 mm area of low-attenuation change in the RIGHT thalamus suspicious for a small subacute infarct. No m ass effect or hemorrhage. Paranasal sinuses and mastoid air cells are well aerated. .Normal visualized soft tissues. CT/CT head wo con* [id number] IMPRESSION: 1. No evidence of intracranial hemorrhage or mass effect. 2. Suspected 8 mm subacute infarct in the RIGHT thalamus with low-attenuation change. No significant mass effect or midline shift. No hemorrhage. 3. Mild small vessel changes with mild parenchymal volume loss. 4. Vascular calcification. Notified Mann Salamanca MD at 07/01/2024 1:21 PM.
[2024-07-01 05:47] LABS: Alanine Aminotransferase 1591 U/L (0-41)
[2024-07-01 05:52] LABS: Aspartate Amino Transferase 1860 U/L (0-40)
[2024-07-01 05:53] LABS: Phosphorus 8.4 mg/dL (2.5-4.5)
--- NOTE | 2024-07-01 06:00 | XRR_ITS ---
PROCEDURE INFORMATION: Exam: XR Chest Exam date and time: 07/01/2024 5:57 AM Age: 58 years old Clinical indication: Shortness of breath; Prior surgery; Surgery date: 6+ months; Surgery type: Cabg; Additional info: Respiratory failure TECHNIQUE: Imaging protocol: Radiologic exam of the chest. Views: 1 view. COMPARISON: CR (CHEST, ) 06/30/2024 4:07 AM FINDINGS: Tubes, catheters and devices: Endotracheal tube is present with its tip 2 cm above the mary. Central venous catheter seen on the right with its tip overlying the SVC. Nasogastric tube is present with its tip overlying the body of the stomach. Lungs: There are bilateral infiltrates and effusions similar to that seen on prior exam. Findings are worse on the right than on the left. Pleural spaces: Suspect bilateral pleural effusions greater on the right. No pneumothorax is identified. Heart/Mediastinum: The heart is enlarged. Sternal wires are present from prior cardiac surgery. There is a valvular prosthesis present. Bones/joints: Unremarkable. XR/XR chest 1V portable [id number] IMPRESSION: 1. Cardiomegaly with bilateral infiltrates and effusions similar to that seen on prior exam.
--- NOTE | 2024-07-01 08:30 | P.PN_ITS ---
Vitals/I&O/Wt Last Vital Signs Temp 103.8 F H 07/01/24 06:00 Pulse 100 07/01/24 07:45 Resp 14 07/01/24 07:53 BP 84/61 07/01/24 06:00 Pulse Ox 100 07/01/24 07:53 O2 Del Method Mechanical Ventilation 07/01/24 07:45 O2 Flow Rate 15 06/29/24 08:40 FiO2 40 07/01/24 07:53 06/30/24 07/01/24 07/01/24 22:59 06:59 14:59 Intake Total 366.768 / 744.576 2927.882 / 2053.207 Output Total 75 / 305 550 / 855 Balance 291.768 / 692.325 505.882 / 1198.207 Weight last 48 hrs Weight 193 lb 9.6 oz Weight 192 lb 8 oz Weight 205 lb 0.478 oz Weight 205 lb 0.478 oz Weight 215 lb Physical Exam 2 Urinary Catheter Management: Martinez: Cath Placed During This Visit: yes Reason for Continuing Indwelling Catheter: Accurate Measurement of Urinary Output in Critically Ill Patients Urinary Catheter Date of Insertion: 06/29/24 Urinary Catheter Time of Insertion: 10:20 Data 07/01/24 04:55 07/01/24 04:55 Micro: Microbiology 06/29/24 09:38 Gram Stain - Final Sputum - Endotracheal Tube Aspirate Sputum Culture - Preliminary 06/29/24 09:45 Blood Culture - Preliminary Blood NEGATIVE TO DATE 06/29/24 11:06 Urine Culture - Preliminary Urine,Clean Catch Coding Level of Care Code Acute Code for Chg Fwd
[2024-07-01] MEDS: polyethylene glycol 3350 Pkt 17 gm PO (08:42)
[2024-07-01] MEDS: sennosides 8.6 mg Tablet 17.2 MG PO (08:42)
--- NOTE | 2024-07-01 09:30 | PC.NUTR ---
Consult for tube feeding recommendations received. Recommend Jevity 1.5 beginning @15 mls/hr, increasing 20mls Q8H until goal rate of 55 mls/hr is reached with FWF 150mls Q4H or per MD discretion.
--- NOTE | 2024-07-01 11:31 | P.PN_ITS ---
Subjective 2 Subjective: Last night, patient discussed with [facility] intensive care physician. Patient added to their wait list. Patient is awaiting transfer. Will transfer patient to first bed available at tertiary center that can provide the level of care that he needs. Patient persistently febrile overnight. Planning on external cooling blanket today as it was overnighted overnight. He remains off vasopressor support. He is sedated on exam this morning. Head CT was ordered overnight. He is currently sedated and was recently on Versed which limits full neurological assessment. Will plan to hold sedation this morning to assess neurological status. Will likely proceed with head CT unless neurological status is normal. Venous Doppler ultrasound ordered overnight of lower extremities. Resulted as negative this morning. Per discussion with [facility], there may be a brother that is willing to make medical decisions. To my knowledge nobody has visited patient yet in the hospital. Medications: Reviewed: Yes Vitals/I&O/Wt Last Vital Signs Temp 103.8 F H 07/01/24 06:00 Pulse 109 H 07/01/24 08:00 Resp 16 07/01/24 09:42 BP 84/61 07/01/24 06:00 Pulse Ox 100 07/01/24 09:42 O2 Del Method Mechanical Ventilation 07/01/24 07:45 O2 Flow Rate 15 06/29/24 08:40 FiO2 40 07/01/24 09:42 06/30/24 07/01/24 07/01/24 22:59 06:59 14:59 Intake Total 366.768 / 571.712 1726.882 / 2053.207 Output Total 75 / 305 550 / 855 Balance 291.768 / 692.325 505.882 / 1198.207 Weight last 48 hrs Weight 87.815 kg Weight 87.317 kg Weight 93 kg Weight 93 kg Physical Exam 2 Narrative: General: Patient is intubated. Sedated. Head: Normocephalic. Atraumatic. Neck: No JVD. Cardiovascular: RRR. No gallops. No murmurs. Lungs: Diffuse rhonchi throughout bilateral lung tomlin. Intubated on mechanical ventilation. Skin: No jaundice. No rashes. Persistent purpleish discoloration of multiple toes, possibly slightly worse than yesterday. Distal extremities remain cool. Abdomen: Not distended. Hypoactive bowel sounds. Extremities: No clubbing. Musculoskeletal: No erythematous joints. Neurological: No myoclonus. Urinary Catheter Management: Martinez: Cath Placed During This Visit: yes Reason for Continuing Indwelling Catheter: Accurate Measurement of Urinary Output in Critically Ill Patients Urinary Catheter Date of Insertion: 06/29/24 Urinary Catheter Time of Insertion: 10:20 Data 07/01/24 04:55 07/01/24 04:55 Micro: Microbiology 06/29/24 09:38 Gram Stain - Final Sputum - Endotracheal Tube Aspirate Sputum Culture - Final 06/29/24 11:06 Urine Culture - Final Urine,Clean Catch 06/29/24 09:45 Blood Culture - Preliminary Blood NEGATIVE TO DATE A&P Assessment and plan (1) Infective endocarditis: Awaiting transfer to tertiary care [facility], will transfer when first bed becomes available Continue treating underlying infection with broad-spectrum antibiotics Monitor for complications including embolic events Patient markedly febrile today, will begin external cooling Proceed with neurological assessment with holding of sedation Will likely proceed with head CT unless neurological exam is normal (2) Acute respiratory failure: Acute hypoxic hypercapnic respiratory failure Intubated 06/29 Fentanyl for analgesia Propofol for sedation Weaned off Versed Serial ABGs and vent management (3) Pneumonia: Continue Zosyn and vancomycin Pulmonary toilet (4) Septic shock: Septic shock secondary to pneumonia Severe lactic acidosis Off vasopressors Blood cultures prelim with GPC in chains, awaiting identification Repeat cultures are pending Goal-directed medical therapy (5) Bacteremia: As above (6) Renal failure: Strict I's and O's Daily weights No acute indication for emergent dialysis Request nephrology consultation as renal function continues to worsen (7) History of heart valve replacement with mechanical valve: INR remains supratherapeutic Hold warfarin Daily INR DIC labs reviewed Plan DVT prophylaxis: INR is currently supratherapeutic CODE STATUS: Assume full code Attestations 2 Medical Necessity Statement*: Patient requires ongoing hospitalization for continued mechanical ventilation, IV antibiotics, head imaging, nutritional support, serial labs, serial cultures, and transfer to tertiary care center. Critical Care Time: The high probability of a clinically significant, sudden or life threatening deterioration of the patient's neurologic, respiratory, cardiac, vascular, gastrointestinal, nutritional system(s) required my full and direct attention, intervention and personal management. The critical care time is as shown. This time is in addition to time spent performing any reported procedures but includes the following: [x] Data and vital sign review and interpretation [x] Patient assessment, examination and intervention [x] Documentation [x] Medication orders and management Critical Care Time (min): 60 Coding Level of Care Code Acute Code for [facility] Diagnoses Infective endocarditis I33.0 Acute respiratory failure J96.00 Pneumonia J18.9 Septic shock A41.9; R65.21 Bacteremia R78.81 Renal failure N19 History of heart valve replacement with mechanical valve Z95.2
--- NOTE | 2024-07-01 12:03 | PC.SOCIAL ---
IMM Updated IMM dated and initialed and placed in chart and copy laid at bedside.
--- NOTE | 2024-07-01 15:45 | P.TS_ITS ---
Transfer Summary Providers Date of Admission: 06/29/24 14:12 Date of Discharge/Transfer: 07/01/24 Attending Provider at Admission: Wesley Rooney MD Attending Provider at Transfer: Wesley Rooney MD Consults: Cardiology Primary Care Provider: Cj Black MD Transfer Plans: Anticipated date of transfer: 07/01/24 . Diagnoses at Discharge Discharge Diagnosis (1) Infective endocarditis: Status: Acute (2) Acute respiratory failure: Status: Acute (3) Pneumonia: Status: Acute (4) Septic shock: Status: Acute (5) Bacteremia: Status: Acute (6) Renal failure: Status: Acute (7) History of heart valve replacement with mechanical valve: Status: Acute Reason for Visit Reason for Visit sob Hospital Course Hospital Course Giovanni Mcgill is a 58 year old male with a past medical history significant for GERD, aortic stenosis, benign prostatic hypertrophy, depression, hepatitis C, hypertension, melanoma, and mechanical heart valve who presented the emergency department in severe respiratory distress. He was found to have severe acidosis with a pH of 7.08 secondary to respiratory metabolic acidosis upon presentation. He was intubated immediately in the emergency department. Initial workup revealed severe bilateral community-acquired pneumonia and septic shock. Central line was placed and he was started on vasopressor support with Levophed. He was treated with broad-spectrum antibiotics with a dose of Levaquin initially which broadened out to Zosyn and vancomycin. He was admitted to the intensive care unit. He went into atrial flutter with concerns for possible ST elevation for which cardiology was consulted via STEMI code. He underwent synchronized cardioversion which temporarily converted him back to sinus rhythm. There is no ST elevations observed on sinus rhythm. No cardiac catheterization was required. He was familiar to the net application support specialist as he follows with him in clinic for warfarin management for history of mechanical aortic valve. Stat echocardiogram revealed a large vegetation on the anterior leaflet of his mitral valve. Blood cultures showed p reliminary positive with gram-positive cocci in chains. Presentation consistent with infective endocarditis. Urinary drug screen was only positive for marijuana. [facility] and he was waitlisted. Shock eventually resolved. At time of transfer he has been off vasopressor support for greater than 24 hours. FiO2 requirement had improved from 100% to 40%. He was found to have shock liver and shock kidneys with non-oliguric acute kidney injury. He was found to have hypercoagulability likely secondary to shock liver as well as residual warfarin effects. He was initially treated with Versed for sedation which was weaned off and discontinued to allow for further neurochecks in the setting of known infective endocarditis. It was noted that he was in renal failure which likely will propagate the effects of Versed. Sedation was held on the morning of 07/01 without significant improvement in neurological status. Head CT was obtained revealing a 8 mm subacute right infarct in the right thalamus. Radiology suspect this is likely embolic, most likely from his infective endocarditis. A bed became available at [facility] intensive care unit. Patient transferred for higher level of care and subspecialty support including thoracic surgery evaluation, infectious disease evaluation, and neurology evaluation. Of note, collateral information was obtained from his girlfriend Erika ([phone]). Per collateral information from nursing staff, patient is estranged from his family. Per collateral ports are not interested in updates or making medical decisions for the patient. When I spoke with Erika, she reported that patient had been sick for the past 2 weeks prior to finally being evaluated in the ED on 06/29. At baseline prior to this illness he did have known mechanical aortic valve. His only medications were warfarin and aspirin. Physical Exam Narrative: General: Patient is intubated. Sedated. Head: Normocephalic. Atraumatic. Neck: No JVD. Cardiovascular: RRR. No gallops. No murmurs. Lungs: Diffuse rhonchi throughout bilateral lung tomlin. Intubated on mechanical ventilation. Skin: No jaundice. No rashes. Persistent purpleish discoloration of multiple toes, possibly slightly worse than yesterday. Distal extremities remain cool. Abdomen: Not distended. Hypoactive bowel sounds. Extremities: No clubbing. Musculoskeletal: No erythematous joints. Neurological: No myoclonus. Urinary Catheter Management: Martinez: Cath Placed During This Visit: yes Reason for Continuing Indwelling Catheter: Accurate Measurement of Urinary Output in Critically Ill Patients Urinary Catheter Date of Insertion: 06/29/24 Urinary Catheter Time of Insertion: 10:20 TS Data Studies Completed and Pending Pending at discharge Category Date Time Status XR chest 1V portable [id number] Routine Exams 07/02/24 04:00 Ordered ABG FULL [Arterial Blood Gas Full] AM LABS Lab 07/02/24 04:00 Ordered Blood Culture Stat Lab 06/29/24 09:45 Results CBC Auto Diff [Complete Blood Count w/Auto] AM LABS Lab 07/02/24 04:00 Ordered CMP [Comprehensive Metabolic Panel] AM LABS Lab 07/02/24 04:00 Ordered Fibrinogen Degradation Product Routine Lab 06/30/24 20:26 Received Lactate (Lactic Acid level) AM LABS Lab 07/02/24 04:00 Ordered Magnesium AM LABS Lab 07/02/24 04:00 Ordered Phosphorus AM LABS Lab 07/02/24 04:00 Ordered Procalcitonin AM LABS Lab 07/02/24 04:00 Ordered Prothrombin Time INR AM LABS Lab 07/02/24 04:00 Ordered Vancomycin Trough Routine Lab 07/01/24 22:00 Ordered Completed Studies During Hospitalization Category Date Time Status CT angio chest w abd pel w con Stat Cat Scan 06/29/24 10:[address] head wo con* [id number] Routine Cat Scan 07/01/24 05:46 Completed XR chest 1V portable [id number] Routine Exams 06/30/24 04:00 Completed XR chest 1V portable [id number] Routine Exams 07/01/24 06:00 Completed XR chest 1V portable [id number] Stat Exams 06/29/24 08:39 Completed XR chest 1V portable [id number] Stat Exams 06/29/24 09:15 Completed XR chest 1V portable [id number] Stat Exams 06/29/24 15:21 [place] [id number] Routine Ultrasound 06/30/24 21:42 Completed CV. echo complete* [id number] Stat Ultrasound 06/29/24 14:13 Completed US kidney bilateral [US renal BI* [id number]] Stat Ultrasound 06/29/24 14:13 Completed Laboratory Last Values WBC 23.05 10^3/uL (3.29-11.43) H 07/01/24 04:55 RBC 4.49 10^6/uL (3.85-5.65) 07/01/24 04:55 Hgb 13.10 g/dL (11.27-16.99) 07/01/24 04:55 Hct 39.7 % (37-53) 07/01/24 04:55 MCV 88.4 fl (82-101) 07/01/24 04:55 MCH 29.2 pg (27-33) 07/01/24 04:55 MCHC 33.0 g/dL (30-55) 07/01/24 04:55 RDW 15.6 % (12.1-15.1) H 07/01/24 04:55 Plt Count 78 10^3/cmm (157-399) L 07/01/24 04:55 MPV 12.5 fL (7.4-10.4) H 07/01/24 04:55 Neut % (Auto) 83.9 % 07/01/24 04:55 Lymph % (Auto) 9.9 % 07/01/24 04:55 Cambria % (Auto) 4.9 % 07/01/24 04:55 Eos % (Auto) 0.0 % 07/01/24 04:55 Baso % (Auto) 0.2 % 07/01/24 04:55 Neut # (Auto) 19.33 10^3/uL (1.8-7.7) H 07/01/24 04:55 Lymph # (Auto) 2.3 10^3/uL (0.8-4.8) 07/01/24 04:55 [place] # (Auto) 1.1 10^3/uL (0.2-0.9) H 07/01/24 04:55 Eos # (Auto) 0.0 10^3/uL (0.0-0.8) 07/01/24 04:55 Baso # (Auto) 0.0 10^3/uL (0.0-0.1) 07/01/24 04:55 Nucleated RBC % (auto) 1.2 % 07/01/24 04:55 Nucleated RBCs # 0.3 /100WBC 07/01/24 04:55 PT 60.80 SECONDS (12.1-14.9) H 07/01/24 04:55 INR 6.66 (0.8-1.2) H* 07/01/24 04:55 APTT 40.5 SECONDS (23.9-36.7) H 06/30/24 20:00 Fibrinogen 174 mg/dL (174-498) 06/30/24 20:00 D-Dimer 9.72 ug/mLFEU (0-0.59) H 06/30/24 20:00 Specimen Type Arterial 06/30/24 03:27 Sample Site Brachial, left 06/30/24 03:27 ABG pH 7.44 (7.35-7.45) 06/30/24 03:27 ABG pCO2 38.9 mmHg (35-45) 06/30/24 03:27 ABG pO2 60.6 mmHg (80.0-100.0) L 06/30/24 03:27 ABG PO2/FiO2 Ratio 202 06/30/24 03:27 ABG HCO3 26.2 mmol/L (22-26) H 06/30/24 03:27 ABG O2 Saturation 90.9 06/30/24 03:27 ABG Base Excess 1.9 mmol/L (-2.0-2.0) 06/30/24 03:27 Manuel Test N/a 06/30/24 03:27 A-a O2 Gradient 13.5 mmHg (5-10) H 06/30/24 03:27 Hematocrit 45.0 % (42-52) 06/30/24 03:27 Hgb O2 Saturation 89.2 % (95-100) L 06/30/24 03:27 Carboxyhemoglobin 0.9 %THgb (0.4-20.1) 06/30/24 03:27 Methemoglobin 1.0 % (0.4-1.5) 06/30/24 03:27 Total Hemoglobin 14.7 g/dL (14-18) 06/30/24 03:27 Sodium 135.0 mmol/L (131-143) 06/30/24 03:27 Potassium 4.5 mmol/L (3.5-5.0) 06/30/24 03:27 Glucose 153.0 mg/dL (70-115) H 06/30/24 03:27 Ionized Calcium 1.0 mmol/L (1.1-1.4) L 06/30/24 03:27 O2 Delivery Device Vent 06/30/24 03:27 O2 Liters/Min 15.0 % 06/29/24 08:41 FiO2 30.0 % 06/30/24 03:27 Tidal Volume 0.50 06/30/24 03:27 PEEP 8.0 cmH20 06/30/24 03:27 Head Machinist ID Ed 06/30/24 03:27 Sodium 138 mmol/L (136-145) 07/01/24 04:55 Potassium 5.2 mmol/L (3.5-5.1) H 07/01/24 04:55 Chloride 96 mmol/L (98-107) L 07/01/24 04:55 Carbon Dioxide 27 mmol/L (22-29) 07/01/24 04:55 Anion Gap 20.2 (5-19) H 07/01/24 04:55 BUN 78 mg/dL (8-23) H 07/01/24 04:55 Creatinine 2.9 mg/dL (0.7-1.2) H 07/01/24 04:55 GFR Calculation 22.3 mL/min (90-130) L 07/01/24 04:55 Glucose 139 mg/dL (65-115) H 07/01/24 04:55 POC Glucose 130 mg/dL (70-110) H 06/30/24 00:03 Calculated Osmolality 312 mOsm/kg (285-295) H 07/01/24 04:55 Lactic Acid 19.4 mmol/L (0.5-2.2) H* 06/29/24 09:07 Lactic Acid (Sepsis) 12.0 mmol/L (0.5-2.2) H* 06/29/24 11:52 Lactate 2.6 mmol/L (0.5-2.2) H 06/30/24 19:38 Calcium 7.4 mg/dL (8.5-10.5) L 07/01/24 04:55 Phosphorus 8.4 mg/dL (2.5-4.5) H* 07/01/24 04:55 Magnesium 3.1 mg/dL (1.7-2.3) H 07/01/24 04:55 Total Bilirubin 2.0 mg/dL (0.15-1.2) H 07/01/24 04:55 AST 1860 U/L (0-40) H 07/01/24 04:55 ALT 1591 U/L (0-41) H 07/01/24 04:55 Alkaline Phosphatase 108 U/L (40-130) 07/01/24 04:55 Troponin T Baseline 260 ng/L (0-15) H* 06/29/24 09:07 Troponin T 120 Minute 233.7 ng/L (0-15) H 06/29/24 11:52 Delta Troponin T -26.3 ABS# (0-10) L 06/29/24 11:52 Troponin T Hi Sens 6Hr 295.7 ng/L (0-15) H 06/29/24 15:50 Troponin T Hi Sens 6Hr Delta 35.7 ng/L (0-12) H* 06/29/24 15:50 C-Reactive Protein 146.3 mg/L (0.0-4.9) H 06/29/24 09:07 NT-Pro-B Natriuret Pep 57325 pg/mL (0-125) H 06/29/24 09:07 Total Protein 5.1 g/dL (6.6-8.7) L 07/01/24 04:55 Albumin 2.9 g/dL (3.5-5.2) L 07/01/24 04:55 Globulin 2.2 g/dL (1.3-4.6) 07/01/24 04:55 Lipase 12 U/L (13-60) L 06/29/24 09:07 Procalcitonin 4.01 ng/mL (0-0.5) H 07/01/24 04:55 Urine Color Dark yellow (Yellow) A 06/29/24 11:06 Urine Appearance Cloudy (CLEAR) A 06/29/24 11:06 Urine pH 5.0 (5-7) 06/29/24 11:06 Ur Specific [place] 1.022 (1.005-1.030) 06/29/24 11:06 Urine Protein 2+ (Negative) A 06/29/24 11:06 Urine Glucose (UA) Negative (Normal) 06/29/24 11:06 Urine Ketones Negative (Negative) 06/29/24 11:06 Urine Blood 3+ (Negative) A 06/29/24 11:06 Urine Nitrate Negative (Negative) 06/29/24 11:06 Urine Bilirubin Negative (Negative) 06/29/24 11:06 Urine Urobilinogen 1.0 mg/dL (Negative) 06/29/24 11:06 Ur Leukocyte Esterase Trace (Negative) A 06/29/24 11:06 Urine RBC 6-10 /hpf (0-2) 06/29/24 11:06 Urine WBC 11-20 /hpf (0-5) H 06/29/24 11:06 Ur Squamous Epith Cells 11-20 /hpf (0-5) 06/29/24 11:06 Amorphous Sediment Not Reportable 06/29/24 11:06 Urine Bacteria Trace /hpf (NONE) 06/29/24 11:06 Hyaline Casts 130.73 /lpf 06/29/24 11:06 Ur Random Sodium 39 mmol/L 06/29/24 11:06 Ur Random Potassium 56 mmol/L 06/29/24 11:06 Ur Random Chloride 34 mmol/L 06/29/24 11:06 Nasal MRSA (PCR) Mrsa detected (Negative) A 06/29/24 17:20 Urine Opiates Screen Negative ng/mL (Negative) 06/29/24 11:06 Ur Barbiturates Screen Negative ng/mL (Negative) 06/29/24 11:06 Ur Phencyclidine Scrn Negative ng/mL (Negative) 06/29/24 11:06 Ur Amphetamines Screen Negative ng/mL (Negative) 06/29/24 11:06 U Benzodiazepines Scrn Negative ng/mL (Negative) 06/29/24 11:06 Urine Cocaine Screen Negative ng/mL (Negative) 06/29/24 11:06 U Marijuana (THC) Screen Positive ng/mL (Negative) H 06/29/24 11:06 Coronavirus (PCR) Negative (Negative) 06/29/24 10:21 Influenza A (PCR) Negative (Negative) 06/29/24 10:21 Influenza Type B (PCR) Negative (Negative) 06/29/24 10:21 RSV (PCR) Negative (Negative) 06/29/24 10:21 Radiology Impressions Chest/Abdomen/Pelvis CT 06/29/24 10:12 IMPRESSION: 1. Extensive consolidation. 2. Bilateral pleural effusions. 3. The endotracheal tube terminates 1.3 cm above the mary. IMPRESSION: No acute subdiaphragmatic pathology. COMMENTS: Consistent with the [place] [employer]'s Incidental Findings Committee white paper (J Am Neisha Radiol 2018): Any incidental renal lesion less than 1 cm or classified as too small to characterize, or any incidental cystic renal lesion characterized as simple-appearing, is likely benign. No follow-up imaging is recommended for these lesions per consensus recommendations based on imaging criteria. Renal Ultrasound 06/29/24 14:13 IMPRESSION: Normal renal ultrasound. Head CT 07/01/24 05:46 IMPRESSION: 1. No evidence of intracranial hemorrhage or mass effect. 2. Suspected 8 mm subacute infarct in the RIGHT thalamus with low-attenuation change. No significant mass effect or midline shift. No hemorrhage. 3. Mild small vessel changes with mild parenchymal volume loss. 4. Vascular calcification. Notified Mann Salamanca MD at 07/01/2024 1:21 PM. Chest X-Ray 07/01/24 06:00 IMPRESSION: 1. Cardiomegaly with bilateral infiltrates and effusions similar to that seen on prior exam. Recent Clincial Data Last Vital Signs Temp 103.2 F H 07/01/24 14:00 Pulse 105 H 07/01/24 14:00 Resp 17 07/01/24 15:29 BP 99/66 07/01/24 14:00 Pulse Ox 94 07/01/24 15:29 O2 Del Method Mechanical Ventilation 07/01/24 14:00 O2 Flow Rate 15 06/29/24 08:40 FiO2 40 07/01/24 15:29 Vital Signs Temp Pulse Resp BP Pulse Ox O2 Del Method FiO2 07/01/24 15:29 17 94 40 07/01/24 14:00 105 H 07/01/24 14:00 103.2 F H 107 H 16 99/66 98 Mechanical Ventilation 35 07/01/24 13:45 102 H 95/69 90 07/01/24 13:30 103 H 101/67 96 07/01/24 13:18 22 H 93 35 07/01/24 13:16 101 H 16 98 Mechanical Ventilation 35 07/01/24 13:15 101 H 99/70 94 07/01/24 13:00 103 H 98/72 94 07/01/24 12:45 101 H 102/70 93 07/01/24 12:30 99 99/68 93 07/01/24 12:15 103 F H 101 H 16 106/72 93 Mechanical Ventilation 103 07/01/24 12:00 90/70 07/01/24 11:45 90/70 07/01/24 11:32 16 100 40 07/01/24 11:30 102 H 90/70 97 07/01/24 11:15 101 H 90/70 97 07/01/24 11:00 101 H 90/69 98 07/01/24 10:45 100 91/68 99 07/01/24 10:30 99 88/65 99 07/01/24 10:15 99 86/63 99 07/01/24 10:00 99 83/60 99 07/01/24 09:45 98 76/58 100 07/01/24 09:42 16 100 40 07/01/24 09:30 99 77/61 100 07/01/24 09:15 98 77/62 100 07/01/24 09:00 110 H 89/61 100 07/01/24 08:45 107 H 85/63 100 07/01/24 08:30 107 H 88/59 99 07/01/24 08:15 108 H 84/61 100 07/01/24 08:00 97 86/63 100 07/01/24 08:00 109 H 07/01/24 07:53 14 100 40 07/01/24 07:45 101 H 91/59 98 07/01/24 07:45 100 14 96 Mechanical Ventilation 40 07/01/24 07:30 103.5 F H 99 16 87/61 100 Mechanical Ventilation 40 07/01/24 07:15 97 85/61 99 07/01/24 07:00 98 86/61 100 07/01/24 06:45 97 83/60 100 07/01/24 06:30 98 84/60 100 07/01/24 06:15 98 84/58 99 07/01/24 06:00 103.8 F H 99 14 84/61 98 Mechanical Ventilation 40 07/01/24 05:45 100 80/57 98 Mechanical Ventilation 40 07/01/24 05:42 101 H 07/01/24 05:30 101 H 89/57 99 Mechanical Ventilation 40 07/01/24 05:15 100 98 Mechanical Ventilation 40 07/01/24 05:00 110 H 88/63 98 Mechanical Ventilation 40 07/01/24 04:45 104.0 F H 103 H 14 85/64 99 Mechanical Ventilation 40 07/01/24 04:30 102 H 86/63 98 Mechanical Ventilation 40 07/01/24 04:15 105 H 89/65 99 Mechanical Ventilation 40 07/01/24 04:00 109 H 90/61 98 Mechanical Ventilation 40 Intake & Output/Weight 06/29/24 06/30/24 07/01/24 07/02/24 06:59 06:59 06:59 06:59 Intake Total 3095.047 / 3095.047 2052. / 2052. 530.523 / 530.523 Output Total 1050 / 1050 855 / 855 475 / 475 Balance 204.047 / 2044.047 1198.207 / 1198.207 55.523 / 55.523 Weight 87.317 kg 87.815 kg Procedures Performed Synchronized cardioversion Vitals Last Vital Signs Temp 103.2 F H 07/01/24 14:00 Pulse 105 H 07/01/24 14:00 Resp 17 07/01/24 15:29 BP 99/66 07/01/24 14:00 Pulse Ox 94 07/01/24 15:29 O2 Del Method Mechanical Ventilation 07/01/24 14:00 O2 Flow Rate 15 06/29/24 08:40 FiO2 40 07/01/24 15:29 TS Medications Medications Acetaminophen (Acetaminophen 325 Mg Tablet) 650 mg PO Q6H PRN PRN Reason: Mild/Mod Pain Or Temp >/= 101 Albuterol/Ipratropium (Ipratropium-Albuterol 3 Ml Neb) 3 ml INHALATION Q6H.RESP CARRI Last Admin: 07/01/24 13:15 Dose: 3 ml Chlorhexidine Gluconate (Chlorhexidine Gluconate 4% Btl 118 Ml) 1 applic TOPICAL Q24H CARRI Last Admin: 07/01/24 01:20 Dose: 1 applic Guaifenesin (Guaifenesin 100 Mg/5 Ml Udc 10 Ml) 400 mg PO Q6H CARRI Last Admin: 07/01/24 10:55 Dose: 400 mg Fentanyl (Sublimaze) 1,000 mcg in 100 mls @ 0 mls/hr IV .Q0M CARRI; Protocol Last Titration: 07/01/24 06:31 Dose: 50 mcg/hr, 5 mls/hr Norepinephrine Bitartrate (Levophed) 4 mg in 250 mls @ 0 mls/hr IV .Q0M CARRI; Protocol Last Titration: 06/30/24 14:56 Dose: 0 mcg/min, 0 mls/hr Piperacillin Sod/Tazobactam (Sod 3.375 gm/ Sodium Chloride) 50 mls @ 12.5 mls/hr IV Q8H CARRI; Protocol Last Admin: 07/01/24 10:54 Dose: 12.5 mls/hr Vancomycin HCl (Vancocin) 1,250 mg in 250 mls @ 166.667 mls/hr IV Q18H [facility] Last Infusion: 07/01/24 06:44 Dose: Infused Propofol (Diprivan) 1,000 mg in 100 mls @ 0 mls/hr IV .Q0M [facility]; Protocol Last Titration: 07/01/24 09:30 Dose: 0 mcg/kg/min, 0 mls/hr Ondansetron HCl (Ondansetron 2 Mg/Ml Sdv 2 Ml) 4 mg IVP Q8H PRN PRN Reason: vomiting, or N/V if npo Pantoprazole Sodium (Pantoprazole 40 Mg Sdv) 40 mg IVP Q24H [facility] Last Admin: 06/30/24 18:02 Dose: 40 mg Polyethylene Glycol (Polyethylene Glycol 3350 Pkt 17 Gm) 17 gm PO BID [facility] Last Admin: 07/01/24 08:42 Dose: 17 gm Senna (Sennosides 8.6 Mg Tablet) 17.2 mg PO BID [facility] Last Admin: 07/01/24 08:42 Dose: 17.2 mg Discontinued Medications Acetaminophen (Acetaminophen 500 Mg Tablet) 500 mg PO ONCE ONE Stop: 06/30/24 07:35 Last Admin: 06/30/24 07:55 Dose: 500 mg Acetaminophen (Acetaminophen 500 Mg Tablet) 500 mg PO ONCE ONE Stop: 06/30/24 12:29 Last Admin: 06/30/24 12:37 Dose: 500 mg Aspirin (Aspirin 325 Mg Tablet) 325 mg PO ONCE ONE Stop: 06/29/24 15:56 Last Admin: 06/29/24 16:42 Dose: Not Given Aspirin (Aspirin 325 Mg Tablet) Confirm Administered Dose 325 mg .ROUTE .STK-MED ONE Stop: 06/29/24 15:58 Etomidate (Etomidate 2 Mg/Ml Inj Sdv 10 Ml) 20 mg IVP NOW ONE Stop: 06/29/24 09:00 Last Admin: 06/29/24 09:12 Dose: 20 mg Furosemide (Furosemide 10 Mg/Ml Sdv 10ml) 60 mg IVP ONCE ONE Stop: 06/29/24 09:18 Last Admin: 06/29/24 09:19 Dose: 60 mg Heparin Sodium (Porcine) (Heparin 5,000 Unit/Ml Inj 1 Ml) 0 unit IVP ONCE ONE; Protocol Stop: 06/29/24 09:53 Last Admin: 06/29/24 12:23 Dose: Not Given Heparin Sodium (Porcine) (Heparin 5,000 Unit/Ml Inj 1 Ml) 0 unit IVP PRN PRN; Protocol PRN Reason: Heparin Weight Based Protocol -Subsequent Bolus Heparin Sodium (Porcine) (Heparin 5,000 Unit/Ml Inj 1 Ml) 0 unit IVP ONCE ONE; Protocol Stop: 06/29/24 10:05 Last Admin: 06/29/24 12:23 Dose: Not Given Midazolam HCl (Versed) 100 mg in 100 mls @ 0 mls/hr IV .Q0M [facility]; Protocol Last Titration: 07/01/24 05:17 Dose: Infused Vancomycin HCl 1,000 mg/ (Sodium Chloride) 250 mls @ 250 mls/hr IV ONCE ONE; Protocol Stop: 06/29/24 10:51 Last Infusion: 06/29/24 12:48 Dose: Infused Piperacillin Sod/Tazobactam (Sod 3.375 gm/ Sodium Chloride) 50 mls @ 100 mls/hr IV SALON/SPA MANAGER ONE; Protocol Stop: 06/29/24 10:21 Last Infusion: 06/29/24 12:49 Dose: Infused Levofloxacin/Dextrose (Levaquin-D5w) 750 mg in 150 mls @ 100 mls/hr IV ONCE ONE; Protocol Stop: 06/29/24 11:21 Last Infusion: 06/29/24 15:52 Dose: Infused Heparin Sodium/Sodium Chloride (Heparin Drip) 25,000 unit in 500 mls @ 0 mls/hr IV CONT CARRI; Protocol Last Titration: 06/29/24 16:40 Dose: Infused Sodium Bicarbonate 150 meq/ (Dextrose) 1,150 mls @ 100 mls/hr IV .[id number] CARRI Last Admin: 06/30/24 19:20 Dose: Not Given Vancomycin HCl (Vancocin) 2,000 mg in 400 mls @ 200 mls/hr IV ONCE ONE Stop: 06/29/24 17:59 Last Infusion: 06/29/24 19:00 Dose: Infused Acetaminophen (Acetaminophen) 1,000 mg in 100 mls @ 400 mls/hr IV ONCE ONE Stop: 06/30/24 19:16 Last Infusion: 06/30/24 20:07 Dose: Infused Iohexol (Iohexol 350 Mg/Ml 500 Ml Btl (Per Ml)) 0 ml IV ONCE ONE Stop: 06/29/24 10:59 Last Admin: 06/29/24 10:59 Dose: 100 ml Ketamine HCl (Ketamine 100 Mg/Ml Inj 5 Ml) 200 mg IVP ONCE ONE Stop: 06/29/24 13:00 Last Admin: 06/29/24 13:04 Dose: 200 mg Vecuronium [place] (Vecuronium 10 Mg Sdv) 10 mg IVP ONCE ONE Stop: 06/29/24 08:59 Last Admin: 06/29/24 09:13 Dose: 10 mg Allergies soy Allergy (Unknown, Verified 06/16/24 08:54) Unknown gluten Allergy (Severe, Uncoded 06/16/24 08:54) ADR-Abdominal Pain processed sugar Allergy (Uncoded 06/16/24 08:54) ADR-Gastrointestinal Upset Brendan Gal Adverse Reaction (Severe, Uncoded 06/16/24 08:54) N & V Home Medications aspirin 325 mg tablet 325 mg PO DAILY 02/21/24 [History Confirmed 06/29/24] warfarin 10 mg tablet 10 mg PO DAILY #30 tabs 03/24/24 [Rx Confirmed 06/29/24] warfarin 7.5 mg tablet 11.25 mg PO DAILY 06/29/24 [History Confirmed 06/29/24] Discharge Plan Discharge Patient Disposition: Xfer Short-Term Hosp Condition: Stable Prescriptions: Continued aspirin 325 mg tablet 325 mg PO DAILY warfarin 10 mg tablet 10 mg PO DAILY Qty: 30 3RF warfarin 7.5 mg tablet 11.25 mg PO DAILY Rx Instructions: take 1 1/2 tabs daily Discharge Orders: Discharge Order (Routine); Ordered 07/01/24 Ordered By: Wesley Rooney Referrals: Cj Black MD [Primary Care Provider] - Patient Instructions: Opioid Safety Transfer Attestations Time Spent in Transfer Care: critical care time Critical Care Time (min): 110 Quality Metrics Clinical Quality Measures [ No reported AMI, CVA or VTE this stay] Coding Level of Care Code Acute Code for Chg Fwd Diagnoses Infective endocarditis I33.0 Acute respiratory failure J96.00 Pneumonia J18.9 Septic shock A41.9; R65.21 Bacteremia R78.81 Renal failure N19 History of heart valve replacement with mechanical valve Z95.2
--- NOTE | 2024-07-01 16:15 | PC.NURSE ---
Spoke with Erika life partner and obtained consent for transfer to higher level of care.
--- NOTE | 2024-07-01 16:21 | PC.NURSE ---
Received call from Darius with [facility] transfer center. Acepted to Medical ICU, 3rd floor [facility]. Nurse Gave report to nurse BECKER in the ICU. Cementer Helper Called air evac, approximate arrival time: 1644. inspecting supervisor Orquidea came to unit to review transfer paperwork. NUrse called Alfred with [facility] security and alerted them to inbound helicopter.
[2024-07-01] MEDS: pantoprazole 40 mg SDV IVP (16:32)
--- NOTE | 2024-07-01 17:44 | PC.NURSE ---
Addendum entered by Ray Mitchell RN 07/01/24 17:48: belongings sent with patient included a pair of shoes, belt, and glasses. Original Note: air evac arrived at approximatley 1700. NUrse assisted flight crew with transferrring patient [facility] and then to the aircraft. NUrse called [facility] at [phone]. SPoke to same. Advised air evac is now en route. NUrse called Erika Ram and alerted her to transfer.
--- NOTE | 2024-07-01 23:05 | PC.NURSE ---
Received call from [facility] pharmacy inquiring as t o last dose of vancomycin and zosyn. This was for timing of next doses on both antibiotics.
== END 2024-07-01 17:20 | disposition short-term general hospital (02) | DRG 871 ==
LOC: ER 10:24 → ICU 14:12
PROVIDERS: Admitting Provider Internal Medicine; Emergency Provider Family Medicine; PCP Family Medicine; Visit Provider Internal Medicine
DX: A41.9 Sepsis, unspecified organism (principal); I33.0 Acute and subacute infective endocarditis; J18.9 Pneumonia, unspecified organism; R65.21 Severe sepsis with septic shock; J96.02 Acute respiratory failure with hypercapnia; J96.01 Acute respiratory failure with hypoxia; I48.92 Unspecified atrial flutter; K21.9 Gastro-esophageal reflux disease without esophagitis; I35.0 Nonrheumatic aortic (valve) stenosis; Z87.440 Personal history of urinary (tract) infections; Z85.820 Personal history of malignant melanoma of skin; Z86.19 Personal history of other infectious and parasitic diseases; Z79.82 Long term (current) use of aspirin; Z79.01 Long term (current) use of anticoagulants; Z95.2 Presence of prosthetic heart valve; N19 Unspecified kidney failure; Z91.148 Patient's other noncompliance with medication regimen for other reason
CPT/HCPCS: 0241U; 31500; 36415; 36416; 36592; 36600; 51702; 70450; 71045; 71275; 74177; 76770; 80051; 80053; 80306; 81001; 82330; 82436; 82805; 82962; 83605; 83690; 83735; 83880; 84100; 84133; 84145; 84300; 84484; 85025; 85362; 85378; 85384; 85610; 85730; 86140; 87040; 87070; 87086; 87205; 93005; 93306; 93970; 94002; 94003; 94640; 94664; 94799; 96365; 96366; 96367; 96375; 96376; 99291; 99292; C1751; J0131; J1644; J1940; J1956; J2250; J2470; J2543; J2704; J3010; J3370; J3372; J3490; J7050; J7070

== ENCOUNTER → 2024-10-22 13:09 | Outpatient (BNVA) | payer MEDICARE, SELFPAY | PROVIDERS: PCP Family Medicine; Visit Provider Thoracic Surgery (Cardiothoracic Vascular Surgery) | DX: I73.9 Peripheral vascular disease, unspecified (principal); L97.512 Non-pressure chronic ulcer of other part of right foot with fat layer exposed; L97.522 Non-pressure chronic ulcer of other part of left foot with fat layer exposed | CPT/HCPCS: 11042; 99203 ==

== ENCOUNTER → 2024-10-29 13:53 | Outpatient (BNVA) | payer MEDICARE, SELFPAY | PROVIDERS: PCP Family Medicine; Visit Provider Thoracic Surgery (Cardiothoracic Vascular Surgery) | DX: I73.9 Peripheral vascular disease, unspecified (principal); L97.512 Non-pressure chronic ulcer of other part of right foot with fat layer exposed; L97.521 Non-pressure chronic ulcer of other part of left foot limited to breakdown of skin | CPT/HCPCS: 11042; 97597; A6212 ==

== ENCOUNTER → 2024-11-12 13:49 | Outpatient (BNVA) | payer MEDICARE, SELFPAY | PROVIDERS: PCP Family Medicine; Visit Provider Thoracic Surgery (Cardiothoracic Vascular Surgery) | DX: I73.9 Peripheral vascular disease, unspecified (principal); L97.512 Non-pressure chronic ulcer of other part of right foot with fat layer exposed; L97.522 Non-pressure chronic ulcer of other part of left foot with fat layer exposed; Z09 Encounter for follow-up examination after completed treatment for conditions other than malignant neoplasm | CPT/HCPCS: 11042 ==

== ENCOUNTER → 2024-11-19 13:23 | Outpatient (BNVA) | payer MEDICARE, SELFPAY | PROVIDERS: PCP Family Medicine; Visit Provider Thoracic Surgery (Cardiothoracic Vascular Surgery) | DX: I73.9 Peripheral vascular disease, unspecified (principal); L97.512 Non-pressure chronic ulcer of other part of right foot with fat layer exposed; L97.521 Non-pressure chronic ulcer of other part of left foot limited to breakdown of skin | CPT/HCPCS: 11042; 97597; A6248 ==

== ENCOUNTER 2024-12-01 13:07 | Oncology outpatient (recurring) (ONCR) | payer MEDICARE, SELFPAY ==
[2024-12-01 13:30] LABS: Basophils % 0.5 %; Eosinophils # 0.2 10^3/uL (0.0-0.8); Hematocrit 33.9 % (37-53); Lymphocytes # 1.7 10^3/uL (0.8-4.8); Lymphocytes % 22.8 %; Mean Corpuscular HGB Conc 31.3 g/dL (30-55); Mean Corpuscular Hemoglobin 24.8 pg (27-33); Mean Corpuscular Volume 79.4 fl (82-101); Monocytes # 0.5 10^3/uL (0.2-0.9); Monocytes % 6.6 %; Neutrophils # 4.96 10^3/uL (1.8-7.7); Neutrophils % 67.8 %; Nucleated Red Blood Cells % 0 %; Platelet Count 164 10^3/cmm (157-399); Red Blood Count 4.27 10^6/uL (3.85-5.65); Red Cell Distribution Width 18.8 % (12.1-15.1); White Blood Count 7.32 10^3/uL (3.29-11.43)
[2024-12-01 13:49] LABS: Alanine Aminotransferase 12 U/L (0-41); Albumin Level 4.2 g/dL (3.5-5.2); Alkaline Phosphatase 77 U/L (40-130); Aspartate Amino Transferase 17 U/L (0-40); Blood Urea Nitrogen 27 mg/dL (8-23); Carbon Dioxide 23 mmol/L (22-29); Chloride 102 mmol/L (98-107); Globulin 2.5 g/dL (1.3-4.6); Glomerular Filtration Rate 68.1 mL/min (90-130); Glucose 88 mg/dL (65-115); Lactate Dehydrogenase 220 U/L (135-225); Osmolality Calculated 289 mOsm/kg (285-295); Sodium 137 mmol/L (136-145); Total Bilirubin 0.6 mg/dL (0.15-1.2); Total Protein 6.7 g/dL (6.6-8.7)
== END 2024-12-04 23:59 | disposition home or self-care (01) ==
PROVIDERS: Internal Medicine; PCP Family Medicine; Visit Provider Nurse Practitioner Family
DX: Z53.9 Procedure and treatment not carried out, unspecified reason (principal); Z08 Encounter for follow-up examination after completed treatment for malignant neoplasm; Z85.820 Personal history of malignant melanoma of skin; D64.9 Anemia, unspecified; B19.20 Unspecified viral hepatitis C without hepatic coma; Z79.01 Long term (current) use of anticoagulants; Z95.2 Presence of prosthetic heart valve
CPT/HCPCS: 36415; 80053; 83615; 85025; 99214

== ENCOUNTER → 2024-12-02 14:38 | Outpatient (BNVA) | payer MEDICARE, SELFPAY | PROVIDERS: PCP Family Medicine; Visit Provider Internal Medicine | DX: I11.0 Hypertensive heart disease with heart failure (principal); I50.9 Heart failure, unspecified; I48.91 Unspecified atrial fibrillation; Z95.2 Presence of prosthetic heart valve; I33.0 Acute and subacute infective endocarditis | CPT/HCPCS: 99214 ==

== ENCOUNTER → 2024-12-03 13:31 | Outpatient (BNVA) | payer MEDICARE, SELFPAY | PROVIDERS: PCP Family Medicine; Visit Provider Thoracic Surgery (Cardiothoracic Vascular Surgery) | DX: I73.9 Peripheral vascular disease, unspecified (principal); L97.512 Non-pressure chronic ulcer of other part of right foot with fat layer exposed; L97.521 Non-pressure chronic ulcer of other part of left foot limited to breakdown of skin | CPT/HCPCS: 11042; 97597 ==

== ENCOUNTER → 2024-12-10 13:44 | Outpatient (BNVA) | payer MEDICARE, SELFPAY | PROVIDERS: PCP Family Medicine; Visit Provider Thoracic Surgery (Cardiothoracic Vascular Surgery) | DX: I73.9 Peripheral vascular disease, unspecified (principal); L97.512 Non-pressure chronic ulcer of other part of right foot with fat layer exposed; Z09 Encounter for follow-up examination after completed treatment for conditions other than malignant neoplasm | CPT/HCPCS: 11042; A6021 ==

== ENCOUNTER → 2024-12-17 13:32 | Outpatient (BNVA) | payer MEDICARE, SELFPAY | PROVIDERS: PCP Family Medicine; Visit Provider Thoracic Surgery (Cardiothoracic Vascular Surgery) | DX: I73.9 Peripheral vascular disease, unspecified (principal); L97.511 Non-pressure chronic ulcer of other part of right foot limited to breakdown of skin | CPT/HCPCS: 97597; A6021; A6212 ==

== ENCOUNTER → 2025-01-07 10:29 | Outpatient (BNVA) | payer MEDICARE, SELFPAY | PROVIDERS: PCP Family Medicine; Visit Provider Thoracic Surgery (Cardiothoracic Vascular Surgery) | DX: I73.9 Peripheral vascular disease, unspecified (principal); L97.511 Non-pressure chronic ulcer of other part of right foot limited to breakdown of skin | CPT/HCPCS: 97597 ==

== ENCOUNTER → 2025-01-11 11:05 | Outpatient (BNVA) | payer MEDICARE, SELFPAY | PROVIDERS: PCP Family Medicine; Visit Provider Student in an Organized Health Care Education/Training Program | DX: R22.1 Localized swelling, mass and lump, neck (principal) | CPT/HCPCS: 99204 ==

== ENCOUNTER → 2025-01-14 10:39 | Outpatient (BNVA) | payer MEDICARE, SELFPAY | PROVIDERS: PCP Family Medicine; Visit Provider Thoracic Surgery (Cardiothoracic Vascular Surgery) | DX: I73.9 Peripheral vascular disease, unspecified (principal); L97.511 Non-pressure chronic ulcer of other part of right foot limited to breakdown of skin | CPT/HCPCS: 97597 ==

== ENCOUNTER 2025-01-14 16:54 | Outpatient (CLI) | payer MEDICARE, SELFPAY ==
[2025-01-14 17:20] LABS: Basophils % 0.5 %; Eosinophils # 0.2 10^3/uL (0.0-0.8); Eosinophils % 2.7 %; Hematocrit 33.9 % (37-53); Lymphocytes # 1.5 10^3/uL (0.8-4.8); Lymphocytes % 22.2 %; Mean Corpuscular HGB Conc 31.6 g/dL (30-55); Mean Corpuscular Hemoglobin 26.3 pg (27-33); Mean Corpuscular Volume 83.3 fl (82-101); Mean Platelet Volume 10.1 fL (7.4-10.4); Monocytes # 0.5 10^3/uL (0.2-0.9); Monocytes % 7.1 %; Neutrophils # 4.44 10^3/uL (1.8-7.7); Neutrophils % 67.2 %; Nucleated Red Blood Cells % 0 %; Platelet Count 145 10^3/cmm (157-399); Red Blood Count 4.07 10^6/uL (3.85-5.65); White Blood Count 6.61 10^3/uL (3.29-11.43)
[2025-01-14 18:13] LABS: Lactate Dehydrogenase 309 U/L (135-225)
== END 2025-01-14 16:55 | disposition home or self-care (01) ==
LOC: LAB 16:57
PROVIDERS: PCP Family Medicine; Visit Provider Nurse Practitioner Family
DX: R59.1 Generalized enlarged lymph nodes (principal)
CPT/HCPCS: 36415; 83615; 85025

== ENCOUNTER → 2025-01-21 13:28 | Outpatient (BNVA) | payer MEDICARE, SELFPAY | PROVIDERS: PCP Family Medicine | DX: I73.9 Peripheral vascular disease, unspecified (principal); L97.511 Non-pressure chronic ulcer of other part of right foot limited to breakdown of skin | CPT/HCPCS: 97597 ==

== ENCOUNTER → 2025-01-25 10:51 | Outpatient (BNVA) | payer MEDICARE, SELFPAY | PROVIDERS: PCP Family Medicine; Visit Provider Nurse Practitioner Family | DX: C79.89 Secondary malignant neoplasm of other specified sites (principal); D22.61 Melanocytic nevi of right upper limb, including shoulder; B07.8 Other viral warts; Z08 Encounter for follow-up examination after completed treatment for malignant neoplasm; Z85.820 Personal history of malignant melanoma of skin | CPT/HCPCS: 99213 ==

== ENCOUNTER 2025-01-27 14:19 | Oncology outpatient (recurring) (ONCR) | payer MEDICARE, SELFPAY ==
--- NOTE | 2025-01-22 11:35 | PETR_ITS ---
PROCEDURE INFORMATION: Exam: PET/CT Whole Body Exam date and time: 01/22/2025 11:50 AM Age: 59 years old Clinical indication: Condition or disease; Primary cancer: Neoplasm of uscertain behavior of other specified site of sk. Intake form indicates history of melanoma with resection at back 1 year ago. LABS AND CLINICAL REPORTS: Glucose: 99 mg/dl Treatment strategy for malignancy (PET staging): Initial Staging (PI) TECHNIQUE: Imaging protocol: Following at least four-hour fasting and following the injection of radiopharmaceutical, low dose CT images were obtained. Then, PET images were obtained. Attenuation corrected images were constructed using the CT scan. Fused images of PET and CT were reviewed. The standardized uptake values (SUV) reported below are maximum values within a region of interest, expressed in gm/ml. Exam includes the whole body. SUV normalization method: BodyWeight Radiopharmaceutical: 12.46 mCi F-18 FDG (Fluorodeoxyglucose), IV. Time of imaging post radiopharmaceutical administration: 45 minutes Injection site: right ac COMPARISON: 1. CT head wo con* [id number] 07/01/2024 11:[address] angio chest w abd pel w con 06/29/2024 10:19 AM FINDINGS: Tubes, catheters and devices: Multilead cardiac device with right chest generator. Brain: Visualized brain has normal physiologic uptake. Paranasal sinuses: Non FDG avid hqsc-tpihfft-yssq-right maxillary sinus mucous retention cysts. Pharynx: No abnormal uptake. Larynx: No abnormal uptake. Lungs, pleura and trachea: Few FDG avid left upper lobe nodules, index measuring 8 mm on axial image 524 showing SUV max 18.3. Moderate kihqi-ceuwqfj-sroh-left pleural effusions. Mild bilateral lower lobe compressive atelectasis. Heart: Normal physiologic uptake. Cardiomegaly. No pericardial effusion. Mediastinal space: No abnormal uptake. Liver: Multiple foci of FDG uptake measuring approximately 1-2 cm without discrete underlying CT abnormality index lesion at the right lobe showing SUV max 25.8 on axial image 467. Small photopenic fluid density simple cyst also noted. Gallbladder and biliary ducts: No abnormal uptake. Pancreas: No abnormal uptake. Spleen: Couple small foci of FDG uptake without discrete underlying CT abnormality, index lesion at the inferolateral aspect showing SUV max 7.6 on axial image 454. Calcified granuloma. Adrenal glands: Bilateral FDG avid nodular thickening, measuring 1.6 cm on the right on axial image 469 with SUV max 13.4 and measuring up to 5.7 cm in length on the left on axial image 467 with SUV max 18.8. Kidneys and ureters: Normal physiologic uptake. Small bilateral renal calculi without hydronephrosis. Small nodular foci of uptake at the renal margins as well as subcentimeter FDG avid perirenal and pararenal nodules, index lesion posteriorly on the right measures 1.2 cm on axial image 443 and shows SUV max 13.9 and index lesion anteriorly on the left measures 1 cm on axial image 459 with SUV max 14.6. Stomach and bowel: No abnormal uptake. Vasculature: Prior ascending aorta repair, prosthetic aortic valve and mitral annulus with associated low-level FDG uptake. Mild systemic atherosclerotic calcification without aortic aneurysm. Lymph nodes: Enlarged FDG avid right supraclavicular lymph node measures 4.6 x 3.7 cm on axial image 572 and shows SUV max 62.2. Multiple additional subcentimeter bilateral cervical and supraclavicular lymph nodes. There is also FDG avid bilateral axillary lymphadenopathy, index node on the right measuring 1.3 cm on axial image 549 with SUV max 31.6 and index node on the left measuring 1.3 cm in the short axis on axial image 532 with SUV max 17.5. Lower posterior periesophageal node difficult to discretely measure shows SUV max 7.7 on axial image 44. FDG avid subcentimeter pericardial nodes. Multiple FDG avid retroperitoneal and mesenteric nodes versus peritoneal deposits with index lesion adjacent to the gallbladder measuring 2.1 x 1.4 cm on axial image 440 showing SUV max 24.1. FDG avid subcentimeter bilateral pelvic and inguinal lymph nodes. Skeleton: Multiple foci of FDG uptake at the bilateral lower extremity bones, index showing underlying subtle sclerosis such as the right femur on axial image 262 showing SUV max 6.5 and left tibia on axial image 177 showing SUV max 14.4. Degenerative change along the spine, acromioclavicular and sacroiliac joints as well as mildly at both hips. Right knee osteoarthritis, severe at the lateral compartment, with small joint effusion and mild periarticular FDG uptake that is likely degenerative/inflammatory. Mild FDG uptake along mildly thickened right inframalleolar peroneal tendons is likely inflammatory. Degenerative change at the feet. Prior median sternotomy. Soft tissues: Numerous small (mostly subcentimeter) FDG avid foci throughout the soft tissues, most of which are located within the subcutaneous layer such as right lower anterior abdominal lesion measuring 1.7 x 1.3 cm on axial image 401 showing SUV max 23.2, but multiple also muscular such as left midthoracic back paraspinal musculature showing SUV max 29.0 on axial image 513. These are diffusely distributed throughout the neck, chest, abdomen, pelvis, and bilateral upper and lower extremities. Bilateral gynecomastia. Right axillary surgical clips. METRICS: Mediastinal blood pool: SUV mean 1.7 Liver uptake: SUV mean 1.8 PET/PET WB melanoma INITIAL [id number] IMPRESSION: 1. Findings compatible with widespread metastatic disease in this patient with reported history of melanoma as above, involving the lungs, liver, spleen, adrenal glands, lymph nodes, bones, and soft tissues. FDG avid nodules in the abdominopelvic cavity may represent abnormal lymph nodes and/or peritoneal deposits. 2. Prior ascending aorta repair, prosthetic aortic valve and mitral annulus with associated low-level uptake, indeterminate but favor inflammatory change related to prior surgery, infection thought less likely. 3. Moderate bilateral pleural effusions. 4. Additional chronic and incidental findings as above, to include bilateral nonobstructive nephrolithiasis, severe right knee osteoarthritis, and likely right peroneal tendinopathy.
--- NOTE | 2025-01-26 12:15 | CT_ITS ---
WS: [id number] CT NECK WITH CONTRAST HISTORY: mass on neck TECHNIQUE: Contiguous 2 mm axial images are performed through the neck with intravenous contrast. Sagittal and coronal reformats are also submitted. All CT scans at [facility] use at least one of these dose optimization techniques: automated exposure control; mA and/or kV adjustment per patient size (includes targeted exams where dose is matched to clinical indication); or iterative reconstruction. CONTRAST: CONTRAST: Omnipaque 350; 100 mL IV. DLP: 200.59 mGy.cm COMPARISON: PET/CT 01/22/2025, CT angiogram 06/29/2024 Enlarged soft tissue mass of decreased attenuation centered in the lower RIGHT neck extending posterior to the clavicle. This is an ill-defined mass with adjacent fatty infiltration. Abnormal lymph nodes were previously described in this location. Highly suspicious for abnormal lymph node measuring 4.8 x 5.2 x 5.5 cm with extranodal extension. There is a large amount of soft tissue infiltration extending into the superior RIGHT neck and along the posterior cervical region and over the anterior chest wall. There are additional tiny scattered subcutaneous nodules in the occipital region, over the anterior and posterior visualized chest wall. RIGHT cervical chain lymph node measures 9 mm and is positive on the recent PET CT. There are a few additional level 2 mildly prominent lymph nodes. Thyroid gland and salivary glands are normally enhancing with no masses. No destructive bone lesions. Extensive atherosclerosis within the thoracic aorta. Heavy calcified plaque in adjacent areas of intimal thickening. Small bilateral pleural effusions are identified in the upper chest. LEFT pleural effusion is partially loculated. 5 mm noncalcified nodule medial LEFT upper lobe. Small LEFT axillary lymph nodes. Large mucous retention cyst in the LEFT maxillary sinus sinus. Smaller retention cyst in the RIGHT sinus. Extensive collateral vessel surrounding the cervical spine. CT/CT neck w con* [id number] IMPRESSION: 1. Large mass centered along the inferior RIGHT neck extending to supraclavicu lar measures 4.8 x 5.2 x 5.5 cm. Suspicious for metastatic site/abnormal lymph node with extranodal extension. 2. Additional numerous subcutaneous nodules in the visualized neck and upper t horax. RIGHT cervical chain adenopathy. 3. Extensive atherosclerosis aorta. 4. Bilateral pleural effusions, LEFT pleural effusion at the apex appears locu lated. 5. LEFT upper lobe pulmonary nodule, suspicious for metastatic site. 6. Please refer to the PET/CT imaging report from 01/22/2025.
[2025-01-26] MEDS: iohexol 350 mg/mL 500 mL Btl (per mL) IV (13:02)
== END 2025-02-03 23:59 | disposition home or self-care (01) ==
PROVIDERS: PCP Family Medicine; Visit Provider Student in an Organized Health Care Education/Training Program
DX: C43.59 Malignant melanoma of other part of trunk (principal); C78.7 Secondary malignant neoplasm of liver and intrahepatic bile duct; Z79.01 Long term (current) use of anticoagulants
CPT/HCPCS: 70491; 78816; 99214; A9552

== ENCOUNTER → 2025-01-28 15:29 | Outpatient (BNVA) | payer MEDICARE, SELFPAY | PROVIDERS: PCP Family Medicine; Visit Provider Thoracic Surgery (Cardiothoracic Vascular Surgery) | DX: I73.9 Peripheral vascular disease, unspecified (principal); L97.511 Non-pressure chronic ulcer of other part of right foot limited to breakdown of skin | CPT/HCPCS: 97597 ==

== ENCOUNTER 2025-02-10 14:53 | Inpatient (IN) | payer MEDICARE, SELFPAY ==
--- OUTSIDE RECORDS SUMMARY | 2024-07-07 00:26 | XMS_ITS | Continuity of Care Document ---
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 Role Phone [facility] Unavailable Unavailable Problems Problem Status Onset Date Problem Type Date of Resolution Comments Source At high risk for fall (finding) 07/03/2024 Diagnosis Septic shock (disorder) 07/01/2024 Diagnosis Body mass index 30+ - obesity (finding) Active Condition Added by Discern Rule PROB_ADD_BMI Obesity (disorder) Active Condition A dded by Discern Rule PROB_ADD_BMI Dependence on ventilator (finding) Diagnosis Heart disease (disorder) Diagnosis Systemic infection (disorder) Diagnosis Infective endocarditis (disorder) Diagnosis Cerebral infarction (disorder) Diagnosis Acute respiratory failure (disorder) Diagnosis Acute respiratory failure (disorder) Diagnosis Hepatic failure (disorder) Diagnosis Cardiogenic shock (disorder) Diagnosis Acute renal failure syndrome (disorder) Diagnosis Mixed acid-base balance disorder (disorder) Diagnosis Atrial flutter (disorder) Diagnosis Hereditary thrombophilia (disorder) Diagnosis Septic embolus of artery (disorder) Diagnosis Hyperosmolality with hypernatremia (disorder) Diagnosis Pleural effusion (disorder) Diagnosis Disease of brain (disorder) Diagnosis First degree atrioventricular block (disorder) Diagnosis Obese class I (finding) Diagnosis Cyanosis (finding) Diagnosis Acquired thrombocytopenia (disorder) Diagnosis Obesity (disorder) Diagnosis Hypervolemia (disorder) Diagnosis Blood chemistry abnormal (finding) Diagnosis 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) Diagnosis Long-term current use of anticoagulant (situation) Diagnosis Medications Medication Details Route Status Patient Instructions Ordering Provider Order Date Source Aspirin 325 MG Oral Tablet 325 mg = 1 Tablet(s), Oral, q4h, Refill(s) 0 Active 07/02/[address] [place] [address] WARFARIN - PHARMACY TO DOSE Refill(s) 0 Active 07/02/[address] [place] [address] Allergies, Adverse Reactions, Alerts Substance Category Reaction Severity Reaction type Status Date Reported Comments Source Alpha-gal (alpha-D-ga lactosidase ) Assertion Allergy to substance Active [facility] Results Order Name Results Value Reference Range Date Interpretation Comments Source THERAPEUTI C DRUGS Vancomycin Trough 6.1 ug/mL 5.0 - 10.0 07/06 14:12 :00 [facility] COAGULATIO N PT 12.8 s 9.4 - 12.5 07/06 08:28 :00 [facility] COAGULATIO N INR 1.1 0.9 - 1.2 07/06 08:28 :00 Interpretive Data: Suggested therapeutic INR range for stable oral anticoagulati on: Optimal Therapeutic INR Range 2.0-3.0 Therapeutic Range for High-Risk Groups (antiphoshpol ipid syndrome with previous thrombosis) 2.0-3.0 DVT of the leg 2.0-3.0 PE 2.0-3.0 Patients with AF and Stable Coronary Artery Disease 2.0-3.0 Bioprosthetic valve in the mitral position 2.0-3.0 Mechanical mitral valve or additional risk factors 2.5-3.5 Prevention of Recurrent VTE in Women prophylaxis for 6 weeks with prophylactic- or intermediate- dose LMWH or warfarin targeted at INR 2.0 or 3.0 rather than no prophylaxis For additional guidance see: Fawn GH, Linda EA, Javy M, Feroz DD, Januaryu n gail HJ; [employer] Antithromboti c Therapy and Prevention of Thrombosis Panel. Executive summary: Antithromboti c Therapy and Prevention of Thrombosis, 9th Ed: [employer] Evidence-Base d Clinical Practice Guidelines. Chest. 2011; 141(2 Suppl):7S-47S . doi: 10.1378/chest .1412S3 [facility] GENERAL CHEMISTRY AST-SGOT 163 U/L 07/06 08:28 :00 [facility] GENERAL CHEMISTRY Albumin 2.4 g/dL 3.4 - 5.0 07/06 08:28 :00 [facility] GENERAL CHEMISTRY Alkaline Phosphatase 93 U/L 40 - 129 07/06 08:28 :00 [facility] GENERAL CHEMISTRY ALT-SGPT 398 U/L 10 - 50 07/06 08:28 :00 [facility] GENERAL CHEMISTRY BUN 35 mg/dL 8 - 23 07/06 08:28 :00 [facility] GENERAL CHEMISTRY Calcium 8.7 mg/dL 8.3 - 10.6 07/06 08:28 :00 [facility] GENERAL CHEMISTRY Glucose Lvl 126 mg/dL 70 - 139 07/06 08:28 :00 [facility] GENERAL CHEMISTRY Chloride 111 mmol/L 98 - 107 07/06 08:28 :00 [facility] GENERAL CHEMISTRY Sodium 149 mmol/L 136 - 145 07/06 08:28 :00 [facility] GENERAL CHEMISTRY Potassium 4.2 mmol/L 3.5 - 5.1 07/06 08:28 :00 [facility] GENERAL CHEMISTRY CO2 31 mmol/L 20 - 31 07/06 08:28 :00 [facility] CHEMISTRY Anion gap 11 mmol/L 0 - 20 07/06 08:28 :00 [facility] GENERAL CHEMISTRY T Bili 3.82 mg/dL 0.30 - 1.20 07/06 08:28 :00 [facility] CHEMISTRY Total Protein 5.4 g/dL 5.7 - 8.2 07/06 08:28 :00 [facility] GENERAL CHEMISTRY Creatinine, standardized 0.9 mg/dL 0.7 - 1.2 07/06 08:28 :00 Interpretive Data: Birama-dq-rje e transgender patients on testosterone therapy should have results assessed using the male reference range. Dthm-zm-trtvt e transgender patients on hormone-modul ating therapy clinical judgment is advisedfor assessment. [facility] CHEMISTRY Estimated GFR for Adults 98 mL/min/1.7 3m 07/06 08:28 :00 Interpretive Data: Changed to CKD-EPI 2020 on 2020. [facility] CHEMISTRY Estimated GFR for peds Not calculated 07/06 08:28 :00 Interpretive Data: The estimated GFR was calculated using the B edside Yeh equation (2009) . Reference: Pediatric GFR calculator at [employer] Website. [facility] GENERAL CHEMISTRY Phosphorus 2.6 mg/dL 2.4 - 5.1 07/06 08:28 :00 [facility] GENERAL CHEMISTRY Magnesium 2.54 mg/dL 1.60 - 2.60 07/06 08:28 :00 [facility] HEMATOLOGY PROFILES WBC 25.13 x10(9)/L 3.50 - 10.50 07/06 08:28 :00 [facility] HEMATOLOGY PROFILES RBC 3.23 x10(12)/L 4.32 - 5.72 07/06 08:28 :00 [facility] HEMATOLOGY PROFILES HGB 9.7 g/dL 13.5 - 17.5 07/06 08:28 :00 Interpretive Data: Xxrtrq-yn-xkc e transgender patients on testosterone therapy should have results assessed using the male reference range. Fbmp-tc-llyin e transgender patients on hormone-modul ating therapy clinical judgment is advisedfor assessment. [facility] HEMATOLOGY PROFILES HCT 32.1 % 38.8 - 50.0 07/06 08:28 :00 Interpretive Data: Jxngzq-xj-oxb e transgender patients on testosterone therapy should have results assessed using the male reference range. Bghs-oj-fqzux e transgender patients on hormone-modul ating therapy clinical judgment is advisedfor assessment. [facility] HEMATOLOGY PROFILES MCV 99.4 fL 81.2 - 95.1 07/06 08:28 :00 [facility] HEMATOLOGY PROFILES MCH 30.0 pg 26.0 - 33.0 07/06 08:28 :00 [facility] HEMATOLOGY PROFILES MCHC 30.2 g/dL 32.0 - 36.0 07/06 08:28 :00 [facility] HEMATOLOGY PROFILES RDW CV 24.2 % 11.8 - 15.6 07/06 08:28 :00 [facility] HEMATOLOGY PROFILES RDW SD 51.1 fL 35.1 - 43.9 07/06 08:28 :00 [facility] HEMATOLOGY PROFILES PLT 63 x10(9)/L 150 - 450 07/06 08:28 :00 [facility] HEMATOLOGY PROFILES MPV 13.2 8.0 - 12.0 07/06 08:28 :00 [facility] HEMATOLOGY PROFILES % Nucleated RBCs 0.7 % 07/06 08:28 :00 [facility] HEMATOLOGY PROFILES Absolute Nucleated RBCs 0.2 x10(9)/L 0.0 - 0.0 07/06 08:28 :00 Interpretive Data: Normal values not established in patients less than 18 years old. [facility] HEMATOLOGY PROFILES % Neutrophils 88.4 % 07/06 08:28 :00 [facility] HEMATOLOGY PROFILES % Lymphocytes 5.8 % 07/06 08:28 :00 [facility] HEMATOLOGY PROFILES % Monocytes 3.6 % 07/06 08:28 :00 [facility] HEMATOLOGY PROFILES % Eosinophils 0.2 % 07/06 08:28 :00 [facility] HEMATOLOGY PROFILES % Basophils 0.2 % 07/06 08:28 :00 [facility] HEMATOLOGY PROFILES % Immature Granulocytes 1.80 % 0.02 - 0.42 07/06 08:28 :00 [facility] HEMATOLOGY PROFILES Absolute Granulocytes 22.23 x10(9)/L 1.70 - 7.00 07/06 08:28 :00 [facility] HEMATOLOGY PROFILES Abs Lymphocytes 1.47 x10(9)/L 0.90 - 2.90 07/06 08:28 :00 [facility] HEMATOLOGY PROFILES Abs Monocytes 0.90 x10(9)/L 0.30 - 0.90 07/06 08:28 :00 [facility] HEMATOLOGY PROFILES Abs Eosinophils 0.04 x10(9)/L 0.05 - 0.50 07/06 08:28 :00 [facility] HEMATOLOGY PROFILES Abs Basophils 0.04 x10(9)/L 0.00 - 0.30 07/06 08:28 :00 [facility] HEMATOLOGY PROFILES Abs Immature Granulocytes 0.45 x10(9)/L 0.00 - 0.03 07/06 08:28 :00 [facility] HEMATOLOGY PROFILES Morphology Previously Reviewed, results remain consistent *NA* (07/06/24 3:28 AM) 07/06 08:28 :00 [facility] XR Chest XR Chest XR General Diagnostic Accession # Exam Date/Time Procedure Ordering Provider [id number] 07/06/2024 04:31 CDT XR Chest Pete ZULUAGA, Viridiana Ward Reason For Exam (XR Chest) ET tube , trach tube bleeding, rule plugging/e t positio Report EXAMINATIO N: XR Chest INDICATION : ET tube , trach tube bleeding, rule plugging/e t positio VIEWS: 1 COMPARISON : 20 hours prior FINDINGS: Stable support devices. Median sternotomy wires. Unchanged cardiomedi astinal silhouette . Unchanged diffuse bilateral airspace opacities. Increasing moderate bilateral pleural effusions. No pneumothor ax. No acute osseous abnormalit y. IMPRESSION : Unchanged airspace disease with increasing bilateral pleural effusions. I have personally reviewed the images and attest to the contents of this report. * * *Final Report* * * Electronic ally Signed by: Royce ZULUAGA, Wayne Fontanez Signed on: 07/06/24 08:36 07/06 03:43 :11 [facility] COAGULATIO N PT 13.2 s 9.4 - 12.5 07/06 01:21 :00 [facility] COAGULATIO N INR 1.2 0.9 - 1.2 07/06 01:21 :00 Interpretive Data: Suggested therapeutic INR range for stable oral anticoagulati on: Optimal Therapeutic INR Range 2.0-3.0 Therapeutic Range for High-Risk Groups (antiphoshpol ipid syndrome with previous thrombosis) 2.0-3.0 DVT of the leg 2.0-3.0 PE 2.0-3.0 Patients with AF and Stable Coronary Artery Disease 2.0-3.0 Bioprosthetic valve in the mitral position 2.0-3.0 Mechanical mitral valve or additional risk factors 2.5-3.5 Prevention of Recurrent VTE in Women prophylaxis for 6 weeks with prophylactic- or intermediate- dose LMWH or warfarin targeted at INR 2.0 or 3.0 rather than no prophylaxis For additional guidance see: Fawn GH, Linda EA, Javy M, Feroz DD, Jatinder n gail HJ; [employer] Antithromboti c Therapy and Prevention of Thrombosis Panel. Executive summary: Antithromboti c Therapy and Prevention of Thrombosis, 9th Ed: [employer] Evidence-Base d Clinical Practice Guidelines. Chest. 2012 Nov; 141(2 Suppl):7S-47S . doi: 10.1378/chest .1412S3 [facility] GENERAL CHEMISTRY BUN 42 mg/dL 8 - 23 07/05 16:23 :00 [facility] GENERAL CHEMISTRY Calcium 8.1 mg/dL 8.3 - 10.6 07/05 16:23 :00 [facility] GENERAL CHEMISTRY Glucose Lvl 127 mg/dL 70 - 139 07/05 16:23 :00 [facility] GENERAL CHEMISTRY Chloride 113 mmol/L 98 - 107 07/05 16:23 :00 [facility] GENERAL CHEMISTRY Sodium 150 mmol/L 136 - 145 07/05 16:23 :00 [facility] GENERAL CHEMISTRY Potassium 4.0 mmol/L 3.5 - 5.1 07/05 16:23 :00 [facility] GENERAL CHEMISTRY CO2 32 mmol/L 20 - 07/05 16:23 :00 [facility] CHEMISTRY Anion gap 9 mmol/L 0 - 20 07/05 16:23 :00 [facility] CHEMISTRY Creatinine, standardized 0.9 mg/dL 0.7 - 1.2 07/05 16:23 :00 Interpretive Data: Ktqznj-qd-hcx e transgender patients on testosterone therapy should have results assessed using the male reference range. Hltt-ua-tvall e transgender patients on hormone-modul ating therapy clinical judgment is advisedfor assessment. [facility] CHEMISTRY Estimated GFR for Adults 95 mL/min/1.7 3m 07/05 16:23 :00 Interpretive Data: Changed to CKD-EPI 2020 on 2020. [facility] CHEMISTRY Estimated GFR for peds Not calculated 07/05 16:23 :00 Interpretive Data: The estimated GFR was calculated using the B robin Yeh equation (2009) . Reference: Pediatric GFR calculator at [employer] Website. [facility] Culture BloodX No growth at 5 days. 07/05 16:23 :00 [facility] GENERAL CHEMISTRY Phosphorus 2.2 mg/dL 2.4 - 5.1 07/05 08:25 :00 [facility] GENERAL CHEMISTRY Magnesium 2.91 mg/dL 1.60 - 2.60 07/05 08:25 :00 [facility] GENERAL CHEMISTRY AST-SGOT 223 U/L 07/05 08:25 :00 [facility] GENERAL CHEMISTRY Albumin 2.4 g/dL 3.4 - 5.0 07/05 08:25 :00 [facility] GENERAL CHEMISTRY Alkaline Phosphatase 88 U/L 40 - 129 07/05 08:25 :00 [facility] GENERAL CHEMISTRY ALT-SGPT 514 U/L 10 - 50 07/05 08:25 :00 [facility] GENERAL CHEMISTRY BUN 44 mg/dL 8 - 23 07/05 08:25 :00 [facility] GENERAL CHEMISTRY Calcium 8.4 mg/dL 8.3 - 10.6 07/05 08:25 :00 [facility] GENERAL CHEMISTRY Glucose Lvl 150 mg/dL 70 - 139 07/05 08:25 :00 [facility] GENERAL CHEMISTRY Chloride 114 mmol/L 98 - 107 07/05 08:25 :00 [facility] GENERAL CHEMISTRY Sodium 151 mmol/L 136 - 145 07/05 08:25 :00 [facility] GENERAL CHEMISTRY Potassium 4.1 mmol/L 3.5 - 5.1 07/05 08:25 :00 [facility] GENERAL CHEMISTRY CO2 34 mmol/L 20 - 31 07/05 08:25 :00 [facility] GENERAL CHEMISTRY Anion gap 7 mmol/L 0 - 20 07/05 08:25 :00 [facility] CHEMISTRY T Bili 3.26 mg/dL 0.30 - 1.20 07/05 08:25 :00 [facility] CHEMISTRY Total Protein 5.1 g/dL 5.7 - 8.2 07/05 08:25 :00 [facility] CHEMISTRY Creatinine, standardized 1.0 mg/dL 0.7 - 1.2 07/05 08:25 :00 Interpretive Data: Fkyllj-uw-hmz e transgender patients on testosterone therapy should have results assessed using the male reference range. Vrhf-mu-yztql e transgender patients on hormone-modul ating therapy clinical judgment is advisedfor assessment. [facility] GENERAL CHEMISTRY Estimated GFR for Adults 84 mL/min/1.7 3m 07/05 08:25 :00 Interpretive Data: Changed to CKD-EPI 2020 on 2020. [facility] CHEMISTRY Estimated GFR for peds Not calculated 07/05 08:25 :00 Interpretive Data: The estimated GFR was calculated using the B nathanide Yeh equation (2009) . Reference: Pediatric GFR calculator at [employer] Website. [facility] HEMATOLOGY PROFILES WBC 21.59 x10(9)/L 3.50 - 10.50 07/05 08:25 :00 [facility] HEMATOLOGY PROFILES RBC 3.10 x10(12)/L 4.32 - 5.72 07/05 08:25 :00 [facility] HEMATOLOGY PROFILES HGB 9.3 g/dL 13.5 - 17.5 07/05 08:25 :00 Interpretive Data: Htnqpf-zw-rue e transgender patients on testosterone therapy should have results assessed using the male reference range. Hrbc-mq-ggdnr e transgender patients on hormone-modul ating therapy clinical judgment is advisedfor assessment. [facility] HEMATOLOGY PROFILES HCT 29.9 % 38.8 - 50.0 07/05 08:25 :00 Interpretive Data: Hfnpwz-hm-zwk e transgender patients on testosterone therapy should have results assessed using the male reference range. Lxke-ph-azulr e transgender patients on hormone-modul ating therapy clinical judgment is advisedfor assessment. [facility] HEMATOLOGY PROFILES MCV 96.5 fL 81.2 - 95.1 07/05 08:25 :00 [facility] HEMATOLOGY PROFILES MCH 30.0 pg 26.0 - 33.0 07/05 08:25 :00 [facility] HEMATOLOGY PROFILES MCHC 31.1 g/dL 32.0 - 36.0 07/05 08:25 :00 [facility] HEMATOLOGY PROFILES RDW CV 21.5 % 11.8 - 15.6 07/05 08:25 :00 [facility] HEMATOLOGY PROFILES RDW SD 50.2 fL 35.1 - 43.9 07/05 08:25 :00 [facility] HEMATOLOGY PROFILES PLT 46 x10(9)/L 150 - 450 07/05 08:25 :00 [facility] HEMATOLOGY PROFILES MPV Not Measured 8.0 - 12.0 07/05 08:25 :00 [facility] HEMATOLOGY PROFILES % Nucleated RBCs 0.8 % 07/05 08:25 :00 [facility] HEMATOLOGY PROFILES Absolute Nucleated RBCs 0.2 x10(9)/L 0.0 - 0.0 07/05 08:25 :00 Interpretive Data: Normal values not established in patients less than 18 years old. [facility] HEMATOLOGY PROFILES % Neutrophils 88.3 % 07/05 08:25 :00 [facility] HEMATOLOGY PROFILES % Lymphocytes 6.1 % 07/05 08:25 :00 [facility] HEMATOLOGY PROFILES % Monocytes 3.4 % 07/05 08:25 :00 [facility] HEMATOLOGY PROFILES % Eosinophils 0.1 % 07/05 08:25 :00 [facility] HEMATOLOGY PROFILES % Basophils 0.2 % 07/05 08:25 :00 [facility] HEMATOLOGY PROFILES % Immature Granulocytes 1.90 % 0.02 - 0.42 07/05 08:25 :00 [facility] HEMATOLOGY PROFILES Absolute Granulocytes 19.07 x10(9)/L 1.70 - 7.00 07/05 08:25 :00 [facility] HEMATOLOGY PROFILES Abs Lymphocytes 1.31 x10(9)/L 0.90 - 2.90 07/05 08:25 :00 [facility] HEMATOLOGY PROFILES Abs Monocytes 0.73 x10(9)/L 0.30 - 0.90 07/05 08:25 :00 [facility] HEMATOLOGY PROFILES Abs Eosinophils 0.03 x10(9)/L 0.05 - 0.50 07/05 08:25 :00 [facility] HEMATOLOGY PROFILES Abs Basophils 0.05 x10(9)/L 0.00 - 0.30 07/05 08:25 :00 [facility] HEMATOLOGY PROFILES Abs Immature Granulocytes 0.40 x10(9)/L 0.00 - 0.03 07/05 08:25 :00 [facility] XR Chest XR Chest XR General Diagnostic Accession # Exam Date/Time Procedure Ordering Provider [id number] 07/05/2024 08:32 CDT XR Chest Pete ZULUAGA, Viridiana Ward Reason For Exam (XR Chest) ET tube , trach tube bleeding, rule plugging/e t positio Report EXAMINATIO N: XR Chest INDICATION : ET tube, trach tube bleeding, rule plugging/e t position. VIEWS: Semiuprigh t COMPARISON : 07/04/2024 FINDINGS: Endotrache al tube tip terminates 3.6 cm above the mary. Right IJ CVC with the tip terminatin g in the superior cavoatrial junction. Enteric tube extends below the diaphragm off the inferior field-of-v iew. Median sternotomy wires. Unchanged partially obscured cardiomedi astinal silhouette . No significan t interval change in the bilateral diffuse airspace opacities and small bilateral pleural effusions. No pneumothor ax. No acute osseous abnormalit ies. Right axillary surgical clips. IMPRESSION : 1. Endotrache al tube tip terminates 3.6 cm above the mary. 2. Unchanged bilateral airspace disease and small bilateral pleural effusions. I have personally reviewed the images and attest to the contents of this report. * * *Final Report* * * Electronic ally Signed by: She ZULUAGAWilbur Signed on: 07/05/24 11:41 07/05 07:36 :05 [facility] GENERAL CHEMISTRY BUN 50 mg/dL 8 - 07/05 01:00 :00 [facility] CHEMISTRY Calcium 7.9 mg/dL 8.3 - 10.6 07/05 01:00 :00 [facility] CHEMISTRY Glucose Lvl 160 mg/dL 70 - 139 07/05 01:00 :00 [facility] CHEMISTRY Chloride 115 mmol/L 98 - 107 07/05 01:00 :00 [facility] GENERAL CHEMISTRY Sodium 153 mmol/L 136 - 145 07/05 01:00 :00 [facility] CHEMISTRY Potassium 3.9 mmol/L 3.5 - 5.1 07/05 01:00 :00 [facility] GENERAL CHEMISTRY CO2 34 mmol/L 20 - 07/05 01:00 :00 [facility] CHEMISTRY Anion gap 8 mmol/L 0 - 20 07/05 01:00 :00 [facility] CHEMISTRY Creatinine, standardized 1.1 mg/dL 0.7 - 1.2 07/05 01:00 :00 Interpretive Data: Obhcng-ia-zms e transgender patients on testosterone therapy should have results assessed using the male reference range. Vfmj-ox-nyhiv e transgender patients on hormone-modul ating therapy clinical judgment is advisedfor assessment. [facility] CHEMISTRY Estimated GFR for Adults 77 mL/min/1.7 3m 07/05 01:00 :00 Interpretive Data: Changed to CKD-EPI 2020 on 2020. [facility] CHEMISTRY Estimated GFR for peds Not calculated 07/05 01:00 :00 Interpretive Data: The estimated GFR was calculated using the B edshalie Yeh equation (2009) . Reference: Pediatric GFR calculator at [employer] Website. [facility] CHEMISTRY AST-SGOT 293 U/L 07/04 20:37 :00 [facility] CHEMISTRY Albumin 2.4 g/dL 3.4 - 5.0 07/04 20:37 :00 [facility] CHEMISTRY Alkaline Phosphatase 100 U/L 40 - 129 07/04 20:37 :00 [facility] CHEMISTRY ALT-SGPT 629 U/L 10 - 50 07/04 20:37 :00 [facility] GENERAL CHEMISTRY T Bili 3.01 mg/dL 0.30 - 1.20 07/04 20:37 :00 [facility] GENERAL CHEMISTRY Total Protein 5.3 g/dL 5.7 - 8.2 07/04 20:37 :00 [facility] HEMATOLOGY PROFILES WBC 23.09 x10(9)/L 3.50 - 10.50 07/04 20:37 :00 [facility] HEMATOLOGY PROFILES RBC 3.23 x10(12)/L 4.32 - 5.72 07/04 20:37 :00 [facility] HEMATOLOGY PROFILES HGB 9.7 g/dL 13.5 - 17.5 07/04 20:37 :00 Interpretive Data: Sgmaha-zs-tif e transgender patients on testosterone therapy should have results assessed using the male reference range. Thet-jr-eapbh e transgender patients on hormone-modul ating therapy clinical judgment is advisedfor assessment. [facility] HEMATOLOGY PROFILES HCT 31.0 % 38.8 - 50.0 07/04 20:37 :00 Interpretive Data: Ggwkbn-re-sbz e transgender patients on testosterone therapy should have results assessed using the male reference range. Picg-bu-iwqpd e transgender patients on hormone-modul ating therapy clinical judgment is advisedfor assessment. [facility] HEMATOLOGY PROFILES MCV 96.0 fL 81.2 - 95.1 07/04 20:37 :00 [facility] HEMATOLOGY PROFILES MCH 30.0 pg 26.0 - 33.0 07/04 20:37 :00 [facility] HEMATOLOGY PROFILES MCHC 31.3 g/dL 32.0 - 36.0 07/04 20:37 :00 [facility] HEMATOLOGY PROFILES RDW CV 19.5 % 11.8 - 15.6 07/04 20:37 :00 [facility] HEMATOLOGY PROFILES RDW SD 49.8 fL 35.1 - 43.9 07/04 20:37 :00 [facility] HEMATOLOGY PROFILES PLT 52 x10(9)/L 150 - 450 07/04 20:37 :00 Result Comment: Consistent with previous results. Clot check completed [facility] HEMATOLOGY PROFILES MPV Not Measured 8.0 - 12.0 07/04 20:37 :00 [facility] HEMATOLOGY PROFILES Abs NRBC Man 0.4 x10(9)/L 0.0 - 0.0 07/04 20:37 :00 [facility] HEMATOLOGY PROFILES Neuts Manual 92.9 % 07/04 20:37 :00 [facility] HEMATOLOGY PROFILES Lymphocytes Manual 5.3 % 07/04 20:37 :00 [facility] HEMATOLOGY PROFILES Monocytes Manual 1.8 % 07/04 20:37 :00 [facility] HEMATOLOGY PROFILES NRBC Manual 1.8 /100WBC 07/04 20:37 :00 [facility] HEMATOLOGY PROFILES Morphology Present *NA* (07/04/24 3:37 PM) 07/04 20:37 :00 [facility] HEMATOLOGY PROFILES Platelet Estimate Decreased *NA* (07/04/24 3:37 PM) 07/04 20:37 :00 [facility] HEMATOLOGY PROFILES Aniso 1+ (10-20%) *NA* (07/04/24 3:37 PM) 07/04 20:37 :00 [facility] HEMATOLOGY PROFILES Elliptocytes (Ovalocytes) 1+ (10-25%) *NA* (07/04/24 3:37 PM) 07/04 20:37 :00 [facility] HEMATOLOGY PROFILES Poly 1+ (2-10%) *NA* (07/04/24 3:37 PM) 07/04 20:37 :00 [facility] HEMATOLOGY PROFILES Schistocytes 1+ (Rare-3%) *NA* (07/04/24 3:37 PM) 07/04 20:37 :00 [facility] HEMATOLOGY PROFILES Teardrop 1+ (3-6%) *NA* (07/04/24 3:37 PM) 07/04 20:37 :00 [facility] HEMATOLOGY PROFILES Absolute Neutrophils Manual 21.45 x10(9)/L 1.70 - 7.00 07/04 20:37 :00 [facility] HEMATOLOGY PROFILES Abs Lymphocytes Manual 1.22 x10(9)/L 0.90 - 2.90 07/04 20:37 :00 [facility] HEMATOLOGY PROFILES Abs Monocytes Manual 0.42 x10(9)/L 0.30 - 0.90 07/04 20:37 :00 [facility] XR Chest Portable XR Chest Portable XR General Diagnostic Accession # Exam Date/Time Procedure Ordering Provider [id number] 07/04/2024 18:05 CDT XR Chest Portable Radha ZULUAGA, Alena Peraza i Reason For Exam (XR Chest Portable) Intubated - bleeding from ET tube Report EXAMINATIO N: XR Chest Portable INDICATION : Intubated - bleeding from ET tube VIEWS: 1 COMPARISON : 9 hours prior FINDINGS: Stable support devices. Again seen are patchy bilateral airspace opacities, slightly worsening compared to prior with increasing density of the right lower lung zone and left mid lung zone opacities. Small bilateral pleural effusions. No pneumothor ax. No acute osseous abnormalit y. Right axillary surgical clips. Median sternotomy wires unchanged. IMPRESSION : Slight interval worsening in bilateral airspace opacities compared to prior. I have personally reviewed the images and attest to the contents of this report. * * *Final Report* * * Electronic ally Signed by: Yanira ZULUAGA, Javier Fernandez Signed on: 07/05/24 08:10 07/04 17:04 :24 [facility] BLOOD GASES- RC pH Venous (ABG) 7.455 7.310 - 7.450 07/04 13:45 :00 [facility] BLOOD GASES- RC pCO2 Venous (ABG) 48.8 mm[Hg] 41.0 - 57.0 07/04 13:45 :00 [facility] BLOOD GASES- RC pO2 Venous (ABG) 24.4 mm[Hg] 40.0 - 45.0 07/04 13:45 :00 [facility] BLOOD GASES- RC BE Venous (ABG) 9.5 meq/L -5.0 - 5.0 07/04 13:45 :00 [facility] BLOOD GASES- RC HCO3- (ABG) 33.8 mmol/L 22.0 - 26.0 07/04 13:45 :00 [facility] BLOOD GASES- RC % O2 Saturation RC 35.8 % 80.0 - 100.0 07/04 13:45 :00 [facility] BLOOD GASES- RC FIO2 RC 30.0 % 21.0 - 100.0 07/04 13:45 :00 [facility] BLOOD GASES- RC Ventilator P/C *NA* (07/04/24 8:45 AM) 07/04 13:45 :00 [facility] BLOOD GASES- RC Pressure RC 14 07/04 13:45 :00 [facility] BLOOD GASES- RC PEEP RC 10.0 07/04 13:45 :00 [facility] BLOOD GASES- RC Set RR RC 16.0 breaths/mi n 07/04 13:45 :00 [facility] BLOOD GASES- RC Minute Ventilation RC 11.3 07/04 13:45 :00 [facility] BLOOD GASES- RC Draw Time RC [id number] 07/04 13:45 :00 [facility] CHEMISTRY Hemoglobin A1c 5.8 % 4.0 - 5.6 07/04 13:43 :00 Interpretive Data: Interpretativ e Information: Hemoglobin A1C (HbA1c) Comment Tab: [place] [employer] criteria: 5.6% Normal 5.7 to 6.4 % Prediabetes 6.5% Diabetes Repeat hemoglobin A1c testing or follow-up with an alternative test such as the 2-hour OGTT is required prior to the diagnosis of diabetes. Prediabetes: Patient counseling and commitment to a course of lifestyle modification is recommended with follow-up testing 3-6 months later. Diabetes mellitus: HbA1c correlates highly with average daily glycemia over the preceding 60-90 day period. While g ood control is generally considered to be HbA1c < 7.0%, individual factors influence HbA1c goals and attained results, which providers should take into account when using HbA1c in patient management and counseling. In particular, HbA1c does not reliably capture frequency and severity of treatment-rel ated hypoglycemia, which may obligate relaxation of HbA1c goals for the patient. Note: Any condition that shortens erythrocyte survival or decreases mean erythrocyte age will lower HbA1c results regardless of the assay method. HbA1c results after blood transfusion should be interpreted with caution. REFERENCES: The Diabetes Control and Complications Trial Research Group: The effect of intensive treatment of diabetes on the development and progression of long-term complications in insulin-depen dent diabetes mellitus. N Engl J Med 329:977-86, 1992 National Glycohemoglob in Standardizati on Program (NGSP) website: http://www.ng sp.org [facility] CHEMISTRY Estimated Average Glucose 120 mg/dL 07/04 13:43 :00 Interpretive Data: Interpretativ e Information: Estimated Average Glucose (eAG) Comment Tab: The table below shows the relationship between HbA1c and estimated average glucose (eAG). These data are presented only as a general guide for patient education. HbA1c (%) eAG (mg/dL) 4 70 5 97 6 126 7 154 8 183 9 212 10 240 11 269 12 298 Formula: eAG = 28.7 x HbA1c 46.7 REFERENCE: Landon GRACE et al: Translating the A1c Assay into Estimated Average Glucose Values. Diabetes Care 31:1473-8, 2008 [facility] COAGULATIO N PT 16.8 s 9.4 - 12.5 07/04 09:13 :00 [facility] COAGULATIO N INR 1.5 0.9 - 1.2 07/04 09:13 :00 Interpretive Data: Suggested therapeutic INR range for stable oral anticoagulati on: Optimal Therapeutic INR Range 2.0-3.0 Therapeutic Range for High-Risk Groups (antiphoshpol ipid syndrome with previous thrombosis) 2.0-3.0 DVT of the leg 2.0-3.0 PE 2.0-3.0 Patients with AF and Stable Coronary Artery Disease 2.0-3.0 Bioprosthetic valve in the mitral position 2.0-3.0 Mechanical mitral valve or additional risk factors 2.5-3.5 Prevention of Recurrent VTE in Women prophylaxis for 6 weeks with prophylactic- or intermediate- dose LMWH or warfarin targeted at INR 2.0 or 3.0 rather than no prophylaxis For additional guidance see: Fawn GH, Linda EA, Javy M, Feroz DD, Jatinder n gail HJ; [employer] Antithromboti c Therapy and Prevention of Thrombosis Panel. Executive summary: Antithromboti c Therapy and Prevention of Thrombosis, 9th Ed: [employer] Evidence-Base d Clinical Practice Guidelines. Chest. 2012 Nov; 141(2 Suppl):7S-47S . doi: 10.1378/chest .1412S3 [facility] GENERAL CHEMISTRY Magnesium 3.37 mg/dL 1.60 - 2.60 07/04 09:13 :00 [facility] GENERAL CHEMISTRY AST-SGOT 363 U/L 07/04 09:13 :00 [facility] GENERAL CHEMISTRY Albumin 2.4 g/dL 3.4 - 5.0 07/04 09:13 :00 [facility] GENERAL CHEMISTRY Alkaline Phosphatase 96 U/L 40 - 129 07/04 09:13 :00 [facility] GENERAL CHEMISTRY ALT-SGPT 688 U/L 10 - 50 07/04 09:13 :00 [facility] GENERAL CHEMISTRY T Bili 2.74 mg/dL 0.30 - 1.20 07/04 09:13 :00 [facility] GENERAL CHEMISTRY Total Protein 5.1 g/dL 5.7 - 8.2 07/04 09:13 :00 [facility] GENERAL CHEMISTRY Phosphorus 2.3 mg/dL 2.4 - 5.1 07/04 09:13 :00 [facility] HEMATOLOGY PROFILES WBC 22.51 x10(9)/L 3.50 - 10.50 07/04 09:13 :00 [facility] HEMATOLOGY PROFILES RBC 3.36 x10(12)/L 4.32 - 5.72 07/04 09:13 :00 [facility] HEMATOLOGY PROFILES HGB 9.9 g/dL 13.5 - 17.5 07/04 09:13 :00 Interpretive Data: Lgafiy-pu-jtj e transgender patients on testosterone therapy should have results assessed using the male reference range. Bpxx-mj-jxlyn e transgender patients on hormone-modul ating therapy clinical judgment is advisedfor assessment. [facility] HEMATOLOGY PROFILES HCT 30.7 % 38.8 - 50.0 07/04 09:13 :00 Interpretive Data: Rgoiso-js-ywg e transgender patients on testosterone therapy should have results assessed using the male reference range. Dihv-ds-uydlv e transgender patients on hormone-modul ating therapy clinical judgment is advisedfor assessment. [facility] HEMATOLOGY PROFILES MCV 91.4 fL 81.2 - 95.1 07/04 09:13 :00 [facility] HEMATOLOGY PROFILES MCH 29.5 pg 26.0 - 33.0 07/04 09:13 :00 [facility] HEMATOLOGY PROFILES MCHC 32.2 g/dL 32.0 - 36.0 07/04 09:13 :00 [facility] HEMATOLOGY PROFILES RDW CV 18.6 % 11.8 - 15.6 07/04 09:13 :00 [facility] HEMATOLOGY PROFILES RDW SD 48.1 fL 35.1 - 43.9 07/04 09:13 :00 [facility] HEMATOLOGY PROFILES PLT 55 x10(9)/L 150 - 450 07/04 09:13 :00 [facility] HEMATOLOGY PROFILES MPV Not Measured 8.0 - 12.0 07/04 09:13 :00 [facility] HEMATOLOGY PROFILES % Nucleated RBCs 0.8 % 07/04 09:13 :00 [facility] HEMATOLOGY PROFILES Absolute Nucleated RBCs 0.2 x10(9)/L 0.0 - 0.0 07/04 09:13 :00 Interpretive Data: Normal values not established in patients less than 18 years old. [facility] HEMATOLOGY PROFILES % Neutrophils 86.7 % 07/04 09:13 :00 [facility] HEMATOLOGY PROFILES % Lymphocytes 6.8 % 07/04 09:13 :00 [facility] HEMATOLOGY PROFILES % Monocytes 4.6 % 07/04 09:13 :00 [facility] HEMATOLOGY PROFILES % Eosinophils 0.0 % 07/04 09:13 :00 [facility] HEMATOLOGY PROFILES % Basophils 0.2 % 07/04 09:13 :00 [facility] HEMATOLOGY PROFILES % Immature Granulocytes 1.70 % 0.02 - 0.42 07/04 09:13 :00 [facility] HEMATOLOGY PROFILES Absolute Granulocytes 19.51 x10(9)/L 1.70 - 7.00 07/04 09:13 :00 [facility] HEMATOLOGY PROFILES Abs Lymphocytes 1.53 x10(9)/L 0.90 - 2.90 07/04 09:13 :00 [facility] HEMATOLOGY PROFILES Abs Monocytes 1.04 x10(9)/L 0.30 - 0.90 07/04 09:13 :00 [facility] HEMATOLOGY PROFILES Abs Eosinophils 0.01 x10(9)/L 0.05 - 0.50 07/04 09:13 :00 [facility] HEMATOLOGY PROFILES Abs Basophils 0.04 x10(9)/L 0.00 - 0.30 07/04 09:13 :00 [facility] HEMATOLOGY PROFILES Abs Immature Granulocytes 0.38 x10(9)/L 0.00 - 0.03 07/04 09:13 :00 [facility] XR Chest XR Chest XR General Diagnostic Accession # Exam Date/Time Procedure Ordering Provider [id number] 07/04/2024 08:31 CDT XR Chest Fogwe MD, Viridiana Ward Reason For Exam (XR Chest) ET tube , on MV rule out PNA/ARDS Report EXAMINATIO N: XR Chest INDICATION : ET tube, on MV rule out PNA/ARDS VIEWS: Semiuprigh t COMPARISON : 07/01/2024 FINDINGS: Endotrache al tube tip terminates 3.8 cm above the mary. Right IJ CVC with tip in superior cavoatrial junction. Enteric tube tip extends below the diaphragm off the inferior field-of-v iew. Valvulopla sty changes. Unchanged partially obscured cardiomedi astinal silhouette . Unchanged bilateral multifocal airspace opacities. Unchanged small bilateral pleural effusions. No pneumothor ax. No acute osseous abnormalit ies. Right axillary surgical clips. IMPRESSION : 1. Endotrache al tube tip terminates 3.8 cm above the mary. 2. Unchanged bilateral airspace disease and small bilateral pleural effusions. I have personally reviewed the images and attest to the contents of this report. * * *Final Report* * * Electronic ally Signed by: She ZULUAGA, Wilbur Mcguire Signed on: 07/04/24 13:32 07/04 08:13 :20 [facility] COAGULATIO N PT 22.1 s 9.4 - 12.5 07/03 08:48 :00 [facility] COAGULATIO N INR 2.0 0.9 - 1.2 07/03 08:48 :00 Interpretive Data: Suggested therapeutic INR range for stable oral anticoagulati on: Optimal Therapeutic INR Range 2.0-3.0 Therapeutic Range for High-Risk Groups (antiphoshpol ipid syndrome with previous thrombosis) 2.0-3.0 DVT of the leg 2.0-3.0 PE 2.0-3.0 Patients with AF and Stable Coronary Artery Disease 2.0-3.0 Bioprosthetic valve in the mitral position 2.0-3.0 Mechanical mitral valve or additional risk factors 2.5-3.5 Prevention of Recurrent VTE in Women prophylaxis for 6 weeks with prophylactic- or intermediate- dose LMWH or warfarin targeted at INR 2.0 or 3.0 rather than no prophylaxis For additional guidance see: Fawn GH, Linda EA, Javy Suggs, Feroz COLIN, Jatinder n gail HJ; [employer] Antithromboti c Therapy and Prevention of Thrombosis Panel. Executive summary: Antithromboti c Therapy and Prevention of Thrombosis, 9th Ed: [employer] Evidence-Base d Clinical Practice Guidelines. Chest. 2011; 141(2 Suppl):7S-47S . doi: 10.1378/chest .1412S3 [facility] GENERAL CHEMISTRY Magnesium 3.55 mg/dL 1.60 - 2.60 07/03 08:48 :00 [facility] HEMATOLOGY PROFILES % Nucleated RBCs 1.4 % 07/03 08:48 :00 [facility] HEMATOLOGY PROFILES Absolute Nucleated RBCs 0.3 x10(9)/L 0.0 - 0.0 07/03 08:48 :00 Interpretive Data: Normal values not established in patients less than 18 years old. [facility] HEMATOLOGY PROFILES % Neutrophils 85.0 % 07/03 08:48 :00 [facility] HEMATOLOGY PROFILES % Lymphocytes 9.0 % 07/03 08:48 :00 [facility] HEMATOLOGY PROFILES % Monocytes 4.7 % 07/03 08:48 :00 [facility] HEMATOLOGY PROFILES % Eosinophils 0.0 % 07/03 08:48 :00 [facility] HEMATOLOGY PROFILES % Basophils 0.1 % 07/03 08:48 :00 [facility] HEMATOLOGY PROFILES % Immature Granulocytes 1.20 % 0.02 - 0.42 07/03 08:48 :00 [facility] HEMATOLOGY PROFILES Absolute Granulocytes 17.86 x10(9)/L 1.70 - 7.00 07/03 08:48 :00 [facility] HEMATOLOGY PROFILES Abs Lymphocytes 1.90 x10(9)/L 0.90 - 2.90 07/03 08:48 :00 [facility] HEMATOLOGY PROFILES Abs Monocytes 0.98 x10(9)/L 0.30 - 0.90 07/03 08:48 :00 [facility] HEMATOLOGY PROFILES Abs Eosinophils 0.01 x10(9)/L 0.05 - 0.50 07/03 08:48 :00 [facility] HEMATOLOGY PROFILES Abs Basophils 0.02 x10(9)/L 0.00 - 0.30 07/03 08:48 :00 [facility] HEMATOLOGY PROFILES Abs Immature Granulocytes 0.25 x10(9)/L 0.00 - 0.03 07/03 08:48 :00 [facility] THERAPEUTI C DRUGS Vancomycin 15.9 ug/mL 07/03 08:48 :00 [facility] GENERAL CHEMISTRY Direct Bilirubin 1.5 mg/dL 07/02 15:30 :00 Result Comment: Critical Result(s) Called at: 11:49:39 07/02/2024. Called to and read back by: Scarlett Aj RN [facility] GENERAL CHEMISTRY Indirect Bilirubin 0.9 mg/dL 0.1 - 1.2 07/02 15:30 :00 [facility] HEMATOLOGY PROFILES Hematology Clinical Interpretati on The full interpreta tion will follow, and can be viewed in the Clinical Interpreta tions Section in the Results Flowsheet. [id number] 07/02 15:30 :00 [facility] US Leg Imaging Arterial US Leg Imaging Arterial Ultrasound Accession # Exam Date/Time Procedure Ordering Provider [id number] 07/02/2024 16:28 CDT US Leg Imaging Arterial Pete ZULUAGA, Viridiana Ward Reason For Exam (US Leg Imaging Arterial) Rule out peripheral artery embolus Report EXAMINATIO N: Bilateral lower extremity arterial duplex ultrasound INDICATION : Rule out peripheral artery embolus COMPARISON : None TECHNIQUE: Grayscale, color and spectral Doppler evaluation of the bilateral lower extremity arterial system(s) was performed. FINDINGS: RIGHT PEAK SYSTOLIC VELOCITIES : Common Femoral Artery: 40 cm/s Waveforms: Triphasic Deep Femoral Artery: 44 cm/s Waveforms: Triphasic Proximal Superficia l Femoral Artery: 54 cm/s Waveforms: Triphasic Mid Superficia l Femoral Artery: 54 cm/s Waveforms: Triphasic Distal Superficia l Femoral Artery: 46 cm/s Waveforms: Triphasic Popliteal Artery: 36 cm/s Waveforms: Triphasic Dorsalis Pedis Artery: 24 cm/s Waveforms: Biphasic Posterior Tibial Artery: 62 cm/s Waveforms: Triphasic LEFT PEAK SYSTOLIC VELOCITIES : Common Femoral Artery: 53 cm/s Waveforms: Triphasic Deep Femoral Artery: 52 cm/s Waveforms: Triphasic Proximal Superficia l Femoral Artery: 62 cm/s Waveforms: Triphasic Mid Superficia l Femoral Artery: 46 cm/s Waveforms: Triphasic Distal Superficia l Femoral Artery: 39 cm/s Waveforms: Triphasic Popliteal Artery: 35 cm/s Waveforms: Triphasic Dorsalis Pedis Artery: 24 cm/s Waveforms: Biphasic Posterior Tibial Artery: 60 cm/s Waveforms: Triphasic IMPRESSION : Patent bilateral lower extremity arterial vasculatur e. I have personally reviewed the images and attest to the contents of this report. * * *Final Report* * * Electronic ally Signed by: Rian Londono MD, FNU Signed on: 07/02/24 16:34 07/02 15:04 :57 [facility] US Kidney (Vascular) US Kidney (Vascular) Ultrasound Accession # Exam Date/Time Procedure Ordering Provider [id number] 07/02/2024 18:23 CDT US Kidney (Vascular) Pete ZULUAGA, Viridiana Ward Reason For Exam (US Kidney (Vascular) ) Endocardit is, GIULIA on r/o renal aa occlusion/ infarct Report EXAMINATIO N: US Kidney (Vascular) INDICATION : Endocardit is, GIULIA on r/o renal aa occlusion/ infarct COMPARISON : None TECHNIQUE: Grayscale, color and spectral doppler evaluation of the kidneys and renal arteries was performed. FINDINGS: Aortic Velocity: Not obtained RIGHT KIDNEY: Length: 12.3 cm Width: 5.4 cm Height: 4.6 cm Parenchyma : No suspicious lesions. A 1.1 cm cyst simple cyst at the upper pole. 0.6 cm nonobstruc ting calculus. Collecting System: Nondilated Right Segmental Artery Resistive Indices (RI): Superior Pole: 0.60 Mid: 0.65 Inferior Pole: 0.71 Segmental Renal Artery Waveforms: Normal Right Renal Artery: Origin PSV/EDV: 48 cm/s/13 cm/s Proximal PSV/EDV: 63 cm/s/13 cm/s Mid PSV/EDV: 53 cm/s/14 cm/s Distal PSV/EDV: 45 cm/s/12 cm/s Renal Vein: Patent LEFT KIDNEY: Length: 10.4 cm Width: 5.7 cm Height: 5.1 cm Parenchyma : Interpolar and lower pole nonobstruc ting tiny calculi, largest 3 mm at the lower pole. Collecting System: Nondilated Left Segmental Artery Resistive Indices (RI): Superior Pole: 0.71 Mid: 0.71 Inferior Pole: 0.65 Segmental Renal Artery Waveforms: Normal Left Renal Artery: Origin PSV/EDV: 42 cm/s/12 cm/s Proximal PSV/EDV: 55 cm/s/15 cm/s Mid PSV/EDV: 54 cm/s/14 cm/s Distal PSV/EDV: 58 cm/s/16 cm/s Renal Vein: Patent Ultrasound Report Other: Urinary bladder is decompress ed and poorly evaluated. IMPRESSION : 1. No sonographi c finding to suggest hemodynami jason significan t renal artery stenosis based on the peak systolic velocities . 2. Nonobstruc ting bilateral renal calculi, largest 6 mm on the right and 3 mm on the left. No hydronephr osis. I have personally reviewed the images and attest to the contents of this report. * * *Final Report* * * Electronic ally Signed by: James ZULUAGA, Wayne Mistry Signed on: 07/03/24 08:34 07/02 15:04 :47 [facility] URINALYSIS wbc >30 /hpf 0 - 3 07/02 14:35 :00 [facility] URINALYSIS rbc >30 /hpf 0 - 2 07/02 14:35 :00 [facility] URINALYSIS epithelials None Seen /lpf 07/02 14:35 :00 [facility] URINALYSIS mucous Present *ABNORMAL* (07/02/24 9:35 AM) 07/02 14:35 :00 [facility] URINALYSIS uric acid crystals Many /hpf 07/02 14:35 :00 [facility] URINALYSIS Urine Collection Method Rogers Cath (07/02/24 9:35 AM) 07/02 14:35 :00 [facility] URINALYSIS clarity Cloudy *ABNORMAL* (07/02/24 9:35 AM) 07/02 14:35 :00 [facility] URINALYSIS color Yellow (07/02/24 9:35 AM) 07/02 14:35 :00 [facility] URINALYSIS specific gravity 1.025 1.006 - 1.030 07/02 14:35 :00 [facility] URINALYSIS UA PH 5 (07/02/24 9:35 AM) 4.5 - 8.0 07/02 14:35 :00 [facility] URINALYSIS UA GLUCOSE Negative mg/dL 07/02 14:35 :00 [facility] URINALYSIS UA KETONES Negative mg/dL 07/02 14:35 :00 [facility] URINALYSIS bilirubin Negative (07/02/24 9:35 AM) 07/02 14:35 :00 [facility] URINALYSIS UA UROBILINOGEN Negative Zhao unit/dL 0.2 - 1.0 07/02 14:35 :00 [facility] URINALYSIS UA BLOOD Large *ABNORMAL* (07/02/24 9:35 AM) 07/02 14:35 :00 [facility] URINALYSIS UA LEUKOCYTES Small *ABNORMAL* (07/02/24 9:35 AM) 07/02 14:35 :00 [facility] URINALYSIS UA NITRITE Negative (07/02/24 9:35 AM) 07/02 14:35 :00 [facility] URINALYSIS UA PROTEIN 30 mg/dL 07/02 14:35 :00 [facility] Culture UrineX No growth at 1000 CFU/ml, Final. 07/02 14:35 :00 [facility] US Abdomen (Non Vascular) US Abdomen (Non Vascular) Ultrasound Accession # Exam Date/Time Procedure Ordering Provider [id number] 07/02/2024 09:25 CDT US Abdomen (Non Celso frye MD, Sharlene Vascular) Reason For Exam (US Abdomen (Non Vascular)) elevated liver enzymes Report EXAMINATIO N: US Abdomen (Non Vascular) INDICATION : elevated liver enzymes COMPARISON : None TECHNIQUE: Grayscale, color and Limited spectral Doppler evaluation of the right upper quadrant was performed. FINDINGS: LIVER: Size (length): 16.8 cm Echogenici ty: Normal echogenici ty. Parenchyma : Normal echotextur e. Hypoechoic simple cyst in the right hepatic lobe measuring up 1.4 cm. Intrahepat ic Bile Ducts: Nondilated Hepatic Veins: Patent Portal Vein: Hepatopeta l flow. PSV: 16 cm/s GALLBLADDE R: Wall Thickness: 2.9 mm. Mild wall thickening . Morphology : Hydropic gallbladde r. Lumen: Layering sludge. No intralumin al stones. Sonographi c Jaeger's Sign: Patient intubated and sedated. EXTRAHEPAT IC BILE DUCTS: Common Bile Duct Diameter: 2.0 mm RIGHT KIDNEY: Length: 12.4 cm Width: 5.5 cm. Height: 4.3 cm Morphology /parenchym a: Corticomed ullary differenti ation is preserved. Collecting System: Nondilated . Nonobstruc ting renal calculi measuring approximat e 0.8 cm. PANCREAS: Visualized Portions: Partially visualized head, neck, and body. Appearance : Diffusely hyperechoi c like representi ng fatty infiltrati on. OTHER: Fluid: No free fluid in the right upper quadrant. Partially imaged right pleural effusion. IMPRESSION : 1. Hydropic gallbladde r with layering sludge within the gallbladde r lumen and mild thickening of the gallbladde r wall. No intralumin al stones oor wall hyperemia. Sonographi c Jaeger sign could not be assessed due to the patient's clinical status. HIDA scan can be Ultrasound Report performed to rule out acute cholecysti tis as clinically indicated. 2. Small right hepatic lobe simple cyst. 3. Nonobstruc ting right renal calculi measuring 0.8 cm. No hydronephr osis. 4. Partially imaged right pleural effusion. I have personally reviewed the images and attest to the contents of this report. * * *Final Report* * * Electronic ally Signed by: Rian Londono MD, FN Signed on: 07/02/24 10:56 07/02 08:31 :34 [facility] Gram Stain Rare polys No organisms seen 07/02 08:12 :00 [facility] Culture Quantitative Tracheal Lavage No growth at 48 hours, Final. 07/02 08:12 :00 [facility] MRI Brain MRI Brain MRI/MRA Accession # Exam Date/Time Procedure Ordering Provider [id number] 07/02/2024 06:49 CDT MRI Brain Celso frye MD, Sharlene Reason For Exam (MRI Brain) s/p septic emboli to right thalamus Report EXAMINATIO N: MRI Brain without and with IV contrast INDICATION : s/p septic emboli to right thalamus COMPARISON : None FINDINGS: MRI BRAIN: INFARCT: Multiple tiny scattered foci of restricted diffusion are noted in the brain in the supratento rial and infratento rial compartmen t. The lesion located in the right thalamus and right occipital lobe show punctate susceptibi lity and minimal enhancemen t. HEMORRHAGE : No intraparen chymal or extra-axia l hemorrhage . MASS EFFECT: None. PARENCHYMA : No intraparen chymal mass. MIDLINE STRUCTURES : Normal. VOLUME LOSS: Mild global volume loss and proportion al enlargemen t of the CSF spaces. VENTRICLES : No ventriculo megaly. VASCULAR: Preserved major vascular flow voids. BONES: Unremarkab le. SINUSES: Retention cyst is noted in the left maxillary sinus otherwise normal. MASTOIDS: Clear. ORBITS: Mild streaking and mild enhancemen t is noted in the retro global fat within the left orbit. Series 20 image 58. SOFT TISSUES: 15 mm enhancing nodule in the soft tissue of the left occipital scalp may represent an enlarged lymph node. Mild scalp edema noted. IMPRESSION : 1. Multiple scattered areas of restricted diffusion in the supra and infratento rial compartmen t represent acute embolic infarction s. In view of patient's history these most likely represent septic emboli. 2. Mild enhancemen t of the retro-glob al fat in the left eye is concerning for left orbital involvemen t by the inflammato ry process. I have personally reviewed the images and attest to the contents of this report. * * *Final Report* * * Electronic ally Signed by: Collins ZULUAGA, Anita Signed on: 07/02/24 09:10 07/02 04:52 :22 [facility] URINALYSIS Urine Collection Method Rogers Cath (07/01/24 11:18 PM) 07/02 04:18 :00 [facility] URINALYSIS clarity Cloudy *ABNORMAL* (07/01/24 11:18 PM) 07/02 04:18 :00 [facility] URINALYSIS color Yellow (07/01/24 11:18 PM) 07/02 04:18 :00 [facility] URINALYSIS specific gravity 1.026 1.006 - 1.030 07/02 04:18 :00 [facility] URINALYSIS UA PH 5 (07/01/24 11:18 PM) 4.5 - 8.0 07/02 04:18 :00 [facility] URINALYSIS UA GLUCOSE Negative mg/dL 07/02 04:18 :00 [facility] URINALYSIS UA KETONES Negative mg/dL 07/02 04:18 :00 [facility] URINALYSIS bilirubin Negative (07/01/24 11:18 PM) 07/02 04:18 :00 [facility] URINALYSIS UA UROBILINOGEN Negative Zhao unit/dL 0.2 - 1.0 07/02 04:18 :00 [facility] URINALYSIS UA BLOOD Small *ABNORMAL* (07/01/24 11:18 PM) 07/02 04:18 :00 [facility] URINALYSIS UA LEUKOCYTES Negative (07/01/24 11:18 PM) 07/02 04:18 :00 [facility] URINALYSIS UA NITRITE Negative (07/01/24 11:18 PM) 07/02 04:18 :00 [facility] URINALYSIS UA PROTEIN 30 mg/dL 07/02 04:18 :00 [facility] URINALYSIS wbc 7-10 /hpf 0 - 3 07/02 04:18 :00 [facility] URINALYSIS rbc 7-10 /hpf 0 - 2 07/02 04:18 :00 [facility] URINALYSIS epithelials Few /lpf 07/02 04:18 :00 [facility] [facility]IN[facility] mucous Present *ABNORMAL* (07/01/24 11:18 PM) 07/02 04:18 :00 [facility] URINALYSIS bacteria Trace *ABNORMAL* (07/01/24 11:18 PM) 07/02 04:18 :00 [facility] Peripheral Blood Smear Peripheral Blood Smear CLINICAL INTERPRETA TION REPORT Patient Name: RM MCGILL Specimen Number: [id number] Patient Neisha Date/Time: 07/02/2024 04:03 Submitting Physician: Brooks Rodgers MD Specimen 8 ======== Peripheral Blood Smear INTERPRETA TION Review of a Wrights stained peripheral blood film shows increased numbers of white blood cells. Neutrophil s are increased in number and show normal maturation and normal morphology . Eosinophil s are normal in number and basophils are normal in number. Monocytes are increased in number and show normal morphology . Lymphocyte s are normal in number and show round to slightly irregular nuclei with scant cytoplasm. Platelets are decreased in number and show normal morphology and granularit y. There are no enlarged platelets and no giant platelet. No significan t platelet clumping is identified . The red cells are decreased in number, normocytic , and normochrom ic. There is mild anisopoiki locytosis, with schistocyt es, elliptocyt es, and echinocyte s. There is mild polychroma rae. PERIPHERAL BLOOD, WRIGHTS STAINED FILM: NEUTROPHIL IA WITH LEFT-SHIFT ED GRANULOCYT ES; THROMBOCYT OPENIA; NORMOCYTIC NORMOCHROM IC ANEMIA; MILD MONOCYTOSI S Transcribe d by PSL (07/02/24) By this signature, I attest that the above diagnosis is based upon my personal examinatio n of the tissue and slides (and/or other material indicated in the diagnosis) , per policy. A resident was involved in the pathologic evaluation of this case, I have reviewed and edited the findings of the resident. Melissa New i, MD Electronic ally Signed Out Procedure Signout Date: 07/03/2024 CLINICAL DATA Obs Units % Absolute # Units WBC 23.68 x10(9)/L Neutrophil seg. 83.8 19.83 x10(9)/L RBC 4.22 x10(12)/L Neutrophil band x10(9)/L HGB 12.3 g/dL Immature Grans 1.6 0.38 x10(9)/L HCT 36.7 % Lymphocyte s 9.5 2.26 x10(9)/L MCV 87 fL Monocytes 5 1.18 x10(9)/L MCH 29.1 pg Eosinophil s 0 0 x10(9)/L MCHC 33.5 g/dL Basophils 0.1 0.03 x10(9)/L RDW-SD 46.9 fL Metamyeloc ytes x10(9)/L RDW-CV 16.5 % Myelocytes x10(9)/L PLT 66 x10(9)/L Promyelocy shahzad x10(9)/L MPV 12.8 fL Blasts x10(9)/L Retic Ct x10(12)/L Atyp. Lymphocyte s x10(9)/L Retic % % Atyp. Mononuclea r x10(9)/L IRF % nRBC 1.8 0.4 #/100 WBC Retic Hgb pg Megakaryoc ytic fragments #/100 WBC See clinical reference ranges in PowerChart under the Hematology Section Transcribe d by PSL (07/02/24) ====== Specimen(s )Received PB Sm, Blood The performanc e characteri stics of this assay were determined by the [facility], [facility]. Some or all of these assays have not been cleared or approved by the U.S. Food and Drug Administra tion. This test is used for clinical purposes and should not be regarded as investigat ional or for research. 07/02 04:03 :00 Missing Attachment [id number] can be viewed in source system [facility] COAGULATIO N PTT 36.3 s 25.1 - 36.5 07/02 03:05 :00 Interpretive Data: Recommendatio ns for anticoagulant therapeutic ranges: Unfractionate d Heparin: Please order the anti-Xa assay. Target ranges and medication management recommendatio ns are based on the anti-Xa assay and posted in [employer] (see Medication Management-Ad ult Heparin Nomogram). Argatroban: Target ranges and medication management recommendatio ns are posted in [employer] (see Medication Management- Adult Argatroban Nomogram). Low molecular weight heparin or danaparoid monitoring: Please order the anti-Xa assay. Please contact the Pharmacy or the Clinical Pathology Service for additional questions. [facility] COAGULATIO N FIBRINOGEN LEVEL 183 mg/dL 200 - 393 07/02 03:05 :00 Interpretive Data: Direct thrombin inhibitors (Argatroban, Dabigatran) or thrombolytic therapy can cause artificially decreased fibrinogen levels with this assay. If results are outside of the clinically significant normal or expected range, request pathology consult for alternate testing suggestions. [facility] COAGULATIO N D-DIMER QUANTITATIVE 6269.00 ng/mLFEU 0.00 - 500.00 07/02 03:05 :00 Interpretive Data: This test may be used as an aid in conjunction with a clinical score for the exclusion of deep venous thrombo-embol ism. The negative predictive value for deep venous thrombosis was Greater than 97% in patients with a low or moderate PTP score when the D-dimer was less than 500 ng/mL FEU. ISTH DIAGNOSTIC SCORING SYSTEM FOR DIC Score 0 1 2 3 Platelet Count (x10^9/L) > 100 < 100 < 50 N/A PT Prolongation 0-3 3-6 > 6 N/A Fibrinogen (mg/dL) > 100 < 100 N/A N/A D-Dimer (ng/mL) < 215 N/A 215 - 500 > 500 The score applies to non- patients with disorders that are associated with DIC. Please use modified ISTH score for patients. The modified ISTH score does not contain D-dimer (Bernardo O et al. PLoS One. 2014; 9(4): t69032) Calculate Score: > or = 500: compatible with overt DIC < 500: suggestive for non-overt DIC [facility] GENERAL CHEMISTRY Lactic Acid, Plasma 2.1 mmol/L 0.5 - 2.2 07/02 03:05 :00 [facility] GENERAL CHEMISTRY Procalcitoni n 4.10 ng/mL 07/02 03:05 :00 [facility] GENERAL CHEMISTRY 3rd Generation TSH 1.810 mcIU/mL 0.550 - 4.780 07/02 03:05 :00 Interpretive Data: Reference Interval I U/mL Infants (1 2 3 months) 0.87 6 .15 Children (2 1 2 years) 0.67 4 .16 Adolescents (13 2 0 years) 0.48 4 .17 [facility] GENERAL CHEMISTRY Ammonia 35 umol/L 11 - 32 07/02 03:05 :00 [facility] GENERAL CHEMISTRY LDH 1015 U/L 120 - 246 07/02 03:05 :00 [facility] HEMATOLOGY PROFILES Absolute Neutrophils Manual 25.01 x10(9)/L 1.70 - 7.00 07/02 03:05 :00 [facility] HEMATOLOGY PROFILES Abs Lymphocytes Manual 0.93 x10(9)/L 0.90 - 2.90 07/02 03:05 :00 [facility] HEMATOLOGY PROFILES Abs Monocytes Manual 0.45 x10(9)/L 0.30 - 0.90 07/02 03:05 :00 [facility] HEMATOLOGY PROFILES Abs Promyelos 0.24 x10(9)/L 0.00 - 0.11 07/02 03:05 :00 [facility] HEMATOLOGY PROFILES Abs NRBC Man 0.9 x10(9)/L 0.0 - 0.0 07/02 03:05 :00 [facility] HEMATOLOGY PROFILES Neuts Manual 93.9 % 07/02 03:05 :00 [facility] HEMATOLOGY PROFILES Lymphocytes Manual 3.5 % 07/02 03:05 :00 [facility] HEMATOLOGY PROFILES Monocytes Manual 1.7 % 07/02 03:05 :00 [facility] HEMATOLOGY PROFILES Promyelos hp 0.9 % 07/02 03:05 :00 [facility] HEMATOLOGY PROFILES NRBC Manual 3.5 /100WBC 07/02 03:05 :00 [facility] HEMATOLOGY PROFILES Morphology Present *NA* (07/01/24 10:05 PM) 07/02 03:05 :00 [facility] HEMATOLOGY PROFILES Platelet Estimate Decreased *NA* (07/01/24 10:05 PM) 07/02 03:05 :00 [facility] HEMATOLOGY PROFILES Aniso 1+ (10-20%) *NA* (07/01/24 10:05 PM) 07/02 03:05 :00 [facility] HEMATOLOGY PROFILES [place] Cells 1+ (10-25%) *NA* (07/01/24 10:05 PM) 07/02 03:05 :00 [facility] HEMATOLOGY PROFILES Elliptocytes (Ovalocytes) 1+ (10-25%) *NA* (07/01/24 10:05 PM) 07/02 03:05 :00 [facility] HEMATOLOGY PROFILES Poly 1+ (2-10%) *NA* (07/01/24 10:05 PM) 07/02 03:05 :00 [facility] HEMATOLOGY PROFILES Schistocytes 1+ (Rare-3%) *NA* (07/01/24 10:05 PM) 07/02 03:05 :00 [facility] IMMUNOLOGY /VIROLOGY CRP 7.5 mg/dL 07/02 03:05 :00 [facility] OTHER HEMATOLOGY TESTS ESR 2.0 mm/Hr 0.0 - 20.0 07/02 03:05 :00 [facility] Culture BloodX No growth at 5 days. 07/02 03:05 :00 [facility] BLOOD GASES- RC Sample Site (ABG) RR *NA* (07/01/24 8:56 PM) 07/02 01:56 :00 [facility] BLOOD GASES- RC pH Arterial (ABG) 7.377 7.350 - 7.450 07/02 01:56 :00 [facility] BLOOD GASES- RC pCO2 Arterial (ABG) 44.4 mm[Hg] 35.0 - 45.0 07/02 01:56 :00 [facility] BLOOD GASES- RC pO2 Arterial (ABG) 79.4 mm[Hg] 75.0 - 100.0 07/02 01:56 :00 [facility] BLOOD GASES- RC BE Arterial (ABG) 0.9 meq/L -2.0 - 2.0 07/02 01:56 :00 [facility] BLOOD GASES- RC HCO3- (ABG) 25.5 mmol/L 22.0 - 26.0 07/02 01:56 :00 [facility] BLOOD GASES- RC % O2 Saturation RC 94.3 % 80.0 - 100.0 07/02 01:56 :00 [facility] BLOOD GASES- RC Ventilator P/C *NA* (07/01/24 8:56 PM) 07/02 01:56 :00 [facility] BLOOD GASES- RC Pressure RC 14 07/02 01:56 :00 [facility] BLOOD GASES- RC PEEP RC 12.0 07/02 01:56 :00 [facility] BLOOD GASES- RC Set RR RC 16.0 breaths/mi n 07/02 01:56 :00 [facility] BLOOD GASES- RC Draw Time RC 07/02 01:56 :00 [facility] XR Abdomen XR Abdomen XR General Diagnostic Accession # Exam Date/Time Procedure Ordering Provider [id number] 07/01/2024 20:26 CDT XR Abdomen Souleymane Dhaliwal MD Reason For Exam (XR Abdomen) NG tube Report EXAMINATIO N: XR Abdomen INDICATION : NG tube VIEWS: 1 COMPARISON : None FINDINGS: Enteric tube terminates within the gastric body. Partially visualized bowel is aerated and nondilated . Small bilateral pleural effusions. I have personally reviewed the images and attest to the contents of this report. * * *Final Report* * * Electronic ally Signed by: Javier Doyle MD Signed on: 07/01/24 23:14 07/01 19:43 :22 [facility] XR Chest Portable XR Chest Portable XR General Diagnostic Accession # Exam Date/Time Procedure Ordering Provider [id number] 07/01/2024 20:26 CDT XR Chest Portable Souleymane Dhaliwal MD Reason For Exam (XR Chest Portable) ETT Report EXAMINATIO N: XR Chest Portable INDICATION : ETT VIEWS: 1 COMPARISON : None FINDINGS: Endotrache al tube terminates 5.7 cm above the mary. Right IJ central venous catheter terminatin g within the high right atrium. Enteric tube terminatin g off the inferior field of view. Median sternotomy wires and aortic valvulopla sty. Normal cardiomedi astinal silhouette . Bilateral interstiti al and airspace opacities. Small right layering pleural effusion, of note both costophren ic angles are not included within the field-of-v iew. No pneumothor ax. No acute osseous abnormalit y. Right axillary surgical clips. IMPRESSION : 1. Bilateral airspace opacities, which may be secondary to pulmonary edema versus multifocal infection. 2. Small right pleural effusion. I have personally reviewed the images and attest to the contents of this report. * * *Final Report* * * Electronic ally Signed by: Javier Doyle MD Signed on: 07/01/24 23:21 07/01 19:43 :20 [facility] Consultation Notes Results Value Date Source Infectious Disease IM Consul t Note Subjective Chief Complaint Infective endocarditis, hyperthermia Rm Mcgill is sedated and intubated in the MICU. Currently on pressors and is not able to participate in the interview. Nurse notes that there has been intermittent hemoptysis and clots noted in his ET tube. Review of Systems Unable to be obtained' patient is sedated and intubated. Objective Vitals and Measurements T: 35.6 C TMIN: 35.6 C TMAX: 37.6 C HR: 85 RR: 18 BP: 97/65 BP: 95/63(Line) SpO2: 93% Physical Exam General: Intubated, sedated. NAD. HEENT: Head normocephalic, atraumatic. Mucous membranes moist. No evidence of lymphadenopathy. Cardiovascular: Regular rate, regular rhythm. Normal S1 and S2. No murmur appreciated. Pulmonary: Intubated with mechanical ventilation. Lungs clear to auscultation bilaterally with good air movement. Abdomen: Soft, non-distended, no apparent tenderness to palpation. Extremity: No evidence of peripheral edema. Capillary refill within 2 seconds, no cyanosis. No deformity. No clubbing or spooning of digits. Neuro: Sedated, but awakens to verbal stimuli. Skin: Warm, dry. Lab Results CBC (07/06/24) WBC H 25.13 Hgb L 9.7 Hct L 32.1 MCV H 99.4 PLT L 63 Auto Differential % nRBC 0.7 Absolute nRBC H 0.2 % Neutrophils 88.4 Absolute Neut H 22.23 % Im Granulocyt H 1.80 Absolute Im Gra H 0.45 % Lymphocytes 5.8 % Monocytes 3.6 % Eosinophils 0.2 % Basophils 0.2 Basic Metabolic Panel (07/05/24) Na+ H 150 K+ 4.0 Cl- H 113 CO2 H 32 Anion gap 9 GLU 127 BUN H 42 Creat 0.9 Estimated GFR f 95 Estimated GFR f Not calculated Ca L 8.1 Hemolysis Index 0 Icteria Index H 1 Lipemia Index 0 Diagnostic Results (07/06/2024 04:31 CDT XR Chest) EXAMINATION: XR Chest INDICATION: ET tube , trach tube bleeding, rule plugging/et positio VIEWS: 1 COMPARISON: 20 hours prior FINDINGS: Stable support devices. Median sternotomy wires. Unchanged cardiomediastinal silhouette. Unchanged diffuse bilateral airspace opacities. Increasing moderate bilateral pleural effusions. No pneumothorax. No acute osseous abnormality. IMPRESSION: Unchanged airspace disease with increasing bilateral pleural effusions. [1] Assessment/Plan Patient Summary Rm Mcgill is a 58 y/o male with PMHX of aortic valve replacement 2 years ago (mechanical valve on warfarin) and hx of hepatitis C s/p treatment who was admitted to the MICU directly from OSH on 07/01 for septic shock and findings of mitral vegetation and gram positive cocci in chains bacteremia. ID was consulted for mitral valve vegetation, GPC bacteremia, and c/f septic emboli. Patient had findings concerning for mitral valve endocarditis likely 2/2 gram + cocci in chains resulting in septic shock. He initially presented to [facility] ER on 06/29 with signs of septic shock and was admitted to their ICU. There, he had fevers as high as 105.7 (improved with cooling measures), GIULIA (Cr 1.9), hypotension requiring Levophed, TTE showing 1.3 cm anterior mitral leaflet vegetation, blood cultures showing gram-positive cocci in chains, and head CT showing 8 mm subacute right thalamic infarct. GPC in chains at OSH were found in 3 out of 4 bottles. Organism identified as Streptococcus mitis/oralis. Sensitivities listed below. He was then transferred to MICU at [facility] for further management. CTS was consulted and recommended transfer to another facility for homograft. Transfer accepted to [facility], pending bed availability. Understand LIZBET will not be prioritized at this time as transfer of care is the top priority. ID problem list: #Mitral valve endocarditis with Streptococcus mitis/oralis # Shock, due to sepsis and cardiogenic shock due to valve infection #Septic emboli to brain Antimicrobials (estimates based on history from OSH): Vancomycin (06/29 - P) Piperacillin-tazobactam (06/29 - P) Levofloxacin (06/29) Current Lines: Central Line (06/29/2024 Right Jugular Internal Lumen Triple): day 8 Arterial Line (07/05/2024 Right Radial): day 2 Culture Results: 07/05/2024 11:23:00- C Blood, Peripheral: No growth to date at 24 Hours, Prelim, InProcess 07/02/2024 09:35:00- C Urine, Clean Catch: No growth at 1000 CFU/ml, Final., Final, Completed 07/02/2024 03:12:00- C QTL, QTL: No growth at 48 hours, Final., Final, Completed 07/01/2024 22:05:00- C Blood, Peripheral: No growth to date at 96 Hours, Prelim, InProcess 06/29 BC from OSH: - 3/4 bottles positive showing GPC in chains - isolated as Streptococcus mitis/oralis - Sensitivities below: - Ampicillin: Intermediate (CHIOMA: 1) - Cefepime: Susceptible (CHIOMA: 1) - Ceftriaxone: Susceptible (CHIOMA: 0.5) - Clindamycin: Susceptible ​ (CHIOMA: <=0.06) - Erythromycin: Susceptible (CHIOMA: <=0.06) - Levofloxacin: Susceptible (CHIOMA: 0.5) - Penicillin: Intermediate (CHIOMA: 0.5) - Vancomycin: Susceptible ​ (CHIOMA: 0.5) Recommendations: - discontinue piperacillin-tazobactam - discontinue vancomycin; start IV ceftriaxone - ID will sign-off at this time. Thank you for the consult Patient staffed with attending physician, Dr. Rouse. [1] XR Chest; Royce ZULUAGA, [facility] 07/06/2024 04:31 CDT I attest that on 07/06/2024 I have reviewed Mr. Carlos Li note and that the components of the history of the present illness, the physical exam, and the assessment and plan documented were performed by me or were performed in my presence by the student where I verified the documentation and performed (or re-performed) the exam and medical decision making. In addition: - Dose for ceftriaxone is 2 grams IV every 24 hrs. OSH isolate identified as S. mitis/oralis CERTIFIED RECREATIONAL THERAPIST - susceptible. Patient has been accepted at [facility], pending transfer. - Patient lives in [place], [place]. If needed, we will be happy to coordinate OPAT services after valve replacement surgery. - After patient is extubated/more stable please order Panorex to complete work-up. - Recommend ID consult at [facility] We will sign off at this time. Conrad Rouse MD, FACP, KENA Supervisor [employer] Department of Clinical Medicine Division of Infectious Diseases [facility] 07/06/2024 Pharmacy Consult Note Pharmacy Dosing Se rvice Note - Vancomycin Dosing Findings: Patient is a/an 58 Year(s) Old Male with dosing weight of 87.7 kg. Vancomycin treatment per protocol for Bacteremia. Current regimen is vancomycin 750mg IV q24h. Therapy is being monitored with Trough monitoring and goal of 10-20 mcg/mL. Trough-based monitoring selected because Patient with poor model fit. Date Vancomycin Doses Drug Levels (mg/L) WBC SCr (mg/dL) BUN (mg/dL) 07/06/2024 Vancomycin Trough: 6.1 mcg/mL, 09:12 25.13 x10(9)/L 0.9 35 07/05/2024 750 mg, 250 mL, 11:24 21.59 x10(9)/L 1.0 44 07/04/2024 750 mg, 250 mL, 08:34 22.51 x10(9)/L 1.3 61 07/03/2024 750 mg, 250 mL, 09:53 Vancomycin Level: 15.9 mcg/mL, 03:48 21.02 x10(9)/L 1.8 86 07/02/2024 750 mg, 250 mL, 08:31 23.68 x10(9)/L 2.6 89 07/01/2024 26.64 x10(9)/L 2.8 89 Urine Output: above goal (1 mL/kg/hr) at1.2 mL/kg/hr Micro: - Blood cultures positive fromOSH on 06/30 with GPC in chains at in 3 out of 4 bottles. Exact organism identity is pending - Blood cultures pending from07/05, NG 12 hr - Urine cultures negative from07/02, NG - Sputum culture negative from07/02, NG 48 hr - Blood cultures pending from07/01, NG 96 hr Assessment: Renal function appears to be improving. Trough level was drawn appropriately. Trough level is below goal at 6.1 mcg/mL. The following information is predicted based on vancomycin dose of 1500 mg IV every 24 hours: - Predicted Trough: 10.7 mg/L Plan: Based on the findings, plan to continue vancomycin 1500 mg IV every 24 hours. Pharmacy will continue to monitor and will repeat levels in 3-5 days or sooner if clinically indicated based on indication, renal function, UOP, or SCr changes. Thank you for allowing the pharmacy team to participate in the care of this patient. Sejal Pabon, [place] Clinical Intensive Care Nurse - Medical Intensive Care Unit Ascom: [phone] 07/06/2024 Op/Procedure Note Procedure performed: Bronchoscopy Indication: Hemoptysis Informed Consent Obtained: From Erika over the phone Physician performing procedure : Dr. Silverman Physician supervising procedure : Dr. Dhaliwal Pre-Op Diagnoses: Hemoptysis Post Op Diagnosis: Hemoptysis Indication for Procedure: Abnormal CXR, hemoptysis Monitoring During Procedure: Blood Pressure Monitoring, Cardiac Monitoring, Continuous Pulse Oximetry, Heart Rate, Respiratory Rate. Prep and Technique: Usual standard manner. Anesthesia: Per MAR Right Lung Right upper lobe : diffuse erythematous patchy inflammation. No active bleeding ntoed. BI: _ Right middle lobe : diffuse erythematous patchy inflammation. No acute bleeding noted. RB 6: _ R lower lobe : diffuse erythematous patchy inflammation. No acute bleeding noted. Left lung Left upper - diffuse inflammation. No acute bleeding noted. Left Lower lobe - possible mild oozing of blood. After lavage with cold saline, no blood noted. Position of patient: Supine Condition: Good Procedure tolerated: Well Estimated blood loss: None Complications: None CC : Dr. Dhaliwal ADDENDUM: I was present for the entire procedure on the result date on the header of this document and agree with everything documented above with the following exceptions/additions: none 07/05/2024 Op/Procedure Note Procedure Name Arter ial line placement Consent: Signed and in chart Emergency procedure Reason for procedure: Hemodynamic Monitoring Location: Right Radial Artery Technique: An appropriate time out was performed before the procedure to confirm the patient's name, allergies, type of procedure, procedure site, and its indication. The patients Right Radial Artery was identified with ultrasound. An arterial line dart was passed through the skin into the artery with ultrasound guidance and blood return was noted. The artery was then cannulated with a guidewire and the catheter was introduced over the guidewire and into the artery. The guidewire was removed and pulsating, bright red blood was noted from the catheter. The outer end of the arterial catheter was connected to the tubing and transduced. A good arterial wave from was observed on the monitor. The catheter was secured via 3-0 silk and covered with a sterile CHG occlusive dressing. Dr. Dhaliwal was present during the entire procedure.. Complications: None Diagnosis: Shock ADDENDUM: I was present for the entire procedure on the result date on the header of this document and agree with everything documented above with the following exceptions/additions: Consent obtained from Ms. James over the phone. 07/05/2024 Urology Consult Note Chief Complaint Reason for Consultation Catheter placement Requesting Provider Dr. Castillo History of Present Illness 58-year-old male with past medical history of aortic valve replacement on warfarin, history of hepatitis C here for urosepsis. He is intubated and sedated in MICU. We are consulted for difficult Rogers. We had replaced rogers 2 days earlier. Was removed for urine leaking around the catheter. Review of Systems ROS was completed and negative except those mentioned in the HPI. Physical Exam Vitals and Measurements T: 37.8 C TMIN: 37.2 C TMAX: 37.9 ?C HR: 90 RR: 18 BP: 96/65 SpO2: 97% WT: 87.7 kg BMI: 30 Gen: Intubated and sedated Rogers Catheter Placement: - Patient prepped and draped in sterile fashion - A urojet was placed in urethra - 18 Fr coude placed in bladder - CYU out - 10 cc in balloon Assessment/Plan 58 year old male urology was consulted on for rogers placement. - Rogers placed with no difficulty - Urology is no longer required for rogers catheter placement - Urine around catheter was likely from bladder spasms, can treat with anticholinergics or myrbetiq per discretion of primary team Problem List/Past Medical History Ongoing BMI 30.0-30.9,adult Obesity Procedure/Surgical History Medications Inpatient docusate-senna(docusate-senna 50 mg-8.6 mg oral tablet), 1 Tablet(s), Oral/per Tube, bid fentaNYL, 50 mcg= 1 mL, Slow IV Push, q30min, PRN fentaNYL 2,500 mcg(fentaNYL 50 mcg/mL 50 mL Premix IV 2,500 mcg), 2500 mcg= 50 mL, IV glucagon, 1 mg, IM, As Indicated, PRN glucose(D50W injectable), 12.5 g= 25 mL, IV Push, As Indicated, PRN glucose(dextrose chewable tablet), 16 g= 4 Tablet(s), Oral, As Indicated, PRN insulin regular(insulin human regular - correction scale), 1-7 units, Subcutaneous, q6h norepinephrine 8 mg(norepinephrine 8 mg/250 mL NS IV solution 8 mg), 8 mg= 250 mL, IV ocular lubricant(ophthalmic ointment), 1 Application, Each Eye, q6h pantoprazole(pantoprazole inj), 40 mg= 10 mL, IV Push, qAM Pharmacist Vancomycin Dosing Protocol(VANCOMYCIN IV - PHARMACY TO DOSE), 1 Each, Message, As Indicated, PRN piperacillin-tazobactam, 4.5 g, form: Injection, IVPB, [id number], Routine, first dose 07/02/24 4:00:00 CDT, 25 mL/hr, infuse over 4 hour(s), Total volume (mL): 100, Indication: Bacteremia polyethylene glycol 3350(MiraLax), 17 g= 1 Packet, Oral/per Tube, bid propofol, 26.73 mg= 2.67 mL, 0.3 mg/kg, IV, q15min, PRN propofol 1,000 mg(propofol 1000 mg/100 mL Premix IV 1,000 mg), 1000 mg= 100 mL, IV vancomycin, 750 mg= 250 mL, IVPB, q24h Home aspirin(aspirin 325 mg oral tablet), 325 mg= 1 Tablet(s), Oral, q4h Pharmacist Warfarin Dosing Protocol(WARFARIN - PHARMACY TO DOSE) Allergies NKA Social History Smoking Status Unknown if ever smoked Family History Immunizations Lab Results Diagnostic Results Attending Addendum: I have personally seen and evaluated the patient and I agree with the resident's documentation. I saw on 07/04/24. I was not present for rogers catheter placement. Sharath Juárez MD Reconstructive Urology [facility] 07/04/2024 Infectious Disease IM Consul t Note Subjective Chief Complaint Patient intubated in ICU on pressors and unable to speak. Seen in follow-up for endocarditis complicated by septic shock. Outside lab able to communicate that blood culture growth appears to identify alpha strep, not yet characterized Review of Systems Unable to obtain as intubated Objective Vitals and Measurements T: 37.5 C TMIN: 37.1 C TMAX: 37.9 C HR: 88 RR: 18 BP: 93/64 SpO2: 98% WT: 87.7 kg BMI: 30 Physical Exam Laying in bed intubated. Opens eye to verbal l stimulus/name. HEENT: intubated, neck supple Lungs clear anteriorly. Heart RRR with holosystolic murmur. Abdomen soft, non-tender extremities with right foot with blue great toe, left foot blue 5th digit. Feet cool to touch with no palpable pulse. Neuro: opens eyes to name Lab Results CBC (07/04/24) WBC H 22.51 Hgb L 9.9 Hct L 30.7 MCV 91.4 PLT L 55 Auto Differential % nRBC 0.8 Absolute nRBC H 0.2 % Neutrophils 86.7 Absolute Neut H 19.51 % Im Granulocyt H 1.70 Absolute Im Gra H 0.38 % Lymphocytes 6.8 % Monocytes 4.6 % Eosinophils 0.0 % Basophils 0.2 Basic Metabolic Panel (07/04/24) Na+ H 152 K+ 3.9 Cl- H 114 CO2 H 35 Anion gap 7 GLU H 158 BUN H 58 Creat H 1.3 Estimated GFR f L 63 Estimated GFR f Not calculated Ca L 7.8 Hemolysis Index 0 Icteria Index H 1 Lipemia Index 0 Diagnostic Results TTE: mitral valve vegetation and perforation. Severe mitral regurge with two jets Assessment/Plan Patient Summary Patient is a 58 y/o male with PMHX of aortic valve replacement 2 years ago (mechanical valve on warfarin), treated hepatitis C, who was admitted to the MICU directly from OSH on 07/01 for septic shock and findings of mitral vegetation and gram positive cocci in chains bacteremia. ID was consulted for mitral valve vegetation and c/f septic emboli. Patient had findings concerning for mitral valve endocarditis likely 2/2 gram + cocci in chains resulting in septic shock. He initially presented to [facility] ER on 06/29 with signs of septic shock and was admitted to their ICU. There, he had fevers as high as 105.7 (improved with cooling measures), GIULIA (Cr 1.9), hypotension requiring Levophed, TTE showing 1.3 cm anterior mitral leaflet vegetation, blood cultures showing gram-positive cocci in chains, and head CT showing 8 mm subacute right thalamic infarct. GPC in chains at OSH were found in 3 out of 4 bottles. Exact organism identity is pending. He was transferred to MICU at [facility] for further management. Will need to rule out any aortic valve infections with LIZBET as he had prior replacement of his aortic valve. LIZBET also recommended for evaluation for perivalvular abscess as patient had first degree AV block noted on ECG. ID problem list #Mitral valve endocarditis with likely alpha streptococcus, # Shock, due to sepsis and cardiogenic shock due to valve infection #Septic emboli to brain Antimicrobials (estimates based on history from OSH) Vancomycin (06/29 - P) Piperacillin-tazobactam (06/29 - P) Levofloxacin (06/29) Current lines Central Line (06/29/2024 Right Jugular Internal Lumen Triple): day 6 Cultures Outside blood cultures 06/29 with Alpha streptococcus Blood Cx 07/01: no growth final QTL Cx 07/02: Rare polys, no organisms to date UA Cx 07/02: NGTD Recommendations: - Agree with CV surgery assessment and plans for transfer to a center capable of providing valve surgery including aortic root homolog. I understand we are waiting to transfer to [facility]. - Continue Vancomycin IV pharmacy to dose and piperacillin-tazobactam - Recommend LIZBET to assess for valve ring abscess and further evaluation of aortic valve - ID to continue following 07/04/2024 Infectious Disease IM Consul t Note Subjective Patient seen at bedside this morning. He continues to be intubated on the ventilator and on sedation. He is on levophed, maintaining MAPs of >60. Per primary team, CT surgery was consulted and LIZBET order placed for today. Review of Systems Unable to perform as patient is intubated and sedated. Objective Vitals and Measurements T: 37.2 C TMIN: 37.2 C TMAX: 37.8 C HR: 80 RR: 16 BP: 96/65 SpO2: 98% Physical Exam - GENERAL: Alert and awake. Intubated and sedated. - HENT: Moist mucous membranes. ET tube in place. - LUNGS: Clear to auscultation bilaterally. No wheezing or rales appreciated. - CARDIOVASCULAR: Regular rate and rhythm. Holosystolic murmur present. - ABDOMEN: Soft, non-tender and non-distended. No rebound or guarding. - EXTREMITIES: No edema. Distal extremities cold to touch bilaterally. Dusky discoloration of left 5th toe and right great toe. - SKIN: Warm and dry. No rashes or lesions. - NEUROLOGIC: Could not assess. - PSYCHIATRIC: Could not assess. Lab Results CBC (07/03/24) WBC H 21.02 Hgb L 10.9 Hct L 33.0 MCV 88.0 PLT L 61 Auto Differential % nRBC 1.4 Absolute nRBC H 0.3 % Neutrophils 85.0 Absolute Neut H 17.86 % Im Granulocyt H 1.20 Absolute Im Gra H 0.25 % Lymphocytes 9.0 % Monocytes 4.7 % Eosinophils 0.0 % Basophils 0.1 Comprehensive Metabolic Panel (07/03/24) Na+ H 146 K+ 3.7 Cl- 107 CO2 H 32 Anion gap 11 GLU H 194 BUN C 86 Creat H 1.8 Estimated GFR f L 42 Estimated GFR f Not calculated Ca L 8.0 Alk Phos 107 AST H 626 ALT H 961 T Bili H 2.37 Total Protein L 5.1 Alb L 2.4 Hemolysis Index 0 Icteria Index H 1 Lipemia Index 0 Assessment/Plan Patient is a 58 y/o male with PMHX of aortic valve replacement 2 years ago (mechanical valve on warfarin), treated hepatitis C, who was admitted to the MICU directly from OSH on 07/01 for septic shock and findings of mitral vegetation and gram positive cocci in chains bacteremia. ID was consulted for mitral valve vegetation and c/f septic emboli. Patient had findings concerning for mitral valve endocarditis likely 2/2 gram + cocci in chains resulting in septic shock. He initially presented to [facility] ER on 06/29 with signs of septic shock and was admitted to their ICU. There, he had fevers as high as 105.7 (improved with cooling measures), GIULIA (Cr 1.9), hypotension requiring Levophed, TTE showing 1.3 cm anterior mitral leaflet vegetation, blood cultures showing gram-positive cocci in chains, and head CT showing 8 mm subacute right thalamic infarct. GPC in chains at OSH were found in 3 out of 4 bottles. Exact organism identity is pending. He was transferred to MICU at [facility] for further management. Will need to rule out any aortic valve infections with LIZBET as he had prior replacement of his aortic valve. LIZBET also recommended for evaluation for perivalvular abscess as patient had first degree AV block noted on ECG. ID problem list #Septic shock #Mitral valve endocarditis #Septic emboli Antimicrobials (estimates based on history from OSH) Vancomycin (06/29 - P) Piperacillin-tazobactam (06/29 - P) Levofloxacin (06/29) Current lines Central Line (06/29/2024 Right Jugular Internal Lumen Triple): day 5 Cultures Blood Cx 07/01: NGTD QTL Cx 07/02: Rare polys, no organisms to date UA Cx 07/02: NGTD Recommendations: - Continue Vancomycin IV pharmacy to dose and piperacillin-tazobactam - Recommend and will follow up on CT Surgery consult for assessment for valve surgery - Will follow up on LIZBET to assess for valve ring abscess and further evaluation of aortic valve - ID to continue following Patient seen and staffed with attending physician Dr. Yousif Attestation by Vincent Yousif MD on July 03, 2024 13:15 I personally saw and evaluated the patient on the result date found in the header of this document. I independently performed the critical/brenner portions of the Evaluation and Management service and discussed the management with Dr. Mesa, ID resident, and the author of this document. I agree with everything documented above with the following exceptions/additions: No exceptions. Patient remains on pressors, intubated on broad spectrum antibiotics with pip-tazo and vancomycin. Awaiting ID of gram positive in blood culture from outside hospital. Have requested LIZBET to assess for perivalvular infection, and CV surgery consult given mitral valve perforation and presence of shock. Exam as above. Impression: 1) Endocarditis, with gram positive coccus, ID pending. Mitral valve with vegetations and perforation. AVR with some thickening at valve. 2) Shock, sepsis along with valvular dysfunction. 3) Intracerebral emboli. Plan: 1) recommend continuing Vancomycin and Pip-tazo following cultures of blood. 2) LIZBET 30)CV surgery consult. 4)we will likely have ID of organisms from outside lab tomorrow. We will follow. 07/03/2024 Cardiothoracic Surgery Consu lt Note Chief Complaint Reason for Consultation MV endocarditis in the setting of prosthetic AVR Requesting Provider Pete History of Present Illness Rm Schafer is a 58-year-old male with a past medical history of aortic valve replacement 2 years ago in [facility] with current mechanical valve on outpatient warfarin. Patient also has a history of hepatitis C treated 2 years ago. He was admitted to the MICU directly from outside hospital on 07/01/2024. He is intubated and not responsive, so history was gathered from chart review and discussions with MICU team. Symptoms began 2 weeks ago with fever, fatigue, and vomiting. He presented to [facility] ED for shortness of breath. He was intubated and placed on levofloxacin but later switched to vancomycin and Zosyn. He was admitted to the ICU at [facility] and received pressors on and off. T-Max 105.7, and cooling measures were initiated, hospital course further complicated by GIULIA with Cr 1.9. He also had atrial flutter and was cardioverted. He received a TTE that showed a 1.3cm vegetation on the anterior leaflet of the mitral valve very close to the annulus of the aortic valve. Blood cultures there were positive for gram-positive cocci in chains. Head CT showed an 8 mm subacute right thalamic infarct. Review of Systems unable to assess Physical Exam Vitals and Measurements T: 37.2 C TMIN: 37.2 C TMAX: 38.2 ?C HR: 80 RR: 16 BP: 96/65 SpO2: 98% General: Intubated and sedated Eye: PEERLA HENMT: Oral mucosa moist. Respiratory: Lungs are clear to auscultation, mechanical ventilations. Cardiovascular: Regular rate, Normal rhythm, No murmur appreciated but limited due to vent sounds Gastrointestinal: Soft, no tenderness to palpation throughout, BS active Musculoskeletal: No peripheral edema. Integumentary: Skin is warm, dry. Right great toe and left pinky toe blue. ​ Neurologic: could not assess Psychiatric: could not assess Assessment/Plan Neurology Right 8 mm thalamic subacute infarct Likely secondary to septic emboli Hyperthermia -No response off of sedation -CT head at outside hospital showed right 8 mm right thalamic infarct Cardiovascular Mitral valve vegetation 2x2 cm vegetations S/p aortic valve replacement Atrial flutter s/p DCCV Respiratory Acute hypoxic and hypercapnic respiratory failure on ventilator Small right pleural effusion Bilateral pulm edema vs multifocal infection Renal GIULIA HAGMA -cr 2.0 today GI Congestive hepatopathy Hx of Hepatitis C s/p treatment Elevated liver enzymes ID Bacteremia Infective endocarditis Cystitis/Nephritis Heme/Onc Thrombocytopenia likely 2/2 sepsis vs liver dysfunction Elevated INR, 2.0 today Low fibrinogen levels Plan: Reviewed all diagnosis and all diagnostic testing results in detail. Endocarditis vegetation very close to the annulus of the aortic mechanical valve. Recommend a transfer to outside hospital due to the possible need for a homograft, which is not available at [facility]. Patient was seen directly and discussed plan with Dr. Noriega Problem List/Past Medical History Ongoing BMI 30.0-30.9,adult Obesity Procedure/Surgical History Medications Inpatient docusate-senna(docusate-senna 50 mg-8.6 mg oral tablet), 1 Tablet(s), Oral/per Tube, bid fentaNYL, 50 mcg= 1 mL, Slow IV Push, q30min, PRN fentaNYL 2,500 mcg(fentaNYL 50 mcg/mL 50 mL Premix IV 2,500 mcg), 2500 mcg= 50 mL, IV heparin(heparin 5000 units/mL injectable solution), 5000 units= 1 mL, Subcutaneous, q8h norepinephrine 8 mg(norepinephrine 8 mg/250 mL NS IV solution 8 mg), 8 mg= 250 mL, IV ocular lubricant(ophthalmic ointment), 1 Application, Each Eye, q6h pantoprazole(pantoprazole inj), 40 mg= 10 mL, IV Push, qAM Pharmacist Vancomycin Dosing Protocol(VANCOMYCIN IV - PHARMACY TO DOSE), 1 Each, Message, As Indicated, PRN piperacillin-tazobactam, 4.5 g, form: Injection, IVPB, [id number], Routine, first dose 07/02/24 4:00:00 CDT, 25 mL/hr, infuse over 4 hour(s), Total volume (mL): 100, Indication: Bacteremia polyethylene glycol 3350(MiraLax), 17 g= 1 Packet, Oral/per Tube, bid propofol, 26.73 mg= 2.67 mL, 0.3 mg/kg, IV, q15min, PRN propofol 1,000 mg(propofol 1000 mg/100 mL Premix IV 1,000 mg), 1000 mg= 100 mL, IV vancomycin, 750 mg= 250 mL, IVPB, q24h Home aspirin(aspirin 325 mg oral tablet), 325 mg= 1 Tablet(s), Oral, q4h Pharmacist Warfarin Dosing Protocol(WARFARIN - PHARMACY TO DOSE) Allergies NKA Social History Smoking Status Unknown if ever smoked Family History Immunizations Lab Results CBC (07/03/24) WBC H 21.02 Hgb L 10.9 Hct L 33.0 MCV 88.0 PLT L 61 Auto Differential % nRBC 1.4 Absolute nRBC H 0.3 % Neutrophils 85.0 Absolute Neut H 17.86 % Im Granulocyt H 1.20 Absolute Im Gra H 0.25 % Lymphocytes 9.0 % Monocytes 4.7 % Eosinophils 0.0 % Basophils 0.1 Basic Metabolic Panel (07/02/24) Na+ 144 K+ 4.0 Cl- 107 CO2 31 Anion gap 10 GLU H 206 BUN C 88 Creat H 2.0 Estimated GFR f L 37 Estimated GFR f Not calculated Ca L 7.9 Hemolysis Index 0 Icteria Index H 1 Lipemia Index 0 Coagulation Panel PT H 22.1 (07/03/24) H 36.9 (07/02/24) H 46.5 (07/02/24) PTT 36.3 (07/01/24) INR H 2.0 (07/03/24) H 3.4 (07/02/24) C 4.3 (07/02/24) Fibrinogen L 183 (07/01/24) Diagnostic Results (07/02/2024 06:49 CDT MRI Brain) MRI BRAIN: INFARCT: Multiple tiny scattered foci of restricted diffusion are noted in the brain in the supratentorial and infratentorial compartment. The lesion located in the right thalamus and right occipital lobe show punctate susceptibility and minimal enhancement. HEMORRHAGE: No intraparenchymal or extra-axial hemorrhage. MASS EFFECT: None. PARENCHYMA: No intraparenchymal mass. MIDLINE STRUCTURES: Normal. VOLUME LOSS: Mild global volume loss and proportional enlargement of the CSF spaces. VENTRICLES: No ventriculomegaly. VASCULAR: Preserved major vascular flow voids. BONES: Unremarkable. SINUSES: Retention cyst is noted in the left maxillary sinus otherwise normal. MASTOIDS: Clear. ORBITS: Mild streaking and mild enhancement is noted in the retro global fat within the left orbit. Series 20 image 58. SOFT TISSUES: 15 mm enhancing nodule in the soft tissue of the left occipital scalp may represent an enlarged lymph node. Mild scalp edema noted. IMPRESSION: 1. Multiple scattered areas of restricted diffusion in the supra and infratentorial compartment represent acute embolic infarctions. In view of patient's history these most likely represent septic emboli. 2. Mild enhancement of the retro-global fat in the left eye is concerning for left orbital involvement by the inflammatory process. I have personally reviewed the images and attest to the contents of this report. [1] Left ventricle: Left ventricular size is normal. Wall thickness is normal. Left ventricular systolic function is normal, ejection fraction is 60%. Elevated LV filling pressures. Overall regional wall motion is normal. No LV thrombus. Right ventricle: Right ventricular size is normal. Systolic function is reduced. Wall thickness is normal. Left atrium: Left atrium volume is severely dilated Right atrium: RA is dilated. Aortic valve: s/p AVR- There is thickening of the aortic root cannot rule out involvement of root and/or aortic valve. Leaflets are not well seen. No significant stenosis, trace regurgitation Mitral valve: Mobile vegetation on the anterior mitral valve- (2 cm x2cm), with perforation of anterior valve. Severe Mitral regurgitation two jets. No significant stenosis. Tricuspid valve: Tricuspid valve structure is normal. There is normal leaflet separation. There is no evidence for tricuspid stenosis. There is moderate t tricuspid regurgitation. Pulmonic valve: Pulmonic valve not well seen. There is no Doppler evidence for pulmonic stenosis or regurgitation. Aorta/Great vessels: The inferior vena cava is dilated with blunted respiratory variation. Aortic root is not well visualized. Pericardial: There is no pericardial effusion. [2] [1] MRI Brain; Anita Guadalupe MD 07/02/2024 06:49 CDT [2] Echo Transthoracic Complete; Cierra Aguiar DO 07/02/2024 07:32 CDT Attestation by Claire Noriega MD on July 03, 2024 13:22 I personally saw and evaluated the patient on DOS noted above. I discussed the management with the Advanced Practice Provider. I reviewed the chart, and the NICKI&rsquo;s note as documented above. I reviewed and independently interpreted the diagnostics, and the NICKI's summary as documented above. I agree with above documentation, unless otherwise noted below: 58M with mitral endocarditis (OSH cultures with GPC in chains, MU cultures NTD) marked by large anterior leaflet vegetation in close proximity to the inter-trigonal aortic annulus, perforation of the anterior mitral leaflet, and severe mitral regurgitation s/p mechanical aortic valve replacement 2021 (noncompliant with Coumadin clinic recommendations for warfarin dosage / administration) presents with septic shock and multisystem organ failure. Course currently complicated by acute congestive heart failure, nonoliguric renal failure, acute hepatic failure, acute hypoxic respiratory failure, thrombocytopenia, right thalamic subacute infarct, likely multifactorial decreased mental status (uremia, hepatic encephalopathy, cerebral ischemic insult), and atrial tachyarrhythmia requiring DCCV. Patient with history of HCV, obesity, IBS. Estranged from family. TTE reviewed and independently interpreted by me. Agree with assessment of large mobile vegetation on the anterior mitral valve leaflet with perforation of anterior leaflet, severe Mitral regurgitation, thickening of aortic root concerning for contamination of the aortomitral curtain. Given location of vegetation in very close proximity to inter-trigonal aortic annulus, there is high suspicion for double valve involvement; furthermore, it is impossible to definitively rule out contamination of mechanical aortic valve, aortomitral curtain, and aortic root short of intraoperative assessment. Should infection extend beyond mitral valve to include any of these structure, patient will likely require homograft root for reconstruction. As we do not have access to homografts at , would recommend transfer to quaternary care facility with readily-available and appropriate resources for definitive surgical treatment of patient's endocarditis. I personally reviewed the data and evaluated the patient. Homograft should be immediately available for reoperation in this pt (we do not have at our institution) I agree with the documented recommendations by Dr. Noriega 07/03/2024 Pharmacy Consult Note Pharmacy Dosing Se rvice Note - Vancomycin Dosing Findings: Patient is a/an 58 Year(s) Old Male with dosing weight of 89.1 kg. Vancomycin treatment per protocol for Bacteremia. Current regimen is vancomycin 750mg IV q24h. Therapy is being monitored with Trough monitoring and goal of 10-20 mcg/mL. Trough-based monitoring selected because Patient with poor model fit. Date Vancomycin Doses Drug Levels (mg/L) WBC SCr (mg/dL) BUN (mg/dL) 07/03/2024 750 mg, 250 mL, 09:53 Vancomycin Level: 15.9 mcg/mL, 03:48 21.02 x10(9)/L 1.8 86 07/02/2024 750 mg, 250 mL, 08:31 23.68 x10(9)/L 2.6 89 07/01/2024 26.64 x10(9)/L 2.8 89 Urine Output: at goal (0.5-1 mL/kg/hr) at0.7 mL/kg/hr Micro: - Blood cultures positive fromOSH on 07/01 growing GPCs - Blood cultures pending from07/01, NG 24hr - Sputum culture pending from07/02, NGTD Assessment: Renal function appears to be improving. Random level was drawn appropriately. Trough level is within goal at 15.9 mcg/mL (extrapolated trough 13.9). Model shows a poor fit with the obtained level(s). Plan: Based on the findings, plan to continue vancomycin 750 mg IV every 24 hours. Pharmacy will continue to monitor and will repeat levels in 3-5 days or sooner if clinically indicated based on indication, renal function, UOP, or SCr changes. Thank you for allowing the pharmacy team to participate in the care of this patient. Sejal Pabon, Yair Clinical Intensive Care Nurse - Medical Intensive Care Unit Ascom: [phone] 07/03/2024 Ophthalmology Consult Note Pain Scale Us ed: Behavioral Pain Assessment (0-10) Referring provider: Attending Physician: Brooks Rodgers MD Chief Complaint: sepsis with c/f orbital involvement HPI: Rm Mcgill is a 58 YOM who is presently admitted to the MICU for mitral endocarditis and sepsis. Ophthalmology has been consulted for concerns of orbital involvement seen on imaging. Patient is intubated/sedated. Systemic Medications: Reviewed Past Medical History: No data available Problems: BMI 30.0-30.9,adult; Obesity Procedure History: No data available Allergies/Adverse Drug Reactions: NKA Family History: No family history recorded. (-)glaucoma, (-) AMD, (-) RD Social History: No qualifying data available. (-) alcohol, (-) tobacco, (-) illicits Review of Systems: No qualifying data available. Measurements VA - unable to assess (intubated/sedated) IOP (Tp) OD: 18 OS: 16 External Exam Neuro/ Psych: intubated, sedated Pupil: Reactive to light, No APD OU EOM: Full OU with forced ductions Alignment: Ortho Portable Slit lamp exam: OD OS Adnexae/external: normal, no proptosis normal, no proptosis Lids/lashes: normal, no lesions normal, no lesions Conjunctiva/sclera: white and quiet, no follicles or papillary change white and quiet, no follicles or papillary change Cornea: clear clear AC: deep deep Iris: normal, no NVI normal, no NVI Lens: phakic phakic Vitreous: clear clear PATIENT DILATED WITH PHENYLEPHRINE AND TROPICAMIDE @ 1315 Fundus exam: OD OS Nerve: flat, sharp margins, no pallor flat, sharp margins, no pallor Macula: flat flat Vessels: normal normal Periphery: no holes/tears no holes/tears Assessment/Recommendations: R/o orbital inflammatory disorder, left eye - Incidental finding on MRI brain 07/02/24 - No interview due to intubated/sedated clinical status - Benign exam, no proptosis, full EOMs with forced ductions, fundus exam wnl - Low suspicion for inflammatory process upon eye exam and review of imaging - No ophthalmic intervention Findings and recommendations discussed with patient and primary team. Madai Pina MD Ophthalmology PGY-[address] Armstrong. (07/02/2024 06:49 CDT MRI Brain) IMPRESSION: 1. Multiple scattered areas of restricted diffusion in the supra and infratentorial compartment represent acute embolic infarctions. In view of patient's history these most likely represent septic emboli. 2. Mild enhancement of the retro-global fat in the left eye is concerning for left orbital involvement by the inflammatory process. [1] I agree with the above assessment and plan. I examined this patient with Dr. Pina, resident physician. I have reviewed the above findings, assessment, and plan with the patient. Floridalma Armstrong MD Cornea Fellow [facility] [1] MRI Brain; Collins ZULUAGA, [facility] 07/02/2024 06:49 CDT 07/03/2024 Urology Consult Note Chief Complaint Reason for Consultation Difficult Rogers Requesting Provider Dr. Castillo History of Present Illness 58-year-old male with past medical history of aortic valve replacement on warfarin, history of hepatitis C here for urosepsis. He is intubated and sedated in MICU. We are consulted for difficult Rogers. He had a Rogers on admission but this was removed for clean Rogers for urine culture. Nursing attempted catheter with difficulty and blood. Review of Systems Pertinent ROS negative unless otherwise specified above. Physical Exam Vitals and Measurements T: 38.1 C TMIN: 36.6 C TMAX: 38.5 ?C HR: 93 RR: 16 BP: 95/72 SpO2: 99% WT: 89.1 kg (Dosing) BMI: 30.5 General: No apparent distress, appears comfortable Rogers Catheter Placement: - Patient prepped and draped in sterile fashion - A urojet was placed in urethra - 18 Fr coude placed in bladder - CYU out - 10 cc in balloon Assessment/Plan Septic shock 58-year-old male with past medical history of aortic valve replacement on warfarin, history of hepatitis C here for urosepsis. He is intubated and sedated in MICU. We are consulted for difficult Rogers. 18 Fr catheter placed. Plan: - Maintain FC per primary team discretion - No acute urologic intervention Problem List/Past Medical History Ongoing BMI 30.0-30.9,adult Obesity Procedure/Surgical History Medications Inpatient docusate-senna(docusate-senna 50 mg-8.6 mg oral tablet), 1 Tablet(s), Oral/per Tube, bid fentaNYL, 50 mcg= 1 mL, Slow IV Push, q30min, PRN fentaNYL 2,500 mcg(fentaNYL 50 mcg/mL 50 mL Premix IV 2,500 mcg), 2500 mcg= 50 mL, IV ocular lubricant(ophthalmic ointment), 1 Application, Each Eye, q6h pantoprazole(pantoprazole inj), 40 mg= 10 mL, IV Push, qAM Pharmacist Vancomycin Dosing Protocol(VANCOMYCIN IV - PHARMACY TO DOSE), 1 Each, Message, As Indicated, PRN piperacillin-tazobactam, 4.5 g, form: Injection, IVPB, [id number], Routine, first dose 07/02/24 4:00:00 CDT, 25 mL/hr, infuse over 4 hour(s), Total volume (mL): 100, Indication: Bacteremia polyethylene glycol 3350(MiraLax), 17 g= 1 Packet, Oral/per Tube, bid propofol, 26.73 mg= 2.67 mL, 0.3 mg/kg, IV, q15min, PRN propofol 1,000 mg(propofol 1000 mg/100 mL Premix IV 1,000 mg), 1000 mg= 100 mL, IV vancomycin, 750 mg= 250 mL, IVPB, q24h Vancomycin Serum Drug Level, 1 Each Home aspirin(aspirin 325 mg oral tablet), 325 mg= 1 Tablet(s), Oral, q4h Pharmacist Warfarin Dosing Protocol(WARFARIN - PHARMACY TO DOSE) Allergies NKA Social History Smoking Status Unknown if ever smoked Family History Immunizations Lab Results Diagnostic Results Attending Addendum: I have personally seen and evaluated the patient and I agree with the resident's documentation. I saw on the patient on 07/03/24. I did not place the rogers. Sharath Juárez MD Reconstructive Urology [facility] 07/02/2024 Infectious Disease IM Consul t Note Chief Complaint Infective endocarditis, hyperthermia Reason for Consultation Mitral valve endocarditis with GPC bacteremia and c/f septic emboli Requesting Provider Dr. Leyva Virtual Classroom Manager History of Present Illness Rm Schafer is a 58-year-old male with a past medical history of aortic valve replacement 2 years ago in [facility] with current mechanical valve on outpatient warfarin. Patient also has a history of hepatitis C treated 2 years ago. He was admitted to the MICU directly from outside hospital on 07/01/2024. He is intubated and not responsive, so history was gathered from chart review and discussions with MICU staff. Patient's symptoms began about 2 weeks ago with fever, fatigue, and vomiting. He waited a week before going to the ER at [facility] for shortness of breath. At [facility], he was found to have respiratory distress with metabolic acidosis and was subsequently intubated. He was initially placed on levofloxacin but later switched to vancomycin and Zosyn due to septic shock-like presentation. He was admitted to the ICU at [facility] and received pressors on and off. Temperature got as high as 105.7, and cooling measures were initiated. Patient had an GIULIA with Cr 1.9. He also went into atrial flutter and was cardioverted. He received a TTE that showed a 1.3cm vegetation on the anterior leaflet of the mitral valve. Blood cultures there were positive for gram-positive cocci in chains, bacteria still not identified and sensitivities still pending. Head CT showed an 8 mm subacute right thalamic infarct, at which point he was transferred to . At the MICU, he received a chest x-ray on 07/01 that showed bilateral airspace opacities. TTE 07/02 showed 2cm x 2cm vegetation of the anterior leaflet of the mitral valve, with perforation of anterior valve and severe mitral regurgitation. There was also thickening of the aortic root with aortic valve leaflets not well-visualized, so involvement of root and/or aortic valve could not be ruled out. MRI brain showed multiple acute embolic infarctions suggestive of septic emboli. Blood and sputum cultures are pending. ID was consulted for management of infective endocarditis and septic emboli. Patient has not required pressors today, although his blood pressure is low at 82/65. Patient's risk factors for infective endocarditis include teeth cleaning 3 weeks ago for which he was on amoxicillin prophylactically. Unknown if patient uses IV drugs. Review of Systems Unable to obtain due to patient being intubated and nonresponsive. Physical Exam Vitals and Measurements T: 38.1 C TMIN: 36.6 C TMAX: 38.5 ?C HR: 93 RR: 16 BP: 95/72 SpO2: 99% WT: 89.1 kg (Dosing) BMI: 30.5 General: Intubated, nonresponsive to voice or questions/commands. Head: Normocephalic and atraumatic. Ears: External ears normal. Eyes: Unable to assess extraocular movements. Pupils equal, round, and reactive to light. No conjunctival erythema. Nose: No rhinorrhea. Mouth: Oropharynx intubated. Neck: Soft, Supple. Respiratory: Lungs clear to auscultation bilaterally on ventilator. Cardiovascular: Normal rate, Regular rhythm, Holosystolic murmur heard best at mitral area of auscultation. Distal lower extremities cold to touch bilaterally. Dorsalis pedis pulse absent bilaterally. Gastrointestinal: Soft, Non-tender, Non-distended. Integumentary: Purple discoloration of right great toe and left 5th toe. Neurologic: Unresponsive to voice. Assessment/Plan Rm Schafer is a 58-year-old male with a past medical history of aortic valve replacement 2 years ago who was admitted to the MICU directly from outside hospital on 07/01. He initially presented to [facility] ER on 06/29 with signs of septic shock and was admitted to their ICU. There, he had fevers as high as 105.7 (improved with cooling measures), GIULIA (Cr 1.9), hypotension requiring Levophed, TTE showing 1.3 cm anterior mitral leaflet vegetation, blood cultures showing gram-positive cocci in chains, and head CT showing 8 mm subacute right thalamic infarct. He was transferred to MICU on 07/01, where TTE showed 2cm x 2cm vegetation of the anterior mitral leaflet with perforation of the anterior valve (mechanical aortic valve was poorly visualized) and MRI brain showing multiple acute embolic infarctions suggestive of septic emboli. Blood and sputum cultures are pending. Based on vegetation size and embolic events, patient is a likely surgical candidate. #ID problem list Septic shock Mitral valve endocarditis Septic emboli Antimicrobials (estimates based on history from OSH) Vancomycin (9/23 - P) Piperacillin-tazobactam (06/29 - P) Levofloxacin (06/29) Current lines Central Line (06/29/2024 Right Jugular Internal Lumen Triple): day 4 Recommendations: - continue vancomycin and piperacillin-tazobactam - obtain LIZBET to better visualize mechanical aortic valve and assess if perivalvular abscess is present - consult cardiothoracic surgery - monitor blood and sputum cultures - rest of care per primary team Thank you for this interesting consult. ID will continue to follow. Please page the ID fellow via [employer] with questions. Pantera Bradford, MS4 Patient staffed with Dr. Vincent Yousif MD. Problem List/Past Medical History Ongoing BMI 30.0-30.9,adult Obesity Procedure/Surgical History Medications Inpatient docusate-senna(docusate-senna 50 mg-8.6 mg oral tablet), 1 Tablet(s), Oral/per Tube, bid fentaNYL, 50 mcg= 1 mL, Slow IV Push, q30min, PRN fentaNYL 2,500 mcg(fentaNYL 50 mcg/mL 50 mL Premix IV 2,500 mcg), 2500 mcg= 50 mL, IV ocular lubricant(ophthalmic ointment), 1 Application, Each Eye, q6h pantoprazole(pantoprazole inj), 40 mg= 10 mL, IV Push, qAM Pharmacist Vancomycin Dosing Protocol(VANCOMYCIN IV - PHARMACY TO DOSE), 1 Each, Message, As Indicated, PRN piperacillin-tazobactam, 4.5 g, form: Injection, IVPB, [id number], Routine, first dose 07/02/24 4:00:00 CDT, 25 mL/hr, infuse over 4 hour(s), Total volume (mL): 100, Indication: Bacteremia polyethylene glycol 3350(MiraLax), 17 g= 1 Packet, Oral/per Tube, bid propofol, 26.73 mg= 2.67 mL, 0.3 mg/kg, IV, q15min, PRN propofol 1,000 mg(propofol 1000 mg/100 mL Premix IV 1,000 mg), 1000 mg= 100 mL, IV vancomycin, 750 mg= 250 mL, IVPB, q24h Vancomycin Serum Drug Level, 1 Each Home aspirin(aspirin 325 mg oral tablet), 325 mg= 1 Tablet(s), Oral, q4h Pharmacist Warfarin Dosing Protocol(WARFARIN - PHARMACY TO DOSE) Allergies NKA Social History Smoking Status Unknown if ever smoked Family History Immunizations Lab Results Diagnostic Results Attestation by Vincent Yousif MD on July 02, 2024 16:23 I personally saw and evaluated the patient on the result date found in the header of this document. I independently performed the critical/brenner portions of the Evaluation and Management service and discussed the management with the author of this document. I have verified the history and physical examination performed by Pantera Bradford, Medical student and plan of care was developed with my input. I agree with everything documented above in Pantera Bradford's new consult note with the following exceptions/additions: No exceptions. Asked to see patient with newly diagnosed endocarditis (mitral valve) and possibly aortic valve with a gram positive organisms,associated with cerebral emboli, hypotension and shock. Briefly, patient is a 58 y/o man with treated hepatitis C, prior aortic valve replacement (mechanical valve on warfarin) AVR. He was admitted to outside hospital recent onset febrile illness and found to have positive blood cultures for gram positive cocci in chains and cardiac echo revealed mitral valve endocarditis. Did undergo brain scanning that demonstrated cerebral embolus. Was intubated and required Levophed for a time for hypotension. Was transferred to [facility] and has been on Piperacillin-tazobactam. LIZBET demonstrates mitral valve vegetations and mitral valve leaflet perforation with severe mitral regurgitation. Aortic valve thickened. MRI with bilateral cerebral emboli. Was seen in ICU and intubated. Able to turn head open eyes to name. HEENT NCAT ET tube, Lungs clear anteriorly, Heart: tachycardic with holosystolic murmur on my exam form LSB radiating to axilla. left foot with blueish discoloration of 5th digit, right foot with great toe discoloration. Feet cold without palpable pulses. Outside blood cultures with gram positive cocci in chains not yet identified. Blood cultures here NGTD. Impression: 1) Mitral valve endocarditis with gram positive cocci in chains not yet identified. likely streptococcus versus enterococcal infection with large vegetation and valve perforation complicated by mitral regurgitation and septic shock Unclear of also has aortic valve infection as has AVR (high risk for co-infection of that valve) 2) Hypotension 3) Cerebral emboli. Plan: 1) recommend continued vancomycin and piptazo awaiting identification of blood culture isolate. 2) recommend LIZBET to assess for valve ring abscess, further elucidate aortic valve. 30 Recommend cardiovascular surgery consult for assessment for vlave surgery. We will follow. Spent 70 minutes in history, chart review exam, medical decision making and documentation. 07/02/2024 Echocardiogram Transthoracic Complete (TTE) Patient Information Patient name: LUANA ABDALLA Date of : 1965 UEI: [id number] Age: 58 year(s) Gender: Male Visit number: [id number] Procedure Information Procedure: TTE procedure: Echo Transthoracic Complete, Complete 2D, M-mode, Complete Spectral Doppler, Color Flow. Study date and time: 07/02/2024 7:32 AM Blood pressure: 96 / 68 mmHg Study status: Stat Heart rate: 97 bpm Patient status: In-Patient Height: 67 in. Study location: Bedside Weight: 196.19 lb. [facility] BSA: 2.01 m Technical quality: Limited visualization BMI: 30.73 kg/m Limitation reason: Patient on ventilator Contrast medium: Intravenous Definity was given Indication R65.21 Severe Sepsis with Septic Shock. Procedure Professional Golf Tournament Player: Carlos Eduardo Spaulding RDCS RVT Interpreting physician: Cierra Aguiar DO Physician Conclusions Summary: Mobile vegetation on the anterior mitral valve- (2 cm x2cm), with perforation of anterior valve. Severe Mitral regurgitation two jets. s/p AVR- There is thickening of the aortic root cannot rule out involvement of root and/or aortic valve. Leaflets are not well seen. No significant stenosis, trace regurgitation Left ventricular size is normal. Wall thickness is normal. Left ventricular systolic function is normal, ejection fraction is 60%. Elevated LV filling pressures. Overall regional wall motion is normal. No LV thrombus. Recommendations: Recommend LIZBET for better evaluation of AV/aortic root and mitral valve Per chart review mitral vegetation is known. Signature Findings Left ventricle: Left ventricular size is normal. Wall thickness is normal. Left ventricular systolic function is normal, ejection fraction is 60%. Elevated LV filling pressures. Overall regional wall motion is normal. No LV thrombus. Right ventricle: Right ventricular size is normal. Systolic function is reduced. Wall thickness is normal. Left atrium: Left atrium volume is severely dilated Right atrium: RA is dilated. Aortic valve: s/p AVR- There is thickening of the aortic root cannot rule out involvement of root and/or aortic valve. Leaflets are not well seen. No significant stenosis, trace regurgitation Mitral valve: Mobile vegetation on the anterior mitral valve- (2 cm x2cm), with perforation of anterior valve. Severe Mitral regurgitation two jets. No significant stenosis. Tricuspid valve: Tricuspid valve structure is normal. There is normal leaflet separation. There is no evidence for tricuspid stenosis. There is moderate t tricuspid regurgitation. Pulmonic valve: Pulmonic valve not well seen. There is no Doppler evidence for pulmonic stenosis or regurgitation. Aorta/Great vessels: The inferior vena cava is dilated with blunted respiratory variation. Aortic root is not well visualized. Pericardial: There is no pericardial effusion. Left Ventricle Diastolic dimension: 5.56 cm Systolic dimension: 2.2 cm (2.5 - 4 cm) 2D septum diastolic: 1.1 cm (0.6 - 1.0 cm) Area systolic: 23.4 cm 2D post wall diastolic: 0.84 cm FS: 60 % Area diastolic: 39.1 cm LV length: 8.35 cm CI: 4.91 l/min/m LV mass (ASE formula): 208.6 g LVESV MOD: 60.5 ml LV mass index: 104.01 g/m RWT: 0.3 EF Contreras (BP): 59 % LVEDV MOD: 148 ml LVEDV (A2C): 146 ml LVEDVI MOD: 73.79 ml/m (21 - 61 ml) EF Calculated: 59.12 % LVEDVI (A2C): 72.8 ml/m LVEDV Contreras (BP): 148 ml LVESVI (A2C): 31.66 ml/m LVESV Contreras (BP): 60.5 ml (11 - 31 ml/m LVEDV (A4C): 149 ml EF (A2C): 57 % LVESV (A4C): 55.4 ml LVEDVI (A4C): 74.29 ml/m (34 - 74 ml/m LVESVI (A4C): 27.62 ml/m EF (A4C): 63 % Right Ventricle Diastolic dimension: 2.7 cm TAPSE: 1.1 cm (> 1.69 cm) Left Atrium LA diameter (2D): 4.7 cm LA/Aorta (2D): 1.52 (3 - 4 cm) LA volume index: 49.86 ml/m LA area: 23.6 cm LA volume: 100 ml Right Atrium RA dimension: 6.24 cm RA area index: 8.68 cm RA area: 17.4 cm Aortic Valve Peak velocity: 118 cm/s Mean velocity: 80.8 cm/s Peak gradient: 5.57 mmHg Mean gradient: 3 mmHg Area (cont VTI): 5.94 cm AV VTI: 17.1 cm LVOT Mean velocity: 81 cm/s LVOT Peak velocity: 118 cm/s LVOT Mean gradient: 3 mmHg LVOT Peak gradient: 6 mmHg LVOT VTI: 20.7 cm LVOT diameter: 2.5 cm Mitral Valve Peak E-wave: 160 cm/s Peak A-wave: 58.2 cm/s Mean velocity: 95.8 cm/s E/A ratio: 2.75 Mean gradient: 20 mmHg Peak gradient: 10.24 mmHg MR velocity: 407 cm/s Deceleration time: 177 ms MV PSV: 160 cm/s Area (continuity): 1.78 cm (> 2 cm E' septal velocity: 13.9 cm/s MR VTI: 77.3 cm E/E' septal: 11.51 E' lateral velocity: 9.46 cm/s E/E' lateral: 16.91 E/E' average: 14.21 Tricuspid Valve TR velocity: 268 cm/s TR gradient: 28.73 mmHg Pulmonic Valve Peak velocity: 79.8 cm/s Peak gradient: 2.55 mmHg Mean velocity: 54.1 cm/s Mean gradient: 1 mmHg Acceleration time: 77 ms Aorta/Great Vessels Aortic root (2D): 3.1 cm Aortic arch: 3.5 cm Ascending aorta: 3.8 cm LVOT diameter: 2.5 cm 07/02/2024 Discharge Summaries Results Value Date Source Discharge Summary Date of Admission Date of Discharge 07/06/2024 Reason for Hospitalization Endocarditis Hospital Course 58-year-old male with past medical history of aortic valve replacement on warfarin, history of hepatitis C s/p treatment presents to MICU as a direct admit from outside hospital with diagnosis of bacteremia with GPC in chain, mitral valve vegetation endocarditis consistent with [place] valve mitral valve endocarditis with mitral valve perforations, 2x2 cm mobile vegetation, in septic shock, c/f for cardiogenic shock, persistent hyperthermia requiring TTM, right thalamic subacute septic emboli stroke , and supra and infratentorial multiple small regions of concerning for septic emboli, and also concern for left orbital involvement . Patient remains on pressors Levophed, intubated and sedated on broad spectrum antibiotics Vanc and Zosyn, infectious disease consulted recommend to continue course pending cultures, Cardiac surgery consulted, recommended transfer to OSH [facility]/ for the possibility of a homocraft, which is unavailable here. He was accepted to [facility] on 07/06 24 Hour plan - Resume Tube Feeds - Hold off on LIZBET, as management will not change - Bronch on 07/05 showed some erythema, and mild bloody secretions in LLL - Continue to hold AC for the time being, PLT improving - Continues to be minimally responsive off sedation - Pending [facility] transfer - Obtain OSH culture data Neurology Right 8 mm thalamic subacute infarct suspected diffuse infra/supratentorial cerebral septic emboli Hyperthermia resolved c/f for left globe involvement septic emboli -No response off of sedation -CT head at outside hospital showed right 8 mm right thalamic infarct -Obtain repeat CT head and MRI brain supra/infratentorial lesions, c/f for diffuse septic emboli and left eye globe involvement - Ophthalmology consulted for bedside dilated eye/retinal exams, no concern for retinal involvement or inflammation, rule out 07/04 - cooling blankets for hyperthermia - Continue Fentanyl and propofol Cardiovascular Mitral valve vegetation 2x2 cm vegetations with valve perforation c/f for perivalvular abscess S/p aortic valve repair Septic shock Atrial flutter s/p DCCV Cyanosis of toes c/f for peripheral arterial embolization -?TTE in the outside hospital showed LVEF 65% with 1.3 and two 0.7 mobile echogenic structure on anterior mitral valve leaflet -Was on warfarin and high-dose aspirin; obtain information from head paper tester in the a.m. regarding the need for high-dose aspirin-? Hypercoagulability disorder -Bedside Doppler showed no dorsalis pedis bilaterally and patent popliteal pulse bilaterally -Will repeat INR and decide on anticoagulation to continue holding . -proBNP and troponin elevated at outside hospital -Chest x-ray showing bilateral pleural effusions with fluid overload - Troponing downtrending , US LE Arterial 07/02 ordered ruled out peripheral arterial occlusion, patent major vessels of LE - TTE ordered showed mitral valve vegetations with valve perforations, unable to asses aortic root for perivalvular abscess - Cards consulted for transfer to CICU, and LIZBET, deferred at this time, prioritized transfer -Start Lasix 2.5 mg/h drip with BMP every 8 hours discontinued - CT surgery consult recommend transer for possible homograft - Infectious Disease consult - Elevated trop initially with first degree heart block on EKG--> no AV syed blocking drugs Respiratory Acute hypoxic and hypercapnic respiratory failure on ventilator Hemoptysis with tracheal aspirations Small right pleural effusion Bilateral pulm edema vs multifocal infection -On 55% FiO2 -Diuresis as above - Advanced ET tube by 2 cm, PNA PCR 07/02 - Hemoptysis with tracheal asp, monitor oxygenation status, consider flexible bronchif worsening - CXR concerning for increased infiltrates, VBG concerning for metabolic alkalosis with respiratory acidosis compensation. - Continue current vent setting - Wean FiO2 as tolerated Renal GIULIA resolving HAGMA resolving Right renal calculi, non obstructing Difficult to place Rogers Hypernatremia, tube feed related -Creatinine at the outside hospital? 2.9 - Obtain creat with urinalysis - Renal US patent bilateral arteries , Rogers replacement, difficult to replace - Free water flushes for hypernatremia, related to tube feeds - Urology consulted 07/02 for Rogers placement , obtained urine culture GI Congestive hepatopathy Hx of Hepatitis C s/p treatment Enteral nutrition per OG. Pantoprazole IV 40 for Ppx Doc senna for bowel regimeN - Restart tube feeds, Nutrition consulted - US Liver ordered, rule out PVT or arterial thrombus no cholecystitis, neg jaeger signs - Continue tube feeds, SSI for hyperglycemia Acute liver injury-Shock Liver improving - likely 2/2 shock liver - RUQ USG no cholecystitis, biliary sludge, - Hepatitis panel ordered ID Bacteremia Infective endocarditis, Mitral valve with embolic phenomenon Cystitis/Nephritis - - Discussed with s/o reports history of elbow cut 2 weeks ago, with concern for infections, self treated at home . Denies histtory of IDVU. - Outside lab cultures show gram-positive cocci in chain; need to call on 9:26 AM for speciation -Obtain repeat blood cultures, ESR, procalcitonin, CRP - ID consulted, recommend continued to VAnc and Zosyn for now , monitor cultures, and recommend LIZBET and CTS consult , follow up cultures from OSH - Continue active and passive cooling, avoid Tylenol for anti-pyretics given ALI - TTM with goal 36-37 Antibiotics: - Vancomycin 07/02-P - Zosyn 07/02-P Endocrine No acute concern Restart Tube feeds Heme/Onc Thrombocytopenia likely 2/2 sepsis vs liver dysfunction Elevated INR Low fibrinogen levels On coumadin for anticoagulation, supratherapeutic, resolved - daily INR - had some blood from ET tube suction, not persistent; holding off on INR reversal - DIC labs with elevated D dimer, and mild low fibrinogen 183, continue to monitor . Trend INR for resolution, Hold on anticoagulation at this time . - Obtain peripheral smear, given leukocytosis, anemia and thrombocytopenia with presnet of promyelocytes on differential, rule out leukemic process or blasts . - LDH elevated, fractionated rodolfo elevated concern for hemolysis, no schistocytes on differential. - Discontinued SQH ppx due to hemoptysis, SCDs , platelet 55 Code: Full Diet: NPO; tube feeds via NG DVT: None Dispo: MICU Discharge Diagnoses At high risk for falls Septic shock Other Diagnoses Ongoing BMI 30.0-30.9,adult Obesity Operations and Procedures Consultants Inpt CC Medicare List Inpt Medicine Cardiology Inpt Medicine Infectious Disease Inpt Ophthalmology Inpt Surgery Cardiothoracic Inpt Surgery Urology Pending Labs Blood Culture (Preliminary, InProcess, ordered 07/01/2024, 21:18) Blood Culture (Preliminary, InProcess, ordered 07/05/2024, 07:36) Discharge Disposition [facility], Unable To Determine Medications New, Changed, or Refilled Medications None Medications to be Continued Pharmacist Warfarin Dosing Protocol (WARFARIN - PHARMACY TO DOSE) 0 Refill(s) aspirin (aspirin 325 mg) 325 mg, 1 Tablet(s), Oral, q4h, 0 Refill(s) Discontinued Medications None Physical Exam at Discharge Vitals and Measurements T: 36.2 C TMIN: 35.6 C TMAX: 37.6 C HR: 85 RR: 18 BP: 97/65 BP: 84/65(Line) SpO2: 95% General: Intubated and sedated, awaken to calling, made eye contact, does not follow instructions , moves all extremities spontaneously Eye: PERRLA, reactive to light HENMT: Oral mucosa moist. Respiratory: Lungs are clear to auscultation, Respirations are non-labored on mechanical ventilation. Cardiovascular: Regular rate, Normal rhythm, No murmur appreciated but limited due to vent sounds Gastrointestinal: Soft, no tenderness to palpation throughout, BS active, non tender to palpations. Musculoskeletal: No peripheral edema. Dusky toes on lef and right legs, foot are warm to touch Integumentary: Skin is warm, dry. Neurologic: Sedated, awakens to calling, does not follow commands, moves all extremities spontaneously , central reflexes intact, unable to eval strength Psychiatric: Unable to assess. Time Spent 40 minutes Follow Up Appointments Nursing/Other Orders Adult Tube Feeding, continuous. 07/02/24 14:18:00 CDT, Peptamen AF, Goal Rate 60, route Orogastric, how often Daily NPO. Ordered on 07/06/24 10:33:00 CDT Reason for NPO Difficulty Swallowing/Aspiration Risk, NPO except for Tube Feeds. Order comment: Stop insulin drip if applicable, refer to orders. Intake and Output. 07/01/24 21:14:00 CDT, Continuous Order Elevate Head of Bed (Head of Bed Elevated). 07/02/24 0:26:00 CDT, Continuous Order, to prevent aspiration; 30 Degrees Fall Precautions. 07/03/24 11:18:01 CDT. Order comment: order placed from nursing documentation CLIN_FALL_RISK Activity As Tolerated. 07/01/24 21:14:00 CDT, Continuous Order Because of IT issues unable to revise document. 24 hour plan should say pending transfer to , not [facility] 07/06/2024 History and Physicals Results Value Date Source History and Physical Chief Complaint Infective endocarditis Hyperthermia History of Present Illness 58-year-old male with past medical history of aortic valve replacement on warfarin, history of hepatitis C s/p treatment presents to MICU as a direct admit from outside hospital. Patient is intubated and not responsive on my interview. History collected from his significant other. Patient was sick 2 weeks back where he had fever, was fatigued and had vomiting. Fevers up to 101-102. He was adamant not to go to the hospital and eventually went to the ER a week after symptoms started for shortness of breath. He was found to be in a respiratory with metabolic acidosis with a pH of 7.08 and intubated. Started on Levophed. Initially started on levofloxacin and then switched to Zosyn and vancomycin. He was admitted to the ICU and went into a flutter with possible ST elevations. Cardiology consulted and patient underwent synchronized cardioversion back into sinus rhythm. No ST elevation observed on sinus rhythm. TTE revealed a large vegetation on anterior leaflet of his mitral valve. Blood cultures positive for gram-positive cocci in chains. Urinary drug screen positive for marijuana only. Patient weaned off pressors and FiO2 improved from 100% to 40%. Found to have shock liver, shock kidneys with nonoliguric acute kidney injury. INR was found to be at 6. Sedation was weaned off and patient did not show any movements during neurochecks. Head CT showed an 8 mm subacute right thalamic infarct. He was then transferred here. Of note he had hepatitis C 2 years back for which she took medications. He had aortic valve replacement in [place] at [facility] 2 years back for which she has been on warfarin. Of note has had teeth cleaning 3 weeks back for which she was on amoxicillin prophylactically. He has history of irritable bowel disease. Per significant other, he is estranged from his family. She had recently talked to his brother and they did not want any updates on his medical condition or status. Of note patient does have children but did not ask more questions regarding it. Discussed CODE STATUS and she mentions that he does not want to be a vegetable and to attempt CPR for a limited time otherwise to let him go. Review of Systems Unable to obtain Physical Exam Vitals and Measurements T: 38 C HR: 100 RR: 16 BP: 108/82 SpO2: 97% WT: 89.1 kg BMI: 30.5 General: Intubated and sedated Eye: PEERLA HENMT: Oral mucosa moist. Respiratory: Lungs are clear to auscultation, Respirations are non-labored. Cardiovascular: Regular rate, Normal rhythm, No murmur appreciated but limited due to vent sounds Gastrointestinal: Soft, no tenderness to palpation throughout, BS active Musculoskeletal: No peripheral edema. Integumentary: Skin is warm, dry. Right great toe and left pinky toe blue. ​ Neurologic: could not assess Psychiatric: could not assess Assessment/Plan 58-year-old male with past medical history of aortic valve replacement on warfarin, history of hepatitis C s/p treatment presents to MICU as a direct admit from outside hospital with diagnosis of bacteremia with GPC in chain, mitral valve vegetation, resolved septic shock, persistent hyperthermia, right thalamic subacute stroke. Neurology Right 8 mm thalamic subacute infarct Likely secondary to septic emboli Hyperthermia -No response off of sedation -CT head at outside hospital showed right 8 mm right thalamic infarct -Obtain repeat CT head and MRI brain - cooling blankets for hyperthermia Cardiovascular Mitral valve vegetation S/p aortic valve repair Septic shock, resolved Atrial flutter s/p DCCV Cyanosis of toes - TTE in the outside hospital showed LVEF 65% with 1.3 and two 0.7 mobile echogenic structure on anterior mitral valve leaflet -Repeat TTE in a.m. -Was on warfarin and high-dose aspirin; obtain information from head paper tester in the a.m. regarding the need for high-dose aspirin-? Hypercoagulability disorder -Bedside Doppler showed no dorsalis pedis bilaterally and patent popliteal pulse bilaterally -Will repeat INR and decide on anticoagulation -Obtain proBNP and troponin -proBNP and troponin elevated at outside hospital -Chest x-ray showing bilateral pleural effusions with fluid overload -Start Lasix 2.5 mg/h drip with BMP every 8 hours - CT surgery consult in the AM - Elevated trop initially with first degree heart block on EKG--> no AV syed blocking drugs Respiratory Acute hypoxic and hypercapnic respiratory failure on ventilator -On 55% FiO2 -Diuresis as above Renal GIULIA -Creatinine at the outside hospital ​ 2.9 - Obtain creat with urinalysis - US kidney on the OSH GI Pantoprazole IV 40 for Ppx Doc senna for bowel regimen Elevated liver enzymes - likely 2/2 shock liver - RUQ USG - Hepatitis panel ordered ID Bacteremia Infective endocarditis -Outside lab cultures show gram-positive cocci in chain; need to call on 9:26 AM for speciation -Obtain repeat blood cultures, ESR, procalcitonin, CRP Endocrine No acute concern Restart Tube feeds Heme/Onc Thrombocytopenia likely 2/2 sepsis vs liver dysfunction Elevated INR - daily INR - had some blood from ET tube suction, not persistent; holding off on INR reversal Code: Full Diet: NPO; tube feeds via NG DVT: None Dispo: MICU Patient seen and staffed with attending physician, Dr. Dhaliwal Problem List/Past Medical History Ongoing BMI 30.0-30.9,adult Obesity Procedure/Surgical History Medications Inpatient docusate-senna(docusate-senna 50 mg-8.6 mg oral tablet), 1 Tablet(s), Oral/per Tube, bid fentaNYL, 50 mcg= 1 mL, Slow IV Push, q30min, PRN fentaNYL 2,500 mcg(fentaNYL 50 mcg/mL 50 mL Premix IV 2,500 mcg), 2500 mcg= 50 mL, IV furosemide 200 mg + sodium chloride 0.9% 100 mL(furosemide for IV Infusion 200 mg + sodium chloride 0.9% 100 mL), Total volume (mL): 100, Injection, IV, 2.5 mg/hr, Start date: 07/01/24 22:47:00 CDT ocular lubricant(ophthalmic ointment), 1 Application, Each Eye, q6h pantoprazole(pantoprazole inj), 40 mg= 10 mL, IV Push, qAM Pharmacist Vancomycin Dosing Protocol(VANCOMYCIN IV - PHARMACY TO DOSE), 1 Each, Message, As Indicated, PRN piperacillin-tazobactam, 4.5 g, form: Injection, IVPB, [id number], Routine, first dose 07/02/24 4:00:00 CDT, 25 mL/hr, infuse over 4 hour(s), Total volume (mL): 100, Indication: Bacteremia propofol, 26.73 mg= 2.67 mL, 0.3 mg/kg, IV, q15min, PRN propofol 1,000 mg(propofol 1000 mg/100 mL Premix IV 1,000 mg), 1000 mg= 100 mL, IV vancomycin, 1.5 g= 500 mL, IVPB, [id number] Allergies NKA Social History Smoking Status Unknown if ever smoked Lab Results CBC (07/01/24) WBC H 26.64 Hgb L 12.7 Hct L 38.3 MCV 87.8 PLT L 73 Comprehensive Metabolic Panel (07/01/24) Na+ 140 K+ 4.7 Cl- 102 CO2 29 Anion gap 14 GLU H 151 BUN C 89 Creat H 2.8 Estimated GFR f L 24 Estimated GFR f Not calculated Ca L 7.8 Alk Phos H 151 AST H 1085 ALT H 1402 T Bili H 2.02 Total Protein L 5.3 Alb L 2.4 Hemolysis Index 0 Icteria Index H 1 Lipemia Index 0 ADDENDUM: I personally saw and evaluated the patient on the result date found in the header of this document. I independently performed the critical/brenner components of the E/M service and discussed the management with the author of this document. I review the history, physical, relevant labs, medications, flow sheets, imaging studies, microbiology data and ventilator data (if applicable). I agree with everything documented above with the following exceptions/additions: none Acute encephalopathy Thalamic stroke - subacute Pulmonary edema with pleural effusions History of aortic valve stenosis s/p mechanical aortic valve 2021 Mitral valve vegetation/thrombus Acute renal failure Acute liver failure, likely from congestive hepatopathy Elevated INR Leukocytosis Presumed GPC in clusters in blood cultures Uremia Elevated troponins First degree AV block Left atrial enlargement Mitral regurgitation Patient transferred from outside hospital for management of complex medical issues. Reviewed chart which suggests that the patient presented with worsening shortness of breath, altered mentation and was noted to have acute respiratory acidosis along with HAGMA related to lactic acidosis. He was emergently intubated and was treated for CAP. He also seemed to have Atach with possible STEMI, had synchronized cardioversion which demonstrated resolution of ST T segment changes. ECHO revealed a large mitral valve lesion, suspected to be vegetation. Blood Cx results suggestive of GPC bacteremia. Patient had minimal neurological response, despite being off sedation leading to a CT scan which demonstrated a right sided subacute thalamic stroke. Reviewed imgaes that demonstrated perihilar/peribronchial dense consolidation along with pleural effusions, which could be fluid overload but hard not to include pneumonia in the differentials. Initially treated with levaquin, transitioned to Vancomycin and Zosyn. Also noted to have supratherapeutic INR (although one note mentions that he has had subtherapeutic INR - due to his resistance to changing coumadin dose) Here on my exam, he has weak response to pain in left lower extremity, has a cough and triggers ventilator off sedation. However, patient did at least get fentanyl and vecuronium on route. Vitals demonstrate improvement in fever with temp of 38.2. CXR ordered to confirm NG tube and ET tube placement. We will maintain sedation off, repeat CT head and consider MRI and neurology consult as needed. We reduced FiO2 through the night and his respiratory acidosis has improved. CXR reviewed with pulmonary edema +/- possible consolidation. Continue Vancomycin Zosyn for now, pending final cultures, we can obtain cultures here as well. Bedside POCUS echo did demonstrate large mitral valve lesion, unable to determine MR. EKG reviewed; possible Left atrial enlargement and first degree AV block. OSH records demonstrate 1 EKG read which mentions A flutter and repeat EKG in 06/29 demonstrating first degree AV block. In view of endocarditis, may need EKGs intermittently, with concern of possible aortic root abscess (versus 1st degree AVB is chronic) Bedside POCUS VEXUS study, there was normal to mild hepatic venous congestion, mild portal vein congestion and severe renal vein congestion. Significant bilateral B lines on lung ultrasound. We will start a lasix drip at 2.5 mg/hr and monitor response with goal net negative 1-2 L over 24 hours without major changes in hemodynamics. Liver function test abnormality likely related to shock liver. Will hold off on AC till INR <2 and then start heparin drip Will have to touch base with head paper tester as to why the patient was on high dose aspirin as well. Continue tube feeds Add PPI and stool medications Serial troponin monitoring, holding off on antiplatelet and anticoagulant in the setting of elevated INR. History of Hep C s/p treatment, will obtain Hep panel and HIV as well. Will send off DIC labs, fibrinogen mildly abnormal at OSH. Critical Care Time spent with patient excluding procedures: 85 minutes. Of note - his images in [employer] are under [facility]. 07/01/2024 Vital Signs Vital Sign Value Date Comments Source Heart Rate 88 bpm 07/07/2024 03:11:04 [facility] SpO2 90 % 07/07/2024 03:11:04 [facility] Respiratory Rate 18 07/07/2024 03:09:38 [facility] Temperature (Celsius) 37.6 Adeline 07/07/2024 03:04:04 [facility] MAP Arterial 32 mm[Hg] 07/07/2024 03:02:35 [facility] SBP Arterial 111 mm[Hg] 07/07/2024 03:02:35 [facility] DBP Arterial 57 mm[Hg] 07/07/2024 03:02:03 [facility] Heart Rate 87 bpm 07/07/2024 02:59:50 [facility] Respiratory Rate 18 07/07/2024 02:59:35 [facility] MAP Arterial 73 mm[Hg] 07/07/2024 02:59:33 [facility] SBP Arterial 104 mm[Hg] 07/07/2024 02:59:33 [facility] DBP Arterial 59 mm[Hg] 07/07/2024 02:59:33 [facility] SpO2 94 % 07/07/2024 02:59:32 [facility] Temperature (Celsius) 37.6 Adeline 07/07/2024 02:59:31 [facility] Respiratory Rate 18 07/07/2024 01:15:31 [facility] MAP Arterial 69 mm[Hg] 07/07/2024 01:15:13 [facility] SpO2 96 % 07/07/2024 01:15:13 [facility] SBP Arterial 104 mm[Hg] 07/07/2024 01:15:13 [facility] DBP Arterial 55 mm[Hg] 07/07/2024 01:15:13 [facility] Heart Rate 86 bpm 07/07/2024 01:15:09 [facility] Temperature (Celsius) 36.7 Adeline 07/07/2024 01:14:55 [facility] Height (cm) 171 cm 07/07/2024 01:00:00 [facility] Height (cm) 171 cm 07/07/2024 00:48:00 [facility] Respiratory Rate 18 07/07/2024 00:47:47 [facility] Heart Rate 84 bpm 07/07/2024 00:47:38 [facility] SpO2 96 % 07/07/2024 00:47:38 [facility] Temperature (Celsius) 36.2 Adeline 07/07/2024 00:01:55 [facility] MAP Arterial 73 mm[Hg] 07/07/2024 00:01:29 [facility] SBP Arterial 84 mm[Hg] 07/07/2024 00:01:29 [facility] DBP Arterial 65 mm[Hg] 07/07/2024 00:01:29 [facility] Height (cm) 171 cm 07/06/2024 21:58:00 [facility] Height (cm) 171 cm 07/06/2024 18:08:00 [facility] Mean NIBP 73 mm[Hg] 07/06/2024 13:11:56 [facility] SBP NIBP 97 mm[Hg] 07/06/2024 13:11:56 [facility] DBP NIBP 65 mm[Hg] 07/06/2024 13:11:56 [facility] Mean NIBP 84 mm[Hg] 07/06/2024 02:10:00 [facility] SBP NIBP 104 mm[Hg] 07/06/2024 02:10:00 [facility] DBP NIBP 76 mm[Hg] 07/06/2024 02:10:00 [facility] Mean NIBP 77 mm[Hg] 07/06/2024 01:40:01 [facility] SBP NIBP 98 mm[Hg] 07/06/2024 01:40:01 [facility] DBP NIBP 70 mm[Hg] 07/06/2024 01:40:01 [facility] Mean NIBP 52 mm[Hg] 07/06/2024 00:00:00 [facility] SBP NIBP 76 mm[Hg] 07/06/2024 00:00:00 [facility] DBP NIBP 42 mm[Hg] 07/06/2024 00:00:00 [facility] Temperature Source Intervention Other: Core temp probe switched from rectal to esophageal. Correlates with temporal 07/05/2024 01:00:00 [facility] Weight (kg) 87.7 kg 07/04/2024 09:00:00 [facility] BMI 30 kg/m2 07/04/2024 09:00:00 [facility] Temperature Source Intervention Other: Cool room 07/04/2024 00:00:00 [facility] [place] Body Weight 67.13 07/02/2024 13:56:00 [facility] Dosing Weight (kg) 89.1 kg 07/02/2024 05:39:00 [facility] Weight (kg) 89.1 kg 07/02/2024 02:14:00 [facility] BMI 30.5 kg/m2 07/02/2024 02:14:00 [facility] Weight (kg) 89.1 kg 07/02/2024 00:26:00 [facility] BMI 30.5 kg/m2 07/02/2024 00:26:00 [facility] Encounters Location Location Details Encounter Type Encounter Number Reason For Visit Attending Provider ADM Date DC Date Status Source [facility] Inpatient [id number] Brooks Lopez Ana Maria 07/02 00:25 :20 07/07 03:18 :00 [facility] [id number] Brooks Lopez Ana Maria 07/07 03:28 :00 07/07 05:26 :00 [facility] Social History Social History Date Source No data available for this section 07/07/2024 [facility] No data available for this section 07/07/2024 [facility]
--- OUTSIDE RECORDS SUMMARY | 2024-10-27 10:00 | XMS_ITS ---
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 [employer] Name Role Phone Cecil Mcnally Primary Care Provider [phone] Allergies Allergen (clinical drug ingredient) Drug/Non Drug Allergy documented on EMR Reaction Allergy Type Onset Date Status Soybean Unknown Drug Allergy Active Gluten Gluten Unknown Allergy Active Reason For Referral Reason Hoarseness after tra ch Diagnosis 1 Hoarseness (R49.0) Referral Organization [facility] Referring Provider First Name Chan mo Referring Provider Last Name Uli Referring Provider Speciality Internal M edicine Referred Provider Addi Smith Referred Provider Specialty Ear, nose an d throat surgeon General Notes Kalpana Poole 04:14:56 PM >faxed Yo Shukla Heidi 11/18/2024 10:21:55 AM >[facility] IS NOT SCHEDULED THEY HAVE CALL AND LEFT A MESSAGE ASKING FOR A CALL BACKYo Heidi 11/18/2024 10:23:49 AM >I ALSO TRIED TO CALL PT AND I DID NOT HAVE SUCCESS. I LEFT A VM ASKING HIM TO CALL THEM BACK.Yo Heidi 11/18/2024 10:24:05 AM >CLOSING THIS OUT Referral Priority Routine REASON FOR VISIT CONJESTION Medications Medication SIG (Take, Route, Frequency, Duration) Notes Start Date End Date Status Ketoconazole 2 % 1 application Externally Once a day Not-Taking HYDROcodone-Acetaminophen 5-325 MG 1 tablet as needed Orally every 6 hrs Not-Taking Clobetasol Propionate 0.05 % 1 application Externally Once a day Not-Taking Pantoprazole Sodium 40 MG 1 tablet Orall y Once a day for 30 day(s) 12/05/2022 Active Effexor XR 37.5 MG 1 capsule with food Orally Once a day for 30 day(s) 12/11/2022 Not-Taking Psyllium Husk - as directed No t-Taking Ondansetron HCl 4 MG 1 tablet Orally Onc e a day Not-Taking Mupirocin 2 % 1 application Externally Twice a day Not-Taking Amitiza 24 MCG 1 capsule with food and water Orally Twice a day Not-Taking Sennosides-Docusate Sodium 8.6-50 MG 2 capsules at bedtime with a full glass of water as needed Orally Once a day Not-Taking Citlali-Colace 50-8.6 MG 1 tablet as needed Orally Twice a day Active Diclofenac Sodium 1 % as directed Externally Active Aspirin 81 MG 1 tablet Orally Once a day Active traZODone HCl 50 MG 2 tablet at bedtime as needed Orally Once a day Not-Taking Tamsulosin HCl 0.4 MG 2 capsule Orally O nce a day Not-Taking Potassium Chloride 20 MEQ 1 tablet with food Orally Once a day Active Montelukast Sodium 10 MG 1 tablet Orally Once a day Active guaiFENesin 600 MG as directed Orally Active Furosemide 40 MG 1 tablet Orally Once a day Active Fluticasone Propionate 50 MCG/ACT 1 spray in each nostril Nasally Twice a day Active Cyclobenzaprine HCl 10 MG 1 tablet at be dtime as needed Orally Once a day Active Warfarin Sodium 5 MG 1 tablet Orally Onc e a day Active Warfarin Sodium 2 MG 1 tablet Orally Onc e a day Active Tedizolid Phosphate 200 MG 1 tablet Oral ly Once a day Active Spironolactone 25 MG 1 tablet Orally Active Acetaminophen 500 MG 1 tablet as needed Orally every 6 hrs Active Melatonin 5 MG 1 tablet in the evening Orally Once a day Active Dextromethorphan HBr 20 MG/15ML as directed Orally Active Social History Tobacco Use: Social History Observation Description Date Details (start date - stop date) Never Smoker NA - NA Tobacco use other than smoking: Question Answer Notes Are you an other tobacco user? Yes leticia macario PHQ-9 Question Answer Notes Little interest or pleasure in doing things Not at all Feeling down, depressed, or hopeless Not at all Trouble falling or staying asleep, or sleeping t oo much Not at all Feeling tired or having little energy Not at all Poor appetite or overeating Not at all Feeling bad about yourself, or that you are a failure, or have let yourself or your family down Not at all Trouble concentrating on thi ngs, such as reading the newspaper or watching television Not at all Moving or speaking so slowly that other people could have noticed. Or the opposite ? 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 Vital Signs Temperature 99.9 degrees Fahrenheit 10/27/19 25 Blood pressure systolic 150 mm Hg 10/27/19 25 Blood pressure diastolic 80 mm Hg 025 Heart Rate 71 /min 10/27/2024 Height 71 in 10/27/2024 Weight 190.4 lbs 10/27/2024 BMI 26.55 kg/m2 10/27/2024 Oximetry 98 % 10/27/2024 Height-cm 180.34 cm 10/27/2024 Weight-kg 86.36 kg 10/27/2024 Encounters Encounter Location Date Provider Diagnosis [facility] [address] [place] [phone] 10/27/2024 Cecil Mcnally Hoarseness R49.0 ; Mechanical heart valve present Z95.2 and Depression screen Z13.31 Assessments Encounter Date Diagnosis (ICD Code) Assessment Notes Treatment Notes Treatment Clinical Notes Section Notes 10/27/2024 Hoarseness (ICD-10 - R49.0) 10/27/2024 Mechanical heart valve present (ICD-10 - Z95.2) His INR is 2.4 10/27/2024 Depression screen (ICD-10 - Z13.31) Plan Of Treatment Treatment Notes Assessment Notes Mechanical heart valve present His INR i s 2.4 Referrals Referral Date Details 10/27/2024 10/27/2024, Hoarsene ss after trach, Addi Smith Next Appt Details Follow Up: 2 Months, Reason: Progress Notes * Giovanni MCGILL DDOB:[birth year] (58 yo M)Acc No.[id number]:10/27/2024 Progress Notes Patient: Giovanni BRONSON Provider: Marychuy Mcnally MD :1965 A ge:58 Y S ex:Male Date:10/27/2024 Address:[address] [place] [address] [address] [place], [place] [phone] Check Out:04:04 PM [employer]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 He has had hoarseness since his trach was removed this fall. * ROS: G eneral/Constitutional: Patient denies f atigue , fever , night sweats. ? H ematology: Patient denies e asy bruising , bleeding problems , recent transfusion. R espiratory: Patient denies c ough , shortness of breath , wheezing.? C ardiovascular: Patient denies c hest pain , irregular heartbeat , swelling in hands/feet. G astrointestinal: Patient denies a bdominal pain, bloating , constipation , diarrhea , heartburn , blood in stool , nausea , vomiting. G enitourinary: Patient denies p ainful urination , blood in the urine , difficulty urinating. E NT: Patient denies e ar pain , nosebleed, runny nose, s ore throat. M usculoskeletal: Patient denies a rthritis\arthralgia , back pain , joint stiffness , muscle aches. S kin: Patient denies s kin lesion(s) , rash , acne. ? N eurologic: Patient denies d izziness , fainting , headache , memory loss , seizures. P sychiatric: Patient denies a nxiety , depressed mood , difficulty sleeping , suicidal thoughts. c onjestion. * Medical History: * Surgical History: c olonoscopy arm surgery cancer heart valve surgery * Hospitalization/Major Diagno stic Procedure: N o Hospitalization History. * Family History: F ather: . M other: . diabetes, anxiety, hypertension, dementia, parkinsons, prostate cancer, skin cancer,. * Social History: T obacco Use: T obacco Control (Standard) T obacco use: N onsmoker Tobacco use other than smoking A re you an other tobacco user? Y es smokes marijanna H ow often do you smoke? o nce a day D epression Screening: P HQ-9 L ittle interest or pleasure in doing things?Not at all F eeling down, depressed, or hopeless N ot at all T rouble falling or staying asleep, or sleeping too much N ot at all F eeling tired or having little energy N ot at all P oor appetite or overeating N ot at all F eeling bad about yourself, or that you are a failure, or have let yourself or your family down N ot at all T rouble concentrating on things, such as reading the newspaper or watching television N ot at all M oving or speaking so slowly that other people could have noticed. Or the opposite ? being so fidgety or restless that you have been moving around a lot more than usual N ot at all T houghts that you would be better off , or of hurting yourself in some way N ot at all T otal Score 0 Depression screening findings F indings . * Medications: T akingAcetaminophen 500 MG Tablet 1 tablet as needed Orally every 6 hrs Melatonin 5 MG Tablet 1 tablet in the evening Orally Once a day Dextromethorphan HBr 20 MG/15ML Syrup as directed Orally Cyclobenzaprine HCl 10 MG Tablet 1 tablet at bedtime as needed Orally Once a day Warfarin Sodium 5 MG Tablet 1 tablet Orally Once a day Warfarin Sodium 2 MG Tablet 1 tablet Orally Once a day Tedizolid Phosphate 200 MG Tablet 1 tablet Orally Once a day Spironolactone 25 MG Tablet 1 tablet Orally Potassium Chloride 20 MEQ Tablet Extended Release 1 tablet with food Orally Once a day Montelukast Sodium 10 MG Tablet 1 tablet Orally Once a day guaiFENesin 600 MG Tablet Extended Release as directed Orally Furosemide 40 MG Tablet 1 tablet Orally Once a day Fluticasone Propionate 50 MCG/ACT Suspension 1 spray in each nostril Nasally Twice a day Citlali-Colace 50-8.6 MG Tablet 1 tablet as needed Orally Twice a day Diclofenac Sodium 1 % Gel as directed Externally Aspirin 81 MG Tablet Delayed Release 1 tablet Orally Once a day Pantoprazole Sodium 40 MG Tablet Delayed Release 1 tablet Orally Once a day Taking Acetaminophen 500 MG Tablet 1 tablet as needed Orally every 6 hrs Taking Melatonin 5 MG Tablet 1 tablet in the evening Orally Once a day Taking Dextromethorphan HBr 20 MG/15ML Syrup as directed Orally Taking Cyclobenzaprine HCl 10 MG Tablet 1 tablet at bedtime as needed Orally Once a day Taking Warfarin Sodium 5 MG Tablet 1 tablet Orally Once a day Taking Warfarin Sodium 2 MG Tablet 1 tablet Orally Once a day Taking Tedizolid Phosphate 200 MG Tablet 1 tablet Orally Once a day Taking Spironolactone 25 MG Tablet 1 tablet Orally Taking Potassium Chloride 20 MEQ Tablet Extended Release 1 tablet with food Orally Once a day Taking Montelukast Sodium 10 MG Tablet 1 tablet Orally Once a day Taking guaiFENesin 600 MG Tablet Extended Release as directed Orally Taking Furosemide 40 MG Tablet 1 tablet Orally Once a day Taking Fluticasone Propionate 50 MCG/ACT Suspension 1 spray in each nostril Nasally Twice a day Taking Citlali-Colace 50-8.6 MG Tablet 1 tablet as needed Orally Twice a day Taking Diclofenac Sodium 1 % Gel as directed Externally Taking Aspirin 81 MG Tablet Delayed Release 1 tablet Orally Once a day Taking Pantoprazole Sodium 40 MG Tablet Delayed Release 1 tablet Orally Once a day Not-TakingtraZODone HCl 50 MG Tablet 2 tablet at bedtime as needed Orally Once a day Tamsulosin HCl 0.4 MG Capsule 2 capsule Orally Once a day Sennosides-Docusate Sodium 8.6-50 MG Capsule 2 capsules at bedtime with a full glass of water as needed Orally Once a day Psyllium Husk - Powder as directed Ondansetron HCl 4 MG Tablet 1 tablet Orally Once a day Mupirocin 2 % Ointment 1 application Externally Twice a day Amitiza 24 MCG Capsule 1 capsule with food and water Orally Twice a day Ketoconazole 2 % Gel 1 application Externally Once a day HYDROcodone-Acetaminophen 5-325 MG Tablet 1 tablet as needed Orally every 6 hrs Clobetasol Propionate 0.05 % Solution 1 application Externally Once a day Effexor XR 37.5 MG Capsule Extended Release 24 Hour 1 capsule with food Orally Once a day Medication List reviewed and reconciled with the patientNot-Taking traZODone HCl 50 MG Tablet 2 tablet at bedtime as needed Orally Once a day Not-Taking Tamsulosin HCl 0.4 MG Capsule 2 capsule Orally Once a day Not-Taking Sennosides-Docusate Sodium 8.6-50 MG Capsule 2 capsules at bedtime with a full glass of water as needed Orally Once a day Not-Taking Psyllium Husk - Powder as directed Not-Taking Ondansetron HCl 4 MG Tablet 1 tablet Orally Once a day Not- Taking Mupirocin 2 % Ointment 1 application Externally Twice a day Not-Taking Amitiza 24 MCG Capsule 1 capsule with food and water Orally Twice a day Not-Taking Ketoconazole 2 % Gel 1 application Externally Once a day Not-Taking HYDROcodone-Acetaminophen 5- 325 MG Tablet 1 tablet as needed Orally every 6 hrs Not-Taking Clobetasol Propionate 0.05 % Solution 1 application Externally Once a day Not-Taking Effexor XR 37.5 MG Capsule Extended Release 24 Hour 1 capsule with food Orally Once a day Medication List reviewed and reconciled with the patient * Allergies: G pablo - Criticality UnknownSoybeanno[Allergies Verified] Objective: * Vitals: H t: 71 in, Wt:190.4lbs, Wt-k.36 kg, BMI:26.55Index, Temp:99.9F, BP:150/80mm Hg, HR:71/min, Oxygen sat %:98%, O2 Source: RA, Pain scale: 1 1-10, Ht-cm: 180.34 cm. * Examination: E xamination: GENERAL APPEARANCE: A wake/alert. No apparent distress.? HEART: R egular rate and rhythm without rubs, murmurs, or gallops. PMI nondisplaced. LUNGS: C lear to auscultation without rales, rhonchi, wheezing, tachypnea or air hunger. ABDOMEN: S oft, nontender, nondistended with active bowel sounds X4. No HSM or masses. Assessment: * Assessment: 1. H oarseness - R49.0 (Primary) 2 . M echanical heart valve present - Z95.2 3 . D epression screen - Z13.31 Plan: * Treatment: 2. M echanical heart valve present Notes: His INR is 2.4 * Procedure Codes: 3 077F SYST BP = 140 MM HG6 [id number] DIAST BP 80-89 MM [id number] TOBACCO NON- [id number] NEG SCR D PT NOT ELIG F/U/PLN [id number] BRIEF EMOTIONAL/BEHAV ASSMT * Follow Up: 2 Months Forms: * Billing Information: * Visit Code: 24313 Office Visit, Est Pt., Level 4. * Procedure Codes: 3077F SYST BP = 140 MM HG6 IT. 3079F DIAST BP 80-89 MM HG. 1036F TOBACCO NON-USER. G8510 NEG SCR D PT NOT ELIG F/U/PLN DOC. 65486 BRIEF EMOTIONAL/BEHAV ASSMT. 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 No appar ent distress HEART: Regular rate and rhy thm without rubs, murmurs, or gallops. PMI nondisplaced ABDOMEN: Soft, nontender, non distended with active bowel sounds X4. No HSM or masses LUNGS: Clear to auscultatio n without rales, rhonchi, wheezing, tachypnea or air hunger Consultation Request Notes Referral Date Referring Provider Referred Provider Not es 10/27/2024 Cecil Mcnally Jeffrey Hoarse ness after trach
--- OUTSIDE RECORDS SUMMARY | 2025-02-03 10:20 | XMS_ITS ---
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 Name Role Phone Cecil Mcnally Primary Care Provider Allergies Allergen (clinical drug ingredient) Drug/Non Drug Allergy documented on EMR Reaction Allergy Type Onset Date Status Soybean Unknown Drug Allergy Active Gluten Gluten Unknown Allergy Active REASON FOR VISIT Follow up Medications Medication SIG (Take, Route, Frequency, Duration) Notes Start Date End Date Status Sennosides-Docusate Sodium 8.6-50 MG 2 capsules at bedtime with a full glass of water as needed Orally Once a day Not-Taking Psyllium Husk - as directed No t-Taking Ondansetron HCl 4 MG 1 tablet Orally Onc e a day Not-Taking Mupirocin 2 % 1 application Externally Twice a day Not-Taking Tamsulosin HCl 0.4 MG 2 capsule Orally Once a day Not-Taking Aspirin 81 MG 1 tablet Orally Once a day Active Pantoprazole Sodium 40 MG 1 tablet Orall y Once a day for 30 day(s) 12/05/2022 Active Effexor XR 37.5 MG 1 capsule with food Orally Once a day for 30 day(s) 12/11/2022 Not-Taking traZODone HCl 50 MG 2 tablet at bedtime as needed Orally Once a day Not-Taking HYDROcodone-Acetaminophen 5-325 MG 1 tablet as needed Orally every 6 hrs for 30 days 02/03/2025 03/05/2025 Active Citlali-Colace 50-8.6 MG 1 tablet as needed Orally Twice a day Not-Taking Diclofenac Sodium 1 % as directed Externally Not-Taking guaiFENesin 600 MG as directed Orally Not-Taking Furosemide 40 MG 1 tablet Orally Once a day Active Fluticasone Propionate 50 MCG/ACT 1 spray in each nostril Nasally Twice a day Active Warfarin Sodium 2 MG 1 1/2 tablet Orally Once a day Active Montelukast Sodium 10 MG 1 tablet Orally Once a day Active Tedizolid Phosphate 200 MG 1 tablet Oral ly Once a day Active Spironolactone 25 MG 1 tablet Orally Active Potassium Chloride 20 MEQ 1 tablet with food Orally Once a day Active Dextromethorphan HBr 20 MG/15ML as directed Orally Not-Takin g Cyclobenzaprine HCl 10 MG 1 tablet at be dtime as needed Orally Once a day Active Warfarin Sodium 10 MG 1 tablet Orally On ce a day Active Acetaminophen 500 MG 1 tablet as needed Orally every 6 hrs Not-Taking Melatonin 5 MG 1 tablet in the evening Orally Once a day Active Amitiza 24 MCG 1 capsule with food and water Orally Twice a day Not-Taking Ketoconazole 2 % 1 application Externally Once a day Not-Taking Clobetasol Propionate 0.05 % 1 application Externally Once a day Not-Taking HYDROcodone-Acetaminophen 5-325 MG 1 tablet as needed Orally every 6 hrs Not-Taking Social History Tobacco Use: Social History Observation [...] Answer Notes Tobacco use: Nonsmoker Section Notes: CIME Dep/tob - 10/27/24 Problems Problem Type SNOMED Code ICD Code Onset Dates Problem Status W/U Status Risk Notes Problem 341615124 Metastatic melanoma (C43.9) Active confirmed Vital Signs Temperature 99.5 degrees Fahrenheit 02/04/20 25 Blood pressure systolic 110 mm Hg 02/04/20 25 Blood pressure diastolic 64 mm Hg 025 Heart Rate 70 /min 02/03/2025 Height 71 in 02/03/2025 Weight 201.8 lbs 02/03/2025 BMI 28.14 kg/m2 02/03/2025 Oximetry 98 % 02/03/2025 Height-cm 180.34 cm 02/03/2025 Weight-kg 91.54 kg 02/03/2025 Encounters Encounter Location Date Provider Diagnosis [facility] [address] [place] [phone] 02/03/2025 Armanishawn Uli Metastatic melanoma C43.9 ; Hoarseness R49.0 and Depression screen Z13.31 Assessments Encounter Date Diagnosis (ICD Code) Assessment Notes Treatment Notes Treatment Clinical Notes Section Notes 02/03/2025 Metastatic melanoma (ICD-10 - C43.9) Dr. Smith is getting him set up with immunotherapy. 02/03/2025 Hoarseness (ICD-10 - R49.0) 02/03/2025 Depression screen (ICD-10 - Z13.31) Plan Of Treatment Medication Medication Name Sig Start Date Stop Date Notes HYDROcodone-Acetaminophen 5- 325 MG 1 tablet as needed Orally every 6 hrs for 30 days 02/03/2025 03/05/2025 Treatment Notes Assessment Notes Metastatic melanoma Dr. Smith is getting him set up with immunotherapy. 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 Follow up. * HPI: P atient Complaints: Patient here for follow up - went to Dr Smith took biopsy on Neck came back malignant - he is trying ti get him into [facility]. * ROS: G eneral/Constitutional: Patient denies f [...] mood , difficulty sleeping , suicidal thoughts. f ollow up - malignant biopsy. * Medical History: A nxiety, Abdominal pain, Urinary tract infection, site not specified, Benign hypertension, Aortic stenosis, Gastritis, Diverticulosis of large intestine without perforation or abscess without bleeding, Hepatitis C, Erectile dysfunction, Anemia, Acute respiratory failure, Bacteremia, Stroke, Depression, Heart valve disorder, A fib, Melanoma. * Surgical History: c olonoscopy , arm surgery cancer , heart valve surgery . * Family History: F ather: . M [...] Score 0 Depression screening findings F indings N egative (0-4) 10/27/24 C MIGUEL Dep/tob - 10/27/24. * Medications: T aking Melatonin 5 MG Tablet 1 tablet in the evening Orally Once a day , Taking Cyclobenzaprine HCl 10 MG Tablet 1 tablet at bedtime as needed Orally Once a day , Taking Warfarin Sodium 10 MG Tablet 1 tablet Orally Once a day , Taking Warfarin Sodium 2 MG Tablet 1 1/2 tablet Orally Once a day , Taking Tedizolid Phosphate 200 MG Tablet 1 tablet Orally Once a day , Taking Spironolactone 25 MG Tablet 1 tablet Orally , Taking Potassium Chloride 20 MEQ Tablet Extended Release 1 tablet with food Orally Once a day , Taking Montelukast Sodium 10 MG Tablet 1 tablet Orally Once a day , Taking Furosemide 40 MG Tablet 1 tablet Orally Once a day , Taking Fluticasone Propionate 50 MCG/ACT Suspension 1 spray in each nostril Nasally Twice a day , Taking Aspirin 81 MG Tablet Delayed Release 1 tablet Orally Once a day , Taking Pantoprazole Sodium 40 MG Tablet Delayed Release 1 tablet Orally Once a day , Not-Taking Acetaminophen 500 MG Tablet 1 tablet as needed Orally every 6 hrs , Not-Taking Dextromethorphan HBr 20 MG/15ML Syrup as directed Orally , Not-Taking guaiFENesin 600 MG Tablet Extended Release as directed Orally , Not-Taking Citlali-Colace 50-8.6 MG Tablet 1 tablet as needed Orally Twice a day , Not-Taking Diclofenac Sodium 1 % Gel as directed Externally , Not-Taking Effexor XR 37.5 MG Capsule Extended Release 24 Hour 1 capsule with food Orally Once a day , Not-Taking traZODone HCl 50 MG Tablet 2 tablet at bedtime as needed Orally Once a day , Not-Taking Tamsulosin HCl 0.4 MG Capsule 2 capsule Orally Once a day , Not-Taking Sennosides-Docusate Sodium 8.6- 50 MG Capsule 2 capsules at bedtime with a full glass of water as needed Orally Once a day , Not-Taking Psyllium Husk - Powder as directed , Not-Taking Ondansetron HCl 4 MG Tablet 1 tablet Orally Once a day , Not-Taking Mupirocin 2 % Ointment 1 application Externally Twice a day , Not-Taking Amitiza 24 MCG Capsule 1 capsule with food and water Orally Twice a day , Not-Taking Ketoconazole 2 % Gel 1 application Externally Once a day , Not-Taking HYDROcodone-Acetaminophen 5-325 MG Tablet 1 tablet as needed Orally every 6 hrs , Not-Taking Clobetasol Propionate 0.05 % Solution 1 application Externally Once a day , Medication List reviewed and reconciled with the patient * Allergies: G luten - Criticality Unknown, Soybean. Objective: * Vitals: H t: 71 in, Wt:201.8lbs, Wt-k.54 kg, BMI:28.14Index, Temp:99.5F, BP:110/64mm Hg, HR:70/min, Oxygen sat %:98%, O2 Source: RA, Pain scale: 5 1-10, Ht-cm: 180.34 cm. * Examination: E xamination: GENERAL APPEARANCE: A wake/alert. No apparent distress.? HEART: R egular rate and rhythm without rubs, murmurs, or gallops. PMI nondisplaced. LUNGS: C lear to auscultation without rales, rhonchi, wheezing, tachypnea or air hunger. ABDOMEN: S oft, nontender, nondistended with active bowel sounds X4. No HSM or masses. Assessment: * Assessment: 1. M etastatic melanoma - C43.9 (Primary) 2 . H oarseness - R49.0 ? 3 . D epression screen - Z13.31 Plan: * Treatment: * Procedure Codes: 3 078F DIAST BP < 80 MM HG, 3074F SYST BP LT 130 MM HG, [address] BRIEF EMOTIONAL/BEHAV ASSMT * Follow Up: p rn Forms: * Billing Information: * Visit Code: 32677 Office Visit, Est Pt., Level 3. * Procedure Codes: 3078F DIAST BP < 80 MM HG. 3074F SYST BP LT [address] [place]. [address] BRIEF EMOTIONAL/BEHAV ASSMT. Care Plan Details* * Electronic signature of Marco Antonio Mcnally MD on 02/11/2025 at 01:26 PM CDT Sign off status: Pending * Provider: Marychuy Mcnally MD Date: 0 02/03/2025 Generated for Rosalinda antonio/Jen/Karismitting on: 0 02/11/2025 01:26 PM CDT History [...]
--- OUTSIDE RECORDS SUMMARY | 2025-02-04 05:10 | XMS_ITS ---
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 Role Phone Cecil Mcnally Primary Care Provider REASON FOR VISIT Refills Medications Medication SIG (Take, Route, Frequency, Duration) Notes Start Date End Date Status HYDROcodone-Acetaminophen 5-325 MG 1 tablet as needed Orally every 6 hrs for 30 days 02/04/2025 03/06/2025 Active Encounters Encounter Location Date Provider Diagnosis [facility] [address] [place] [phone] 02/04/2025 Cecil Mcnally Metastatic melanoma C43.9 Assessments Encounter Date Diagnosis (ICD Code) Assessment Notes Treatment Notes Treatment Clinical Notes Section Notes 02/04/2025 Metastatic melanoma (ICD-10 - C43.9) Plan Of Treatment Medication Medication Name Sig Start Date Stop Date Notes HYDROcodone-Acetaminophen 5- 325 MG 1 tablet as needed Orally every 6 hrs for 30 days 02/04/2025 03/06/2025 Progress Notes * Giovanni MCGILL DDOB:[birth year] (59 yo M)Acc No.[id number]:02/04/2025 Patient: Azra MENONGiovanni BUTCHER :1965 A ge:59 Y S ex:Male Address:[address], [place] [address] * Refills Refill HYDROcodone-Acetaminophen Tablet, 5-325 MG, Orally, 60 tablet, 1 tablet as needed, every 6 hrs, 30 days, Refills=0 * true * Date: Generated for Rosalinda antonio/Jen/Rios on: 0 02/11/2025 03:36 PM CDT
[2025-02-10] VITALS (8 sets, daily range): BP systolic 128–171; BP diastolic 75–97; PULSE 69–75; RESP 16–18; TEMP 36.4–37.1; O2SAT 96–100; BMI 27.8; BMI 26.4
[2025-02-10 15:05] LABS: Glucose Point of Care 98 mg/dL (70-110)
--- NOTE | 2025-02-10 15:21 | CTR_ITS ---
PROCEDURE INFORMATION: Exam: CT Head Without And With Contrast Exam date and time: 02/10/2025 3:54 PM Age: 59 years old Clinical indication: Weakness, extremity; Left; Additional info: L sided weakness TECHNIQUE: Imaging protocol: Computed tomography of the head without and with contrast. Radiation optimization: All CT scans at this facility use at least one of these dose optimization techniques: automated exposure control; mA and/or kV adjustment per patient size (includes targeted exams where dose is matched to clinical indication); or iterative reconstruction. Contrast material: OMNIPAQUE 350; Contrast volume: 100 ml; Contrast route: INTRAVENOUS (IV); COMPARISON: 1. PT PET WB melanoma INITIAL [id number] 01/22/2025 11:[address] head dated 07/01/2024 RADIATION DOSE METRICS: Total DLP (mGy-cm): 617.73 FINDINGS: Brain: Intra-axial nonenhancing collection measuring up to 5.8 x 4.1 x 4.9 cm centered in the right perirolandic region new since prior CT head dated 07/01/2024 and not clearly seen on PET CT dated 01/22/2025. There is relatively increased intrinsic density along the superior aspect of the lesion measuring up to 1.8 cm. There is surrounding vasogenic edema and mass effect on the adjacent right lateral ventricle. Findings are concerning for a parenchymal hemorrhage with an associated mass lesion. There is a 0.8 cm enhancing lesion at the right occipital lobe tip concerning for brain metastasis. Vffsd-ia-qdmw midline shift measuring up to 0.2 cm. No acute confluent lobar ischemic infarct. Cerebral ventricles: No hydrocephalus. Paranasal sinuses: Mucous retention cyst versus polyp in the left maxillary sinus measuring up to 2.1 cm. Mastoid air cells: Visualized mastoid air cells are well aerated. Bones: No acute calvarial fracture. Soft tissues: Visualized soft tissues are unremarkable. CT/CT head wo/w con [id number] IMPRESSION: 1. Intra-axial nonenhancing collection measuring up to 5.8 x 4.1 x 4.9 cm centered in the right perirolandic region new since prior CT head dated 07/01/2024 and not clearly seen on PET CT dated 01/22/2025. There is relatively increased intrinsic density along the superior aspect of the lesion measuring up to 1.8 cm concerning for possible associated mass. There is surrounding vasogenic edema and mass effect on the adjacent right lateral ventricle. Findings are concerning for a parenchymal hemorrhage with an associated mass lesion. Recommend further evaluation with MRI of the brain with and without IV contrast. 2. There is a 0.8 cm enhancing lesion at the right occipital lobe tip concerning for brain metastasis. This may also be further assessed with MRI of the brain with and without IV contrast.
--- NOTE | 2025-02-10 15:23 | XR_ITS ---
WS: [id number] XR chest 1V portable [id number] REASON FOR EXAM: dyspnea/cough FINDINGS: Cardiac device over the right chest with trans right subclavian vein leads to the right atrium and right ventricular apex. Third lead to the more superior right ventricle. Sternal sutures. Prosthetic aortic valve. Cardiomegaly. Calcified granulomatous disease bilaterally. There is blunting of the left costophrenic angle and subtle reticular interstitial densities in the left lower lung. Compared to the most recent previous (abnormal) examination of 06/29/2024 these findings were not present. XR/XR chest 1V portable [id number] IMPRESSION: Abnormality in the left lower hemithorax as described above. Unknown chronicity .
--- NOTE | 2025-02-10 15:23 | ECG_ITS ---
[facility] Test Date: 2025-02-10 Pat Name: Giovanni Mcgill Department: Room: Gender: Male Email Producer: : [id number] Requested By: Eugenio Aguilera Order Number: [id number] Joseph MD: Asa Palafox M.D. Measurements Intervals [place] Rate: 70 P: 0 SD: 0 QRS: 36 QRSD: 184 T: 67 QT: 455 QTc: 492 Interpretive Statements ELECTRONIC VENTRICULAR PACEMAKER ABNORMAL RHYTHM ECG Compared to ECG 06/29/2024 16:06:17 Sinus tachycardia no longer present First degree AV block no longer present ST (T wave) deviation no longer present Electronically Signed On 02-10-2025 17:40:46 CDT by Asa Palafox M.D. [id number]
[2025-02-10 15:28] LABS: Basophils % 0.3 %; Eosinophils # 0.2 10^3/uL (0.0-0.8); Lymphocytes # 1.3 10^3/uL (0.8-4.8); Lymphocytes % 13.3 %; Mean Corpuscular HGB Conc 31.7 g/dL (30-55); Mean Corpuscular Hemoglobin 26.1 pg (27-33); Mean Corpuscular Volume 82.4 fl (82-101); Mean Platelet Volume 10.6 fL (7.4-10.4); Monocytes # 0.6 10^3/uL (0.2-0.9); Monocytes % 6.2 %; Neutrophils # 7.31 10^3/uL (1.8-7.7); Neutrophils % 77.8 %; Nucleated Red Blood Cells % 0 %; Platelet Count 231 10^3/cmm (157-399); Red Blood Count 4.37 10^6/uL (3.85-5.65); Red Cell Distribution Width 16.9 % (12.1-15.1)
[2025-02-10 15:39] LABS: INR 3.18 (0.8-1.2)
[2025-02-10 15:41] LABS: Alanine Aminotransferase 11 U/L (0-41); Albumin Level 4.2 g/dL (3.5-5.2); Alkaline Phosphatase 70 U/L (40-130); Anion Gap 16.8 (5-19); Aspartate Amino Transferase 25 U/L (0-40); Blood Urea Nitrogen 19 mg/dL (8-23); Calcium 9.3 mg/dL (8.5-10.5); Carbon Dioxide 27 mmol/L (22-29); Chloride 99 mmol/L (98-107); Creatinine Clr Calc Pharmacy 111.7345; Globulin 2.9 g/dL (1.3-4.6); Glomerular Filtration Rate 98.3 mL/min (90-130); Glucose 89 mg/dL (65-115); Magnesium 1.8 mg/dL (1.7-2.3); Osmolality Calculated 290 mOsm/kg (285-295); Potassium 3.8 mmol/L (3.5-5.1); Sodium 139 mmol/L (136-145); Total Bilirubin 0.9 mg/dL (0.15-1.2); Total Protein 7.1 g/dL (6.6-8.7)
[2025-02-10 15:46] LABS: Bilirubin Urine Negative (Negative); Blood Urine 2+ (Negative); Glucose Urine UA Negative (Normal); Ketones Urine 2+ (Negative); Leukocyte Esterase Urine Trace (Negative); Nitrate Urine Negative (Negative); Protein Urine 1+ (Negative); Specific Gravity, Urine 1.026 (1.005-1.030); Urine Appearance Clear (CLEAR); Urine Color Yellow (Yellow); pH Urine 5.5 (5-7)
[2025-02-10 15:50] LABS: Add Urine Microscopic? YES; Bacteria Urine None Seen /hpf; RBC Urine 51-100 /hpf (0-2); Squamous Epithelial Cell Urine 0-5 /hpf (0-5); WBC Urine 0-5 /hpf (0-5)
--- NOTE | 2025-02-10 15:55 | W.ED.WEAKNES ---
HPI - Weakness General: Chief complaint: Weakness Stated complaint: L side weakness x 2 months Time Seen by Provider: 02/10/25 14:59 History of Present Illness: 59-year-old male presents to the emergency room complaining of left-sided weakness. This been going on for quite some time and has been progressive. Initially said it was approximately 2 months ago he is difficult to get the nail down at a time. When pressed he said it probably started around January 26 and has progressively worsened. The last 2 to 3 days it has gotten much worse with near full paralysis of the left lower extremity over the last 2 days and of the left upper extremity over the last 3 days. Patient has known melanoma that is widely disseminated last month he had a PET scan that showed multiple organ involvement as well as significant number of cutaneous nodules. When talking to him can actually identify cutaneous nodules under the skin around the neck and on his abdomen. Patient states he is having increasing abdominal discomfort. He has also had increasing discomfort while just sitting and resting. He is not currently being treated he says he has an appointment in [place] in 1 week to look at potential treatment options including immune therapy and/or chemotherapy. His most recent oncology note was reviewed Associated symptoms: Denies chest pain, chills, dysuria or fever(s) Review of Systems Const: Denies: fever(s) or chills Card: Denies: chest pain Resp: Denies: dyspnea GI: Denies: abdominal pain : Denies: dysuria, urinary frequency or urinary urgency Musc: Denies: neck pain or back pain Skin/Breast: Denies: rash Neuro: Reports: numbness in extremities, weakness in extremities, lack of coordination, difficulty walking, frequent falls and dizziness [facility] ED PFSH: Medical History History of nonmelanoma skin cancer GERD (gastroesophageal reflux disease) Aortic stenosis Urolithiasis Small bilateral lower pole nonobstructing stones on CT scan done for hematuria BPH loc w urin obs/LUTS Anxiety disorder Depression Hepatitis C Hypertension Melanoma of upper back excluding scapular region Recurrent UTI (urinary tract infection) Gross hematuria Surgical History History of open heart surgery 04/04/23 [facility] Status post surgical removal of malignant neoplasm of skin 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 and excision of nodular basal cell carcinoma from the left arm History of melanoma excision (09/04/21) Wide excision of upper back melanoma with right axillary sentinel lymph node biopsy History of carpal tunnel release of both wrists History of arthroscopic knee surgery History of umbilical hernia repair History of bilateral inguinal hernia repair Family History Mother , AT AGE 81 Diabetes CAD (coronary artery disease) Depression Hypertension Hypercholesteremia Parkinson disease Father , at age 83 Heart disease Depression Cancer Prostate Brother Heart disease Hypertension Sister Depression Heart disease Hypertension Social History Smoking and tobacco/nicotine status: never used tobacco/nicotine Second hand smoke exposure: No Alcohol intake: never Substance/Drug Use: current Substance/Drug use frequency: daily Other substance/drug use details: Gummies & other products. Marital status: Current occupational status: unemployed Physical Exam Const: GENERAL APPEARANCE: cooperative ORIENTATION/CONSCIOUSNESS: Yes awake, Yes oriented to person, Yes oriented to place and Yes oriented to time HENMT: COMMON NORMALS: normocephalic, atraumatic and hearing grossly normal bilaterally HEAD & SCALP: normocephalic and atraumatic Resp: COMMON NORMALS: normal respiratory effort, No retractions, No use of accessory muscles and clear to auscultation bilaterally AUSCULTATION: clear to auscultation bilaterally Cardio: COMMON NORMALS: regular rate, regular rhythm and No murmurs present (Cardio) RATE: regular rate RHYTHM: regular rhythm GI: COMMON NORMALS: Soft to palpation and No hepatosplenomegaly present AUSCULTATION: Yes normoactive bowel sounds PALPATION: Yes Soft to palpation, No Tenderness to palpation present (GI), No Guarding due to palpation present (GI) and Yes No hepatosplenomegaly present Extremity: OTHER: Flaccid on the left side arm and leg with left-sided facial droop left hemianopsia Neuro: SENSORIUM/ORIENTATION: Yes oriented to person, Yes oriented to place and Yes oriented to time Skin: COMMON NORMALS: no rashes or lesions noted GENERAL SKIN EXAM: no rashes or lesions noted Course Vital Signs: Vital signs: Vital Signs Temperature 97.6 F 02/11/25 04:00 Pulse Rate 69 02/11/25 04:00 Respiratory Rate 15 02/11/25 04:00 Blood Pressure 121/71 02/11/25 04:00 Pulse Oximetry 98 02/11/25 04:00 Oxygen Delivery Me thod Room Air 02/11/25 04:00 MDM - Weakness Medical Decision Making Patient has a new lesion in the brain that was not present 19 days ago at the time of his PET scan the first lesion is 5.8 x 4.1 x 4.9 in the right side of the brain along the superior aspect there is a 1.8 cm lesion that appears to be the primary metastatic tumor with bleeding with parenchymal hemorrhage. Given the patient's over anticoagulation seems a very high likelihood. There is also a right occipital lesion 0.8 cm concerning for brain metastasis. Long discussion with the patient and his family members they do not wish to be transferred at this point but they also feel like they cannot take him home and care for him they [place] area is difficult to get to. He does not want to go to a tertiary care center with discussed several different options including [facility] or [facility]. He has an appointment with [facility] on the of this month to discuss possible treatment options. They are concerned about how they will manage to get him there since he is completely flaccid on his left side at this time. After long discussion with his significant other and a close friend at the bedside ultimately they asked to be admitted here with the full understanding that we do not have neurosurgery and if he has worsening symptoms there would be little or no treatment options. At this point our treatment would consist of reversing his anticoagulation and treating with steroids to cut down on brain edema. He understands that this may not be adequate and he may have progressively worsening symptoms. He is accepting of this and is willing to be made comfort care if that were to happen. He is also on understanding that if they feel he cannot be cared for at home he would likely have to be discharged to the correction. With his understanding he is asking that we admit him to [facility]. Will contact the hospitalist and write orders. Lab Data 02/11/25 04:45 02/11/25 04:[address] 02/10/25 15:21 IMPRESSION: 1. Intra-axial nonenhancing collection measuring up to 5.8 x 4.1 x 4.9 cm centered in the right perirolandic region new since prior CT head dated 07/01/2024 and not clearly seen on PET CT dated 01/22/2025. There is relatively increased intrinsic density along the superior aspect of the lesion measuring up to 1.8 cm concerning for possible associated mass. There is surrounding vasogenic edema and mass effect on the adjacent right lateral ventricle. Findings are concerning for a parenchymal hemorrhage with an associated mass lesion. Recommend further evaluation with MRI of the brain with and without IV contrast. 2. There is a 0.8 cm enhancing lesion at the right occipital lobe tip concerning for brain metastasis. This may also be further assessed with MRI of the brain with and without IV contrast. ADDENDUM: 02/10/25 [id number] ADDENDUM: THIS REPORT CONTAINS FINDINGS THAT MAY BE CRITICAL TO PATIENT CARE. The findings were verbally communicated via telephone conference with EUGENIO DHALIWAL at 4:56 PM CDT on 02/10/2025. The findings were acknowledged and understood. Chest X-Ray 02/10/25 15:23 IMPRESSION: Abnormality in the left lower hemithorax as described above. Unknown chronicity. Laboratory Results WBC 9.40 10^3/uL (3.29-11.43) 02/10/25 15:11 RBC 4.37 10^6/uL (3.85-5.65) 02/10/25 15:11 Hgb 11.40 g/dL (11.27-16.99) 02/10/25 15:11 Hct 36.0 % (37-53) L 02/10/25 15:11 MCV 82.4 fl (82-101) 02/10/25 15:11 MCH 26.1 pg (27-33) L 02/10/25 15:11 MCHC 31.7 g/dL (30-55) 02/10/25 15:11 RDW 16.9 % (12.1-15.1) H 02/10/25 15:11 Plt Count 231 10^3/cmm (157-399) 02/10/25 15:11 MPV 10.6 fL (7.4-10.4) H 02/10/25 15:11 Neut % (Auto) 77.8 % 02/10/25 15:11 Lymph % (Auto) 13.3 % 02/10/25 15:11 Morrison % (Auto) 6.2 % 02/10/25 15:11 Eos % (Auto) 2.0 % 02/10/25 15:11 Baso % (Auto) 0.3 % 02/10/25 15:11 Neut # (Auto) 7.31 10^3/uL (1.8-7.7) 02/10/25 15:11 Lymph # (Auto) 1.3 10^3/uL (0.8-4.8) 02/10/25 15:11 Morrison # (Auto) 0.6 10^3/uL (0.2-0.9) 02/10/25 15:11 Eos # (Auto) 0.2 10^3/uL (0.0-0.8) 02/10/25 15:11 Baso # (Auto) 0.0 10^3/uL (0.0-0.1) 02/10/25 15:11 Nucleated RBC % (auto) 0 % 02/10/25 15:11 Nucleated RBCs # 0.0 /100WBC 02/10/25 15:11 PT 34.30 SECONDS (12.1-14.9) H 02/10/25 15:11 INR 3.18 (0.8-1.2) H 02/10/25 15:11 Sodium 139 mmol/L (136-145) 02/10/25 15:11 Potassium 3.8 mmol/L (3.5-5.1) 02/10/25 15:11 Chloride 99 mmol/L (98-107) 02/10/25 15:11 Carbon Dioxide 27 mmol/L (22-29) 02/10/25 15:11 Anion Gap 16.8 (5-19) 02/10/25 15:11 BUN 19 mg/dL (8-23) 02/10/25 15:11 Creatinine 0.8 mg/dL (0.7-1.2) 02/10/25 15:11 GFR Calculation 98.3 mL/min (90-130) 02/10/25 15:11 Glucose 89 mg/dL (65-115) 02/10/25 15:11 POC Glucose 98 mg/dL (70-110) 02/10/25 15:02 Calculated Osmolality 290 mOsm/kg (285-295) 02/10/25 15:11 Calcium 9.3 mg/dL (8.5-10.5) 02/10/25 15:11 Magnesium 1.8 mg/dL (1.7-2.3) 02/10/25 15:11 Total Bilirubin 0.9 mg/dL (0.15-1.2) 02/10/25 15:11 AST 25 U/L (0-40) 02/10/25 15:11 ALT 11 U/L (0-41) 02/10/25 15:11 Alkaline Phosphatase 70 U/L (40-130) 02/10/25 15:11 Total Protein 7.1 g/dL (6.6-8.7) 02/10/25 15:11 Albumin 4.2 g/dL (3.5-5.2) 02/10/25 15:11 Globulin 2.9 g/dL (1.3-4.6) 02/10/25 15:11 Urine Color Yellow (Yellow) 02/10/25 15:30 Urine Appearance Clear (CLEAR) 02/10/25 15:30 Urine pH 5.5 (5-7) 02/10/25 15:30 Ur Specific Lawrence 1.026 (1.005-1.030) 02/10/25 15:30 Urine Protein 1+ (Negative) A 02/10/25 15:30 Urine Glucose (UA) Negative (Normal) 02/10/25 15:30 Urine Ketones 2+ (Negative) H 02/10/25 15:30 Urine Blood 2+ (Negative) A 02/10/25 15:30 Urine Nitrate Negative (Negative) 02/10/25 15:30 Urine Bilirubin Negative (Negative) 02/10/25 15:30 Urine Urobilinogen 1.0 mg/dL (Negative) 02/10/25 15:30 Ur Leukocyte Esterase Trace (Negative) A 02/10/25 15:30 Urine RBC 51-100 /hpf (0-2) H 02/10/25 15:30 Urine WBC 0-5 /hpf (0-5) 02/10/25 15:30 Ur Squamous Epith Cells 0-5 /hpf (0-5) 02/10/25 15:30 Amorphous Sediment Not Reportable 02/10/25 15:30 Urine Bacteria None seen /hpf (NONE) 02/10/25 15:30 Hyaline Casts 0.40 /lpf 02/10/25 15:30 Blood Type O Negative 02/10/25 17:23 Rho(D) Type Rh negative 02/10/25 17:23 All radiology interpretation(s) finalized by discharge Critical Care Time Critical Care Time: Critical Care Time: Yes Total Critical Care Time: 60 Attestation: The high probability of a clinically significant, sudden or life threatening deterioration of the patient's neurologic system(s) required my full and direct attention, intervention and personal management. The critical care time is as shown. This time is in addition to time spent performing any reported procedures but includes the following: [x] Data and vital sign review and interpretation [x] Patient assessment, examination and intervention [x] Documentation [x] Medication orders and management Discharge Plan Discharge Patient Disposition: Admitted As Inpatient Admit Provider: Preet Mason Clinical Impression: Metastatic melanoma, Melanoma metastatic to brain, Cerebral parenchymal hemorrhage, Chronic anticoagulation, Atrial flutter with rapid ventricular response Condition: Stable Coding Level of Care Code ED Manufacturing Recruiter for Chg Fwd Related Data Home Medications ?Medication ?Instructions ?Recorded ?Confirmed aspirin 325 mg tablet 325 mg PO DAILY 02/21/24 02/10/25 furosemide 40 mg tablet 40 mg PO DAILY 10/14/24 02/10/25 montelukast 10 mg tablet 10 mg PO DAILY 10/14/24 02/10/25 pantoprazole 40 mg tablet,delayed 40 mg PO DAILY 10/14/24 02/10/25 release warfarin 5 mg tablet 5 mg PO DAILY 12/01/24 02/10/25 cyclobenzaprine 10 mg tablet 10 mg PO TID PRN Pain 12/02/24 02/10/25 spironolactone 50 mg tablet 25 mg PO DAILY 12/02/24 02/10/25 tedizolid 200 mg tablet (Sivextro) 200 mg PO DAILY 12/02/24 02/10/25 potassium chloride 20 mEq 20 meq PO BID 01/11/25 02/10/25 tablet,extended release(part/cryst) Previous Rx's ?Medication ?Instructions ?Recorded albuterol sulfate 90 mcg/actuation 2 puff inhalation Q6H PRN 10/14/24 aerosol inhaler shortness of breath or wheezing #8.5 grams prochlorperazine maleate 10 mg 10 mg PO Q4H PRN mild nausea #30 01/28/25 tablet (Compazine) tabs Allergies Allergy/AdvReac Type Severity Reaction Status Date / Time gluten Allergy Severe ADR-Abdominal Verified 01/27/25 14:31 Pain soy Allergy Unknown Unknown Verified 01/27/25 14:31 Alpha-Gal Allergy ADR-Vomitin Verified 01/27/25 14:31 (Mvzwfkxfc-Ascib-6,3-Gala g processed sugar Allergy ADR-Gastrointestinal Uncoded 01/27/25 14:31 Upset
[2025-02-10] MEDS: iohexol 350 mg/mL 500 mL Btl (per mL) IV (16:00)
[2025-02-10 16:02] LABS: Add Urine Culture? Yes
[2025-02-10] MEDS: dexamethasone 10 mg/mL INJ IM (16:40)
--- NOTE | 2025-02-10 16:52 | PC.NURSE ---
pt offered position turn and boost in bed, applied x2 blankets, given water and call light. pt denies any further needs, states comfortable at this time. pt tearful, requesting to call family. family notified and states will be in in awhile .
[2025-02-10] MEDS: phytonadione (ADULT) 10 MG in sodium chloride 0.9% 50 ML 153 MG IV (17:33)
--- NOTE | 2025-02-10 19:17 | PM.HP ---
Providers/Chief Complaint Primary Care Provider: Cj Black MD Chief Complaint: L side weakness x 2 months History of Present Illness Giovanni Mcgill is a 59 year old male with a past medical history significant for cutaneous melanoma with extensive metastasis, history of mechanical aortic valve status post removal secondary to endocarditis, status post bovine aortic valve replacement, anxiety, benign prostatic hypertrophy, depression, hepatitis C, and multiple other comorbidities who presents to the emergency department with progressive left-sided weakness for the past 2 weeks. States he lives with his girlfriend Erika and another elderly member in the household. He states they are having trouble taking care of him. He reports he cannot use his left extremities. States his right lower extremity is very weak as well. Endorses associated vision loss. Exertion worsens symptoms. Denies alleviating factors. They are unable to care for him in his current condition. Has a known history of extensive metastatic melanoma. He states that he has an appointment with oncology on February 17 in [place] to consider immunotherapy. In the emergency department CT imaging showed a large brain mass with adjacent parenchymal bleeding that was not present approximately 19 days ago on prior imaging. Per ED provider, attempts were made to transfer patient to tertiary care center which he declined. Advance care planning was discussed, please see documentation from Dr. Guzman. He understands neurosurgical options and further treatment options are not available at this hospital. He would still like admitted with the plans for anticoagulation reversal and IV steroids and monitoring clinical progression. If he fails to respond he reportedly would like to be made comfort care. Patient accepted to observation by hospitalist Dr. Mason. Review of Systems Narrative: A complete review of systems was obtained and is negative except as stated in HPI. Medications/Allergies Home Medications ?Medication ?Instructions ?Recorded ?Confirmed ?Last Taken ?Type aspirin 325 mg tablet 325 mg PO DAILY 02/21/24 02/10/25 02/10/25 History albuterol sulfate 90 mcg/actuation 2 puff inhalation Q6H PRN 10/14/24 02/10/25 02/10/25 Rx aerosol inhaler shortness of breath or wheezing #8.5 grams furosemide 40 mg tablet 40 mg PO DAILY 10/14/24 02/10/25 02/10/25 History montelukast 10 mg tablet 10 mg PO DAILY 10/14/24 02/10/25 02/10/25 History pantoprazole 40 mg tablet,delayed 40 mg PO DAILY 10/14/24 02/10/25 02/10/25 History release warfarin 5 mg tablet 5 mg PO DAILY 12/01/24 02/10/25 02/10/25 History cyclobenzaprine 10 mg tablet 10 mg PO TID PRN Pain 12/02/24 02/10/25 02/10/25 History spironolactone 50 mg tablet 25 mg PO DAILY 12/02/24 02/10/25 02/10/25 History tedizolid 200 mg tablet (Sivextro) 200 mg PO DAILY 12/02/24 02/10/25 02/10/25 History potassium chloride 20 mEq 20 meq PO BID 01/11/25 02/10/25 02/10/25 History tablet,extended release(part/cryst) prochlorperazine maleate 10 mg 10 mg PO Q4H PRN mild nausea #30 01/28/25 02/10/25 Unknown Rx tablet (Compazine) tabs Allergies Allergy/AdvReac Type Severity Reaction Status Date / Time gluten Allergy Severe ADR-Abdominal Verified 01/27/25 14:31 Pain soy Allergy Unknown Unknown Verified 01/27/25 14:31 Alpha-Gal Allergy ADR-Vomitin Verified 01/27/25 14:31 (Aavjlcwne-Npanf-3,3-Gala g processed sugar Allergy ADR-Gastrointestinal Uncoded 01/27/25 14:31 Upset PFSH Acute PFSH: Medical History History of nonmelanoma skin cancer GERD (gastroesophageal reflux disease) Aortic stenosis Urolithiasis Small bilateral lower pole nonobstructing stones on CT scan done for hematuria BPH loc w urin obs/LUTS Anxiety disorder Depression Hepatitis C Hypertension Melanoma of upper back excluding scapular region Recurrent UTI (urinary tract infection) Gross hematuria Surgical History History of open heart surgery 04/04/23 [facility] Status post surgical removal of malignant neoplasm of skin 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 and excision of nodular basal cell carcinoma from the left arm History of melanoma excision (09/04/21) Wide excision of upper back melanoma with right axillary sentinel lymph node biopsy History of carpal tunnel release of both wrists History of arthroscopic knee surgery History of umbilical hernia repair History of bilateral inguinal hernia repair Family History Mother , AT AGE 81 Diabetes CAD (coronary artery disease) Depression Hypertension Hypercholesteremia Parkinson disease Father , at age 83 Heart disease Depression Cancer Prostate Brother Heart disease Hypertension Sister Depression Heart disease Hypertension Social History Smoking and tobacco/nicotine status: never used tobacco/nicotine Second hand smoke exposure: No Alcohol intake: never Substance/Drug Use: current Substance/Drug use frequency: daily Other substance/drug use details: Gummies & other products. Marital status: Current occupational status: unemployed Vitals/I&O/Wt Last Vital Signs Temp 98.0 F 02/10/25 15:06 Pulse 70 02/10/25 18:30 Resp 18 02/10/25 17:33 BP 164/88 02/10/25 18:30 Pulse Ox 99 02/10/25 18:30 O2 Del Method Room Air 02/10/25 17:33 Weight last 48 hrs Weight 90.718 kg Physical Exam Narrative: General: Patient is awake and alert. Head: Wearing glasses. Reduced vision. Neck: No JVD. Cardiovascular: RRR. No gallops. No murmurs. Lungs: Clear to auscultation, no use of accessory muscles, no crackles or wheezes. Skin: No jaundice. Multiple subcutaneous nodules present. Abdomen: Hypoactive bowel sounds. Genito Urinary: Genital exam not performed since complaints not related. Rectal: Rectal exam not performed since no symptoms indicated blood loss. Extremities: No cyanosis or clubbing. Neurological: No myoclonus. Left-sided hemiparesis. Decreased strength right lower extremity. Reduced vision. Data 02/10/25 15:11 02/10/25 15:11 A&P Assessment and plan (1) Metastasis to brain: (2) Brain bleed: (3) Intraparenchymal hemorrhage of brain: (4) Left hemiparesis: (5) History of aortic valve replacement with bioprosthetic valve: (6) Warfarin-induced coagulopathy: (7) Failure to thrive: (8) Vision loss: Plan Metastatic melanoma with suspected newly diagnosed brain metastasis with mass effect Associated vasogenic brain edema Associated parenchymal hemorrhaging Left-sided hemiplegia Stage IV metastatic melanoma with extensive metastasis - Patient declines transfer to tertiary care center - Reverse INR - Start IV dexamethasone - Start IV keppra for seizure ppx - Seizure precautions - Very poor prognosis, ongoing goals of care Warfarin induced coagulopathy - Reversing INR - Repeat INR in a.m. Failure to thrive - Patient may need placement - Consult care management Bioprosthetic aortic valve History of infective endocarditis History of mechanical aortic valve status post removal - Warfarin and aspirin held due to brain parenchymal bleeding - Continue home tedizolid if patient can supply DVT ppx: SCD PDMP PDMP Reviewed: Not Reviewed Attestations Medical Necessity Statement*: Patient presents with failure to thrive symptoms with worsening neurological deficits resulting in inability to care for himself in current environment, found to have suspected brain mets with associated vasogenic edema and parenchymal brain bleeding with expected hospitalization not to cross two midnights for warfarin reversal, IV dexamethasone, and case management evaluation. Coding Level of Care Code Acute Code for Chg Fwd Diagnoses Metastasis to brain C79.31 Brain bleed I61.9 Intraparenchymal hemorrhage of brain I61.9 Left hemiparesis G81.94 History of aortic valve replacement with bioprosthetic valve Z95.3 Warfarin-induced coagulopathy D68.32; T45.515A Failure to thrive Vision loss H54.7
[2025-02-10] MEDS: levETIRAcetam 2,000 MG/200 ML PREMIX 400 MG IV (19:31)
[2025-02-10] MEDS: dexamethasone 4 mg/mL INJ IVP (21:21)
--- NOTE | 2025-02-10 22:16 | PC.NURSE ---
THIS NURSE PICKED UP FFP FROM BLOOD BANK, BLOOD PRODUCTED WAS DOUBLE-VERIFIED WITH CHARGE NURSE. THE PRODUCT DID NOT SCAN DURING BLOOD PRODUCT SCAN. THIS NURSE DID NOT FEEL COMFORTABLE WITH ADMINISTRATION. FFP RETURNED TO LAB. LAB REPORTED THEY COULD NOT FIX IT AND IF I COULD OVERRIDE SCAN. I VOICED THE CONCERN WITH ST[employer] RIPSAW OPERATOR. BLOOD PRODUCT WAS RETURNED TO BLOOD BANK AND NOT ADMINISTERED.
--- NOTE | 2025-02-10 22:20 | PC.NURSE ---
THIS NURSE PICKED UP FFP FROM BLOOD BANK, BLOOD PRODUCT WAS DOUBLE-VERIFIED WITH CHARGE NURSE. THE PRODUCT DID NOT SCAN DURING BLOOD PRODUCT SCAN. THIS NURSE DID NOT FEEL COMFORTABLE WITH ADMINISTRATION. FFP RETURNED TO LAB. LAB REPORTED THEY COULD NOT FIX IT AND IF I COULD OVERRIDE SCAN. I VOICED THE CONCERN WITH [employer] INVENTORY CLERK. BLOOD PRODUCT WAS RETURNED TO BLOOD BANK AND NOT ADMINISTERED.
[2025-02-11] VITALS (11 sets, daily range): BP systolic 117–135; BP diastolic 62–73; PULSE 68–72; RESP 15–19; TEMP 36.4–36.9; O2SAT 96–99
[2025-02-11] MEDS: dexamethasone 4 mg/mL INJ IVP ×4 (03:01→20:41)
[2025-02-11 05:39] LABS: Basophils % 0.2 %; Hematocrit 32.7 % (37-53); Lymphocytes # 0.6 10^3/uL (0.8-4.8); Lymphocytes % 11.1 %; Mean Corpuscular HGB Conc 30.6 g/dL (30-55); Mean Corpuscular Hemoglobin 25.7 pg (27-33); Mean Corpuscular Volume 84.1 fl (82-101); Mean Platelet Volume 10.4 fL (7.4-10.4); Monocytes # 0.1 10^3/uL (0.2-0.9); Monocytes % 1.4 %; Neutrophils # 4.32 10^3/uL (1.8-7.7); Neutrophils % 87.1 %; Nucleated Red Blood Cells % 0 %; Platelet Count 202 10^3/cmm (157-399); Red Blood Count 3.89 10^6/uL (3.85-5.65); White Blood Count 4.96 10^3/uL (3.29-11.43)
[2025-02-11 05:51] LABS: INR 1.19 (0.8-1.2)
[2025-02-11 06:00] LABS: Alanine Aminotransferase 9 U/L (0-41); Albumin Level 3.8 g/dL (3.5-5.2); Alkaline Phosphatase 64 U/L (40-130); Anion Gap 18.1 (5-19); Aspartate Amino Transferase 22 U/L (0-40); Blood Urea Nitrogen 19 mg/dL (8-23); Calcium 9.2 mg/dL (8.5-10.5); Carbon Dioxide 23 mmol/L (22-29); Chloride 101 mmol/L (98-107); Creatinine Clr Calc Pharmacy 124.6538; Globulin 2.7 g/dL (1.3-4.6); Glomerular Filtration Rate 114.6 mL/min (90-130); Glucose 131 mg/dL (65-115); Magnesium 1.9 mg/dL (1.7-2.3); Osmolality Calculated 290 mOsm/kg (285-295); Phosphorus 3.7 mg/dL (2.5-4.5); Potassium 4.1 mmol/L (3.5-5.1); Sodium 138 mmol/L (136-145); Total Bilirubin 1.1 mg/dL (0.15-1.2); Total Protein 6.5 g/dL (6.6-8.7)
[2025-02-11] MEDS: cefTRIAXone 1,000 mg SDV 1000 MG IVP (08:19)
[2025-02-11] MEDS: montelukast sodium 10 mg Tablet PO (08:19)
[2025-02-11] MEDS: spironolactone 25 mg Tablet PO (08:20)
[2025-02-11] MEDS: pantoprazole DR 40 mg Tablet PO (08:20)
[2025-02-11] MEDS: levETIRAcetam 1,000 MG/100 ML PREMIX 400 MG IV ×2 (08:21→18:34)
--- NOTE | 2025-02-11 09:07 | CT_ITS ---
WS: [id number] CT HEAD TECHNIQUE: Noncontrast and contrast-enhanced CT of the head. CLINICAL INFORMATION: left sided weakness COMPARISON: None. DLP: 2306.[address] scans at [facility] use at least one of these dose optimization techniques: automated exposure control; mA and/or kV adjustment per patient size (includes targeted exams where dose is matched to clinical indication); or iterative reconstruction. FINDINGS: No significant change in the hemorrhagic RIGHT frontoparietal mass compared to yesterday. Diffuse surrounding edema. Mass effect on the RIGHT greater than LEFT frontal horns is unchanged. No hydrocephalus. Third ventricle remains patent. Chronic lacunar infarct RIGHT thalamus. Tiny chronic lacunar infarct RIGHT caudate. Previously described 8 mm enhancing lesion RIGHT occipital tip is unchanged suspicious for metastasis. Nodular enhancing component at the superior margin of the large RIGHT frontal parietal mass is stable Paranasal sinuses and mastoid air cells are well aerated. CT/CT head wo/w con [id number] IMPRESSION: 1. No significant changes in the 6 x 5 cm frontal parietal hemorrhagic mass co mpared to yesterday. 2. Associated mass effect and edema is unchanged.
--- NOTE | 2025-02-11 10:03 | PC.CHAP ---
Pastoral Care Encounter/Spiritual Assessment Type of Contact [] Declined precision inspector visit [] Patient/Family/Request visit [] Outpatient visit [] Follow-up visit [] Physician referral [] Code/Alert [x] Routine visit [] Staff referral [] Actively dying [] Patient sleeping [] Family support [] [] Out of room [] Palliative care [] [x] Receiving care in room [] Pre-surgical visit [] Trauma [] Long length of stay [] ICU visit [] Other: Relational/Emotional Strength [] Patient feels connected with others/family/visitors/staff [] Distress [] Loneliness/isolation [] Abandonment Spirituality of Patient [] Person of Linda [] Attends Confucianist of their Linda [] Believes in Prayer [] Reads Bible or Tenriism materials [] There are Spiritual issues to be addressed Ceramics Instructor Interventions [x] Prayer [] Active listening [] Non-anxious presence [] Spiritual/emotional support [] Crisis/trauma care [] Spiritual counseling [] Bereavement support [] Provided bereavement packet [] Provided Bible/devotional materials [] Provided toy/stuffed animal, coloring book to patient or family member [] Provided Communion [] Anointing/[place] [] Salvation [] Completed spiritual assessment [] Other: Impact on Illness or Injury [] Angry [] Fearful [] Anxious [] Often cries [] Exhaustion [] Unable to work [] Unable to attend zoroastrian [] Unable to walk/stand [] Unable to read [] Unable to drive [] Unable to eat/drink [] Unable to sleep [] Unable to be with family [] Patient intubated [] Other: Summary Time spent with patient
[2025-02-11] MEDS: iohexol 350 mg/mL 500 mL Btl (per mL) IV (10:24)
--- NOTE | 2025-02-11 11:36 | PM.PN ---
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 requiring surgery and switch out to bovine valve - He was at a rehab for some period of time - Then had a right supraclavicular fossa mass that was biopsied and proved to be metastatic melanoma - He has followed up with oncology has been told that he has diffusely metastatic melanoma on his PET scan - He is supposed to follow-up with oncologist at [facility] for consideration of immunotherapy - Last night he did not want to be transferred to tertiary level center knowing that here at [facility] we do not have subspecialty support such as neurosurgery, and oncology inpatient, as he did not want to at [facility] -He had CTs in the emergency room that showed evidence of metastatic melanoma, intracranial metastasis with evidence of intracranial bleed, mass effect, likely resulting in his left-sided he hemiplegia -This alone is associate with significant morbidity and mortality, and we do not have the expertise to take care of him here at [facility], and he is aware of this, he understands this, but he declined transfer as he did not want to at [place], so far from family -We discussed the CT scan in detail, he understands the critical nature of his diagnosis, voices understanding, all questions answered - He understands the morbidity or mortality associate with his underlying condition, understands that we do not have the specialist to take care of him here, and we do not have the expertise, and with his underlying metastatic melanoma he has a high risk of , high risk of complications, however he tells me he did not want to be transferred to [place] and far from family -However after further detailed discussion that besides steroids, seizure medications, and clinical monitoring there is not much more I can offer to him here at [facility] -In terms of trial of immunotherapy and potentially palliative radiation therapy I am not the expert in this field, I can reach out to specialists at [facility] to see what their opinion is -After discussing the risk and benefits of all options, he voiced understanding, all questions answered, shared decision making he agrees to to transfer to [facility] if the specialists are willing to help him, and he is willing to take what ever options they provide - He tells me that he understands his condition is terminal, but if [facility] could save him once he is hoping they could save him again - I advised him that given his metastatic melanoma now with intracranial metastasis his prognosis is poor, and that there is a high risk of complications, however I would reach out to the specialist - I reached out to [facility] hospital, - I reached out to their neurosurgery service first, their neurosurgeon tells me that he is not a candidate for any significant surgical intervention but they could consider palliative radiation therapy they are willing to consult on the patient if the oncology service is willing to take them as a primary - Will reach out to the oncology service first Vitals/I&O/Wt Last Vital Signs Temp 98.3 F 02/11/25 08:22 Pulse 70 02/11/25 08:22 Resp 18 02/11/25 08:22 BP 117/70 02/11/25 08:22 Pulse Ox 99 02/11/25 08:22 O2 Del Method Room Air 02/11/25 08:22 02/10/25 02/11/25 02/11/25 22:59 06:59 14:59 Intake Total 251 / 251 721 / 972 460 / 460 Output Total 400 / 400 Balance 251 / 251 321 / 572 460 / 460 Weight last 48 hrs Weight 85.865 kg Weight 86.183 kg Weight 90.718 kg Physical Exam Const: COMMON NORMALS: no acute distress and patient oriented x3 Resp: COMMON NORMALS: normal respiratory effort, No retractions, No use of accessory muscles and clear to auscultation bilaterally AUSCULTATION: clear to auscultation bilaterally Cardio: COMMON NORMALS: regular rate, regular rhythm, S1 normal heart sound present and S2 normal heart sound present RATE: regular rate RHYTHM: regular rhythm HEART SOUNDS: S1 normal heart sound present and S2 normal heart sound present GI: COMMON NORMALS: Normal to inspection, nondistended, normoactive bowel sounds present and non-tender Extremity: COMMON NORMALS: no pedal edema Neuro: COMMON NORMALS: patient oriented x3 Psych: COMMON NORMALS: mental status grossly normal Data 02/11/25 04:45 02/11/25 04:45 A&P Assessment and plan (1) Metastasis to brain: (2) Brain bleed: (3) Intraparenchymal hemorrhage of brain: (4) Left hemiparesis: (5) History of aortic valve replacement with bioprosthetic valve: (6) Warfarin-induced coagulopathy: (7) Failure to thrive: (8) Vision loss: Plan Metastatic melanoma with suspected newly diagnosed brain metastasis with mass effect Associated vasogenic brain edema Associated parenchymal hemorrhaging Left-sided hemiplegia CT/CT head wo/w con [id number] IMPRESSION: 1. Intra-axial nonenhancing collection measuring up to 5.8 x 4.1 x 4.9 cm centered in the right perirolandic region new since prior CT head dated 07/01/2024 and not clearly seen on PET CT dated 01/22/2025. There is relatively increased intrinsic density along the superior aspect of the lesion measuring up to 1.8 cm concerning for possible associated mass. There is surrounding vasogenic edema and mass effect on the adjacent right lateral ventricle. Findings are concerning for a parenchymal hemorrhage with an associated mass lesion. Recommend further evaluation with MRI of the brain with and without IV contrast. 2. There is a 0.8 cm enhancing lesion at the right occipital lobe tip concerning for brain metastasis. This may also be further assessed with MRI of the brain with and without IV contrast. Stage IV metastatic melanoma with extensive metastasis - Patient would like a second opinion at tertiary level center - Reverse INR, 1.1 none - IV dexamethasone - IV keppra for seizure ppx - Repeat head CT today -IV fluids - Seizure precautions -poor prognosis, ongoing goals of care - Possible transfer to [facility] for possible immunotherapy, palliative radiation therapy Warfarin induced coagulopathy - Reversing INR, FFP, vitamin K - Repeat INR 1.19 Failure to thrive - Patient may need placement - Consult care management Bioprosthetic aortic valve History of infective endocarditis History of mechanical aortic valve status post removal - Warfarin and aspirin held due to brain parenchymal bleeding - Continue home tedizolid if patient can supply UTI, Rocephin DVT ppx: SCD PDMP PDMP Reviewed: Not Reviewed Attestations Medical Necessity Statement*: Patient requires hospitalization for metastatic melanoma, with vasogenic brain edema, parenchymal hemorrhage, inpatient, greater than 2 midnights Diagnoses Metastasis to brain C79.31 Brain bleed I61.9 Intraparenchymal hemorrhage of brain I61.9 Left hemiparesis G81.94 History of aortic valve replacement with bioprosthetic valve Z95.3 Warfarin-induced coagulopathy D68.32; T45.515A Failure to thrive Vision loss H54.7
--- OUTSIDE RECORDS SUMMARY | 2025-02-11 15:36 | XMS_ITS | Clinical Summary ---
Author Organization [facility] Based Address [address] [place] [address] Care Team Providers Care Inspector Boiler Name Role Phone Unavailable Primary Care Provider Unavailabl e Allergies Active Allergy Reactions Criticality Noted Date Comments Alpha-Gal (Fhmzcabbl-Bjhnm-7,3-Galactose) Abdominal Pain Low 02/06/2023 Gluten Abdominal Pain Low 03/28/2023 Medications CHROMIUM ORAL Take by mouth. For acid reflux Active famotidine (PEPCID) 20 mg tabletIndication s:Allergy to alpha-gal Take 1 Tablet (20 mg) by mouth 2 times daily. 5 Tablet 3 Active cetirizine (ZyrTEC) 10 mg tabletIndication s:Allergy to alpha-gal Take 2 Tablets (20 mg) by mouth 2 times daily. 10 Tablet 3 Active montelukast (Singulair) 10 mg tabletIndication s:Allergy to alpha-gal Take 1 Tablet (10 mg) by mouth daily at bedtime. 3 Tablet 3 Active mupirocin (BACTROBAN) 2 % Ointment USE 1/2 SYRINGE IN EACH NOSTRIL THE NIGHT BEFORE SURGERY AND THE MORNING OF SURGERY. 2 Gram 03/27/2023 3:55 PM CDT 3 Active HYDROcodone-acet aminophen (NORCO) 5-325 mg tabletIndication s:Status post mechanical aortic valve replacement Take 1 Tablet by mouth every 6 hours as needed for Pain. Max Daily Amount: 4 Tablets 35 Tablet 04/12/2023 12:22 PM CDT 3 Active aspirin (ECOTRIN EC) 81 mg Tablet, Delayed Release (E.C.) Take 1 Tablet (81 mg) by mouth daily. 3 Active warfarin (COUMADIN) 7.5 mg tablet Take 1 Tablet (7.5 mg) by mouth daily. Or as directed 90 Tablet 1 3 Active tamsulosin (FLOMAX) 0.4 mg capsule 2 Capsules. Active psyllium husk, bulk, 100 % Powder as directed Active ondansetron (ZOFRAN) 4 mg Tablet 1 tablet Orally Once a day Active lubiprostone (Amitiza) 24 mcg Capsule 2 times daily. Activ e cromolyn (GASTROCROM) 100 mg/5 mL solution TAKE 5ML BY MOUTH 30 minutes AFTER MEALS AND before bedtime FOUR TIMES DAILY NEEDED 3 Active clobetasoL (TEMOVATE) 0.05 % Solution 1 application Externally Once a day Active diltiaZEM (CARDIZEM CD) 120 mg Controlled Delivery 24 hour capsule take one capsule by mouth every day 30 Capsule 5 4 Active Active Problems Problem Noted Date Diagnosed Date Status post mechanical aortic valve replacement 04/04/2023 Acute blood loss anemia 04/04/2023 Hypertension 04/04/2023 Aneurysm of ascending aorta without rupture 04/2023 Aortic stenosis with bicuspid valve 02/06/2023 Family History Medical History Relation Name Comments Coronary Artery Disease Brother Hypertension Brother Coronary Artery Disease Father Depression Father Coronary Artery Disease Mother Depression Mother Diabetes Mother High Cholesterol Mother Hypertension Mother Coronary Artery Disease Sister Depression Sister Hypertension Sister Relation Name Status Comments Brother Father Mother Sister Social History Tobacco Use Types Packs/Day Years Used Date Smoking Tobacco: Never Smokeless Tobacco: Never Tobacco Cessation:Counseling Given: Not Answered Alcohol Use Standard Drinks/Week Comments Never 0 (1 standard drink = 0.6 oz pur e alcohol) Feeling Safe Answer Date Recorded Are you in a relationship wi th someone who hurts you emotionally and/or physically? No 04/04/2023 Food Insecurity Answer Date Recorded Patient needs follow up regarding: Not on file 12/18/2023 Transportation Needs Answer Date Record ed Patient needs follow up regarding: Not on file 12/18/2023 Housing Stability Answer Date Recorded Patient needs follow up regarding: Not on file 12/18/2023 Utility Needs Answer Date Recorded Patient needs follow up regarding: Not on file 12/18/2023 Sex and Gender Information Value Date Recorded Sex Assigned at Not on file Legal Sex Male 3:16 PM CDT Gender Identity Not on file Sexual Orientation Not on file Last Filed Vital Signs Vital Sign Reading Time Taken Comments Blood Pressure 110/62 05/27/2023 3:07 PM CDT Pulse 58 05/27/2023 3:07 PM CDT Temperature 36.8 C (98.2 F) 04/12/2023 11:35 AM CDT Respiratory Rate 19 04/12/2023 11:35 AM CDT Oxygen Saturation 95% 04/24/2023 12:48 PM CDT Inhaled Oxygen Concentration - - Weight 96.2 kg (212 lb) 05/27/2023 3:07 PM CDT Height 177.8 cm (5' 10 ) 05/27/2023 3:07 PM CDT Body Mass Index 30.42 05/27/2023 3:07 PM CDT Plan of Treatment Health Maintenance Due Date Last Done Comments Pre-Diabetes and Diabetes Screening 1963 DTAP/TDAP/TD VACCINES (1 - Tdap) 1982 COLORECTAL SCREENING 2008 Colorectal Cancer Screening 2008 FIT-DNA Q 3 years 2008 FIT/FOBT Q 1 year 2008 Flex Sig/CT Colonography Q 5 years 2008 ZOSTER VACCINE (1 of 2) 2013 RSV VACCINE (60+ or ) (1 - Risk 60-74 years 1-dose series) 2023 INFLUENZA VACCINE (#1) 2024 Medical Devices Implanted Type Area Nuclear Reactor Operator Device Identifier Shelf Expiration Date Model / Serial / Lot Closure Perclose Prostyle Sut Mediate [id number] - [id number] Implanted:Qty: 1 on 02/22/2023 at [facility] Closure Device Right: Groin CHENEY- VASC DEVICE 12/04/2024 [id number] / / [id number] Graft Vasc Hemashield Pltnm [id number] - [id number] Implanted:Qty: 1 on 04/04/2023 by Milan Carlisle MD at [facility] Graft N/A: Chest [employer] [id number] 12/05/2027 [id number] / [id number] / [id number] Adh Bioglue 10ml [id number] - [id number] Implanted:Qty: 1 on 04/04/2023 by Milan Carlisle MD at [facility] Sealant N/A: Chest ARTIVION (FKA CRYOLIFE) 10/28/2024 [id number] / / [id number] Insurance [place]ID [place] [employer] [place] Medicaid Advance Directives For more information, please contact: [phone] Documents on File Type Date Recorded Patient Insulation Machine Operator Expl anation Advance Directive POA 07/04/2022 6:36 AM A dvance Directive POA * Full Code (Latest Code Status on File) Date Activated Date Inactivated Comments 04/04/2023 12:21 PM 04/12/2023 6:43 PM * Full Code Date Activated Date Inactivated Comments 04/04/2023 5:22 AM 04/04/2023 12:21 PM * Full Code Date Activated Date Inactivated Comments 02/22/2023 7:58 AM 02/22/2023 5:34 PM
--- OUTSIDE RECORDS SUMMARY | 2025-02-11 15:36 | XMS_ITS | Patient Health Record ---
Author Organization [facility] Address [address] [place] [address] Care Team Providers Care Facilities Mechanical Design Engineer Name Role Phone Cecil Mcnally Primary Care Provider Allergies Allergen (clinical drug ingredient) Drug/Non Drug Allergy documented on EMR Reaction Allergy Type Onset Date Status Soybean Unknown Drug Allergy Active Gluten Gluten Unknown Allergy Active Reason For Referral Reason Hoarseness after tra ch Diagnosis 1 Hoarseness (R49.0) Referral Organization [facility] Referring Provider First [...] AM >CLOSING THIS OUT Referral Priority Routine Medications Medication SIG (Take, Route, Frequency, Duration) Notes Start Date End Date Status Citlali-Colace 50-8.6 MG 1 tablet as needed Orally Twice a day Not-Taking Diclofenac Sodium 1 % as directed Externally Not-Taking Aspirin 81 MG 1 tablet Orally Once a day Active Montelukast Sodium 10 MG 1 tablet Orally Once a day Active guaiFENesin 600 MG as directed Orally Not-Taking Furosemide 40 MG 1 tablet Orally Once a day Active Fluticasone Propionate 50 MCG/ACT 1 spray in each nostril Nasally Twice a day Active HYDROcodone-Acetaminophen 5-325 MG 1 tablet as needed Orally every 6 hrs for 30 days 02/04/2025 03/06/2025 Active Pantoprazole Sodium 40 MG 1 tablet Orall y Once a day for 30 day(s) 12/05/2022 Active Effexor XR 37.5 MG 1 capsule with food Orally Once a day for 30 day(s) 12/11/2022 Not-Taking traZODone HCl 50 MG 2 tablet at bedtime as needed Orally Once a day Not-Taking Tamsulosin HCl 0.4 MG 2 capsule Orally Once a day Not-Taking Dextromethorphan HBr 20 MG/15ML as directed Orally Not-Takin g Amitiza 24 MCG 1 capsule with food and water Orally Twice a day Not-Taking Cyclobenzaprine HCl 10 MG 1 tablet at be dtime as needed Orally Once a day Active Ketoconazole 2 % 1 application Externally Once a day Not-Taking Warfarin Sodium 10 MG 1 tablet Orally On ce a day Active Warfarin Sodium 2 MG 1 1/2 tablet Orally Once a day Active Sennosides-Docusate Sodium 8.6-50 MG 2 capsules at bedtime with a full glass of water as needed Orally Once a day Not-Taking Psyllium Husk - as directed No t-Taking Acetaminophen 500 MG 1 tablet as needed Orally every 6 hrs Not-Taking Ondansetron HCl 4 MG 1 tablet Orally Onc e a day Not-Taking Melatonin 5 MG 1 tablet in the evening Orally Once a day Active Mupirocin 2 % 1 application Externally Twice a day Not-Taking Clobetasol Propionate 0.05 % 1 application Externally Once a day Not-Taking Tedizolid Phosphate 200 MG 1 tablet Oral ly Once a day Active Spironolactone 25 MG 1 tablet Orally Active Potassium Chloride 20 MEQ 1 tablet with food Orally Once a day Active HYDROcodone-Acetaminophen 5-325 MG 1 tablet as needed [...] all Thoughts that you would be b jsoh off , or of hurting yourself in some way Not at all Total Score 0 Tobacco Control (Standard) Question Answer Notes Tobacco use: Nonsmoker Section Notes: 10/27/24 CIME Dep/tob - 10/27/24 Problems Problem Type SNOMED Code ICD Code Onset Dates Problem Status W/U Status Risk Notes Problem 753255275 Major depressive disorder, recurrent, mild (F33.0) Active confirmed Problem 62355086 Hoarseness (R49.0) Active confirmed Problem 81861632722897 Mechanical heart valve present (Z95.2) Active confirmed Problem 47478561 Irritable bowel syndrome with both constipation and diarrhea (K58.2) Active confirmed Problem 116998019 Metastatic melanoma (C43.9) Active confirmed Vital Signs Heart Rate 70 /min 02/03/2025 Temperature 99.5 degrees Fahrenheit 02/03/2025 Height-cm 180.34 cm 02/03/2025 Oximetry 98 % 02/03/2025 Blood pressure diastolic 64 mm Hg 02/03/2025 Weight-kg 91.54 kg 02/03/2025 Height 71 in 02/03/2025 Blood pressure systolic 110 mm Hg 02/03/2025 Weight 201.8 lbs 02/03/2025 BMI 28.14 kg/m2 02/03/2025 Encounters Encounter Location Date Provider Diagnosis [facility] [address] [id number] 02/04/2025 Cecil Mcnally Metastatic melanoma C43.9 [facility] [address] [place] [id number] 02/03/2025 Cecil Mcnally Metastatic melanoma C43.9 ; Hoarseness R49.0 and Depression screen Z13.31 [facility] [address] [phone] 10/27/2024 Cecil Mcnally Hoarseness R49.0 ; Mechanical heart valve present Z95.2 and Depression screen Z13.31 Assessments Encounter Date Diagnosis (ICD Code) Assessment Notes Treatment Notes Treatment Clinical Notes Section Notes 10/27/2024 Hoarseness (ICD-10 - R49.0) 10/27/2024 Mechanical heart valve present (ICD-10 - Z95.2) His INR is 2.4 02/03/2025 Metastatic melanoma (ICD-10 - C43.9) Dr. Smith is getting him set up with immunotherapy. 02/04/2025 Metastatic melanoma (ICD-10 - C43.9) 10/27/2024 Depression screen (ICD-10 - Z13.31) 02/03/2025 Hoarseness (ICD-10 - R49.0) 02/03/2025 Depression screen (ICD-10 - Z13.31) Plan Of Treatment No Information Insurance Providers Payer Name Payer Address Payer Phone Subscriber Number Group Number Insured Name Patient Relationship to Insured Coverage Start Date Coverage End Date [employer] Medicare Replacement [address] [address] [place] [address] [id number] Giovanni Mcgill Self - patient is the insured [place] Medicare [address] [address] [place] [address] [id number] Giovanni Mcgill Self - patient is the insured [place] Medicaid [address] [place] [address] [id number] Giovanni Mcgill Self - patient is the insured Medical (General) History Medical History History ICD Code Anxiety F41.9 Abdominal pain R10.9 Urinary tract infection, site not specif ied N39.0 Benign hypertension I10 Aortic stenosis I35.0 Gastritis K29.70 Diverticulosis of large inte lila without perforation or abscess without bleeding K57.30 Hepatitis C B19.20 Erectile dysfunction N52.9 anemia acute respiratory failure bacteremia stroke Depression heart valve disorder a fib melanoma Surgical History Surgery Date(Month/Year) colonoscopy heart valve surgery arm surgery cancer
--- NOTE | 2025-02-11 18:21 | PM.TDS ---
Transfer Summary Providers Date of Admission: 02/10/25 18:48 Date of Discharge/Transfer: 02/13/25 Attending Provider at Admission: Preet Mason MD Attending Provider at Transfer: Preet Mason MD Primary Care Provider: Cj Black MD Transfer Plans: Anticipated date of transfer: 02/13/25. Diagnoses at Discharge Discharge Diagnosis (1) Metastasis to brain: Status: Acute (2) Brain bleed: Status: Acute (3) Intraparenchymal hemorrhage of brain: Status: Acute (4) Left hemiparesis: Status: Acute (5) History of aortic valve replacement with bioprosthetic valve: Status: Acute (6) Warfarin-induced coagulopathy: Status: Acute (7) Failure to thrive: Status: Acute (8) Vision loss: Status: Acute Reason for Visit Reason for Visit L side weakness x 2 months Hospital Course Hospital Course This is a 59-year-old male 59 year old male with a past medical history significant for cutaneous melanoma with extensive metastasis, history of mechanical aortic valve status post removal secondary to endocarditis, status post bovine aortic valve replacement, anxiety, benign prostatic hypertrophy, depression, hepatitis C, and multiple other comorbidities who presents to the emergency department with progressive left-sided weakness for the past 2 weeks. Metastatic melanoma with suspected newly diagnosed brain metastasis with mass effect Associated vasogenic brain edema Associated parenchymal hemorrhaging Left-sided hemiplegia CT/CT head wo/w con [id number] IMPRESSION: 1. Intra-axial nonenhancing collection measuring up to 5.8 x 4.1 x 4.9 cm centered in the right perirolandic region new since prior CT head dated 07/01/2024 and not clearly seen on PET CT dated 01/22/2025. There is relatively increased intrinsic density along the superior aspect of the lesion measuring up to 1.8 cm concerning for possible associated mass. There is surrounding vasogenic edema and mass effect on the adjacent right lateral ventricle. Findings are concerning for a parenchymal hemorrhage with an associated mass lesion. Recommend further evaluation with MRI of the brain with and without IV contrast. 2. There is a 0.8 cm enhancing lesion at the right occipital lobe tip concerning for brain metastasis. This may also be further assessed with MRI of the brain with and without IV contrast. Stage IV metastatic melanoma with extensive metastasis - Patient would like a second opinion at tertiary level center - Reverse INR, 1.1 none - IV dexamethasone - IV keppra for seizure ppx - Repeat head CT today -IV fluids - Seizure precautions -poor prognosis, ongoing goals of care - Transfer to [facility] for consideration of palliative radiation therapy, for left-sided weakness Warfarin induced coagulopathy - Reversing INR, FFP, vitamin K - Repeat INR 1.19 Failure to thrive - Patient may need placement - Consult care management Bioprosthetic aortic valve History of infective endocarditis History of mechanical aortic valve status post removal - Warfarin and aspirin held due to brain parenchymal bleeding - Continue home tedizolid if patient can supply UTI, Rocephin - Patient was seen this morning currently alert oriented x 3, following all commands - He has left-sided hemiplegia - Does report visual deficits out of the right eye, intermittent blurry vision - No headache, no nausea, no vomiting - For the left-sided weakness he has been having it for the last 4 days - Increased difficulty walking - We had a detailed discussion about his recent hospitalizations -- He tells me that he has a bovine aortic valve, he is not sure if he was supposed to be taking Coumadin or not, but was taking it, after he was hospitalized for it endocarditis of his aortic mechanical valve requiring surgery and switch out to bovine valve - He was at a rehab for some period of time - Then had a right supraclavicular fossa mass that was biopsied and proved to be metastatic melanoma - He has followed up with oncology has been told that he has diffusely metastatic melanoma on his PET scan - He is supposed to follow-up with oncologist at [facility] for consideration of immunotherapy - Last night he did not want to be transferred to tertiary level center knowing that here at [facility] we do not have subspecialty support such as neurosurgery, and oncology inpatient, as he did not want to at [facility] -He had CTs in the emergency room that showed evidence of metastatic melanoma, intracranial metastasis with evidence of intracranial bleed, mass effect, likely resulting in his left-sided he hemiplegia -This alone is associate with significant morbidity and mortality, and we do not have the expertise to take care of him here at [facility], and he is aware of this, he understands this, but he declined transfer as he did not want to at [place], so far from family after further detailed discussion that besides steroids, seizure medications, and clinical monitoring there is not much more I can offer to him here at [facility] -In terms ofpotentially palliative radiation therapy I am not the expert in this field, I can reach out to specialists at [facility] to see what their opinion is -After discussing the risk and benefits of all options, he voiced understanding, all questions answered, shared decision making he agrees to to transfer to [facility] if the specialists are willing to help him, and he is willing to take what ever options they provide - He tells me that he understands his condition is terminal, but if [facility] could save him once, he is hoping they could save him again - I advised him that given his metastatic melanoma now with intracranial metastasis his prognosis is poor, and that there is a high risk of complications, however I would reach out to the specialist - I reached out to [facility] hospital, - I reached out to their neurosurgery service first, their neurosurgeon tells me that he is not a candidate for any significant surgical intervention but they could consider palliative radiation therapy they are willing to consult on the patient if the oncology service is willing to take them as a primary - Spoke to the oncology service, patient has been accepted, will be transferred to [facility] - Spoke to patient about risks and benefits of transfer, he voiced understanding, all questions answered, shared decision making, agreed to proceed - Spoke to his life partner Erika about the transfer, she is agreeable to proceed - Patient was transferred 02/12/2025 before he could be seen TS Data Studies Completed and Pending Pending at discharge Category Date Time Status Urine Culture Stat Lab 02/10/25 15:30 Received Completed Studies During Hospitalization Category Date Time Status CT head wo/w con [id number] Routine Cat Scan 02/11/25 09:[address] head wo/w con [id number] Stat Cat Scan 02/10/25 15:21 Completed XR chest 1V portable [id number] Stat Exams 02/10/25 15:23 Completed Laboratory Last Values WBC 4.96 10^3/uL (3.29-11.43) 02/11/25 04:45 RBC 3.89 10^6/uL (3.85-5.65) 02/11/25 04:45 Hgb 10.00 g/dL (11.27-16.99) L 02/11/25 04:45 Hct 32.7 % (37-53) L 02/11/25 04:45 MCV 84.1 fl (82-101) 02/11/25 04:45 MCH 25.7 pg (27-33) L 02/11/25 04:45 MCHC 30.6 g/dL (30-55) 02/11/25 04:45 RDW 17.0 % (12.1-15.1) H 02/11/25 04:45 Plt Count 202 10^3/cmm (157-399) 02/11/25 04:45 MPV 10.4 fL (7.4-10.4) 02/11/25 04:45 Neut % (Auto) 87.1 % 02/11/25 04:45 Lymph % (Auto) 11.1 % 02/11/25 04:45 [place] % (Auto) 1.4 % 02/11/25 04:45 Eos % (Auto) 0.0 % 02/11/25 04:45 Baso % (Auto) 0.2 % 02/11/25 04:45 Neut # (Auto) 4.32 10^3/uL (1.8-7.7) 02/11/25 04:45 Lymph # (Auto) 0.6 10^3/uL (0.8-4.8) L 02/11/25 04:45 [place] # (Auto) 0.1 10^3/uL (0.2-0.9) L 02/11/25 04:45 Eos # (Auto) 0.0 10^3/uL (0.0-0.8) 02/11/25 04:45 Baso # (Auto) 0.0 10^3/uL (0.0-0.1) 02/11/25 04:45 Nucleated RBC % (auto) 0 % 02/11/25 04:45 Nucleated RBCs # 0.0 /100WBC 02/11/25 04:45 PT 15.90 SECONDS (12.1-14.9) H D 02/11/25 04:45 INR 1.19 (0.8-1.2) 02/11/25 04:45 Sodium 138 mmol/L (136-145) 02/11/25 04:45 Potassium 4.1 mmol/L (3.5-5.1) 02/11/25 04:45 Chloride 101 mmol/L (98-107) 02/11/25 04:45 Carbon Dioxide 23 mmol/L (22-29) 02/11/25 04:45 Anion Gap 18.1 (5-19) 02/11/25 04:45 BUN 19 mg/dL (8-23) 02/11/25 04:45 Creatinine 0.7 mg/dL (0.7-1.2) 02/11/25 04:45 GFR Calculation 114.6 mL/min (90-130) 02/11/25 04:45 Glucose 131 mg/dL (65-115) H 02/11/25 04:45 POC Glucose 98 mg/dL (70-110) 02/10/25 15:02 Calculated Osmolality 290 mOsm/kg (285-295) 02/11/25 04:45 Calcium 9.2 mg/dL (8.5-10.5) 02/11/25 04:45 Phosphorus 3.7 mg/dL (2.5-4.5) 02/11/25 04:45 Magnesium 1.9 mg/dL (1.7-2.3) 02/11/25 04:45 Total Bilirubin 1.1 mg/dL (0.15-1.2) 02/11/25 04:45 AST 22 U/L (0-40) 02/11/25 04:45 ALT 9 U/L (0-41) 02/11/25 04:45 Alkaline Phosphatase 64 U/L (40-130) 02/11/25 04:45 Total Protein 6.5 g/dL (6.6-8.7) L 02/11/25 04:45 Albumin 3.8 g/dL (3.5-5.2) 02/11/25 04:45 Globulin 2.7 g/dL (1.3-4.6) 02/11/25 04:45 Urine Color Yellow (Yellow) 02/10/25 15:30 Urine Appearance Clear (CLEAR) 02/10/25 15:30 Urine pH 5.5 (5-7) 02/10/25 15:30 Ur Specific [place] 1.026 (1.005-1.030) 02/10/25 15:30 Urine Protein 1+ (Negative) A 02/10/25 15:30 Urine Glucose (UA) Negative (Normal) 02/10/25 15:30 Urine Ketones 2+ (Negative) H 02/10/25 15:30 Urine Blood 2+ (Negative) A 02/10/25 15:30 Urine Nitrate Negative (Negative) 02/10/25 15:30 Urine Bilirubin Negative (Negative) 02/10/25 15:30 Urine Urobilinogen 1.0 mg/dL (Negative) 02/10/25 15:30 Ur Leukocyte Esterase Trace (Negative) A 02/10/25 15:30 Urine RBC 51-100 /hpf (0-2) H 02/10/25 15:30 Urine WBC 0-5 /hpf (0-5) 02/10/25 15:30 Ur Squamous Epith Cells 0-5 /hpf (0-5) 02/10/25 15:30 Amorphous Sediment Not Reportable 02/10/25 15:30 Urine Bacteria None seen /hpf (NONE) 02/10/25 15:30 Hyaline Casts 0.40 /lpf 02/10/25 15:30 Blood Type O Negative 02/10/25 17:23 Rho(D) Type Rh negative 02/10/25 17:23 Radiology Impressions Chest X-Ray 02/10/25 15:23 IMPRESSION: Abnormality in the left lower hemithorax as described above. Unknown chronicity. Head CT 02/11/25 09:07 IMPRESSION: 1. No significant changes in the 6 x 5 cm frontal parietal hemorrhagic mass compared to yesterday. 2. Associated mass effect and edema is unchanged. Recent Clincial Data Last Vital Signs Temp 98.3 F 02/11/25 16:10 Pulse 68 02/11/25 16:10 Resp 18 02/11/25 16:10 BP 129/73 02/11/25 16:10 Pulse Ox 97 02/11/25 16:10 O2 Del Method Room Air 02/11/25 16:10 Vital Signs Temp Pulse Resp BP Pulse Ox O2 Del Method 02/11/25 16:10 98.3 F 68 18 129/73 97 Room Air 02/11/25 12:12 98.4 F 69 19 H 135/68 97 Room Air 02/11/25 08:22 98.3 F 70 18 117/70 99 Room Air Intake & Output/Weight 02/09/25 02/10/25 02/11/25 02/12/25 06:59 06:59 06:59 06:59 Intake Total 972 / 972 1420 / 1420 Output Total 400 / 400 Balance 572 / 572 1420 / 1420 Weight 85.865 kg Vitals Last Vital Signs Temp 98.3 F 02/11/25 16:10 Pulse 68 02/11/25 16:10 Resp 18 02/11/25 16:10 BP 129/73 02/11/25 16:10 Pulse Ox 97 02/11/25 16:10 O2 Del Method Room Air 02/11/25 16:10 TS Medications Medications Acetaminophen (Acetaminophen 325 Mg Tablet) 650 mg PO Q6H PRN PRN Reason: Mild/Mod Pain Or Temp >/= 101 Ceftriaxone Sodium (Ceftriaxone 1,000 Mg Sdv) 1,000 mg IVP Q24H [facility]; Protocol Last Admin: 02/11/25 08:19 Dose: 1,000 mg Cyclobenzaprine HCl (Cyclobenzaprine 10 Mg Tablet) 10 mg PO TID PRN PRN Reason: MUSCLE SPASMS Dexamethasone (Dexamethasone 4 Mg/Ml Inj) 4 mg IVP Q6H [facility] Last Admin: 02/11/25 14:03 Dose: 4 mg Levetiracetam (Keppra) 1,000 mg in 100 mls @ 400 mls/hr IV Q12H [facility] Last Infusion: 02/11/25 09:06 Dose: Infused Lorazepam (Lorazepam 1 Mg/0.5 Ml Injection) 2 mg IVP Q1H PRN PRN Reason: SEIZURES Montelukast Sodium (Montelukast Sodium 10 Mg Tablet) 10 mg PO DAILY [facility] Last Admin: 02/11/25 08:19 Dose: 10 mg Morphine Sulfate (Morphine 4 Mg/Ml Sdv 1 Ml) 2 mg IVP Q8H PRN PRN Reason: SEVERE PAIN Ondansetron HCl (Ondansetron 2 Mg/Ml Sdv 2 Ml) 4 mg IVP Q8H PRN PRN Reason: vomiting, or N/V if npo Oxycodone/Acetaminophen (Oxycodone-Apap 5-325 Mg Tablet) 1 tab PO Q4H PRN PRN Reason: MODERATE PAIN Pantoprazole Sodium (Pantoprazole Dr 40 Mg Tablet) 40 mg PO DAILY [facility] Last Admin: 02/11/25 08:20 Dose: 40 mg Prochlorperazine (Prochlorperazine 10 Mg Tablet) 10 mg PO Q4H PRN PRN Reason: mild nausea Sodium Chloride (Sodium Chloride 0.9% 100 Ml Bag) 50 ml IVP PRN PRN PRN Reason: prime and flush Spironolactone (Spironolactone 25 Mg Tablet) 25 mg PO DAILY [facility] Last Admin: 02/11/25 08:20 Dose: 25 mg Discontinued Medications Dexamethasone (Dexamethasone 10 Mg/Ml Inj) 10 mg IM ONCE ONE Stop: 02/10/25 16:36 Last Admin: 02/10/25 16:40 Dose: 10 mg Furosemide (Furosemide 40 Mg Tablet) 40 mg PO DAILY [facility] Phytonadione 10 mg/ Sodium (Chloride) 51 mls @ 153 mls/hr IV ONCE ONE Stop: 02/10/25 17:31 Last Infusion: 02/10/25 20:07 Dose: Infused Levetiracetam (Keppra) 2,000 mg in 200 mls @ 400 mls/hr IV ONCE ONE Stop: 02/10/25 19:17 Last Infusion: 02/10/25 20:08 Dose: Infused Iohexol (Iohexol 350 Mg/Ml 500 Ml Btl (Per Ml)) 0 ml IV ONCE ONE Stop: 02/10/25 16:01 Last Admin: 02/10/25 16:00 Dose: 100 ml Iohexol (Iohexol 350 Mg/Ml 500 Ml Btl (Per Ml)) 0 ml IV ONCE ONE Stop: 02/11/25 10:25 Last Admin: 02/11/25 10:24 Dose: 100 ml Lorazepam (Lorazepam 2 Mg/Ml Inj 1 Ml) 2 mg IVP Q1H PRN PRN Reason: SEIZURES Morphine Sulfate (Morphine 4 Mg/Ml Sdv 1 Ml) 4 mg IVP Q4H PRN PRN Reason: SEVERE PAIN Morphine Sulfate (Morphine 4 Mg/Ml Sdv 1 Ml) 2 mg IVP Q2H PRN PRN Reason: SEVERE PAIN Ondansetron HCl (Ondansetron 2 Mg/Ml Sdv 2 Ml) 4 mg IVP Q6H PRN PRN Reason: NAUSEA AND VOMITING Potassium Chloride (Potassium Chloride Er 20 Meq Tablet) 20 meq PO BID [facility] Allergies gluten Allergy (Severe, Verified 01/27/25 14:31) ADR-Abdominal Pain soy Allergy (Unknown, Verified 01/27/25 14:31) Unknown Alpha-Gal (Lorjjznpl-Safba-3,3-Gala Allergy (Verified 01/27/25 14:31) ADR-Vomiting processed sugar Allergy (Uncoded 01/27/25 14:31) ADR-Gastrointestinal Upset Home Medications aspirin 325 mg tablet 325 mg PO DAILY 02/21/24 [History Confirmed 02/10/25] albuterol sulfate 90 mcg/actuation aerosol inhaler 2 puff inhalation Q6H PRN shortness of breath or wheezing #8.5 grams 10/14/24 [Rx Confirmed 02/10/25] furosemide 40 mg tablet 40 mg PO DAILY 10/14/24 [History Confirmed 02/10/25] montelukast 10 mg tablet 10 mg PO DAILY 10/14/24 [History Confirmed 02/10/25] pantoprazole 40 mg tablet,delayed release 40 mg PO DAILY 10/14/24 [History Confirmed 02/10/25] warfarin 5 mg tablet 5 mg PO DAILY 12/01/24 [History Confirmed 02/10/25] cyclobenzaprine 10 mg tablet 10 mg PO TID PRN Pain 12/02/24 [History Confirmed 02/10/25] spironolactone 50 mg tablet 25 mg PO DAILY 12/02/24 [History Confirmed 02/10/25] tedizolid 200 mg tablet (Sivextro) 200 mg PO DAILY 12/02/24 [History Confirmed 02/10/25] potassium chloride 20 mEq tablet,extended release(part/cryst) 20 meq PO BID 01/11/25 [History Confirmed 02/10/25] prochlorperazine maleate 10 mg tablet (Compazine) 10 mg PO Q4H PRN mild nausea #30 tabs 01/28/25 [Rx Confirmed 02/10/25] Discharge Plan Discharge Patient Disposition: Home Condition: Stable Prescriptions: No Action furosemide 40 mg tablet 40 mg PO DAILY pantoprazole 40 mg tablet,delayed release (DR/EC) 40 mg PO DAILY montelukast 10 mg tablet 10 mg PO DAILY albuterol sulfate 90 mcg/actuation HFA aerosol inhaler 2 puff inhalation Q6H PRN (Reason: shortness of breath or wheezing) Qty: 8.5 0RF cyclobenzaprine 10 mg tablet 10 mg PO TID PRN (Reason: Pain) warfarin 5 mg tablet 5 mg PO DAILY spironolactone 50 mg tablet 25 mg PO DAILY Sivextro 200 mg tablet 200 mg PO DAILY potassium chloride 20 mEq tablet,ER particles/crystals 20 meq PO BID aspirin 325 mg tablet 325 mg PO DAILY prochlorperazine maleate [Compazine] 10 mg tablet 10 mg PO Q4H PRN (Reason: mild nausea) Qty: 30 3RF Referrals: Cj Black MD [Primary Care Provider, [facility]] Patient Instructions: Opioid Safety Transfer Attestations Time Spent in Transfer Care: less than 30 min Quality Metrics Clinical Quality Measures [ No reported AMI, CVA or VTE this stay] Coding Level of Care Code Acute Code for Chg Fwd Diagnoses Metastasis to brain C79.31 Brain bleed I61.9 Intraparenchymal hemorrhage of brain I61.9 Left hemiparesis G81.94 History of aortic valve replacement with bioprosthetic valve Z95.3 Warfarin-induced coagulopathy D68.32; T45.515A Failure to thrive Vision loss H54.7
[2025-02-11] MEDS: oxyCODONE-APAP 5-325 mg Tablet 1 TAB PO (19:36)
--- NOTE | 2025-02-11 22:58 | PC.NURSE ---
Nurse has tried to contact [facility] to give report on Patient being transferred, Nurse receiving call does not know who is receiving Patient and is waiting to speak to charge nurse for assignment detail. Will call back to retry.
--- NOTE | 2025-02-11 23:11 | PC.NURSE ---
Nurse returned call to [facility], spoke to Miracle Huber RN, and gave report on Patient, Nurse answered questions and provided all pertinent information on Patient to provide care, call was made on February 11, 2025@[phone].
[2025-02-12] VITALS: BP 121/62; PULSE 70; RESP 16; TEMP 36.4
[2025-02-12] MEDS: dexamethasone 4 mg/mL INJ IVP ×2 (01:56→08:18)
[2025-02-12 01:57] VITALS: RESP 16
[2025-02-12] MEDS: oxyCODONE-APAP 5-325 mg Tablet 1 TAB PO ×2 (01:57→06:36)
[2025-02-12 03:33] VITALS: BP 147/83; PULSE 70; RESP 17; TEMP 36.4; O2SAT 98
[2025-02-12 06:36] VITALS: RESP 16
[2025-02-12] MEDS: cefTRIAXone 1,000 mg SDV 1000 MG IVP (07:23)
[2025-02-12] MEDS: levETIRAcetam 1,000 MG/100 ML PREMIX 400 MG IV (07:24)
[2025-02-12 07:46] VITALS: BP 159/89; PULSE 70; RESP 17; TEMP 36.4; O2SAT 97
[2025-02-12] MEDS: pantoprazole DR 40 mg Tablet PO (08:18)
[2025-02-12] MEDS: spironolactone 25 mg Tablet PO (08:18)
[2025-02-12] MEDS: montelukast sodium 10 mg Tablet PO (08:18)
[2025-02-12 10:00] VITALS: BP 159/89; PULSE 70; RESP 17; TEMP 36.4; O2SAT 97
== END 2025-02-12 08:30 | disposition short-term general hospital (02) | DRG 54 ==
LOC: ER 19:30 → MEDSURG 20:45
PROVIDERS: Internal Medicine; Admitting Provider Family Medicine; Emergency Provider Family Medicine; PCP Family Medicine; Visit Provider Family Medicine
DX: C79.31 Secondary malignant neoplasm of brain (principal); I61.9 Nontraumatic intracerebral hemorrhage, unspecified; C79.89 Secondary malignant neoplasm of other specified sites; C79.2 Secondary malignant neoplasm of skin; G81.94 Hemiplegia, unspecified affecting left nondominant side; D68.32 Hemorrhagic disorder due to extrinsic circulating anticoagulants; N39.0 Urinary tract infection, site not specified; Z85.820 Personal history of malignant melanoma of skin; Z95.3 Presence of xenogenic heart valve; T45.515A Adverse effect of anticoagulants, initial encounter; R62.7 Adult failure to thrive; Z68.25 Body mass index [BMI] 25.0-25.9, adult; H54.7 Unspecified visual loss; N40.1 Benign prostatic hyperplasia with lower urinary tract symptoms; Z86.19 Personal history of other infectious and parasitic diseases; Z91.014 Allergy to mammalian meats; Z79.82 Long term (current) use of aspirin
CPT/HCPCS: 36415; 36416; 36430; 70470; 71045; 80053; 81001; 82962; 83735; 84100; 85025; 85610; 86900; 86927; 87086; 93005; 96365; 99285; J0696; J1100; J1953; J3430; J9999; P9017

== ENCOUNTER 2025-08-17 15:38 | Outpatient (CLI) | payer MEDICARE, SELFPAY ==
--- NOTE | 2025-08-17 16:00 | CT_ITS ---
WS: [id number] CT NECK WITH CONTRAST HISTORY: R59.0 - Localized enlarged lymph nodes, history of melanoma. TECHNIQUE: Contiguous 2 mm axial images are performed through the neck with intravenous contrast. Sagittal and coronal reformats are also submitted. All CT scans at [facility] use at least one of these dose optimization techniques: automated exposure control; mA and/or kV adjustment per patient size (includes targeted exams where dose is matched to clinical indication); or iterative reconstruction. CONTRAST: CONTRAST: Omnipaque 350; 100 mL IV. DLP: 181.16 mGy.cm COMPARISON: PET/CT 01/22/2025, prior neck CT 01/26/2025 Reidentified is the PET/CT positive mass in the RIGHT supraclavicular region. Mass now measures 2.3 x 2.7 cm which has decreased in size since 01/26/2025. There is still stranding within the adjacent fat but improved. The marker along the inferior RIGHT neck at the area of the palpable abnormality is positive for some mild skin thickening. This marker is closely associated with the superior aspect of the mass in the supraclavicular region. Mass probably extends into the adjacent neck muscles. Small cervical chain lymph nodes. Largest lymph node is approximately 8 mm on the LEFT at level 2. Nasopharynx and oropharynx are unremarkable. No enhancing mass in the orbits. Mild narrowing of the larynx at the level of the vocal cords. Very similar to the prior study. Large mucous retention cyst in the LEFT maxillary sinus. Mastoid air cells are clear. No destructive bone lesions identified. Lung apices are clear. Previously noted bilateral pleural effusions on the neck CT have resolved. Soft tissue nodule seen on the prior CT also have improved. Lung apices are clear. Atherosclerosis aorta. Prior CABG. RIGHT subclavian pacer/defibrillator wires. CT/CT neck w con* [id number] IMPRESSION: 1. Palpable area along the inferior RIGHT neck corresponds to the superior asp ect of the previously described and PET/CT positive metastatic site. There has been a significant decrease in size of this metastatic mass now measuring 2.3 x 2.7 cm. Overall improvement of the extranodal extension also. 2. Bilateral small cervical chain lymph nodes. No progression since 01/26/2025. No oropharyngeal mass identified. 3. There is mild narrowing of the airway at the level of the vocal cords which is similar to the prior study of 01/26/2025. This may be due to Valsalva maneuv er during the exam.
[2025-08-17 16:08] LABS: Blood Urea Nitrogen 19 mg/dL (8-23)
[2025-08-17] MEDS: iohexol 350 mg/mL 500 mL Btl (per mL) IV (16:20)
== END 2025-08-17 15:39 | disposition home or self-care (01) ==
LOC: RAD 15:39
PROVIDERS: PCP Nurse Practitioner; Visit Provider Nurse Practitioner
DX: R59.0 Localized enlarged lymph nodes (principal); Z85.79 Personal history of other malignant neoplasms of lymphoid, hematopoietic and related tissues; J38.6 Stenosis of larynx
CPT/HCPCS: 70491; 82565; 84520

== ENCOUNTER 2025-09-17 09:12 | Outpatient (CLI) | payer MEDICARE, SELFPAY ==
--- NOTE | 2025-09-17 16:19 | FL_ITS ---
FL barium swallow [id number] REASON FOR EXAM: PARALYSIS VOCAL CORDS UNILATERAL FLUOROSCOPY TIME: 1min [id number] # OF SPOT FILMS: Multiple TECHNIQUE: Patient was examined in the standing upright PA and lateral projections in the OLIVER prone position. Swallowing of barium was monitored fluoroscopically and multiple rapid sequence spot films obtained. FINDINGS: In the cervical esophagus there was no aspiration and no laryngeal vestibule penetration. No significant cricopharyngeal impingement. In the upright position of the thoracic esophagus demonstrated normal motility and anatomy. In the prone position there were intermittent periods of lower esophageal sphincter spasm with retention of contrast in the mid thoracic esophagus. Intermittently there were contractions in the mid esophagus which haven't changed. Sternal notch. IMPRESSION: No abnormality of the cervical esophagus. Normal motility in the upright position. Intermittent dysmotility in the prone OLIVER position. MTDD
== END 2025-09-17 09:13 | disposition home or self-care (01) ==
LOC: RAD 09:13
PROVIDERS: PCP Nurse Practitioner; Visit Provider Specialist
DX: J38.01 Paralysis of vocal cords and larynx, unilateral (principal)
CPT/HCPCS: 74220

== ENCOUNTER 2025-09-23 10:47 | Outpatient (CLI) | payer MEDICARE, SELFPAY ==
--- NOTE | 2025-09-23 10:54 | FL_ITS ---
WS: [id number] Modified barium swallow, 09/23/2025 Clinical Data: Other dysphagia Comparison: None. Fluoroscopy time: 2min [id number] # of spot films: Findings: The patient initiated swallowing normally. There was premature spillage to the vallecula but the residue did clear. There is no aspiration or penetration. The material was propelled normally through the hypopharynx. The barium tablet moved normally from the oral cavity to the hypopharynx and then into the esophagus. There was a slight delay in the midesophagus before the barium tablet passed into the stomach. FL/FL barium swallow modifd [id number] Impression: 1. Normal swallowing. 2. Premature spillage from the oral cavity to the vallecula. 3. No aspiration or penetration. 4. Minimal mid esophageal delay in propelling the barium tablet.
== END 2025-09-23 10:48 | disposition home or self-care (01) ==
LOC: RAD 10:48
PROVIDERS: PCP Nurse Practitioner; Visit Provider Specialist
DX: J38.01 Paralysis of vocal cords and larynx, unilateral (principal); R13.13 Dysphagia, pharyngeal phase
CPT/HCPCS: 74230; 92611